=== PATIENT | female | born 1955 ===

== ENCOUNTER 2020-06-05 07:40 | Outpatient (REF) | payer MEDICARE, OTHER, SELFPAY ==
[2020-06-05 09:45] LABS: MANUAL DIFF FLAG NO
[2020-06-05 09:58] LABS: Basophils Percent Auto 0.4 % (0-2); Hematocrit 43.2 % (37-47); Imm Gran Abs Auto 0.03 X10*3/uL (0.00-0.03); Imm Gran Pct Auto 0.4 % (0.0-0.4); Lymphocytes Absolute Auto 2.4 X10*3/uL (1.2-4.9); Lymphocytes Percent Auto 32.8 % (20-40); Mean Corpuscular HGB Conc 32.4 g/dl (31.0-35.0); Mean Corpuscular Hemoglobin 27.1 pg (27.0-33.0); Mean Corpuscular Volume 83.6 fL (80-98); Mean Platelet Volume 11.6 fL (9.4-12.3); Monocytes Absolute Auto 0.5 X10*3/uL (0.1-1.2); Monocytes Percent Auto 7.1 % (2-11); Neutrophils Absolute Auto 4.4 X10*3/uL (2.0-8.3); Neutrophils Percent Auto 59.3 % (45-73); Platelet Count 195 X10*3/uL (160-400); Red Blood Count 5.17 X10*6/uL (4.20-5.50); Red Cell Distribution Width 15.1 % (11.0-16.0); White Blood Count 7.3 X10*3/uL (4.8-10.8)
[2020-06-05 10:18] LABS: Estimated Average Glucose 186 mg/dL; Hemoglobin A1c % 8.1 %
[2020-06-05 10:31] LABS: Alanine Aminotransferase 19 U/L (0-31); Albumin Level 4.2 g/dL (3.5-5.0); Alkaline Phosphatase 47 U/L (39-117); Anion Gap 14 (12-20); Aspartate Amino Transferase 17 U/L (5-31); Bilirubin Total 0.4 mg/dL (0.0-1.0); Blood Urea Nitrogen 15 mg/dL (9-16); Calcium 9.4 mg/dL (8.4-10.2); Carbon Dioxide 27 mmol/L (22-29); Chloride 104 mmol/L (96-108); Cholesterol 141 mg/dL; Estimated Glomerular Filt Rate > 60; Glucose Fasting 124 mg/dL (60-99); HDL Cholesterol 31 mg/dL; LDL Cholesterol Calculated 67 mg/dl; Potassium 4.7 mmol/l (3.3-5.1); Sodium 140 mmol/L (135-145); Total Protein 7.3 g/dL (6.5-8.0); Triglycerides 217 mg/dL
[2020-06-05 10:45] LABS: Glucose Urine UA >=1000 MG/DL (NEG); Leukocyte Esterase Urine NEG (NEG); Nitrite Urine NEG (NEG); Specific Gravity - Urine 1.015 (1.005-1.025); Urine Blood 2+ (NEG); Urine Ketones NEG (NEG); Urine Protein NEG (NEG-TRACE)
[2020-06-05 10:50] LABS: Appearance Urine HAZY; Color Urine YELLOW
[2020-06-05 10:55] LABS: Free T4 (Free Thyroxine) 1.09 ng/dL (0.71-1.85); Thyroid Stimulating Hormone 3.87 mIU/mL (0.32-4.0); Vitamin D 25-OH Total 39.2 ng/mL (>30)
[2020-06-05 10:57] LABS: Creatinine Urine 79.37 mg/dL; Microalbum/Creatinine Ratio Ur 50.3 ug/mg cr
[2020-06-05 11:10] LABS: Bacteria Urine 1+ /LPF; Mucus Urine 1+ /LPF; Squamous Epithelial Cell Urine 1+ /LPF; WBC Urine 0-2 /HPF (0-4)
== END 2020-06-05 07:41 | disposition home or self-care (01) ==
LOC: HO.10HDL 07:40
PROVIDERS: Visit Provider Internal Medicine
DX: I25.118 Atherosclerotic heart disease of native coronary artery with other forms of angina pectoris (principal); E11.42 Type 2 diabetes mellitus with diabetic polyneuropathy; I10 Essential (primary) hypertension; E78.5 Hyperlipidemia, unspecified; E03.9 Hypothyroidism, unspecified; E66.9 Obesity, unspecified; I25.5 Ischemic cardiomyopathy; E55.9 Vitamin D deficiency, unspecified
CPT/HCPCS: 36415; 80053; 80061; 81001; 82043; 82306; 83036; 84439; 84443; 85025

== ENCOUNTER → 2020-07-14 13:13 | Outpatient (BNVA) | payer MEDICARE, MEDICAID, SELFPAY | PROVIDERS: PCP Internal Medicine; Referring Provider Internal Medicine; Visit Provider Internal Medicine | DX: I25.5 Ischemic cardiomyopathy (principal); I25.10 Atherosclerotic heart disease of native coronary artery without angina pectoris; I47.2 Ventricular tachycardia; Z45.018 Encounter for adjustment and management of other part of cardiac pacemaker; Z95.5 Presence of coronary angioplasty implant and graft | CPT/HCPCS: 93005; 99212 ==

== ENCOUNTER 2020-07-31 13:00 | Outpatient (RCR) | payer MEDICARE, MEDICAID, SELFPAY | END 2020-08-07 23:55 | disposition home or self-care (01) | LOC: HO.PAOS 13:00 | PROVIDERS: Visit Provider Counselor Mental Health | DX: F06.30 Mood disorder due to known physiological condition, unspecified (principal); F43.10 Post-traumatic stress disorder, unspecified | CPT/HCPCS: 90834 ==

== ENCOUNTER 2020-09-16 07:34 | Outpatient (REF) | payer MEDICARE, MEDICAID, SELFPAY ==
[2020-09-16 10:08] LABS: MANUAL DIFF FLAG NO
[2020-09-16 10:13] LABS: Basophils Percent Auto 0.4 % (0-2); Hematocrit 43.4 % (37-47); Imm Gran Abs Auto 0.03 X10*3/uL (0.00-0.03); Imm Gran Pct Auto 0.4 % (0.0-0.4); Lymphocytes Absolute Auto 3.2 X10*3/uL (1.2-4.9); Lymphocytes Percent Auto 38.5 % (20-40); Mean Corpuscular HGB Conc 32.3 g/dl (31.0-35.0); Mean Corpuscular Hemoglobin 27.1 pg (27.0-33.0); Mean Corpuscular Volume 83.9 fL (80-98); Mean Platelet Volume 10.9 fL (9.4-12.3); Monocytes Absolute Auto 0.6 X10*3/uL (0.1-1.2); Monocytes Percent Auto 7.2 % (2-11); Neutrophils Absolute Auto 4.4 X10*3/uL (2.0-8.3); Neutrophils Percent Auto 53.5 % (45-73); Platelet Count 181 X10*3/uL (160-400); Red Blood Count 5.17 X10*6/uL (4.20-5.50); Red Cell Distribution Width 14.9 % (11.0-16.0); White Blood Count 8.2 X10*3/uL (4.8-10.8)
[2020-09-16 10:43] LABS: Glucose Urine UA >=1000 MG/DL (NEG); Leukocyte Esterase Urine NEG (NEG); Nitrite Urine NEG (NEG); PH 6.5 (5.0-8.0); Urine Blood NEG (NEG); Urine Ketones NEG (NEG); Urine Protein NEG (NEG-TRACE)
[2020-09-16 10:46] LABS: Appearance Urine CLEAR; Color Urine YELLOW
[2020-09-16 10:58] LABS: Alanine Aminotransferase 16 U/L (0-31); Albumin Level 4.1 g/dL (3.5-5.0); Alkaline Phosphatase 45 U/L (39-117); Anion Gap 13 (12-20); Aspartate Amino Transferase 14 U/L (5-31); Bilirubin Total 0.4 mg/dL (0.0-1.0); Blood Urea Nitrogen 19 mg/dL (9-16); Carbon Dioxide 27 mmol/L (22-29); Chloride 101 mmol/L (96-108); Cholesterol 130 mg/dL; Estimated Glomerular Filt Rate > 60; Glucose Fasting 109 mg/dL (60-99); HDL Cholesterol 32 mg/dL; LDL Cholesterol Calculated 56 mg/dl; Potassium 4.4 mmol/l (3.3-5.1); Sodium 137 mmol/L (135-145); Triglycerides 213 mg/dL
[2020-09-16 11:06] LABS: RBC Urine 0 /HPF (0); Squamous Epithelial Cell Urine TRACE /LPF; WBC Urine 0 /HPF (0-4)
[2020-09-16 11:21] LABS: Free T4 (Free Thyroxine) 1.08 ng/dL (0.71-1.85); Thyroid Stimulating Hormone 5.24 uIU/mL (0.32-4.0); Vitamin D 25-OH Total 32.6 ng/mL (>30)
[2020-09-16 11:33] LABS: Folate 11.1 ng/mL (> or = 4.0); Vitamin B12 406 pg/mL (200-900)
== END 2020-09-16 07:35 | disposition home or self-care (01) ==
LOC: HO.10HDL 07:34
PROVIDERS: Visit Provider Internal Medicine
DX: E11.42 Type 2 diabetes mellitus with diabetic polyneuropathy (principal); Z79.4 Long term (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 of insulin; I10 Essential (primary) hypertension; E78.00 Pure hypercholesterolemia, unspecified; I25.5 Ischemic cardiomyopathy; I25.118 Atherosclerotic heart disease of native coronary artery with other forms of angina pectoris; E55.9 Vitamin D deficiency, unspecified; G62.9 Polyneuropathy, unspecified; E03.9 Hypothyroidism, unspecified; E66.9 Obesity, unspecified
CPT/HCPCS: 36415; 80053; 80061; 81001; 82043; 82306; 82607; 82746; 84439; 84443; 85025

== ENCOUNTER → 2021-01-08 07:21 | Outpatient (REF) | payer MEDICARE, MEDICAID, SELFPAY ==
--- NOTE | 2021-01-08 07:30 | CA_ITS ---
Transthoracic Echocardiogram Patient (Last, First, Middle): Hien Aden, Gender: Female Date of : 1955 Age: 65 Procedure Date: 01/08/2021 Procedure Type: Transthoracic Echocardiogram Location: OP Height: 162.56 cm Weight: 86.18 kg BSA: 1.91 m2 Heart Rate: bpm BP: 138 / 70 mmHg Return Checker: Stephani MD: Casa Polk MD Yard Worker: Corky Quinonez MD Symptoms: I25.5 - Ischemic cardiomyopathy ECG Rhythm: Sinus Conclusions: - 1. Moderate to severe LV systolic dysfunction with regional wall motion of in the LAD territory consistent with ischemic cardiomyopathy with grade 2 diastolic dysfunction 2. Mildly dilated left atrium 3. Mild mitral regurgitation 4. No gross pericardial effusion Findings Procedure Information The patient receives contrast. Left Ventricle Mildly increased left ventricular cavity size. There is normal left ventricular wall thickness. The left ventricular systolic function is moderate to severely decreased. The visually estimated ejection fraction is between 30-35%. There is evidence of regional wall motion abnormalities. Spectral Doppler is indicative of a pseudonormal filling pattern. Elevated filling pressures. E/E prime ratio is >15, consistent with elevated filling pressures. Evidence suggests grade II (moderate) diastolic dysfunction. Wall Motion Rest Echo Findings The mid anterior, basal inferoseptal, and basal anteroseptal segments are hypokinetic. The apical anterior, apical lateral, apical septum, mid inferoseptal, and mid anteroseptal segments are akinetic. The apex segment is dyskinetic. All other scored wall segments showed normal motion. Right Ventricle Normal right ventricular cavity size and systolic function. There is an ICD wire seen in the right ventricle. Atria The left atrium is mildly dilated. There is no evidence of interatrial shunt. The right atrium is normal in size. Aortic Valve Normal aortic valve structure and function. There is no aortic valve stenosis. There is no aortic valve regurgitation. Mitral Valve Normal mitral valve structure and function. There is mild mitral valve regurgitation. There is no mitral valve stenosis. Pulmonic Valve The pulmonic valve was not well visualized. Tricuspid Valve Likely normal tricuspid valve structure and function. Tricuspid regurgitation envelope is inadequate for calculation of right ventricular systolic pressure. Great Vessels All visible segments of the aorta are normal in size. The pulmonary artery was not well visualized. Venous The inferior vena cava is normal in size and collapses greater than 50% with inspiration. Pericardium/Pleural There is no evidence of pericardial effusion. Prior Study Comparison No significant change compared to prior study dated: 03/22/2019. Measurements 2D Linear Measurements RVIDd: 2.96 RVIDd Index: 1.55 IVSd: 0.88 0.6-0.9/0.6-1.0 cm LVIDd: 5.83 3.9-5.3/4.2-5.9 cm LVIDd Index: 3.05 2.4-3.2/2.2-3.1 cm/m2 LVIDs: 3.97 2.0-3.6 cm LVPWd: 1.06 0.7-1.1 cm Ao Root: 3.10 2.1-3.5 cm LA Diam: 4.80 2.7-3.8/3.0-4.0 cm LAIDs Index: 2.51 1.5-2.3 cm/m2 LV Mass: 281.97 67-162/88-224 g LV Mass Index: 147.63 43-95/49-115 g/m2 LVOT Diam: 2.00 3.0+(-)1.3 cm 2D Systolic Function EF 4C: 32.10 >55% EF 2C: 30.80 >55% EF BiP: 32.90 >55% Mitral Valve MV Pk E: 0.82 MV PK A: 0.73 MV Decel Time: 229.00 E/A: 1.10 E'Lateral: 7.25 E'Medial: 4.35 E/E' Med: 18.90 E/E' Lat: 11.30 MR Vol - PW Dopp: 18.12 MR VTI: 1.51 MR ERO: 12.00 MR Alias Guzman: 0.32 MR RAD: 0.50 Aortic Valve AoV Pk Guzman: 1.45 AoV Mn Guzman: 0.98 AoV VTI: 0.30 AoV Pk Grad: 8.00 Aov Mn Grad: 5.00 KRYSTINA Cont.VTI: 1.63 LVOT LVOT Pk Guzman: 0.68 LVOT Mn Guzman: 0.46 LVOT VTI: 0.15 LVOT Pk Grad: 2.00 LVOT Mn Grad: 1.00 LVOT Diam: 2.00 LVOT Area: 3.14 Diastolic Function MV Pk E: 0.82 MV Pk A: 0.73 E/A: 1.10 E'Medial: 4.35 E/E' Med: 18.90 E' Laterial: 7.25 E/E' Lat: 11.30 Tricuspid Valve RA Press: 3.00 Great Vessels Aorta Ao Root-2D: 3.10 2.0-3.7 cm Ao Asc: 3.00 2.1-3.4 cm Ao Arch: 2.80 Updated in Other Vendor System with Status of Final Corky Quinonez MD electronically signed on 01/09/2021 4:04:17 PM with status of Final
[2021-01-08 09:47] LABS: MANUAL DIFF FLAG NO
[2021-01-08 09:55] LABS: Basophils Percent Auto 0.5 % (0-2); Hematocrit 45.9 % (37-47); Hemoglobin 14.8 g/dl (12.0-16.0); Imm Gran Abs Auto 0.03 X10*3/uL (0.00-0.03); Imm Gran Pct Auto 0.4 % (0.0-0.4); Lymphocytes Absolute Auto 2.2 X10*3/uL (1.2-4.9); Lymphocytes Percent Auto 29.8 % (20-40); Mean Corpuscular HGB Conc 32.2 g/dl (31.0-35.0); Mean Corpuscular Volume 83.8 fL (80-98); Mean Platelet Volume 11.3 fL (9.4-12.3); Monocytes Absolute Auto 0.6 X10*3/uL (0.1-1.2); Monocytes Percent Auto 7.8 % (2-11); Neutrophils Absolute Auto 4.6 X10*3/uL (2.0-8.3); Neutrophils Percent Auto 61.5 % (45-73); Platelet Count 186 X10*3/uL (160-400); Red Blood Count 5.48 X10*6/uL (4.20-5.50); White Blood Count 7.4 X10*3/uL (4.8-10.8)
[2021-01-08 09:59] LABS: Glucose Urine UA >=1000 MG/DL (NEG); Leukocyte Esterase Urine NEG (NEG); Nitrite Urine NEG (NEG); PH 5.5 (5.0-8.0); Specific Gravity - Urine <= 1.005 (1.005-1.025); Urine Blood NEG (NEG); Urine Ketones NEG (NEG); Urine Protein NEG (NEG-TRACE)
[2021-01-08 10:01] LABS: Appearance Urine CLEAR; Color Urine YELLOW
[2021-01-08 10:12] LABS: Bacteria Urine TRACE /LPF; Squamous Epithelial Cell Urine 2+ /LPF
[2021-01-08 10:27] LABS: Alanine Aminotransferase 19 U/L (0-31); Albumin Level 4.6 g/dL (3.5-5.0); Alkaline Phosphatase 54 U/L (39-117); Anion Gap 15 (12-20); Aspartate Amino Transferase 15 U/L (5-31); Bilirubin Total 0.3 mg/dL (0.0-1.0); Blood Urea Nitrogen 26 mg/dL (9-16); Carbon Dioxide 26 mmol/L (22-29); Chloride 100 mmol/L (96-108); Cholesterol 147 mg/dL; Estimated Glomerular Filt Rate 55; Glucose Fasting 201 mg/dL (60-99); HDL Cholesterol 34 mg/dL; LDL Cholesterol Calculated 66 mg/dl; Potassium 4.7 mmol/L (3.3-5.1); Sodium 136 mmol/L (135-145); Total Protein 7.8 g/dL (6.5-8.0); Triglycerides 235 mg/dL
[2021-01-08 10:33] LABS: Free T4 (Free Thyroxine) 1.06 ng/dL (0.71-1.85); Thyroid Stimulating Hormone 4.52 uIU/mL (0.32-4.0); Vitamin D 25-OH Total 40.4 ng/mL (>30)
[2021-01-08 10:49] LABS: Creatinine Urine 21.96 mg/dL
== END ==
LOC: HO.CARD 07:21
PROVIDERS: Absent Provider Internal Medicine; PCP Internal Medicine; Visit Provider Internal Medicine
DX: I25.5 Ischemic cardiomyopathy (principal); I10 Essential (primary) hypertension; E78.00 Pure hypercholesterolemia, unspecified; E11.42 Type 2 diabetes mellitus with diabetic polyneuropathy; I25.118 Atherosclerotic heart disease of native coronary artery with other forms of angina pectoris; E03.9 Hypothyroidism, unspecified; E66.9 Obesity, unspecified; G62.9 Polyneuropathy, unspecified; E55.9 Vitamin D deficiency, unspecified; Z79.4 Long term (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 of insulin
CPT/HCPCS: 36415; 80053; 80061; 81001; 81003; 82043; 82306; 84439; 84443; 85025; 93306; Q9957

== ENCOUNTER → 2021-01-12 12:59 | Outpatient (BNVA) | payer MEDICARE, MEDICAID, SELFPAY | PROVIDERS: PCP Internal Medicine; Referring Provider Internal Medicine; Visit Provider Internal Medicine | DX: Z45.02 Encounter for adjustment and management of automatic implantable cardiac defibrillator (principal); I25.5 Ischemic cardiomyopathy; I25.10 Atherosclerotic heart disease of native coronary artery without angina pectoris; I47.2 Ventricular tachycardia | CPT/HCPCS: 99212 ==

== ENCOUNTER 2021-03-31 07:14 | Outpatient (REF) | payer MEDICARE, MEDICAID, SELFPAY ==
[2021-03-31 08:04] LABS: MANUAL DIFF FLAG NO
[2021-03-31 08:11] LABS: Basophils Percent Auto 0.2 % (0-2); Hematocrit 45.4 % (37-47); Hemoglobin 14.5 g/dl (12.0-16.0); Imm Gran Abs Auto 0.03 X10*3/uL (0.00-0.03); Imm Gran Pct Auto 0.4 % (0.0-0.4); Lymphocytes Absolute Auto 1.1 X10*3/uL (1.2-4.9); Lymphocytes Percent Auto 13.3 % (20-40); Mean Corpuscular HGB Conc 31.9 g/dl (31.0-35.0); Mean Corpuscular Hemoglobin 26.7 pg (27.0-33.0); Mean Corpuscular Volume 83.5 fL (80-98); Mean Platelet Volume 11.2 fL (9.4-12.3); Monocytes Absolute Auto 0.7 X10*3/uL (0.1-1.2); Monocytes Percent Auto 7.8 % (2-11); Neutrophils Absolute Auto 6.7 X10*3/uL (2.0-8.3); Neutrophils Percent Auto 78.3 % (45-73); Platelet Count 193 X10*3/uL (160-400); Red Blood Count 5.44 X10*6/uL (4.20-5.50); White Blood Count 8.5 X10*3/uL (4.8-10.8)
[2021-03-31 08:18] LABS: Estimated Average Glucose 200 mg/dL; Hemoglobin A1c % 8.6 %
[2021-03-31 08:36] LABS: Alanine Aminotransferase 684 U/L (0-31); Albumin Level 4.4 g/dL (3.5-5.0); Alkaline Phosphatase 133 U/L (39-117); Anion Gap 14 (12-20); Aspartate Amino Transferase 652 U/L (5-31); Bilirubin Total 1.7 mg/dL (0.0-1.0); Blood Urea Nitrogen 17 mg/dL (9-16); Calcium 9.8 mg/dL (8.4-10.2); Carbon Dioxide 25 mmol/L (22-29); Chloride 103 mmol/L (96-108); Cholesterol 127 mg/dL; Estimated Glomerular Filt Rate 57; Glucose Fasting 161 mg/dL (60-99); HDL Cholesterol 37 mg/dL; LDL Cholesterol Calculated 60 mg/dl; Potassium 4.7 mmol/L (3.3-5.1); Sodium 137 mmol/L (135-145); Total Protein 7.8 g/dL (6.5-8.0); Triglycerides 154 mg/dL
[2021-03-31 08:58] LABS: Thyroid Stimulating Hormone 2.75 uIU/mL (0.32-4.0); Vitamin D 25-OH Total 41.1 ng/mL (>30)
[2021-03-31 09:19] LABS: Appearance Urine CLOUDY; Color Urine YELLOW; Glucose Urine UA >=1000 MG/DL (NEG); Leukocyte Esterase Urine NEG (NEG); Nitrite Urine NEG (NEG); Specific Gravity - Urine <= 1.005 (1.005-1.025); Urine Blood NEG (NEG); Urine Ketones NEG (NEG); Urine Protein TRACE MG/DL (NEG-TRACE)
[2021-03-31 09:21] LABS: Creatinine Urine 82.74 mg/dL; Microalbum/Creatinine Ratio Ur 84.6 ug/mg cr
[2021-03-31 09:26] LABS: Folate 15.9 ng/mL (> or = 4.0); Vitamin B12 974 pg/mL (200-900)
[2021-03-31 09:32] LABS: Bacteria Urine 1+ /LPF; RBC Urine 0 /HPF (0); Squamous Epithelial Cell Urine 4+ /LPF
== END 2021-03-31 07:15 | disposition home or self-care (01) ==
LOC: HO.LAB 07:14
PROVIDERS: PCP Internal Medicine; Visit Provider Internal Medicine
DX: I25.118 Atherosclerotic heart disease of native coronary artery with other forms of angina pectoris (principal); I10 Essential (primary) hypertension; I25.5 Ischemic cardiomyopathy; L42 Pityriasis rosea; E11.42 Type 2 diabetes mellitus with diabetic polyneuropathy; E78.00 Pure hypercholesterolemia, unspecified; E03.9 Hypothyroidism, unspecified; E66.9 Obesity, unspecified; E55.9 Vitamin D deficiency, unspecified; G62.9 Polyneuropathy, unspecified; Z79.4 Long term (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 of insulin
CPT/HCPCS: 36415; 80053; 80061; 81001; 81003; 82043; 82306; 82607; 82746; 83036; 84439; 84443; 85025

== ENCOUNTER 2021-04-20 11:06 | Outpatient (REF) | payer MEDICARE, MEDICAID, SELFPAY ==
--- NOTE | ~2021-04-20 | MM_ITS ---
EXAMINATION: MM SCREENING DIGITAL BREAST TOMOSYNTHESIS, BILATERAL CLINICAL INFORMATION: Invasive ductal cancer left breast, 2008. Right breast DCIS, 2013. Benign right stereotactic biopsy 2014. Due for yearly. COMPARISON: Mammography: 04/16/2020, 03/29/2019, 03/27/2018 TECHNIQUE: Digital breast tomosynthesis is performed in both the craniocaudal and mediolateral oblique views along with computer-aided detection (CAD). Synthesized 2D images are generated from the tomosynthesis. FINDINGS: There are scattered areas of fibroglandular density (ACR BI-RADS breast composition Category b). There is stable scarring consistent with the prior bilateral lumpectomies. Pacemaker generator overlies and partly obscures left axilla on MLO view. There are some surgical clips left axilla. Biopsy clip marker again seen posterior central right breast. Neither breast shows interval developing density, mass, or architectural abnormality. There are scattered bilateral benign coarse and fine punctate round calcifications in each breast. No significant changes. MM/MM tomosynthesis screening BI IMPRESSION: No mammographic evidence of malignancy. Bilateral stable post therapy changes. ASSESSMENT: BI-RADS 2: Benign RECOMMENDATION: Routine annual mammography screening. This patient's information was entered into a reminder system with a target due date for their next mammogram.
== END 2021-04-20 11:07 | disposition home or self-care (01) ==
LOC: HO.MAMMO 11:06
PROVIDERS: PCP Internal Medicine; Visit Provider Internal Medicine Medical Oncology
DX: Z12.31 Encounter for screening mammogram for malignant neoplasm of breast (principal)
CPT/HCPCS: 77063; 77067

== ENCOUNTER 2021-04-28 13:21 | Outpatient (REF) | payer MEDICARE, MEDICAID, SELFPAY ==
[2021-04-28 14:58] LABS: Gamma Glutamyl Transpeptidase 168 U/L (7-33)
[2021-04-28 15:02] LABS: Appearance Urine CLEAR; Color Urine STRAW; Glucose Urine UA >=1000 MG/DL (NEG); Leukocyte Esterase Urine NEG (NEG); Nitrite Urine NEG (NEG); Urine Blood NEG (NEG); Urine Ketones NEG (NEG); Urine Protein NEG (NEG-TRACE)
[2021-04-28 15:10] LABS: RBC Urine 0-2 /HPF (0); WBC Urine 0-2 /HPF (0-4)
[2021-04-28 15:11] LABS: Squamous Epithelial Cell Urine 1+ /LPF
[2021-04-28 15:14] LABS: Ferritin 103 ng/mL (10-250)
[2021-04-29 08:32] LABS: HBc Num1 0.08 S/CO (0.00-0.79); HBsAGNum1 0.18 S/CO (0.00-0.99); Hepatitis A Antibody IgM 0.19 Index (0-0.79); Hepatitis B Core Antibody Nonreactive (Nonreactive); Hepatitis B Surface Antigen Negative (Negative); ~HepC Num1 0.09 S/CO (0.00-0.79); ~Hepatitis A Antibody IgM Nonreactive (Nonreactive); ~Hepatitis C Antibody Nonreactive (Nonreactive)
[2021-04-29 08:43] LABS: HBS Num1 0.61 mIU/mL (0-7.99); ~Hepatitis B Surface Antibody NONREACTIVE (Nonreactive)
== END 2021-04-28 13:22 | disposition home or self-care (01) ==
LOC: HO.LAB 13:21
PROVIDERS: PCP Internal Medicine; Visit Provider Internal Medicine
DX: Z01.84 Encounter for antibody response examination (principal); R74.01 Elevation of levels of liver transaminase levels
CPT/HCPCS: 36415; 81001; 81003; 82728; 82977; 86704; 86706; 86709; 86803; 87340

== ENCOUNTER 2021-05-10 14:16 | Inpatient (IN) | payer MEDICARE, MEDICAID, SELFPAY ==
--- NOTE | 2021-05-10 | ECG_ITS ---
Test Reason : MEDICAL Blood Pressure : / mmHG Vent. Rate : 085 BPM Atrial Rate : 085 BPM P-R Int : 154 ms QRS Dur : 116 ms QT Int : 360 ms P-R-T Axes : 051 -65 082 degrees QTc Int : 428 ms Normal sinus rhythm Possible Left atrial enlargement Left axis deviation Left ventricular hypertrophy with QRS widening Inferior infarct (cited on or before 09-AUG-2017) Anteroseptal infarct (cited on or before 09-AUG-2017) Abnormal ECG When compared with ECG of 09-AUG-2017 09:11, Questionable change in initial forces of Lateral leads ST less elevated in Anterior leads Nonspecific T wave abnormality, worse in Lateral leads Referred By: Hasmukh Quiroz Electronically Signed By:ALICE NGUYEN
--- NOTE | ~2021-05-10 | XR_ITS ---
EXAMINATION: XR CHEST CLINICAL INFORMATION: 1 placement COMPARISON: Previous chest x-ray most recent July [address] 05/10/2021 TECHNIQUE: Frontal view of the chest was obtained. FINDINGS: There is a new left jugular line. The tip projects over the right upper chest probably in the right subclavian vein. There is a left subclavian single chamber pacemaker that appears unchanged. The lung volumes are low. The cardiac silhouette may be slightly enlarged. There is crowding of the central bronchovascular markings. It is difficult to exclude pneumonia or edema. There is no pleural effusion or pneumothorax. There are degenerative changes of the spine. XR/XR chest 1V IMPRESSION: Left jugular line tip projects over right subclavian vein. No pneumothorax. Low lung volumes and crowding of the central bronchovascular markings. It is difficult to exclude pneumonia or pulmonary edema..
--- NOTE | ~2021-05-10 | US_ITS ---
EXAMINATION: US ABDOMEN COMPLETE CLINICAL INFORMATION: Elevated liver function testing.. COMPARISON: None TECHNIQUE: Real-time imaging of the abdominal viscera. FINDINGS: Reportedly the patient is unable to suspend respirations. This limits the exam PANCREAS: The pancreas is obscured. ABDOMINAL AORTA: No aneurysm demonstrated. Much of the aorta was obscured by gas. INFERIOR VENA CAVA: No suspicious abnormality in the visualized portions of the IVC LIVER: Reportedly the patient is unable to suspend respirations. Limited assessment. No suspicious focal lesion. Suspect some generalized increased hepatic echogenicity. This could be related to fatty change. There is no intrahepatic biliary duct dilatation seen. GALLBLADDER: There is a 2 cm gallstone. There is no definite gallbladder wall thickening or localized pericholecystic fluid. No reported tenderness to transducer pressure over the gallbladder. COMMON BILE DUCT: Normal in caliber measuring 0.6 cm in diameter. There may be some low-level echoes within the common duct. RIGHT KIDNEY: Normal. No hydronephrosis. No renal calculi or focal parenchymal lesions. The kidney measures 11.3 cm in maximum dimension. LEFT KIDNEY: There is a sharply circumscribed 1.5 cm round hypoechoic mass with a sharp interface with the adjacent cortex. There is posterior enhancement and no color signal. This is most consistent with a cyst and does not require any further evaluation. No hydronephrosis. No renal calculi or focal parenchymal lesions. The kidney measures 11.2 cm in maximum dimension. SPLEEN: Normal. The spleen measures 10.5 cm in maximum dimension. FREE FLUID: None. US/US abdomen complete IMPRESSION: Limited study. Cholelithiasis. There may be some low-level echoes within the common duct
--- NOTE | ~2021-05-10 | XR_ITS ---
EXAMINATION: XR THORACOLUMBAR SPINE CLINICAL INFORMATION: Back pain COMPARISON: None TECHNIQUE: AP, lateral and swimmer's views FINDINGS: No acute fracture or traumatic malalignment. Bulky bridging osteophytes present throughout the thoracic spine. Vertebral body heights maintained. There is spinal soft tissues unremarkable. XR/XR thoracic spine 2V IMPRESSION: No compression fractures or subluxations are identified.
--- NOTE | ~2021-05-10 | CT_ITS ---
EXAMINATION: CT CHEST, ABDOMEN AND PELVIS WITH CONTRAST CLINICAL INFORMATION: Clinical suspicion of pneumonia. Abdomen pain. Elevated liver function testing. COMPARISON: Portions of recent abdomen ultrasound. TECHNIQUE: Multidetector CT of the chest, abdomen and pelvis. The patient received: Oral contrast: No Intravenous contrast: 85 mL Omnipaque 350 No contrast reaction reported Sagittal and coronal reformatted images were obtained on the technologist workstation. Total exam dose-length product 879 mGy-cm FINDINGS: DIGITAL BIOINFORMATICIAN: Devices overlie the patient. Power generator in the left chest wall with opaque cardiac leads. CHEST: Lung: Assessment limited by motion. Artifact related to an implanted power generator in the left chest wall. No suspicious abnormality the trachea or mainstem bronchi. There is a possible 0.5 cm nodule in the posteromedial right lower lobe (series 12, image 272). There is a 0.3 cm nodule in the posterior left lower lobe (series 12, image 282). No lobar or segmental consolidation. Small areas of airspace disease with be difficult to detect due to the motion. Pleura: There is no pleural fluid. There is no pneumothorax. Mediastinum: There are no enlarged mediastinal or hilar lymph nodes. No suspicious abnormality esophagus. Vascular: There are cardiac leads causing artifact in the right atrium and right ventricle. There is calcification in the region of the mitral annulus. There is hypodensity in the course of the LAD which could be related to a stent. The left ventricle is likely dilated. Chest Wall/Axilla: Artifact related to power generator. Surgical clips left axilla. The previous reports indicate history of breast cancer. ABDOMEN/PELVIS: Limited by motion. Liver, Gallbladder, And Biliary Tree: There is diffuse hepatic low attenuation. This is consistent with fatty change. No large focal lesion. The gallbladder is distended. The common duct is prominent. No calcified duct calculus. The low-level echoes on ultrasound are not well visualized. Pancreas: Limited by motion. No large mass. Spleen: No definite abnormality. Adrenal Glands: No definite mass. Kidneys And Ureters: Probable cyst lateral left kidney does not require any further evaluation. Symmetric nephrograms. No suspicious mass. No dilation of the collecting system. Gastrointestinal Tract: Fecal residue throughout the colon. The stomach is distended with fluid. No small bowel dilation. No localized fat stranding. No definite evidence of acute appendicitis. The appendix appears normal caliber. Abdominal Wall: No significant hernia is appreciated. There is subcutaneous thickening. This may be related to previous injections. Lymphovascular Structures And Fluid: There is no abdominal aortic aneurysm. The portal vein is not optimally visualized but at least the main branches and partially enhance. Bladder: No suspicious abnormality. Pelvic Viscera: The uterus appears within normal limits. No suspicious adnexal mass. Musculoskeletal: Degenerative changes in the spine. There is some canal narrowing in the lumbar spine. CT/CT abdomen pelvis w con IMPRESSION: Study limited by motion. There are some small lower lobe pulmonary nodules. Given the history of breast cancer close follow-up is warranted. The patient was unable to suspend respirations which could've obscured additional nodules. I recommend a follow-up CT in 6 months. Fatty change in liver. Known cholelithiasis. Prominent common duct. In the presence of elevated liver function testing and cholelithiasis MRCP may BE warranted. Coronary stent suspected. The left ventricle appears dilated.
--- NOTE | ~2021-05-10 | XR_ITS ---
EXAMINATION: XR CHEST CLINICAL INFORMATION: Status post line placement. COMPARISON: CT chest 05/10/2021 TECHNIQUE: Portable upright AP view of the chest was obtained. FINDINGS: There are low lung volumes. A new left internal jugular central venous line is present which crosses midline to the right side with at level of medial right subclavian vein. There is no pneumothorax. Unipolar AICD again seen. The heart is normal in size. There is fullness central vasculature. There may be some scattered groundglass opacities. There are air bronchograms left infrahilar region suggesting airspace opacities. No lobar or segmental airspace consolidation or significant effusion. Results communicated and confirmed with Dr. Archer via secure text at 1704 hours. XR/XR chest 1V IMPRESSION: 1. Status post left internal jugular central venous line with tip coursing midline and ending in region of contralateral medial right subclavian vein. No pneumothorax. 2. Low lung volumes. Fullness central vasculature. Scattered opacities left infrahilar region.
--- NOTE | ~2021-05-10 | XR_ITS ---
EXAMINATION: XR LUMBAR SPINE CLINICAL INFORMATION: Pain COMPARISON: 05/10/2021 TECHNIQUE: Three views of the lumbar spine. FINDINGS: Mild scoliosis of the upper lumbar spine. There is anatomic alignment of the lumbar vertebral bodies and posterior elements. Vertebral body heights are maintained. No acute fracture is seen. Relatively mild disc space narrowing is most prominent at L4-L5 and surrounding endplate osteophytes. Endplate osteophytes are also noted at L2-L3. There is suspected facet arthropathy in the lower lumbar spine. Sacroiliac joints appear intact. XR/XR lumbar spine 1V IMPRESSION: No acute findings identified. Degenerative changes as noted above.
--- NOTE | ~2021-05-10 | FL_ITS ---
EXAMINATION: XR FLUOROSCOPY WITH IMAGES CLINICAL INFORMATION: ERCP. COMPARISON: None. TECHNIQUE: Fluoroscopy performed by Dr. Charles Gar.. Fluoroscopy time: 2.0 minutes DAP: 14.3 mGycm2 Images: 8 FINDINGS: On several images obtained during ERCP reveals contrast opacifying the entire CBD. There is no intraluminal filling defect visualized subsequent images reveals a guidewire extending into the common bile duct followed by a distended balloon. FL/FL guidance in OR IMPRESSION: ERCP reveals contrast opacified CBD to be unremarkable. No intraluminal filling defect seen.
[2021-05-10 14:43] VITALS: BP 126/62; PULSE 71; RESP 18; TEMP 36.9; O2SAT 98; BMI 33.5
--- NOTE | 2021-05-10 16:07 | ED.GENADULT ---
HPI - General Adult General Chief complaint: General Medical Stated complaint: back pain , vomiting Time Seen by Provider: 05/10/21 16:07 Source: patient Mode of arrival: ambulatory Limitations: no limitations History of Present Illness HPI narrative: 65 years old female presented to the emergency department with a chief complaint of back pain. She has history of chronic back pain she takes fentanyl patches , she is on gabapentin as well she states that the pain got worse this morning there is no weakness in the legs no numbness in the legs and no urinary incontinence Onset (ago): hour(s) (8) Radiation: back Severity: moderate Quality: aching Pain Consistency: constant Relieving factors: none Exacerbating factors: none Associated symptoms: denies other symptoms Related Data Home Medications Medication Instructions Recorded Confirmed brimonidine 0.1 % eye drops 1 drp OPHTHALMIC (EYE) BID 06/03/20 05/10/21 latanoprost 0.005 % eye drops 1 drp OPHTHALMIC (EYE) BEDTIME 06/03/20 05/10/21 aspirin 81 mg tablet,delayed 81 mg PO DAILY 07/14/20 04/28/21 release docusate sodium 100 mg capsule 100 mg PO BEDTIME 05/10/21 05/10/21 (Colace) ticagrelor 90 mg tablet (Brilinta) 1 tab PO BID 05/10/21 05/10/21 Previous Rx's Medication Instructions Recorded blood-glucose meter (Accu-Chek #1 ea 06/13/20 Catie Plus Meter) empagliflozin 25 mg tablet 25 mg PO DAILY #90 cap 09/19/20 (Jardiance) levothyroxine 50 mcg tablet 50 mcg PO QAM #90 cap 10/19/20 Novolog Flexpen U-100 Insulin 100 30 unit SUBCUT TID #81 cap NS 11/22/20 unit/mL (3 mL) subcutaneous (insulin aspart U-100) gabapentin 400 mg capsule 400 mg PO TID #270 cap 12/21/20 carvedilol 3.125 mg tablet 3.125 mg PO BID #180 cap 01/21/21 insulin detemir U-100 100 unit/mL 70 unit SUBCUT DAILY #63 ml 02/24/21 (3 mL) subcutaneous pen (Levemir FlexTouch U-100 Insulin) isosorbide mononitrate 30 mg 30 mg PO QAM 30 Days #30 tab 03/16/21 tablet,extended release 24 hr spironolactone 25 mg tablet 25 mg PO DAILY #90 tab 03/16/21 fentanyl 50 mcg/hr transdermal 1 patch TRANSDERMAL Q72H 30 Days 04/14/21 patch #10 ea furosemide 20 mg tablet 20 mg PO DAILY #30 cap 04/14/21 lisinopril 2.5 mg tablet 2.5 mg PO DAILY 90 Days #90 tab 04/14/21 lorazepam 0.5 mg tablet 0.5 mg PO DAILY PRN 30 Days #30 tab 04/17/21 Allergies Allergy/AdvReac Type Severity Reaction Status Date / Time No Known Allergies Allergy Mild NOT Verified 05/10/21 14:43 APPLICABLE Review of Systems Review of Systems: Yes all other systems are reviewed and are negative Constitutional: Constitutional: Reports no additional constitutional complaints Cardiovascular: Cardiovascular: Denies chest pain Respiratory: Respiratory: Reports no additional respiratory complaints [facility], [facility] Past Medical History Attestation statement: The following information was validated with the patient. 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 Lumbar degenerative disc disease Major depressive disorder, recurrent episode, mild Neuropathy Obesity (BMI 30-39.9) Osteoarthritis Osteoarthritis of spine with radiculopathy, cervical region Pityriasis rosea Pure hypercholesterolemia Type 2 diabetes mellitus with diabetic polyneuropathy Ventricular tachycardia Vitamin D deficiency Surgical History History of implantable cardioverter-defibrillator (ICD) placement (~06/22/18) History of lumpectomy of both breasts History of percutaneous coronary intervention (~12/2017) History of tubal ligation S/P angioplasty (~07/2017) Family History Family History Mother Heart attack Hypertension CVD (cardiovascular disease) Father Diabetes Social History Social History Housing: House Alcohol intake: never Patient Tobacco Use Status: Never used Tobacco Second Hand Smoke Exposure: Yes Use of substances other than those prescribed or required for medical reasons: No Advance Directives: Yes Advance Directives on File: No Advance Directives Date on File: 06/05/20 service: No Current occupational status: disabled Sexual orientation: Straight/Heterosexual Gender identity: Female Physical Exam Vital Signs: Vital Signs: Last Vital Signs Temp 98.4 F 05/10/21 22:00 Pulse 72 05/11/21 00:00 Resp 16 05/11/21 00:00 BP 95/46 L 05/11/21 00:00 Pulse Ox 98 05/11/21 00:00 Body Mass Index 33.5 Const: General: cooperative, healthy appearing and comfortable Nutritional Appearance: average body habitus Orientation/consciousness: oriented to person, oriented to place, oriented to time and patient oriented x3 HENMT: Head: Yes normal to inspection Face and sinus: Yes normal facial exam Mouth: Normal oral and palatal mucosa present Throat: Yes posterior oropharynx normal Neck: Neck: Yes normal visual inspection, Yes full ROM and Yes no lymphadenopathy Chest: Chest palpation & inspection: normal inspection of the chest and normal palpation of entire chest wall Resp: Effort & Inspection: normal respiratory effort Auscultation: clear to auscultation bilaterally Cardio: Jugular venous distension: no JVD Rate: regular rate Rhythm: regular rhythm GI: Inspection: Yes normal to inspection Palpation (GI): Soft to palpation, not firm, nontender and no guarding Auscultation: normal bowel sounds : General: Yes no CVA tenderness Back/Spine/Pelvis: Back: no CVA tenderness Neuro: General: oriented to person, oriented to place, oriented to time and patient oriented x3 Course Reevaluation(s) Reevaluation #1: stable clinically labs show elevated LFT/US ct gallstones spoke with GI DR Soto will cover with AB and admit Medical Decision Making Lab Data Result diagrams: 05/10/21 17:04 05/10/21 17:04 Labs: Lab Results 05/10/21 05/10/21 05/10/21 Range/Units 16:28 17:04 17:04 WBC 16.6 H (4.8-10.8) X10*3/uL RBC 6.13 H (4.20-5.50) X10*6/uL Hgb 16.7 H (12.0-16.0) g/dl Hct 50.0 H (37-47) % MCV 81.6 (80-98) fL MCH 27.2 (27.0-33.0) pg MCHC 33.4 (31.0-35.0) g/dl RDW 15.0 (11.0-16.0) % Plt Count 214 (160-400) X10*3/uL MPV 10.5 (9.4-12.3) fL Immature Gran % (Auto) 0.5 H (0.0-0.4) % Neut % (Auto) 87.6 H (45-73) % Lymph % (Auto) 6.0 L (20-40) % Placer % (Auto) 5.7 (2-11) % Eos % (Auto) 0.0 (0-4) % Baso % (Auto) 0.2 (0-2) % Lymph # (Auto) 1.0 L (1.2-4.9) X10*3/uL Placer # (Auto) 0.9 (0.1-1.2) X10*3/uL Eos # (Auto) 0.0 (0.0-0.4) X10*3/uL Baso # (Auto) 0.0 (0.0-0.2) X10*3/uL Abs Immat Gran (auto) 0.09 H (0.00-0.03) X10*3/uL Absolute Neuts (auto) 14.5 H (2.0-8.3) X10*3/uL Absolute Nucleated RBC 0.000 (0.0-0.012) X10*3/uL Nucleated RBC % (auto) 0.0 (0.0-0.2) /100WBC PT 11.3 (9.9-13.0) SEC INR 1.0 (0.9-1.1) Sodium (135-145) mmol/L Potassium (3.3-5.1) mmol/L Chloride (96-108) mmol/L Carbon Dioxide (22-29) mmol/L Anion Gap (12-20) BUN (9-16) mg/dL Creatinine (0.5-1.4) mg/dL Estim Creat Clear Calc Estimated GFR POC Glucose 175 H (60-115) mg/dL Random Glucose (60-115) mg/dL Calcium (8.4-10.2) mg/dL Total Bilirubin (0.0-1.0) mg/dL AST (5-31) U/L ALT (0-31) U/L Alkaline Phosphatase (39-117) U/L Total Protein (6.5-8.0) g/dL Albumin (3.5-5.0) g/dL Lipase (8-78) U/L Urine Color Urine Appearance Urine pH (5.0-8.0) Ur Specific [place] (1.005-1.025) Urine Protein (NEG-TRACE) MG/DL Urine Glucose (UA) (NEG) MG/DL Urine Ketones (NEG) MG/DL Urine Blood (NEG) Urine Nitrite (NEG) Ur Leukocyte Esterase (NEG) Urine RBC (0) /HPF Urine WBC (0-4) /HPF Ur Squamous Epith Cells /LPF Urine Bacteria /LPF COVID-19 (HERNANDO) (Negative) COVID-19 Clin Com 05/10/21 05/10/21 05/10/21 Range/Units 17:04 18:40 21:13 WBC (4.8-10.8) X10*3/uL RBC (4.20-5.50) X10*6/uL Hgb (12.0-16.0) g/dl Hct (37-47) % MCV (80-98) fL MCH (27.0-33.0) pg MCHC (31.0-35.0) g/dl RDW (11.0-16.0) % Plt Count (160-400) X10*3/uL MPV (9.4-12.3) fL Immature Gran % (Auto) (0.0-0.4) % Neut % (Auto) (45-73) % Lymph % (Auto) (20-40) % Placer % (Auto) (2-11) % Eos % (Auto) (0-4) % Baso % (Auto) (0-2) % Lymph # (Auto) (1.2-4.9) X10*3/uL Placer # (Auto) (0.1-1.2) X10*3/uL Eos # (Auto) (0.0-0.4) X10*3/uL Baso # (Auto) (0.0-0.2) X10*3/uL Abs Immat Gran (auto) (0.00-0.03) X10*3/uL Absolute Neuts (auto) (2.0-8.3) X10*3/uL Absolute Nucleated RBC (0.0-0.012) X10*3/uL Nucleated RBC % (auto) (0.0-0.2) /100WBC PT (9.9-13.0) SEC INR (0.9-1.1) Sodium 136 (135-145) mmol/L Potassium 4.4 (3.3-5.1) mmol/L Chloride 100 (96-108) mmol/L Carbon Dioxide 22 (22-29) mmol/L Anion Gap 18 (12-20) BUN 13 (9-16) mg/dL Creatinine 0.81 (0.5-1.4) mg/dL Estim Creat Clear Calc 74.5 Estimated GFR > 60 POC Glucose (60-115) mg/dL Random Glucose 188 H (60-115) mg/dL Calcium 10.8 H D (8.4-10.2) mg/dL Total Bilirubin 3.5 H (0.0-1.0) mg/dL AST 730 H (5-31) U/L ALT 529 H (0-31) U/L Alkaline Phosphatase 106 D (39-117) U/L Total Protein 8.8 H (6.5-8.0) g/dL Albumin 4.8 (3.5-5.0) g/dL Lipase 26 (8-78) U/L Urine Color YELLOW Urine Appearance CLEAR Urine pH 7.0 (5.0-8.0) Ur Specific [place] 1.010 (1.005-1.025) Urine Protein 2+ H (NEG-TRACE) MG/DL Urine Glucose (UA) >=1000 H (NEG) MG/DL Urine Ketones 5 (NEG) MG/DL Urine Blood TRACE (NEG) Urine Nitrite NEG (NEG) Ur Leukocyte Esterase NEG (NEG) Urine RBC 1-4 (0) /HPF Urine WBC 0-2 (0-4) /HPF Ur Squamous Epith Cells 1+ /LPF Urine Bacteria NONE /LPF COVID-19 (HERNANDO) Negative (Negative) COVID-19 Clin Com See Note Imaging Data CT scan - abdomen: Radiologist's impression: Pelvic Viscera: The uterus appears within normal limits. No suspicious adnexal mass. Musculoskeletal: Degenerative changes in the spine. There is some canal narrowing in the lumbar spine.? CT/CT abdomen pelvis w con IMPRESSION: Study limited by motion. There are some small lower lobe pulmonary nodules. Given the history of breast cancer close follow-up is warranted. ? The patient was unable to suspend respirations which could've obscured additional nodules. I recommend a follow-up CT in 6 months. ? Fatty change in liver. Known cholelithiasis. Prominent common duct. In the presence of elevated liver function testing and cholelithiasis MRCP may BE warranted. ? Coronary stent suspected. The left ventricle appears dilated. ? Discharge Plan Discharge Clinical Impression: Elevated LFTs, Gallstone, Acute cholangitis Patient Disposition: Admitted As Inpatient
[2021-05-10 16:32] VITALS: BP 177/87; PULSE 85; RESP 16; TEMP 37.2; O2SAT 98
[2021-05-10 16:38] LABS: Glucose, Whole Blood 175 mg/dL (60-115)
[2021-05-10 17:07] LABS: MANUAL DIFF FLAG NO
[2021-05-10] MEDS: ondansetron HCL 4 MG/2 ML VIAL IVPUSH (17:07)
[2021-05-10] MEDS: HYDROmorphone HCl 0.5 MG/0.5 ML SYRINGE IVPUSH (17:07)
[2021-05-10] MEDS: 0.9 % Sodium Chloride 1,000 ML 999 ML IVCONT (17:07)
--- NOTE | 2021-05-10 17:09 | PC.NURSE ---
iv inserted, labs drawn, ekg performed, vss, pt medicated per order, will continue to monitor.
[2021-05-10 17:15] LABS: Prothrombin Time 11.3 SEC (9.9-13.0)
[2021-05-10 17:17] LABS: Basophils Percent Auto 0.2 % (0-2); Hemoglobin 16.7 g/dl (12.0-16.0); Imm Gran Abs Auto 0.09 X10*3/uL (0.00-0.03); Imm Gran Pct Auto 0.5 % (0.0-0.4); Mean Corpuscular HGB Conc 33.4 g/dl (31.0-35.0); Mean Corpuscular Hemoglobin 27.2 pg (27.0-33.0); Mean Corpuscular Volume 81.6 fL (80-98); Mean Platelet Volume 10.5 fL (9.4-12.3); Monocytes Absolute Auto 0.9 X10*3/uL (0.1-1.2); Monocytes Percent Auto 5.7 % (2-11); Neutrophils Absolute Auto 14.5 X10*3/uL (2.0-8.3); Neutrophils Percent Auto 87.6 % (45-73); Platelet Count 214 X10*3/uL (160-400); Red Blood Count 6.13 X10*6/uL (4.20-5.50); White Blood Count 16.6 X10*3/uL (4.8-10.8)
[2021-05-10 17:26] LABS: Alanine Aminotransferase 529 U/L (0-31); Albumin Level 4.8 g/dL (3.5-5.0); Alkaline Phosphatase 106 U/L (39-117); Anion Gap 18 (12-20); Aspartate Amino Transferase 730 U/L (5-31); Bilirubin Total 3.5 mg/dL (0.0-1.0); Blood Urea Nitrogen 13 mg/dL (9-16); Calcium 10.8 mg/dL (8.4-10.2); Carbon Dioxide 22 mmol/L (22-29); Chloride 100 mmol/L (96-108); Creatinine Clr Calc Pharmacy 74.5; Estimated Glomerular Filt Rate > 60; Glucose Random 188 mg/dL (60-115); Potassium 4.4 mmol/L (3.3-5.1); Sodium 136 mmol/L (135-145); Total Protein 8.8 g/dL (6.5-8.0)
[2021-05-10 18:00] VITALS: BP 172/86; PULSE 82; RESP 17; TEMP 37.1; O2SAT 96
[2021-05-10] MEDS: Ketorolac Tromethamine 15 MG/ML VIAL IVPUSH (18:17)
--- NOTE | 2021-05-10 18:21 | PC.NURSE ---
patient a&ox3, engine monitor nsr 80s, vss, pt medicated for pain, will continue to monitor.
[2021-05-10 18:47] LABS: Appearance Urine CLEAR; Color Urine YELLOW; Glucose Urine UA >=1000 MG/DL (NEG); Leukocyte Esterase Urine NEG (NEG); Nitrite Urine NEG (NEG); UACC Culture Trigger NO; Urine Blood TRACE (NEG); Urine Ketones 5 MG/DL (NEG); Urine Protein 2+ MG/DL (NEG-TRACE)
[2021-05-10 18:53] LABS: Lipase 26 U/L (8-78)
[2021-05-10 18:55] LABS: Squamous Epithelial Cell Urine 1+ /LPF; WBC Urine 0-2 /HPF (0-4)
[2021-05-10 20:00] VITALS: BP 101/55; PULSE 88; RESP 18; TEMP 37.2; O2SAT 97
[2021-05-10] MEDS: iohexoL 350 MG/ML 100 ML INFUS..BTL IV (20:13)
--- NOTE | 2021-05-10 20:55 | PC.NURSE ---
patient a&ox3, c/o 02/05 pain, vss, hospitalist in room speaking with patient, pt nsr 80s on phototypesetting equipment monitor.
[2021-05-10] MEDS: cefEPime HCl 2 GM in 0.9 % Sodium Chloride 50 ML IV (21:12)
[2021-05-10 21:59] LABS: COVID-19 Test Negative (Negative); IDNOW Serial# 08D9AD1C
[2021-05-10 22:00] VITALS: BP 105/51; PULSE 76; RESP 18; TEMP 36.9; O2SAT 98
[2021-05-10] MEDS: metroNIDAZOLE/NS 500 MG/100 ML PIGGYBACK 100 MG IV (22:47)
--- NOTE | 2021-05-10 22:51 | PC.NURSE ---
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
--- NOTE | 2021-05-10 23:20 | P.HPHOSP_ITS ---
History of Present Illness Date of Service: 05/10/21 Chief Complaint: back pain This is a 65 year old female with past medical history of hypothyroidism, coronary artery disease status post stent placement, HTN, diabetes, history of breast cancer, HLD, ICD in place, ischemic cardiomyopathy, among others who presents to the hospital with complaints of back pain that is localized to the region between the shoulder blades radiating down her back, not associated with any numbness or tingling in the arms or legs, patient denies any trauma or injury. She describes the pain as shooting pain, not radiating to the chest, about 8/10, she had some nausea and some vomiting episode earlier but no abdominal pain, patient is also complaining of diarrhea for the past few days. She denies having any chest pain, no shortness of breath, no abdominal pain nausea or vomiting, no diarrhea constipation, no urinary symptoms and no lower extremity edema. She denies any fever or chills. All other review of system negative except as mentioned above On arrival to the ED patient hemodynamically stable with a temp of 98.8?, heart rate of 82, respiratory rate of 17, blood pressure 177 recently satting 90% on room air. Patient did develop hypotension with a blood pressure of 95/46. Labs are significant for WBC of 16.6, hemoglobin of 16.7, total bili of 3.5, AST of 730, ALT of 529, alk-phos of 106, these were elevated on her previous visit her PCP in March, at that time her PCP had planned for ultrasound but patient has not undergone ultrasound yet. Patient also has an elevated troponin of 110, denies any chest pain, UA negative. LFTs patient underwent abdominal ultrasound that showed cholelithiasis with some low-level echoes within the common duct, she then underwent CT scan of the abdomen pelvis which showed some small lower lobe pulmonary nodules, given the history of breast cancer close follow-up is warranted, patient also found to have fatty change in the liver with prominent common duct. In the presence of elevated liver function testing and cholelithiasis MRCP may be warranted GI was consulted, plan for intervention in a.m. Review of Systems Review of Systems: Yes all other systems are reviewed and are negative [facility] Medical History Acquired hypothyroidism Anxiety Atherosclerosis of coronary artery of [place] heart with stable angina pectoris Atherosclerotic cardiovascular disease Benign essential hypertension Diabetes Diabetic neuropathy Drug induced constipation History of breast cancer History of ductal carcinoma in situ (DCIS) of breast History of [place] (myocardial infarction) Hyperlipidemia Hypothyroidism ICD (implantable cardioverter-defibrillator) in place Insomnia Ischemic cardiomyopathy prison (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 of insulin Lumbar degenerative disc disease Major depressive disorder, recurrent episode, mild Neuropathy Obesity (BMI 30-39.9) Osteoarthritis Osteoarthritis of spine with radiculopathy, cervical region Pityriasis rosea Pure hypercholesterolemia Type 2 diabetes mellitus with diabetic polyneuropathy Ventricular tachycardia Vitamin D deficiency Family History Mother Heart attack Hypertension CVD (cardiovascular disease) Father Diabetes Surgical History History of implantable cardioverter-defibrillator (ICD) placement (~06/22/18) History of lumpectomy of both breasts History of percutaneous coronary intervention (~12/2017) History of tubal ligation S/P angioplasty (~07/2017) Social History Housing: House Alcohol intake: never Patient Tobacco Use Status: Never used Tobacco Second Hand Smoke Exposure: Yes Use of substances other than those prescribed or required for medical reasons: No Advance Directives: Yes Advance Directives on File: No Advance Directives Date on File: 06/05/20 service: No Current occupational status: disabled Sexual orientation: Straight/Heterosexual Gender identity: Female Meds Allergies Allergy/AdvReac Type Severity Reaction Status Date / Time No Known Allergies Allergy Mild NOT Verified 05/10/21 14:43 APPLICABLE Home Medications Medication Instructions Recorded Confirmed Last Taken Type brimonidine 0.1 % eye drops 1 drp OPHTHALMIC (EYE) BID 06/03/20 05/10/21 05/10/21 09:00 History latanoprost 0.005 % eye drops 1 drp OPHTHALMIC (EYE) BEDTIME 06/03/20 05/10/21 05/09/21 22:00 History aspirin 81 mg tablet,delayed 81 mg PO DAILY 07/14/20 04/28/21 Unknown History release docusate sodium 100 mg capsule 100 mg PO BEDTIME 05/10/21 05/10/21 05/09/21 22:00 History (Colace) ticagrelor 90 mg tablet (Brilinta) 1 tab PO BID 05/10/21 05/10/21 05/10/21 09:00 History Physical Exam Vital Signs and Narrative: Vital Signs: Last Vital Signs Temp 98.4 F 05/10/21 22:00 Pulse 76 05/10/21 22:00 Resp 18 05/10/21 22:00 BP 105/51 L 05/10/21 22:00 Pulse Ox 98 05/10/21 22:00 Body Mass Index 33.5 Const: General: cooperative and no acute distress Orientation/consciousness: patient oriented x3 Eyes: General: appearance normal, both eyes and all related structures Resp: Effort & Inspection: normal respiratory effort Auscultation: clear to auscultation bilaterally Cardio: Rate: regular rate Rhythm: regular rhythm GI: Palpation (GI): Soft to palpation Auscultation: normal bowel sounds Skin: General skin exam: no rashes or lesions noted Neuro: General: patient oriented x3 Cognition (Neuro): normal cognition Extrem: Other: Middle thoracic back pain elicited by exam General: Yes normal to inspection and Yes no pedal edema Results Labs CBC and Chem 7: 05/10/21 17:04 05/10/21 17:04 Labs: Laboratory Results - last 24 hr 05/10/21 05/10/21 05/10/21 16:28 17:04 17:04 MCV 81.6 MCH 27.2 MCHC 33.4 RDW 15.0 Plt Count 214 MPV 10.5 Immature Gran % (Auto) 0.5 H Neut % (Auto) 87.6 H Lymph % (Auto) 6.0 L [place] % (Auto) 5.7 Eos % (Auto) 0.0 Baso % (Auto) 0.2 Lymph # (Auto) 1.0 L [place] # (Auto) 0.9 Eos # (Auto) 0.0 Baso # (Auto) 0.0 Abs Immat Gran (auto) 0.09 H Absolute Neuts (auto) 14.5 H Absolute Nucleated RBC 0.000 Nucleated RBC % (auto) 0.0 PT 11.3 INR 1.0 Anion Gap Estim Creat Clear Calc Estimated GFR POC Glucose 175 H Random Glucose Calcium Total Bilirubin AST ALT Alkaline Phosphatase Total Protein Albumin Lipase Urine Color Urine Appearance Urine pH Ur Specific [place]anco Urine Protein Urine Glucose (UA) Urine Ketones Urine Blood Urine Nitrite Ur Leukocyte Esterase Urine RBC Urine WBC Ur Squamous Epith Cells Urine Bacteria COVID-19 (HERNANDO) COVID-19 Clin Com 05/10/21 05/10/21 05/10/21 17:04 18:40 21:13 MCV MCH MCHC RDW Plt Count MPV Immature Gran % (Auto) Neut % (Auto) Lymph % (Auto) [place] % (Auto) Eos % (Auto) Baso % (Auto) Lymph # (Auto) [place] # (Auto) Eos # (Auto) Baso # (Auto) Abs Immat Gran (auto) Absolute Neuts (auto) Absolute Nucleated RBC Nucleated RBC % (auto) PT INR Anion Gap 18 Estim Creat Clear Calc 74.5 Estimated GFR > 60 POC Glucose Random Glucose 188 H Calcium 10.8 H D Total Bilirubin 3.5 H AST 730 H ALT 529 H Alkaline Phosphatase 106 D Total Protein 8.8 H Albumin 4.8 Lipase 26 Urine Color YELLOW Urine Appearance CLEAR Urine pH 7.0 Ur Specific [place]anco 1.010 Urine Protein 2+ H Urine Glucose (UA) >=1000 H Urine Ketones 5 Urine Blood TRACE Urine Nitrite NEG Ur Leukocyte Esterase NEG Urine RBC 1-4 Urine WBC 0-2 Ur Squamous Epith Cells 1+ Urine Bacteria NONE COVID-19 (HERNANDO) Negative COVID-19 Clin Com See Note ECG Interpretation: Normal sinus rhythm with multiple abnormalities including changes suggestive of previous [place] which patient has a history of No acute ST T wave changes Imaging Radiologist's Impressions: Impressions Abdomen Ultrasound 05/10/21 17:57 IMPRESSION: Limited study. Cholelithiasis. There may be some low-level echoes within the common duct Abdomen/Pelvis CT 05/10/21 17:58 IMPRESSION: Study limited by motion. There are some small lower lobe pulmonary nodules. Given the history of breast cancer close follow-up is warranted. The patient was unable to suspend respirations which could've obscured additional nodules. I recommend a follow-up CT in 6 months. Fatty change in liver. Known cholelithiasis. Prominent common duct. In the presence of elevated liver function testing and cholelithiasis MRCP may BE warranted. Coronary stent suspected. The left ventricle appears dilated. Chest CT 05/10/21 18:01 IMPRESSION: Study limited by motion. There are some small lower lobe pulmonary nodules. Given the history of breast cancer close follow-up is warranted. The patient was unable to suspend respirations which could've obscured additional nodules. I recommend a follow-up CT in 6 months. Fatty change in liver. Known cholelithiasis. Prominent common duct. In the presence of elevated liver function testing and cholelithiasis MRCP may BE warranted. Coronary stent suspected. The left ventricle appears dilated. Assessment and Plan (1) Acute cholangitis: Status: Acute (2) Elevated LFTs: Status: Acute (3) Back pain: Status: Acute (4) Elevated troponin: Status: Acute (5) Abnormal CT lung screening: Status: Acute This is a 65-year-old female with a very extensive past medical history presents to the hospital with complaints of back pain found to have elevated LFTs and concern for cholangitis # transaminitis - most likely secondary to cholangitis - patient has elevated bili, leukocytosis, afebrile - patient has prominent dilated common bile duct seen on CT - will place patient NPO - GI consult for possible MRCP in the morning - IV antibiotics - follow cultures # back pain - most likely musculoskeletal - elicited on exam - no abnormality on chest x-ray and or chest CT - will continue her home fentanyl patch # elevated troponin - unclear etiology, patient denies any chest pain - EKG showing multiple abnormalities but nothing acute - at this time will admit to telemetry, repeat troponin - monitor # abnormal CT lung findings - some nodules seen on CT scan - given her history of breast cancer these will need follow-up on further evaluation once patient's transaminitis/cholangitis addressed # hypertension - stable - continue home medications # diabetes - continue home insulin - will add low-dose sliding scale insulin - diabetic diet # History of CHF - not in exacerbation - continue home Lasix, carvedilol, # history of CAD - has elevated troponin but no chest pain, no EKG changes suggestive of ACS - continue home medications of aspirin, carvedilol - will hold Brilinta as patient possibly undergo an MRCP in a.m.( GI wanted patient to be off Brilinta this a.m.) DVT prophylaxis: SCDs for possible intervention in a.m. Quality Stroke Does the patient have a stroke diagnosis?: No VTE Prior VTE?: No VTE Risk Level:: Medical - moderate - high VTE Device Contraindication: N/A - Device Ordered VTE Drug Contraindication: Treatment Not Indicated
[2021-05-10 23:51] VITALS: BP 95/46; PULSE 80; RESP 19; O2SAT 99
[2021-05-10 23:59] LABS: Troponin-I High Sensitivity 110.6 ng/L (<3.5-17.0)
[2021-05-11] VITALS (10 sets, daily range): BP systolic 95–151; BP diastolic 46–73; PULSE 62–84; RESP 16–20; TEMP 36.7–37.1; O2SAT 95–99
[2021-05-11] MEDS: 0.9 % Sodium Chloride 2,653.53 ML 2653.53 ML IV (00:19)
[2021-05-11] MEDS: Docusate Sodium 100 MG CAPSULE PO ×2 (02:25→20:40)
[2021-05-11] MEDS: Gabapentin 400 MG CAPSULE PO ×4 (02:25→20:40)
[2021-05-11] MEDS: carvediloL 3.125 MG TABLET PO ×2 (02:25→08:54)
[2021-05-11] MEDS: cefEPime HCl 2 GM in 0.9 % Sodium Chloride 50 ML IV ×3 (06:55→20:39)
--- NOTE | 2021-05-11 06:59 | PC.NURSE ---
CALLED PHARMACY FOR FENT PATCH
--- NOTE | 2021-05-11 07:46 | P.CNGI_ITS ---
History of Present Illness Data of Consult Service Date: 05/11/21 Requesting physician: Hasmukh Quiroz Primary Care Provider: Saul Lazo MD HPI 65 YF presented to [facility] ED yesterday with back pain: HPI narrative: 65 years old female presented to the emergency department with a chief complaint of back pain.? She has history of chronic back pain she takes fentanyl patches , she is on gabapentin as well she states that the pain got worse this morning there is no weakness in the legs no numbness in the legs and no urinary incontinence Onset (ago): hour(s) (8) Radiation: back Severity: moderate Quality: aching Pain Consistency: constant Relieving factors: none Exacerbating factors: none Associated symptoms: denies other symptoms Patient denies symptoms of heartburn, dysphagia, nausea, vomiting, change in appetite or weight. Denies recent change in bowel habits, constipation, diarrhea, black stools or rectal bleeding. Patient denies major cardiac or pulmonary problems, loud snoring or sleep apnea Denies problems with anesthesia in the past. Denies being on chronic anticoagulation. Patient denies known family history of colon polyps, colon cancer or other GI malignancies. On arrival to the ED patient hemodynamically stable with a temp of 98.8?, heart rate of 82, respiratory rate of 17, blood pressure 177 recently satting 90% on room air.? Patient did develop hypotension with a blood pressure of 95/46. Labs are significant for WBC of 16.6, hemoglobin of 16.7, total bili of 3.5, AST of 730, ALT of 529, alk-phos of 106, these were elevated on her previous visit her PCP in March, at that time her PCP had planned for ultrasound but patient has not undergone ultrasound yet. Patient also has an elevated troponin of 110, denies any chest pain, UA negative. LFTs patient underwent abdominal ultrasound that showed cholelithiasis with some low-level echoes within the common duct, she then underwent CT scan of the abdomen pelvis which showed some small lower lobe pulmonary nodules, given the history of breast cancer close follow-up is warranted, patient also found to have fatty change in the liver with prominent common duct.? In the presence of elevated liver function testing and cholelithiasis MRCP may be warranted IMAGING STUDIES: 05/10/[address] SCAN SHOWED: Study limited by motion. There are some small lower lobe pulmonary nodules. Given the history of breast cancer close follow-up is warranted. ? The patient was unable to suspend respirations which could've obscured additional nodules. I recommend a follow-up CT in 6 months. ? Fatty change in liver. Known cholelithiasis. Prominent common duct. In the presence of elevated liver function testing and cholelithiasis MRCP may BE warranted. ? Coronary stent suspected. The left ventricle appears dilated. PAST EGD/COLONOSCOPY PAST GI HISTORY BY REVIEW OF MEDICAL RECORDS: ENDOSCOPIC STUDIES: [] Review of Systems Constitutional: Constitutional: Denies fever(s), Denies headache(s) and Denies weight loss Eyes: Eyes: Denies eye discharge and Denies irritation ENT: Reports Normal hearing present, Denies dysphagia, Denies dizziness and Denies headache(s) Cardiovascular: Cardiovascular: Denies chest pain, Denies leg edema and Denies dyspnea on exertion Respiratory: Respiratory: Denies cough, Denies dyspnea on exertion and Denies wheezing Gastrointestinal: Gastrointestinal: Denies abdominal pain, Denies change in bowel habits, Denies dysphagia and Denies heartburn Genitourinary: Genitourinary: Denies difficulty voiding and Denies dysuria Musculoskeletal: Musculoskeletal: Reports back pain and Denies arthralgias Integumentary/Breasts: Skin/Breast: Denies pruritus, Denies rash and Denies jaundice Neurologic: Reports Normal hearing present, Denies Abnormal speech present, Denies dizziness, Denies headache(s) and Denies seizure-like activity Psychiatric: Psychiatric: Denies anxiety, Denies depression and Denies panic attacks Endocrine: Endocrine: Denies cold intolerance, Denies flushing and Denies heat intolerance Hematologic/Lymphatic: Hematologic/Lymphatic: Denies easy bleeding and Denies easy bruising Allergic/Immunologic: Allergic/Immunologic: Denies wheezing PMFSH Past Medical History Medical History Acquired hypothyroidism Anxiety Atherosclerosis of coronary artery of [place] heart with stable angina pectoris Atherosclerotic cardiovascular disease Benign essential hypertension Diabetes Diabetic neuropathy Drug induced constipation History of breast cancer History of ductal carcinoma in situ (DCIS) of breast History of [place] (myocardial infarction) Hyperlipidemia Hypothyroidism ICD (implantable cardioverter-defibrillator) in place Insomnia Ischemic cardiomyopathy 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 Lumbar degenerative disc disease Major depressive disorder, recurrent episode, mild Neuropathy Obesity (BMI 30-39.9) Osteoarthritis Osteoarthritis of spine with radiculopathy, cervical region Pityriasis rosea Pure hypercholesterolemia Type 2 diabetes mellitus with diabetic polyneuropathy Ventricular tachycardia Vitamin D deficiency Family History Family History Mother Heart attack Hypertension CVD (cardiovascular disease) Father Diabetes Surgical History Surgical History History of implantable cardioverter-defibrillator (ICD) placement (~06/22/18) History of lumpectomy of both breasts History of percutaneous coronary intervention (~12/2017) History of tubal ligation S/P angioplasty (~07/2017) Social History Social History Housing: House Alcohol intake: never Patient Tobacco Use Status: Never used Tobacco Second Hand Smoke Exposure: Yes Use of substances other than those prescribed or required for medical reasons: No Advance Directives: Yes Advance Directives on File: No Advance Directives Date on File: 06/05/20 service: No Current occupational status: disabled Sexual orientation: Straight/Heterosexual Gender identity: Female Meds Allergies Allergy/AdvReac Type Severity Reaction Status Date / Time No Known Allergies Allergy Mild NOT Verified 05/10/21 14:43 APPLICABLE Active Medications: Current Medications Generic Name Dose Route Start Last Admin Trade Name Freq PRN Reason Stop Dose Admin Acetaminophen 650 mg 05/11/21 01:29 Acetaminophen 325 Mg Tablet PO Q6H PRN Pain, Mild (Pain Scale 1-3) Carvedilol 3.125 mg 05/11/21 01:29 05/11/21 02:25 Carvedilol 3.125 Mg Tablet PO 3.125 mg BID IVETTE Administration Protocol Dextrose 25 gm 05/11/21 01:29 Dextrose 50 % 25 Gm/50 Ml Vial IVPUSH Q15M PRN per Hypoglycemia Standing Ord. Protocol Docusate Sodium 100 mg 05/11/21 01:29 05/11/21 02:25 Docusate Sodium 100 Mg Capsule PO 100 mg BEDTIME IVETTE Administration Fentanyl 50 mcg 05/11/21 07:00 Fentanyl 50 Mcg Patch.Td72 TRANSDERMA Q72H IVETTE Furosemide 20 mg 05/11/21 09:00 Furosemide 20 Mg Tablet PO DAILY IVETTE Protocol Gabapentin 400 mg 05/11/21 01:29 05/11/21 02:25 Gabapentin 400 Mg Capsule PO 400 mg TID [facility] Administration Glucose 15 gm 05/11/21 01:29 Glucose Gel 15 Gm Gel..Gram. PO Q15M PRN per Hypoglycemia Standing Ord. Protocol Cefepime HCl 2 gm/ Sodium 50 mls @ 100 mls/hr 05/11/21 05:00 05/11/21 06:55 Chloride IV 100 mls/hr Q8H [facility] Administration Insulin Glargine 49 unit 05/11/21 09:00 Insulin Glargine,Hum.Rec.Anlog 100 Unit/Ml 10 Ml Vial SUBCUT DAILY [facility] Insulin Human Lispro 30 unit 05/11/21 07:30 Insulin Lispro 100 Unit/Ml 3 Ml Vial SUBCUT TIDAC [facility] Insulin Human Lispro 0 unit 05/11/21 07:30 Insulin Lispro 100 Unit/Ml 3 Ml Vial SUBCUT QIDACHS [facility] Protocol Isosorbide Mononitrate 30 mg 05/11/21 09:00 Isosorbide Mononitrate 30 Mg Tab.Er.24h PO DAILY [facility] Protocol Latanoprost 1 drop 05/11/21 01:29 05/11/21 02:42 Latanoprost 0.005 % Ophth Elsa 2.5 Ml Drops EYE-BOTH Not Given BEDTIME [facility] Levothyroxine Sodium 50 mcg 05/11/21 06:30 Levothyroxine Sodium 50 Mcg Tablet PO DAILY@0630 [facility] Lisinopril 2.5 mg 05/11/21 09:00 Lisinopril 2.5 Mg Tablet PO DAILY [facility] Protocol Lorazepam 0.5 mg 05/11/21 01:29 Lorazepam 0.5 Mg Tablet PO DAILY PRN anxiety Non-Formulary Medication 1 drop 05/11/21 09:00 Brimonidine EYE-BOTH BID [facility] Ondansetron HCl 4 mg 05/11/21 01:29 Ondansetron Hcl 4 Mg/2 Ml Vial IVPUSH Q8H PRN Nausea and Vomiting Oxycodone HCl 5 mg 05/11/21 01:29 Oxycodone Hcl Immed Release 5 Mg Tablet PO Q6H PRN Pain, Severe (Pain Scale 7-10) Spironolactone 25 mg 05/11/21 09:00 Spironolactone 25 Mg Tablet PO DAILY [facility] Protocol Home Medications Medication Instructions Recorded Confirmed Last Taken Type brimonidine 0.1 % eye drops 1 drp OPHTHALMIC (EYE) BID 06/03/20 05/10/21 05/10/21 09:00 History latanoprost 0.005 % eye drops 1 drp OPHTHALMIC (EYE) BEDTIME 06/03/20 05/10/21 05/09/21 22:00 History aspirin 81 mg tablet,delayed 81 mg PO DAILY 07/14/20 05/11/21 Unknown History release docusate sodium 100 mg capsule 100 mg PO BEDTIME 05/10/21 05/10/21 05/09/21 22:00 History (Colace) ticagrelor 90 mg tablet (Brilinta) 1 tab PO BID 05/10/21 05/10/21 05/10/21 09:00 History atorvastatin 80 mg tablet 1 tab PO DAILY 05/11/21 05/11/21 Unknown History Physical Exam Vital Signs: Vital Signs: Last Vital Signs Temp 98.4 F 05/10/21 22:00 Pulse 81 05/11/21 06:56 Resp 20 05/11/21 06:56 BP 141/64 H 05/11/21 06:56 Pulse Ox 96 05/11/21 06:56 Body Mass Index 33.5 Neuro: Cranial nerves: Yes Normal hearing present Speech: No Abnormal speech present Results Labs CBC & Chem 7: 05/10/21 17:04 05/10/21 17:04 Labs: Short CBC 05/10/21 Range/Units 17:04 WBC 16.6 H (4.8-10.8) X10*3/uL Hgb 16.7 H (12.0-16.0) g/dl Hct 50.0 H (37-47) % Plt Count 214 (160-400) X10*3/uL BMP 05/10/21 17:04 Sodium 136 Potassium 4.4 Chloride 100 Carbon Dioxide 22 BUN 13 Creatinine 0.81 Calcium 10.8 H D Liver Function 05/10/21 Range/Units 17:04 Total Bilirubin 3.5 H (0.0-1.0) mg/dL AST 730 H (5-31) U/L ALT 529 H (0-31) U/L Alkaline Phosphatase 106 D (39-117) U/L Albumin 4.8 (3.5-5.0) g/dL Urine 05/10/21 Range/Units 18:40 Urine Color YELLOW Urine Appearance CLEAR Urine pH 7.0 (5.0-8.0) Ur Specific [place] 1.010 (1.005-1.025) Urine Protein 2+ H (NEG-TRACE) MG/DL Urine Glucose (UA) >=1000 H (NEG) MG/DL
--- NOTE | 2021-05-11 08:39 | PC.NURSE ---
RN aware poc [id number]
[2021-05-11 08:40] LABS: Glucose, Whole Blood 188 mg/dL (60-115)
[2021-05-11] MEDS: Isosorbide Mononitrate 30 MG TAB.ER.24H PO (08:53)
[2021-05-11] MEDS: Furosemide 20 MG TABLET PO (08:53)
[2021-05-11] MEDS: lisinopriL 2.5 MG TABLET PO (08:54)
[2021-05-11] MEDS: Spironolactone 25 MG TABLET PO (08:54)
[2021-05-11] MEDS: Levothyroxine Sodium 50 MCG TABLET PO (08:54)
[2021-05-11 09:17] LABS: MANUAL DIFF FLAG NO
[2021-05-11 09:19] LABS: Basophils Percent Auto 0.2 % (0-2); Hematocrit 45.7 % (37-47); Hemoglobin 14.8 g/dl (12.0-16.0); Imm Gran Abs Auto 0.04 X10*3/uL (0.00-0.03); Imm Gran Pct Auto 0.4 % (0.0-0.4); Lymphocytes Absolute Auto 1.1 X10*3/uL (1.2-4.9); Lymphocytes Percent Auto 10.1 % (20-40); Mean Corpuscular HGB Conc 32.4 g/dl (31.0-35.0); Mean Corpuscular Hemoglobin 27.3 pg (27.0-33.0); Mean Corpuscular Volume 84.2 fL (80-98); Monocytes Absolute Auto 0.5 X10*3/uL (0.1-1.2); Monocytes Percent Auto 4.6 % (2-11); Neutrophils Absolute Auto 9.2 X10*3/uL (2.0-8.3); Neutrophils Percent Auto 84.7 % (45-73); Platelet Count 185 X10*3/uL (160-400); Red Blood Count 5.43 X10*6/uL (4.20-5.50); Red Cell Distribution Width 15.5 % (11.0-16.0); White Blood Count 10.9 X10*3/uL (4.8-10.8)
[2021-05-11 09:43] LABS: Anion Gap 18 (12-20); Blood Urea Nitrogen 13 mg/dL (9-16); Calcium 8.3 mg/dL (8.4-10.2); Carbon Dioxide 14 mmol/L (22-29); Chloride 109 mmol/L (96-108); Creatinine Clr Calc Pharmacy 83.8; Estimated Glomerular Filt Rate > 60; Glucose Random 183 mg/dL (60-115); Potassium 4.6 mmol/L (3.3-5.1); Sodium 136 mmol/L (135-145)
--- NOTE | 2021-05-11 10:35 | PC.NURSE ---
PT AOX4 AMB WITH STEADY GAIT OOB TO BR, PT REMAINS NPO. MRI PENDING HOWEVER PT LEONARDO TOLERATE BEING CLOSED IN, GROUNDSMAN WILL NOTIFIY . HOSPITALIST HAS BEEN IN TO SEE PATIENT. STATED SHE COULD HAVE SMALL SIPS OF WATER. PT NEEDS ARE BEING MET. WAITING ON BED ASSIGNEMENT
[2021-05-11] MEDS: oxyCODONE HCl Immed Release 5 MG TABLET PO ×2 (12:23→20:56)
--- NOTE | 2021-05-11 12:44 | MHC.CM.PN ---
Attempted to meet with patient in regards to discharge planning. Both patient and spouse sleeping. Will attempt to meet again. Continue to monitor for d/c needs.
--- NOTE | 2021-05-11 13:05 | PM.GICN ---
History of Present Illness Data of Consult Service Date: 05/11/21 Requesting physician: Paula Arora Primary Care Provider: Saul Lazo MD HPI Reason for consult: cholangitis 65 yr old f with hx of CAD and cardiomyopathy s/p icd placement, breast ca, HTN, DM, who I am seeing for assessment of abn LFT and concern for cholangitis. she noted worsening back pain between shoulder blades associated with nausea and diarrhea for few days. Today she also noted moderate worsening ruq pain as well as fatigue and tiredness. She? denies having any chest pain, no shortness of breath. She denies any fever or chills. no urinary symptoms and no lower extremity edema.?Appetite is poor. She had abn LFT on admission with raised WCC, with fluids and ABX WCC came down and BP improved from admission. LFT have gotten worse today. Trop raised. Imaging with abdominal ultrasound that showed cholelithiasis with some low-level echoes within the common duct. CT scan of the abdomen pelvis which showed some small lower lobe pulmonary nodules, and fatty change in the liver with prominent CBD. Review of Systems Review of Systems: Yes all other systems are reviewed and are negative Constitutional: Constitutional: Reports no additional constitutional complaints, Denies fever(s), Denies headache(s) and Denies weight loss Eyes: Eyes: Denies eye discharge and Denies irritation ENT: Reports Normal hearing present, Denies dysphagia, Denies dizziness and Denies headache(s) Cardiovascular: Cardiovascular: Denies chest pain, Denies leg edema and Denies dyspnea on exertion Respiratory: Respiratory: Reports no additional respiratory complaints, Denies cough, Denies dyspnea on exertion and Denies wheezing Gastrointestinal: Gastrointestinal: Denies abdominal pain, Denies change in bowel habits, Denies dysphagia and Denies heartburn Musculoskeletal: Musculoskeletal: Reports back pain and Denies arthralgias Integumentary/Breasts: Skin/Breast: Denies pruritus, Denies rash and Denies jaundice Neurologic: Reports Normal hearing present, Denies Abnormal speech present, Denies dizziness, Denies headache(s) and Denies seizure-like activity Psychiatric: Psychiatric: Denies anxiety, Denies depression and Denies panic attacks Endocrine: Endocrine: Denies cold intolerance, Denies flushing and Denies heat intolerance Hematologic/Lymphatic: Hematologic/Lymphatic: Denies easy bleeding and Denies easy bruising Allergic/Immunologic: Allergic/Immunologic: Denies wheezing PMFSH Past Medical History Medical History Acquired hypothyroidism Anxiety Atherosclerosis of coronary artery of [place] heart with stable angina pectoris Atherosclerotic cardiovascular disease Benign essential hypertension Diabetes Diabetic neuropathy Drug induced constipation History of breast cancer History of ductal carcinoma in situ (DCIS) of breast History of [place] (myocardial infarction) Hyperlipidemia Hypothyroidism ICD (implantable cardioverter-defibrillator) in place Insomnia Ischemic cardiomyopathy half-way (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 of insulin Lumbar degenerative disc disease Major depressive disorder, recurrent episode, mild Neuropathy Obesity (BMI 30-39.9) Osteoarthritis Osteoarthritis of spine with radiculopathy, cervical region Pityriasis rosea Pure hypercholesterolemia Type 2 diabetes mellitus with diabetic polyneuropathy Ventricular tachycardia Vitamin D deficiency Family History Family History Mother Heart attack Hypertension CVD (cardiovascular disease) Father Diabetes Surgical History Surgical History History of implantable cardioverter-defibrillator (ICD) placement (~06/22/18) History of lumpectomy of both breasts History of percutaneous coronary intervention (~12/2017) History of tubal ligation S/P angioplasty (~07/2017) Social History Social History Housing: House Alcohol intake: never Patient Tobacco Use Status: Never used Tobacco Second Hand Smoke Exposure: Yes Use of substances other than those prescribed or required for medical reasons: No Advance Directives: Yes Advance Directives on File: No Advance Directives Date on File: 06/05/20 service: No Current occupational status: disabled Sexual orientation: Straight/Heterosexual Gender identity: Female Meds Allergies Allergy/AdvReac Type Severity Reaction Status Date / Time No Known Allergies Allergy Mild NOT Verified 05/10/21 14:43 APPLICABLE Active Medications: Current Medications Generic Name Dose Route Start Last Admin Trade Name Freq PRN Reason Stop Dose Admin Acetaminophen 650 mg 05/11/21 01:29 Acetaminophen 325 Mg Tablet PO Q6H PRN Pain, Mild (Pain Scale 1-3) Carvedilol 3.125 mg 05/11/21 01:29 05/11/21 08:54 Carvedilol 3.125 Mg Tablet PO 3.125 mg BID IVETTE Administration Protocol Dextrose 25 gm 05/11/21 01:29 Dextrose 50 % 25 Gm/50 Ml Vial IVPUSH Q15M PRN per Hypoglycemia Standing Ord. Protocol Docusate Sodium 100 mg 05/11/21 01:29 05/11/21 02:25 Docusate Sodium 100 Mg Capsule PO 100 mg BEDTIME IVETTE Administration Fentanyl 50 mcg 05/11/21 07:00 05/11/21 08:53 Fentanyl 50 Mcg Patch.Td72 TRANSDERMA Not Given Q72H [facility] Furosemide 20 mg 05/11/21 09:00 05/11/21 08:53 Furosemide 20 Mg Tablet PO 20 mg DAILY [facility] Administration Protocol Gabapentin 400 mg 05/11/21 01:29 05/11/21 08:54 Gabapentin 400 Mg Capsule PO 400 mg TID IVETTE Administration Glucose 15 gm 05/11/21 01:29 Glucose Gel 15 Gm Gel..Gram. PO Q15M PRN per Hypoglycemia Standing Ord. Protocol Cefepime HCl 2 gm/ Sodium 50 mls @ 100 mls/hr 05/11/21 05:00 05/11/21 06:55 Chloride IV 100 mls/hr Q8H [facility] Administration Insulin Glargine 49 unit 05/11/21 09:00 05/11/21 12:27 Insulin Glargine,Hum.Rec.Anlog 100 Unit/Ml 10 Ml Vial SUBCUT Not Given DAILY [facility] Insulin Human Lispro 30 unit 05/11/21 07:30 05/11/21 12:27 Insulin Lispro 100 Unit/Ml 3 Ml Vial SUBCUT Not Given TIDAC [facility] Insulin Human Lispro 0 unit 05/11/21 07:30 05/11/21 12:27 Insulin Lispro 100 Unit/Ml 3 Ml Vial SUBCUT Not Given QIDACHS [facility] Protocol Isosorbide Mononitrate 30 mg 05/11/21 09:00 05/11/21 08:53 Isosorbide Mononitrate 30 Mg Tab.Er.24h PO 30 mg DAILY [facility] Administration Protocol Latanoprost 1 drop 05/11/21 01:29 05/11/21 02:42 Latanoprost 0.005 % Ophth Elsa 2.5 Ml Drops EYE-BOTH Not Given BEDTIME [facility] Levothyroxine Sodium 50 mcg 05/11/21 06:30 05/11/21 08:54 Levothyroxine Sodium 50 Mcg Tablet PO 50 mcg DAILY@0630 [facility] Administration Lisinopril 2.5 mg 05/11/21 09:00 05/11/21 08:54 Lisinopril 2.5 Mg Tablet PO 2.5 mg DAILY [facility] Administration Protocol Lorazepam 0.5 mg 05/11/21 01:29 Lorazepam 0.5 Mg Tablet PO DAILY PRN anxiety Non-Formulary Medication 1 drop 05/11/21 09:00 Brimonidine EYE-BOTH BID [facility] Ondansetron HCl 4 mg 05/11/21 01:29 Ondansetron Hcl 4 Mg/2 Ml Vial IVPUSH Q8H PRN Nausea and Vomiting Oxycodone HCl 5 mg 05/11/21 01:29 05/11/21 12:23 Oxycodone Hcl Immed Release 5 Mg Tablet PO 5 mg Q6H PRN Administration Pain, Severe (Pain Scale 7-10) Spironolactone 25 mg 05/11/21 09:00 05/11/21 08:54 Spironolactone 25 Mg Tablet PO 25 mg DAILY [facility] Administration Protocol Home Medications Medication Instructions Recorded Confirmed Last Taken Type brimonidine 0.1 % eye drops 1 drp OPHTHALMIC (EYE) BID 06/03/20 05/10/21 05/10/21 09:00 History latanoprost 0.005 % eye drops 1 drp OPHTHALMIC (EYE) BEDTIME 06/03/20 05/10/21 05/09/21 22:00 History aspirin 81 mg tablet,delayed 81 mg PO DAILY 07/14/20 05/11/21 Unknown History release docusate sodium 100 mg capsule 100 mg PO BEDTIME 05/10/21 05/10/21 05/09/21 22:00 History (Colace) ticagrelor 90 mg tablet (Brilinta) 1 tab PO BID 05/10/21 05/10/21 05/10/21 09:00 History atorvastatin 80 mg tablet 1 tab PO DAILY 05/11/21 05/11/21 Unknown History Physical Exam Vital Signs: Vital Signs: Last Vital Signs Temp 98.4 F 05/10/21 22:00 Pulse 81 05/11/21 08:54 Resp 20 05/11/21 06:56 BP 141/64 H 05/11/21 08:54 Pulse Ox 96 05/11/21 06:56 Body Mass Index 33.5 Const: General: cooperative, healthy appearing, comfortable and no acute distress Nutritional Appearance: average body habitus Orientation/consciousness: oriented to person, oriented to place, oriented to time and patient oriented x3 HENMT: Head: Yes normal to inspection Face and sinus: Yes normal facial exam Mouth: Normal oral and palatal mucosa present Throat: Yes posterior oropharynx normal Eyes: General: appearance normal, both eyes and all related structures Neck: Neck: Yes normal visual inspection, Yes full ROM and Yes no lymphadenopathy Chest: Chest palpation & inspection: normal inspection of the chest and normal palpation of entire chest wall Resp: Effort & Inspection: normal respiratory effort Auscultation: clear to auscultation bilaterally Cardio: Jugular venous distension: no JVD Rate: regular rate Rhythm: regular rhythm GI: Inspection: Yes normal to inspection Palpation (GI): Soft to palpation, not firm, Tenderness to palpation present (GI) in the RUQ and no guarding Auscultation: normal bowel sounds : General: Yes no CVA tenderness Back/Spine/Pelvis: Back: no CVA tenderness Skin: General skin exam: no rashes or lesions noted Neuro: General: oriented to person, oriented to place, oriented to time and patient oriented x3 Cranial nerves: Yes Normal hearing present Cognition (Neuro): normal cognition Speech: No Abnormal speech present Extrem: Other: Middle thoracic back pain elicited by exam General: Yes normal to inspection and Yes no pedal edema Results Labs CBC & Chem 7: 05/11/21 09:13 05/11/21 09:13 Labs: Short CBC 05/10/21 05/11/21 Range/Units 17:04 09:13 WBC 16.6 H 10.9 H (4.8-10.8) X10*3/uL Hgb 16.7 H 14.8 (12.0-16.0) g/dl Hct 50.0 H 45.7 (37-47) % Plt Count 214 185 (160-400) X10*3/uL BMP 05/10/21 05/11/21 17:04 09:13 Sodium 136 136 Potassium 4.4 4.6 Chloride 100 109 H Carbon Dioxide 22 14 L BUN 13 13 Creatinine 0.81 0.72 Calcium 10.8 H D 8.3 L D Liver Function 05/10/21 Range/Units 17:04 Total Bilirubin 3.5 H (0.0-1.0) mg/dL AST 730 H (5-31) U/L ALT 529 H (0-31) U/L Alkaline Phosphatase 106 D (39-117) U/L Albumin 4.8 (3.5-5.0) g/dL Urine 05/10/21 Range/Units 18:40 Urine Color YELLOW Urine Appearance CLEAR Urine pH 7.0 (5.0-8.0) Ur Specific [place] 1.010 (1.005-1.025) Urine Protein 2+ H (NEG-TRACE) MG/DL Urine Glucose (UA) >=1000 H (NEG) MG/DL Assessment and Plan (1) Acute cholangitis: Status: Acute (2) Elevated LFTs: Status: Acute (3) Cholangitis: Status: Acute A/P 1/ Concern for cholangitis, responded well to ABX and fluid resuscitation. She needs ERCP for further assessment. PLAN: 1/ Cardiology assessment for optimization of cardiac status prior to ERCP 2/ hold ticagrelor (last dose Tuesday morning) and ERCP tomorrow-- will be 48 hrs, if worsens and needs emergent ERCP before that then would do ERCP with platelet transfusion to allow sphincterotomy 3/Riskd of procedure incl duodenal perf, bleeding and pancreatitis reviewed with patient, risks of cholangitis untreated also revirewed incl sepsis and , pancreatitis Procedures Date of Service Date of Service: 05/11/21
[2021-05-11 14:20] LABS: Bilirubin Direct 2.3 mg/dL (0.0-0.5)
[2021-05-11 15:22] LABS: Alanine Aminotransferase 435 U/L (0-31); Albumin Level 3.6 g/dL (3.5-5.0); Alkaline Phosphatase 119 U/L (39-117); Aspartate Amino Transferase 306 U/L (5-31); Bilirubin Direct 4.4 mg/dL (0.0-0.5); Bilirubin Total 6.1 mg/dL (0.0-1.0); Total Protein 6.6 g/dL (6.5-8.0)
--- NOTE | 2021-05-11 15:34 | P.CONCA_ITS ---
History of Present Illness History of Present Illness Date of Service: 05/11/21 Requesting physician: Cong Soto Chief complaint: Cholangitis? transminitis Narrative: 65-year-old female who is presenting for back pain and concern for cholangitis. She has been seen by GI and will be undergoing ERCP. She has history of coronary artery disease with previous PCI in 2017. She had left LPDA stenting done followed by LAD WATERFRONT DIRECTOR PCI. The WATERFRONT DIRECTOR PCI was unsuccessful. She has ischemic cardiomyopathy with EF of 30 35% with no viability in the LAD territory. She had an ICD placed because she had some ventricular tachycardia during stress testing. She has been stable since then. Denies any chest discomfort shortness of breath. She started experiencing some upper back discomfort and presented to us. Her blood workup is significantly abnormal transaminitis. She is being assessed for ERCP. We have been asked that whether her Brilinta can be stopped. Mildly elevated troponin levels but has no symptoms. EKG is unchanged. Review of Systems Review of Systems: Back pain. 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 Lumbar degenerative disc disease Major depressive disorder, recurrent episode, mild Neuropathy Obesity (BMI 30-39.9) Osteoarthritis Osteoarthritis of spine with radiculopathy, cervical region Pityriasis rosea Pure hypercholesterolemia Type 2 diabetes mellitus with diabetic polyneuropathy Ventricular tachycardia Vitamin D deficiency Family History Family History Mother Heart attack Hypertension CVD (cardiovascular disease) Father Diabetes Surgical History Surgical History History of implantable cardioverter-defibrillator (ICD) placement (~06/22/18) History of lumpectomy of both breasts History of percutaneous coronary intervention (~12/2017) History of tubal ligation S/P angioplasty (~07/2017) Social History Social History Housing: House Alcohol intake: never Patient Tobacco Use Status: Never used Tobacco Second Hand Smoke Exposure: Yes Use of substances other than those prescribed or required for medical reasons: No Advance Directives: Yes Advance Directives on File: No Advance Directives Date on File: 06/05/20 service: No Current occupational status: disabled Sexual orientation: Straight/Heterosexual Gender identity: Female Meds Allergies Allergy/AdvReac Type Severity Reaction Status Date / Time No Known Allergies Allergy Mild NOT Verified 05/10/21 14:43 APPLICABLE Active Medications: Current Medications Generic Name Dose Route Start Last Admin Trade Name Freq PRN Reason Stop Dose Admin Acetaminophen 650 mg 05/11/21 01:29 Acetaminophen 325 Mg Tablet PO Q6H PRN Pain, Mild (Pain Scale 1-3) Carvedilol 3.125 mg 05/11/21 01:29 05/11/21 08:54 Carvedilol 3.125 Mg Tablet PO 3.125 mg BID IVETTE Administration Protocol Dextrose 25 gm 05/11/21 01:29 Dextrose 50 % 25 Gm/50 Ml Vial IVPUSH Q15M PRN per Hypoglycemia Standing Ord. Protocol Docusate Sodium 100 mg 05/11/21 01:29 05/11/21 02:25 Docusate Sodium 100 Mg Capsule PO 100 mg BEDTIME IVETTE Administration Fentanyl 50 mcg 05/11/21 07:00 05/11/21 08:53 Fentanyl 50 Mcg Patch.Td72 TRANSDERMA Not Given Q72H IVETTE Furosemide 20 mg 05/11/21 09:00 05/11/21 08:53 Furosemide 20 Mg Tablet PO 20 mg DAILY IVETTE Administration Protocol Gabapentin 400 mg 05/11/21 01:29 05/11/21 08:54 Gabapentin 400 Mg Capsule PO 400 mg TID IVETTE Administration Glucose 15 gm 05/11/21 01:29 Glucose Gel 15 Gm Gel..Gram. PO Q15M PRN per Hypoglycemia Standing Ord. Protocol Cefepime HCl 2 gm/ Sodium 50 mls @ 100 mls/hr 05/11/21 05:00 05/11/21 06:55 Chloride IV 100 mls/hr Q8H IVETTE Administration Insulin Glargine 49 unit 05/11/21 09:00 05/11/21 12:27 Insulin Glargine,Hum.Rec.Anlog 100 Unit/Ml 10 Ml Vial SUBCUT Not Given DAILY [facility] Insulin Human Lispro 30 unit 05/11/21 07:30 05/11/21 13:22 Insulin Lispro 100 Unit/Ml 3 Ml Vial SUBCUT Not Given TIDAC [facility] Insulin Human Lispro 0 unit 05/11/21 07:30 05/11/21 13:22 Insulin Lispro 100 Unit/Ml 3 Ml Vial SUBCUT Not Given QIDACHS [facility] Protocol Isosorbide Mononitrate 30 mg 05/11/21 09:00 05/11/21 08:53 Isosorbide Mononitrate 30 Mg Tab.Er.24h PO 30 mg DAILY [facility] Administration Protocol Latanoprost 1 drop 05/11/21 01:29 05/11/21 02:42 Latanoprost 0.005 % Ophth Elsa 2.5 Ml Drops EYE-BOTH Not Given BEDTIME [facility] Levothyroxine Sodium 50 mcg 05/11/21 06:30 05/11/21 08:54 Levothyroxine Sodium 50 Mcg Tablet PO 50 mcg DAILY@0630 [facility] Administration Lisinopril 2.5 mg 05/11/21 09:00 05/11/21 08:54 Lisinopril 2.5 Mg Tablet PO 2.5 mg DAILY [facility] Administration Protocol Lorazepam 0.5 mg 05/11/21 01:29 Lorazepam 0.5 Mg Tablet PO DAILY PRN anxiety Non-Formulary Medication 1 drop 05/11/21 09:00 Brimonidine EYE-BOTH BID [facility] Ondansetron HCl 4 mg 05/11/21 01:29 Ondansetron Hcl 4 Mg/2 Ml Vial IVPUSH Q8H PRN Nausea and Vomiting Oxycodone HCl 5 mg 05/11/21 01:29 05/11/21 12:23 Oxycodone Hcl Immed Release 5 Mg Tablet PO 5 mg Q6H PRN Administration Pain, Severe (Pain Scale 7-10) Spironolactone 25 mg 05/11/21 09:00 05/11/21 08:54 Spironolactone 25 Mg Tablet PO 25 mg DAILY [facility] Administration Protocol Home Medications Medication Instructions Recorded Confirmed Last Taken Type brimonidine 0.1 % eye drops 1 drp OPHTHALMIC (EYE) BID 06/03/20 05/10/21 05/10/21 09:00 History latanoprost 0.005 % eye drops 1 drp OPHTHALMIC (EYE) BEDTIME 06/03/20 05/10/21 05/09/21 22:00 History aspirin 81 mg tablet,delayed 81 mg PO DAILY 07/14/20 05/11/21 Unknown History release docusate sodium 100 mg capsule 100 mg PO BEDTIME 05/10/21 05/10/21 05/09/21 22:00 History (Colace) ticagrelor 90 mg tablet (Brilinta) 1 tab PO BID 05/10/21 05/10/21 05/10/21 09:00 History atorvastatin 80 mg tablet 1 tab PO DAILY 05/11/21 05/11/21 Unknown History Physical Exam Vital Signs: Vital Signs: Last Vital Signs Temp 98.4 F 05/10/21 22:00 Pulse 81 05/11/21 08:54 Resp 20 05/11/21 06:56 BP 141/64 H 05/11/21 08:54 Pulse Ox 96 05/11/21 06:56 Body Mass Index 33.5 GENERAL APPEARANCE: in no acute distress, pleasant. NECK: no carotid bruit, no jugular venous distention. SKIN: no suspicious lesions, warm and dry. HEART: no murmurs, regular rate and rhythm. LUNGS: clear to auscultation bilaterally. ABDOMEN: soft, nontender. EXTREMITIES: no edema. PERIPHERAL PULSES: equal. NEUROLOGIC: No gross deficits, AAO X 3 Results Labs and Meds Result diagrams: 05/11/21 09:13 05/11/21 09:13 Lab results: Laboratory Results - last 24 hr 05/10/21 05/10/21 05/10/21 16:28 17:04 17:04 WBC 16.6 H RBC 6.13 H Hgb 16.7 H Hct 50.0 H MCV 81.6 MCH 27.2 MCHC 33.4 RDW 15.0 Plt Count 214 MPV 10.5 Immature Gran % (Auto) 0.5 H Neut % (Auto) 87.6 H Lymph % (Auto) 6.0 L [place] % (Auto) 5.7 Eos % (Auto) 0.0 Baso % (Auto) 0.2 Lymph # (Auto) 1.0 L [place] # (Auto) 0.9 Eos # (Auto) 0.0 Baso # (Auto) 0.0 Abs Immat Gran (auto) 0.09 H Absolute Neuts (auto) 14.5 H Absolute Nucleated RBC 0.000 Nucleated RBC % (auto) 0.0 PT 11.3 INR 1.0 Sodium Potassium Chloride Carbon Dioxide Anion Gap BUN Creatinine Estim Creat Clear Calc Estimated GFR POC Glucose 175 H Random Glucose Lactic Acid Calcium Total Bilirubin Direct Bilirubin AST ALT Alkaline Phosphatase Troponin I High Sens Total Protein Albumin Lipase Urine Color Urine Appearance Urine pH Ur Specific [place] Urine Protein Urine Glucose (UA) Urine Ketones Urine Blood Urine Nitrite Ur Leukocyte Esterase Urine RBC Urine WBC Ur Squamous Epith Cells Urine Bacteria COVID-19 (HERNANDO) [email or web address] 05/10/21 05/10/21 05/10/21 17:04 18:40 21:13 WBC RBC Hgb Hct MCV MCH MCHC RDW Plt Count MPV Immature Gran % (Auto) Neut % (Auto) Lymph % (Auto) [place] % (Auto) Eos % (Auto) Baso % (Auto) Lymph # (Auto) [place] # (Auto) Eos # (Auto) Baso # (Auto) Abs Immat Gran (auto) Absolute Neuts (auto) Absolute Nucleated RBC Nucleated RBC % (auto) PT INR Sodium 136 Potassium 4.4 Chloride 100 Carbon Dioxide 22 Anion Gap 18 BUN 13 Creatinine 0.81 Estim Creat Clear Calc 74.5 Estimated GFR > 60 POC Glucose Random Glucose 188 H Lactic Acid Calcium 10.8 H D Total Bilirubin 3.5 H Direct Bilirubin 2.3 H AST 730 H ALT 529 H Alkaline Phosphatase 106 D Troponin I High Sens Total Protein 8.8 H Albumin 4.8 Lipase 26 Urine Color YELLOW Urine Appearance CLEAR Urine pH 7.0 Ur Specific [place] 1.010 Urine Protein 2+ H Urine Glucose (UA) >=1000 H Urine Ketones 5 Urine Blood TRACE Urine Nitrite NEG Ur Leukocyte Esterase NEG Urine RBC 1-4 Urine WBC 0-2 Ur Squamous Epith Cells 1+ Urine Bacteria NONE COVID-19 (HERNANDO) Negative COVID-19 [employer] Com See Note 05/10/21 05/11/21 05/11/21 23:25 00:47 08:37 WBC RBC Hgb Hct MCV MCH MCHC RDW Plt Count MPV Immature Gran % (Auto) Neut % (Auto) Lymph % (Auto) [place] % (Auto) Eos % (Auto) Baso % (Auto) Lymph # (Auto) [place] # (Auto) Eos # (Auto) Baso # (Auto) Abs Immat Gran (auto) Absolute Neuts (auto) Absolute Nucleated RBC Nucleated RBC % (auto) PT INR Sodium Potassium Chloride Carbon Dioxide Anion Gap BUN Creatinine Estim Creat Clear Calc Estimated GFR POC Glucose 188 H Random Glucose Lactic Acid 2.0 Calcium Total Bilirubin Direct Bilirubin AST ALT Alkaline Phosphatase Troponin I High Sens 110.6 H* Total Protein Albumin Lipase Urine Color Urine Appearance Urine pH Ur Specific [place] Urine Protein Urine Glucose (UA) Urine Ketones Urine Blood Urine Nitrite Ur Leukocyte Esterase Urine RBC Urine WBC Ur Squamous Epith Cells Urine Bacteria COVID-19 (HERNANDO) COVID-19 Clin Com 05/11/21 05/11/21 05/11/21 09:13 09:13 09:13 WBC 10.9 H RBC 5.43 Hgb 14.8 Hct 45.7 MCV 84.2 MCH 27.3 MCHC 32.4 RDW 15.5 Plt Count 185 MPV 11.0 Immature Gran % (Auto) 0.4 Neut % (Auto) 84.7 H Lymph % (Auto) 10.1 L [place] % (Auto) 4.6 Eos % (Auto) 0.0 Baso % (Auto) 0.2 Lymph # (Auto) 1.1 L [place] # (Auto) 0.5 Eos # (Auto) 0.0 Baso # (Auto) 0.0 Abs Immat Gran (auto) 0.04 H Absolute Neuts (auto) 9.2 H Absolute Nucleated RBC 0.000 Nucleated RBC % (auto) 0.0 PT INR Sodium 136 Potassium 4.6 Chloride 109 H Carbon Dioxide 14 L Anion Gap 18 BUN 13 Creatinine 0.72 Estim Creat Clear Calc 83.8 Estimated GFR > 60 POC Glucose Random Glucose 183 H Lactic Acid Calcium 8.3 L D Total Bilirubin 6.1 H Direct Bilirubin 4.4 H AST 306 H ALT 435 H Alkaline Phosphatase 119 H Troponin I High Sens 177.0 H* D Total Protein 6.6 D Albumin 3.6 D Lipase Urine Color Urine Appearance Urine pH Ur Specific [place] Urine Protein Urine Glucose (UA) Urine Ketones Urine Blood Urine Nitrite Ur Leukocyte Esterase Urine RBC Urine WBC Ur Squamous Epith Cells Urine Bacteria COVID-19 (HERNANDO) COVID-19 Clin Com Imaging Radiologist's impression: Impressions Abdomen Ultrasound 05/10/21 17:57 IMPRESSION: Limited study. Cholelithiasis. There may be some low-level echoes within the common duct Abdomen/Pelvis CT 05/10/21 17:58 IMPRESSION: Study limited by motion. There are some small lower lobe pulmonary nodules. Given the history of breast cancer close follow-up is warranted. The patient was unable to suspend respirations which could've obscured additional nodules. I recommend a follow-up CT in 6 months. Fatty change in liver. Known cholelithiasis. Prominent common duct. In the presence of elevated liver function testing and cholelithiasis MRCP may BE warranted. Coronary stent suspected. The left ventricle appears dilated. Chest CT 05/10/21 18:01 IMPRESSION: Study limited by motion. There are some small lower lobe pulmonary nodules. Given the history of breast cancer close follow-up is warranted. The patient was unable to suspend respirations which could've obscured additional nodules. I recommend a follow-up CT in 6 months. Fatty change in liver. Known cholelithiasis. Prominent common duct. In the presence of elevated liver function testing and cholelithiasis MRCP may BE warranted. Coronary stent suspected. The left ventricle appears dilated. Thoracic Spine X-Ray 05/10/21 23:22 IMPRESSION: No compression fractures or subluxations are identified. Assessment and Plan (1) Elevated troponin: Status: Acute (2) Back pain: Status: Acute (3) Elevated LFTs: Status: Acute (4) Ischemic cardiomyopathy: Status: Acute Pleasant 65 year female who is presenting for back pain and elevated liver function enzymes. She is being worked up for cholangitis and will require ERCP tomorrow. She has known history of coronary disease with previous cardiac catheterization when she had stent placed to the left posterior descending artery and LAD WATERFRONT DIRECTOR PCI was attempted. LAD PCI was unsuccessful. She has EF of 30 35%. Clinically she is euvolemic and not in heart failure. She has no chest discomfort or any other concerning signs. Mildly elevated troponin levels likely due to type 2 event. No further testing is required for that. I think the Brilinta can be held for the ERCP. Postprocedure she wishes to resume it and it can be restarted. Her stents were placed in 2017. She is intermediate risk for perioperative cardiovascular complications. We will follow along with you. Thank you for allowing me to participate in the care of your patient. Please feel free to contact me if you have any questions. Procedures Date of Service Date of Service: 05/11/21
--- NOTE | 2021-05-11 16:32 | P.PNIM_ITS ---
Subjective Subjective Date of Service: 05/11/21 Interval History: ?cholangitis Review of Systems Patient still has right upper quadrant pain seems somewhat discomfort , Denies any new complaint of chest pain or shortness of breath or abdominal pain or fever or chills or nausea or vomiting Denies any cough Denies any weakness or numbness. Physical Exam Vital Signs: Vital Signs: Last Vital Signs Temp 98.4 F 05/10/21 22:00 Pulse 81 05/11/21 08:54 Resp 20 05/11/21 06:56 BP 141/64 H 05/11/21 08:54 Pulse Ox 96 05/11/21 06:56 Body Mass Index 33.5 Physical exam: Appearance:not in distress.? Eyes: Pupils equal, ? Sclera nonicteric.? ENT: Pharynx normal.? Moist mucous membranes. cvs: rrr, [id number] res: clear to auscultation ,no rhonchii or wheezing abd: no rebound or guarding ,ruq lateral side pain, bs present. ext pulses present , no cyanosis ,Gait well balanced well coordinated. neuro: axo3 , nonfocal. Objective Data Active Medications Acetaminophen (Acetaminophen 325 Mg Tablet) 650 mg PO Q6H PRN PRN Reason: Pain, Mild (Pain Scale 1-3) Carvedilol (Carvedilol 3.125 Mg Tablet) 3.125 mg PO BID [facility]; Protocol Last Admin: 05/11/21 08:54 Dose: 3.125 mg Documented by: OBDULIO Dextrose (Dextrose 50 % 25 Gm/50 Ml Vial) 25 gm IVPUSH Q15M PRN; Protocol PRN Reason: per Hypoglycemia Standing Ord. Docusate Sodium (Docusate Sodium 100 Mg Capsule) 100 mg PO BEDTIME [facility] Last Admin: 05/11/21 02:25 Dose: 100 mg Documented by: ANIL Fentanyl (Fentanyl 50 Mcg Patch.Td72) 50 mcg TRANSDERMA Q72H IVETTE Last Admin: 05/11/21 08:53 Dose: Not Given Documented by: OBDULIO Non-Admin Reason: due tomorrow Furosemide (Furosemide 20 Mg Tablet) 20 mg PO DAILY [facility]; Protocol Last Admin: 05/11/21 08:53 Dose: 20 mg Documented by: OBDULIO Gabapentin (Gabapentin 400 Mg Capsule) 400 mg PO TID [facility] Last Admin: 05/11/21 08:54 Dose: 400 mg Documented by: OBDULIO Glucose (Glucose Gel 15 Gm Gel..Gram.) 15 gm PO Q15M PRN; Protocol PRN Reason: per Hypoglycemia Standing Ord. Cefepime HCl 2 gm/ Sodium (Chloride) 50 mls @ 100 mls/hr IV Q8H [facility] Last Admin: 05/11/21 06:55 Dose: 100 mls/hr Documented by: ANIL Insulin Glargine (Insulin Glargine,Hum.Rec.Anlog 100 Unit/Ml 10 Ml Vial) 49 unit SUBCUT DAILY [facility] Last Admin: 05/11/21 12:27 Dose: Not Given Documented by: OBDULIO Non-Admin Reason: NPO Insulin Human Lispro (Insulin Lispro 100 Unit/Ml 3 Ml Vial) 30 unit SUBCUT TIDAC [facility] Last Admin: 05/11/21 13:22 Dose: Not Given Documented by: OBDULIO Non-Admin Reason: NPO Insulin Human Lispro (Insulin Lispro 100 Unit/Ml 3 Ml Vial) 0 unit SUBCUT QIDACHS [facility]; Protocol Last Admin: 05/11/21 13:22 Dose: Not Given Documented by: OBDULIO Non-Admin Reason: NPO Isosorbide Mononitrate (Isosorbide Mononitrate 30 Mg Tab.Er.24h) 30 mg PO DAILY [facility]; Protocol Last Admin: 05/11/21 08:53 Dose: 30 mg Documented by: OBDULIO Latanoprost (Latanoprost 0.005 % Ophth Elsa 2.5 Ml Drops) 1 drop EYE-BOTH BEDTIME [facility] Last Admin: 05/11/21 02:42 Dose: Not Given Documented by: ANIL Non-Admin Reason: Med Not Available Levothyroxine Sodium (Levothyroxine Sodium 50 Mcg Tablet) 50 mcg PO DAILY@0630 [facility] Last Admin: 05/11/21 08:54 Dose: 50 mcg Documented by: OBDULIO Lisinopril (Lisinopril 2.5 Mg Tablet) 2.5 mg PO DAILY [facility]; Protocol Last Admin: 05/11/21 08:54 Dose: 2.5 mg Documented by: BODULIO Lorazepam (Lorazepam 0.5 Mg Tablet) 0.5 mg PO DAILY PRN PRN Reason: anxiety Non-Formulary Medication (Brimonidine) 1 drop EYE-BOTH BID [facility] Ondansetron HCl (Ondansetron Hcl 4 Mg/2 Ml Vial) 4 mg IVPUSH Q8H PRN PRN Reason: Nausea and Vomiting Oxycodone HCl (Oxycodone Hcl Immed Release 5 Mg Tablet) 5 mg PO Q6H PRN PRN Reason: Pain, Severe (Pain Scale 7-10) Last Admin: 05/11/21 12:23 Dose: 5 mg Documented by: OBDULIO Spironolactone (Spironolactone 25 Mg Tablet) 25 mg PO DAILY [facility]; Protocol Last Admin: 05/11/21 08:54 Dose: 25 mg Documented by: OBDULIO Labs CBC & Chem 7: 05/11/21 09:13 05/11/21 09:13 Labs: Laboratory Results - last 24 hr 05/10/21 05/10/21 05/10/21 16:28 17:04 17:04 MCV 81.6 MCH 27.2 MCHC 33.4 RDW 15.0 Plt Count 214 MPV 10.5 Immature Gran % (Auto) 0.5 H Neut % (Auto) 87.6 H Lymph % (Auto) 6.0 L [place] % (Auto) 5.7 Eos % (Auto) 0.0 Baso % (Auto) 0.2 Lymph # (Auto) 1.0 L [place] # (Auto) 0.9 Eos # (Auto) 0.0 Baso # (Auto) 0.0 Abs Immat Gran (auto) 0.09 H Absolute Neuts (auto) 14.5 H Absolute Nucleated RBC 0.000 Nucleated RBC % (auto) 0.0 PT 11.3 INR 1.0 Anion Gap Estim Creat Clear Calc Estimated GFR POC Glucose 175 H Random Glucose Lactic Acid Calcium Total Bilirubin Direct Bilirubin AST ALT Alkaline Phosphatase Troponin I High Sens Total Protein Albumin Lipase Urine Color Urine Appearance Urine pH Ur Specific [place] Urine Protein Urine Glucose (UA) Urine Ketones Urine Blood Urine Nitrite Ur Leukocyte Esterase Urine RBC Urine WBC Ur Squamous Epith Cells Urine Bacteria COVID-19 (HERNANDO) COVID-19 Clin Com 05/10/21 05/10/21 05/10/21 17:04 18:40 21:13 MCV MCH MCHC RDW Plt Count MPV Immature Gran % (Auto) Neut % (Auto) Lymph % (Auto) [place] % (Auto) Eos % (Auto) Baso % (Auto) Lymph # (Auto) [place] # (Auto) Eos # (Auto) Baso # (Auto) Abs Immat Gran (auto) Absolute Neuts (auto) Absolute Nucleated RBC Nucleated RBC % (auto) PT INR Anion Gap 18 Estim Creat Clear Calc 74.5 Estimated GFR > 60 POC Glucose Random Glucose 188 H Lactic Acid Calcium 10.8 H D Total Bilirubin 3.5 H Direct Bilirubin 2.3 H AST 730 H ALT 529 H Alkaline Phosphatase 106 D Troponin I High Sens Total Protein 8.8 H Albumin 4.8 Lipase 26 Urine Color YELLOW Urine Appearance CLEAR Urine pH 7.0 Ur Specific [place] 1.010 Urine Protein 2+ H Urine Glucose (UA) >=1000 H Urine Ketones 5 Urine Blood TRACE Urine Nitrite NEG Ur Leukocyte Esterase NEG Urine RBC 1-4 Urine WBC 0-2 Ur Squamous Epith Cells 1+ Urine Bacteria NONE COVID-19 (HERNANDO) Negative COVID-19 Clin Com See Note 05/10/21 05/11/21 05/11/21 23:25 00:47 08:37 MCV MCH MCHC RDW Plt Count MPV Immature Gran % (Auto) Neut % (Auto) Lymph % (Auto) [place] % (Auto) Eos % (Auto) Baso % (Auto) Lymph # (Auto) [place] # (Auto) Eos # (Auto) Baso # (Auto) Abs Immat Gran (auto) Absolute Neuts (auto) Absolute Nucleated RBC Nucleated RBC % (auto) PT INR Anion Gap Estim Creat Clear Calc Estimated GFR POC Glucose 188 H Random Glucose Lactic Acid 2.0 Calcium Total Bilirubin Direct Bilirubin AST ALT Alkaline Phosphatase Troponin I High Sens 110.6 H* Total Protein Albumin Lipase Urine Color Urine Appearance Urine pH Ur Specific [place] Urine Protein Urine Glucose (UA) Urine Ketones Urine Blood Urine Nitrite Ur Leukocyte Esterase Urine RBC Urine WBC Ur Squamous Epith Cells Urine Bacteria COVID-19 (HERNANDO) COVID-19 Clin Com 05/11/21 05/11/21 05/11/21 09:13 09:13 09:13 MCV 84.2 MCH 27.3 MCHC 32.4 RDW 15.5 Plt Count 185 MPV 11.0 Immature Gran % (Auto) 0.4 Neut % (Auto) 84.7 H Lymph % (Auto) 10.1 L [place] % (Auto) 4.6 Eos % (Auto) 0.0 Baso % (Auto) 0.2 Lymph # (Auto) 1.1 L [place] # (Auto) 0.5 Eos # (Auto) 0.0 Baso # (Auto) 0.0 Abs Immat Gran (auto) 0.04 H Absolute Neuts (auto) 9.2 H Absolute Nucleated RBC 0.000 Nucleated RBC % (auto) 0.0 PT INR Anion Gap 18 Estim Creat Clear Calc 83.8 Estimated GFR > 60 POC Glucose Random Glucose 183 H Lactic Acid Calcium 8.3 L D Total Bilirubin 6.1 H Direct Bilirubin 4.4 H AST 306 H ALT 435 H Alkaline Phosphatase 119 H Troponin I High Sens 177.0 H* D Total Protein 6.6 D Albumin 3.6 D Lipase Urine Color Urine Appearance Urine pH Ur Specific [place] Urine Protein Urine Glucose (UA) Urine Ketones Urine Blood Urine Nitrite Ur Leukocyte Esterase Urine RBC Urine WBC Ur Squamous Epith Cells Urine Bacteria COVID-19 (HERNANDO) COVID-19 Clin Com Assessment and Plan (1) Cholangitis: Status: Acute Assessment and Plan: 65-year-old female with a very extensive past medical history presents to the hospital with complaints of back pain found to have elevated LFTs and concern for cholangitis 1.Transaminitis- most likely secondary to cholangitis patient has elevated bili going up, ast alt improving ,alk phos also slightly up , leukocytosis improving, afebrile prominent dilated common bile duct seen on CT Blood culture pending Will continue IV antibiotics -continue cefepime,discussed with GI-ERCP in the a.m., clear liquid diet. 2. back pain- most likely musculoskeletal seems improving no abnormality on chest x-ray and or chest CT continue her home fentanyl patch 3.elevated troponin,EKG showing multiple abnormalities but nothing acute seen by cardio-thought to be elevated trops sec to cholangitis ntermediate risk for perioperative cardiovascular complications. hold brilanta prior to the procedure. 4.abnormal CT lung findings- some nodules seen on CT scan given her history of breast cancer these will need follow-up on further evaluation once patient's transaminitis/cholangitis addressed 5. hypertension - stable - continue home medications 6. diabetes: hold home insulin , patient is on clears only - will add low-dose sliding scale insulin, avoid coverage below 200 mg/dl clear liquid diet 7.History of CHF - not in exacerbation hold Lasix and lisinopril -for now due to only takin clears, start back lasix /lisinopril after procedure tomorrow, continue carvedilol. 8. history of CAD-has elevated troponin but no chest pain, no EKG changes suggestive of ACS continue home medications of aspirin, carvedilol hold Brilinta as patient possibly undergo an MRCP in a.m.( GI wanted patient to be off Brilinta this a.m.) DVT prophylaxis:? SCDs for possible intervention in a.m. Quality Stroke Does the patient have a stroke diagnosis?: No VTE Prior VTE?: No VTE Risk Level:: Medical - moderate - high VTE Device Contraindication: N/A - Device Ordered VTE Drug Contraindication: Treatment Not Indicated
--- NOTE | 2021-05-11 19:27 | PC.NURSE ---
PT WAIING ON BED ASSIGNMENT, PT IS AOX4 AMB TO BR WITH WALKER. MEDICATED FOR PAIN PRN. PT SEEN BY SURGICAL TEAM, PENDING SURGICAL PROCEDURE CHUY. FAMILY HAS BEEN UPDATED ON PLAN PATIENTS NEEDS BEING MET. PT REFUSED INSULIN DUE TO BEING NPO
[2021-05-11 19:35] LABS: Glucose, Whole Blood 179 mg/dL (60-115)
[2021-05-11 19:48] LABS: Glucose, Whole Blood 167 mg/dL (60-115)
--- NOTE | 2021-05-11 20:35 | MHC.CM.PN ---
CM met with admitted patient, transfer to room 347 pending. Pt awakened for interview. IMM reviewed and signed per protocol 05/11/21@2024. A&Ox3. Pt lives with . Uses a cane. Has [employer] services through [employer]- 16 hours/week. also has services. Pt is fully vaccinated with Pfizer vaccine. HCP is not on file. Pt states HCP is at [facility]. States HCP/son is Christ Aden. Cannot complete as patient does not remember the telephone number. States her son lives in [place]. Will re-assess in am when pt more awake and able to access contact information. Pt states she may need STR at discharge. Will see how she feels. Pt will need PT assessment. D/C plan is home vs STR. Transportation home provided by family. CM to follow for d/c needs.
[2021-05-11 21:52] LABS: Glucose, Whole Blood 172 mg/dL (60-115)
[2021-05-12] VITALS (14 sets, daily range): BP systolic 112–168; BP diastolic 39–105; PULSE 76–104; RESP 18–30; TEMP 36.7–37.3; O2SAT 95–99; BMI 33.4
[2021-05-12 06:01] LABS: Hematocrit 47.5 % (37-47); Mean Corpuscular HGB Conc 31.6 g/dl (31.0-35.0); Mean Corpuscular Hemoglobin 27.5 pg (27.0-33.0); Mean Corpuscular Volume 87.2 fL (80-98); Mean Platelet Volume 10.7 fL (9.4-12.3); Platelet Count 192 X10*3/uL (160-400); Red Blood Count 5.45 X10*6/uL (4.20-5.50); Red Cell Distribution Width 15.9 % (11.0-16.0); White Blood Count 17.3 X10*3/uL (4.8-10.8)
[2021-05-12] MEDS: Levothyroxine Sodium 50 MCG TABLET PO (06:23)
[2021-05-12] MEDS: cefEPime HCl 2 GM in 0.9 % Sodium Chloride 50 ML IV ×2 (06:24→21:19)
[2021-05-12 07:12] LABS: Alanine Aminotransferase 362 U/L (0-31); Albumin Level 4.1 g/dL (3.5-5.0); Alkaline Phosphatase 147 U/L (39-117); Anion Gap 25 (12-20); Aspartate Amino Transferase 114 U/L (5-31); Bilirubin Direct 1.1 mg/dL (0.0-0.5); Bilirubin Total 1.8 mg/dL (0.0-1.0); Blood Urea Nitrogen 24 mg/dL (9-16); Calcium 9.1 mg/dL (8.4-10.2); Carbon Dioxide 6 mmol/L (22-29); Chloride 108 mmol/L (96-108); Creatinine Clr Calc Pharmacy 58.6; Estimated Glomerular Filt Rate 54; Glucose Random 204 mg/dL (60-115); Potassium 5.1 mmol/L (3.3-5.1); Sodium 134 mmol/L (135-145); Total Protein 7.6 g/dL (6.5-8.0)
[2021-05-12 08:23] LABS: Glucose, Whole Blood 225 mg/dL (60-115)
[2021-05-12] MEDS: ondansetron HCL 4 MG/2 ML VIAL IVPUSH ×2 (09:34→19:03)
--- NOTE | 2021-05-12 10:12 | HO.ANESPROP2 ---
FORM[facility]LY [facility] Active Problems Active Problems: All Active Problems (Updated 05/11/21 @ 06:37 by Hasmukh Quiroz MD) Abnormal CT lung screening (Acute) Elevated troponin (Acute) Back pain (Acute) Cholangitis (Acute) Elevated LFTs (Acute) Gallstone (Acute) Acute cholangitis (Acute) Transaminitis (Acute) Pityriasis rosea (Acute) Medicare annual wellness visit, initial (Acute) ICD (implantable cardioverter-defibrillator) in place (Acute) Ventricular tachycardia (Acute) Atherosclerotic cardiovascular disease (Acute) Obesity (BMI 30-39.9) (Acute) Major depressive disorder, recurrent episode, mild (Acute) Anxiety (Acute) Insomnia (Acute) Drug induced constipation (Acute) Osteoarthritis of spine with radiculopathy, cervical region (Acute) Lumbar degenerative disc disease (Acute) Neuropathy (Acute) History of ductal carcinoma in situ (DCIS) of breast (Acute) Vitamin D deficiency (Acute) Acquired hypothyroidism (Acute) Pure hypercholesterolemia (Acute) Benign essential hypertension (Acute) longterm (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 of insulin (Acute) Type 2 diabetes mellitus with diabetic polyneuropathy (Acute) Ischemic cardiomyopathy (Acute) Atherosclerosis of coronary artery of [place] heart with stable angina pectoris (Acute) Past Medical History Medical History Acquired hypothyroidism Anxiety 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 Benign essential hypertension Diabetes Diabetic neuropathy Drug induced constipation History of breast cancer History of ductal carcinoma in situ (DCIS) of breast History of [place] (myocardial infarction) Hyperlipidemia Hypothyroidism ICD (implantable cardioverter-defibrillator) in place Insomnia 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 Lumbar degenerative disc disease Major depressive disorder, recurrent episode, mild Neuropathy Obesity (BMI 30-39.9) Osteoarthritis Osteoarthritis of spine with radiculopathy, cervical region Pityriasis rosea Pure hypercholesterolemia Type 2 diabetes mellitus with diabetic polyneuropathy Ventricular tachycardia Vitamin D deficiency Family History Family History Mother Heart attack Hypertension CVD (cardiovascular disease) Father Diabetes Family history of problems with anesthesia: No Surgical History Surgical History History of implantable cardioverter-defibrillator (ICD) placement (~06/22/18) History of lumpectomy of both breasts History of percutaneous coronary intervention (~12/2017) History of tubal ligation S/P angioplasty (~07/2017) History of Problems with Anesthesia: No Social History Social History Household Members: Spouse Housing: House Do you presently have visiting nurse or other home services: Yes ([employer] 7 DAYS A WEEK) Alcohol intake: never Patient Tobacco Use Status: Never used Tobacco Second Hand Smoke Exposure: Yes Advance Directives Date on File: 06/05/20 service: No Current occupational status: disabled Sexual orientation: Straight/Heterosexual Gender identity: Female Meds Allergies Allergy/AdvReac Type Severity Reaction Status Date / Time No Known Allergies Allergy Mild NOT Verified 05/10/21 14:43 APPLICABLE Active Medications: Current Medications Generic Name Dose Route Start Last Admin Trade Name Freq PRN Reason Stop Dose Admin Acetaminophen 650 mg 05/11/21 01:29 Acetaminophen 325 Mg Tablet PO Q6H PRN Pain, Mild (Pain Scale 1-3) Carvedilol 3.125 mg 05/11/21 01:29 05/12/21 07:26 Carvedilol 3.125 Mg Tablet PO Not Given BID IVETTE Protocol Dextrose 25 gm 05/11/21 01:29 Dextrose 50 % 25 Gm/50 Ml Vial IVPUSH Q15M PRN per Hypoglycemia Standing Ord. Protocol Dextrose 25 gm 05/11/21 16:47 Dextrose 50 % 25 Gm/50 Ml Vial IVPUSH Q15M PRN per Hypoglycemia Standing Ord. Protocol Docusate Sodium 100 mg 05/11/21 01:29 05/11/21 20:40 Docusate Sodium 100 Mg Capsule PO 100 mg BEDTIME IVETTE Administration Fentanyl 50 mcg 05/11/21 07:00 05/11/21 08:53 Fentanyl 50 Mcg Patch.[id number] TRANSDERMA Not Given Q72H IVETTE Furosemide 20 mg 05/11/21 09:00 05/12/21 07:26 Furosemide 20 Mg Tablet PO Not Given DAILY IVETTE Protocol Gabapentin 400 mg 05/11/21 01:29 05/12/21 07:26 Gabapentin 400 Mg Capsule PO Not Given TID IVETTE Glucose 15 gm 05/11/21 01:29 Glucose Gel 15 Gm Gel..Gram. PO Q15M PRN per Hypoglycemia Standing Ord. Protocol Glucose 15 gm 05/11/21 16:47 Glucose Gel 15 Gm Gel..Gram. PO Q15M PRN per Hypoglycemia Standing Ord. Protocol Cefepime HCl 2 gm/ Sodium 50 mls @ 100 mls/hr 05/11/21 05:00 05/12/21 07:41 Chloride IV Infused Q8H [facility] Infusion Indomethacin 100 mg 05/12/21 12:36 Indomethacin [address] 05/12/21 12:37 ONCE ONE Insulin Glargine 49 unit 05/11/21 09:00 05/12/21 07:26 Insulin Glargine,Hum.Rec.Anlog 100 Unit/Ml 10 Ml Vial SUBCUT Not Given DAILY [facility] Insulin Human Lispro 30 unit 05/11/21 07:30 05/12/21 07:21 Insulin Lispro 100 Unit/Ml 3 Ml Vial SUBCUT Not Given TIDAC [facility] Insulin Human Lispro 0 unit 05/11/21 07:30 05/12/21 07:27 Insulin Lispro 100 Unit/Ml 3 Ml Vial SUBCUT Not Given QIDACHS [facility] Protocol Insulin Human Lispro 0 unit 05/11/21 21:00 05/12/21 07:21 Insulin Lispro 100 Unit/Ml 3 Ml Vial SUBCUT Not Given QIDACHS [facility] Protocol Isosorbide Mononitrate 30 mg 05/11/21 09:00 05/12/21 07:27 Isosorbide Mononitrate 30 Mg Tab.Er.24h PO Not Given DAILY [facility] Protocol Latanoprost 1 drop 05/11/21 01:29 05/11/21 22:12 Latanoprost 0.005 % Ophth Elsa 2.5 Ml Drops EYE-BOTH Not Given BEDTIME [facility] Levothyroxine Sodium 50 mcg 05/11/21 06:30 05/12/21 06:23 Levothyroxine Sodium 50 Mcg Tablet PO 50 mcg DAILY@0630 [facility] Administration Lisinopril 2.5 mg 05/11/21 09:00 05/12/21 07:25 Lisinopril 2.5 Mg Tablet PO Not Given DAILY [facility] Protocol Lorazepam 0.5 mg 05/11/21 01:29 Lorazepam 0.5 Mg Tablet PO DAILY PRN anxiety Morphine Sulfate 2 mg 05/12/21 09:42 Morphine Sulfate 2 Mg/Ml Cartridge IVPUSH Q4H PRN Pain, Severe (Pain Scale 7-10) Protocol Non-Formulary Medication 1 drop 05/11/21 09:00 Brimonidine EYE-BOTH BID [facility] Ondansetron HCl 4 mg 05/11/21 01:29 Ondansetron Hcl 4 Mg/2 Ml Vial IVPUSH Q8H PRN Nausea and Vomiting Spironolactone 25 mg 05/11/21 09:00 05/12/21 07:25 Spironolactone 25 Mg Tablet PO Not Given DAILY [facility] Protocol Home Medications Medication Instructions Recorded Confirmed Last Taken Type brimonidine 0.1 % eye drops 1 drp OPHTHALMIC (EYE) BID 06/03/20 05/10/21 05/10/21 09:00 History latanoprost 0.005 % eye drops 1 drp OPHTHALMIC (EYE) BEDTIME 06/03/20 05/10/21 05/09/21 22:00 History aspirin 81 mg tablet,delayed 81 mg PO DAILY 07/14/20 05/11/21 Unknown History release docusate sodium 100 mg capsule 100 mg PO BEDTIME 05/10/21 05/10/21 05/09/21 22:00 History (Colace) ticagrelor 90 mg tablet (Brilinta) 1 tab PO BID 05/10/21 05/10/21 05/10/21 09:00 History atorvastatin 80 mg tablet 1 tab PO DAILY 05/11/21 05/11/21 Unknown History Exam Exam Date and Time: May 12, 2021 1012 Height,Weight and Vital Signs: Height 5 ft 4 in Weight 88.4 kg Last Vital Signs Temp 98.0 F 05/12/21 09:39 Pulse 98 05/12/21 09:39 Resp 30 H 05/12/21 09:39 BP 136/58 L 05/12/21 09:39 Pulse Ox 98 05/12/21 09:39 Pertinent Lab Results Pertinent Lab Results: Laboratory Tests 05/10/21 05/10/21 05/10/21 16:28 17:04 17:04 WBC 16.6 H RBC 6.13 H Hgb 16.7 H Hct 50.0 H MCV 81.6 MCH 27.2 MCHC 33.4 RDW 15.0 Plt Count 214 MPV 10.5 Immature Gran % (Auto) 0.5 H Neut % (Auto) 87.6 H Lymph % (Auto) 6.0 L [place] % (Auto) 5.7 Eos % (Auto) 0.0 Baso % (Auto) 0.2 Lymph # (Auto) 1.0 L [place] # (Auto) 0.9 Eos # (Auto) 0.0 Baso # (Auto) 0.0 Abs Immat Gran (auto) 0.09 H Absolute Neuts (auto) 14.5 H Absolute Nucleated RBC 0.000 Nucleated RBC % (auto) 0.0 PT 11.3 INR 1.0 Sodium Potassium Chloride Carbon Dioxide Anion Gap BUN Creatinine Estim Creat Clear Calc Estimated GFR POC Glucose 175 H Random Glucose Lactic Acid Calcium Total Bilirubin Direct Bilirubin AST ALT Alkaline Phosphatase Troponin I High Sens Total Protein Albumin Lipase Urine Color Urine Appearance Urine pH Ur Specific [place] Urine Protein Urine Glucose (UA) Urine Ketones Urine Blood Urine Nitrite Ur Leukocyte Esterase Urine RBC Urine WBC Ur Squamous Epith Cells Urine Bacteria COVID-19 (HERNANDO) [employer] 05/10/21 05/10/21 05/10/21 17:04 18:40 21:13 WBC RBC Hgb Hct MCV MCH MCHC RDW Plt Count MPV Immature Gran % (Auto) Neut % (Auto) Lymph % (Auto) [place] % (Auto) Eos % (Auto) Baso % (Auto) Lymph # (Auto) [place] # (Auto) Eos # (Auto) Baso # (Auto) Abs Immat Gran (auto) Absolute Neuts (auto) Absolute Nucleated RBC Nucleated RBC % (auto) PT INR Sodium 136 Potassium 4.4 Chloride 100 Carbon Dioxide 22 Anion Gap 18 BUN 13 Creatinine 0.81 Estim Creat Clear Calc 74.5 Estimated GFR > 60 POC Glucose Random Glucose 188 H Lactic Acid Calcium 10.8 H D Total Bilirubin 3.5 H Direct Bilirubin 2.3 H AST 730 H ALT 529 H Alkaline Phosphatase 106 D Troponin I High Sens Total Protein 8.8 H Albumin 4.8 Lipase 26 Urine Color YELLOW Urine Appearance CLEAR Urine pH 7.0 Ur Specific [place] 1.010 Urine Protein 2+ H Urine Glucose (UA) >=1000 H Urine Ketones 5 Urine Blood TRACE Urine Nitrite NEG Ur Leukocyte Esterase NEG Urine RBC 1-4 Urine WBC 0-2 Ur Squamous Epith Cells 1+ Urine Bacteria NONE COVID-19 (HERNANDO) Negative COVID-19 [employer] Com See Note 05/10/21 05/11/21 05/11/21 23:25 00:47 08:37 WBC RBC Hgb Hct MCV MCH MCHC RDW Plt Count MPV Immature Gran % (Auto) Neut % (Auto) Lymph % (Auto) [place] % (Auto) Eos % (Auto) Baso % (Auto) Lymph # (Auto) [place] # (Auto) Eos # (Auto) Baso # (Auto) Abs Immat Gran (auto) Absolute Neuts (auto) Absolute Nucleated RBC Nucleated RBC % (auto) PT INR Sodium Potassium Chloride Carbon Dioxide Anion Gap BUN Creatinine Estim Creat Clear Calc Estimated GFR POC Glucose 188 H Random Glucose Lactic Acid 2.0 Calcium Total Bilirubin Direct Bilirubin AST ALT Alkaline Phosphatase Troponin I High Sens 110.6 H* Total Protein Albumin Lipase Urine Color Urine Appearance Urine pH Ur Specific [place] Urine Protein Urine Glucose (UA) Urine Ketones Urine Blood Urine Nitrite Ur Leukocyte Esterase Urine RBC Urine WBC Ur Squamous Epith Cells Urine Bacteria COVID-19 (HERNANDO) COVID-19 Clin Com 05/11/21 05/11/21 05/11/21 09:13 09:13 09:13 WBC 10.9 H RBC 5.43 Hgb 14.8 Hct 45.7 MCV 84.2 MCH 27.3 MCHC 32.4 RDW 15.5 Plt Count 185 MPV 11.0 Immature Gran % (Auto) 0.4 Neut % (Auto) 84.7 H Lymph % (Auto) 10.1 L [place] % (Auto) 4.6 Eos % (Auto) 0.0 Baso % (Auto) 0.2 Lymph # (Auto) 1.1 L [place] # (Auto) 0.5 Eos # (Auto) 0.0 Baso # (Auto) 0.0 Abs Immat Gran (auto) 0.04 H Absolute Neuts (auto) 9.2 H Absolute Nucleated RBC 0.000 Nucleated RBC % (auto) 0.0 PT INR Sodium 136 Potassium 4.6 Chloride 109 H Carbon Dioxide 14 L Anion Gap 18 BUN 13 Creatinine 0.72 Estim Creat Clear Calc 83.8 Estimated GFR > 60 POC Glucose Random Glucose 183 H Lactic Acid Calcium 8.3 L D Total Bilirubin 6.1 H Direct Bilirubin 4.4 H AST 306 H ALT 435 H Alkaline Phosphatase 119 H Troponin I High Sens 177.0 H* D Total Protein 6.6 D Albumin 3.6 D Lipase Urine Color Urine Appearance Urine pH Ur Specific [place] Urine Protein Urine Glucose (UA) Urine Ketones Urine Blood Urine Nitrite Ur Leukocyte Esterase Urine RBC Urine WBC Ur Squamous Epith Cells Urine Bacteria COVID-19 (HERNANDO) COVID-19 Clin Com 05/11/21 05/11/21 05/11/21 12:21 19:44 21:49 WBC RBC Hgb Hct MCV MCH MCHC RDW Plt Count MPV Immature Gran % (Auto) Neut % (Auto) Lymph % (Auto) [place] % (Auto) Eos % (Auto) Baso % (Auto) Lymph # (Auto) [place] # (Auto) Eos # (Auto) Baso # (Auto) Abs Immat Gran (auto) Absolute Neuts (auto) Absolute Nucleated RBC Nucleated RBC % (auto) PT INR Sodium Potassium Chloride Carbon Dioxide Anion Gap BUN Creatinine Estim Creat Clear Calc Estimated GFR POC Glucose 179 H 167 H 172 H Random Glucose Lactic Acid Calcium Total Bilirubin Direct Bilirubin AST ALT Alkaline Phosphatase Troponin I High Sens Total Protein Albumin Lipase Urine Color Urine Appearance Urine pH Ur Specific [place] Urine Protein Urine Glucose (UA) Urine Ketones Urine Blood Urine Nitrite Ur Leukocyte Esterase Urine RBC Urine WBC Ur Squamous Epith Cells Urine Bacteria COVID-19 (HERNANDO) COVID-19 Clin Com 05/12/21 05/12/21 05/12/21 05:49 05:49 08:19 WBC 17.3 H RBC 5.45 Hgb 15.0 Hct 47.5 H MCV 87.2 MCH 27.5 MCHC 31.6 RDW 15.9 Plt Count 192 MPV 10.7 Immature Gran % (Auto) Neut % (Auto) Lymph % (Auto) [place] % (Auto) Eos % (Auto) Baso % (Auto) Lymph # (Auto) [place] # (Auto) Eos # (Auto) Baso # (Auto) Abs Immat Gran (auto) Absolute Neuts (auto) Absolute Nucleated RBC 0.000 Nucleated RBC % (auto) 0.0 PT INR Sodium 134 L Potassium 5.1 Chloride 108 Carbon Dioxide 6 L* D Anion Gap 25 H BUN 24 H D Creatinine 1.03 Estim Creat Clear Calc 58.6 Estimated GFR 54 POC Glucose 225 H Random Glucose 204 H Lactic Acid Calcium 9.1 D Total Bilirubin 1.8 H Direct Bilirubin 1.1 H AST 114 H ALT 362 H Alkaline Phosphatase 147 H D Troponin I High Sens Total Protein 7.6 Albumin 4.1 Lipase Urine Color Urine Appearance Urine pH Ur Specific [place] Urine Protein Urine Glucose (UA) Urine Ketones Urine Blood Urine Nitrite Ur Leukocyte Esterase Urine RBC Urine WBC Ur Squamous Epith Cells Urine Bacteria COVID-19 (HERNANDO) COVID-19 Clin Com Airway Mallampati Class: II TM Dist: >3cm Denture: Upper Assessment and Plan Assessment Anesthesia Assessment: Anesthesia Plan Discussed and Chart Reviewed Final Anesthetic Review Family History of Problems with Anesthesia: No History of Problems with Anesthesia: No NPO: Yes ASA Class: III Final Preanesthetic Review: No Changes in Pt Med Stat, Meds/Allgs Chart Reviewed, Consent Obtained/Reviewed and Anes Risks/Benef Reviewed Patient Risk: Intermediate Assessment/Block/Sedation in SS: Assess/Block/Sedation-SS Anesthetic Plan Anesthetic Plan: GA Disposition: Standard PACU
--- NOTE | 2021-05-12 10:29 | PC.NURSE ---
REPOSITIONED TWO ASSIST. NO CHANGES. PATIENT STILL HAVING THROAT ACID REFLUX TIGER ANESTHESIA
--- NOTE | 2021-05-12 10:50 | PC.NURSE ---
MEDICATED WITH CITRIC ACID PER ANESTHESIA ORDER. MD REYNA AWARE OF PATIENTS THROAT BURNING AND THE SMELL OF HER BREATH-FRUITY. BILATERAL EYES ARE BLOOD SHOT.
[2021-05-12 10:54] LABS: Glucose, Whole Blood 227 mg/dL (60-115)
[2021-05-12] MEDS: 0.9 % Sodium Chloride 1,000 ML 999 ML IVCONT (10:56)
--- NOTE | 2021-05-12 11:04 | PC.NURSE ---
SURGERY HELD AT THIS TIME FOR NEW ORDERS OF LAB DRAW. BOLUSING 1 LITER NS PER MD ORDER. CALLED LAB FOR DRAW. AWAITING. DECREASING THROAT BURNING 02/05 FROM A 06/07. PATIENT AWARE OF PLAN OF CARE.
--- NOTE | 2021-05-12 11:10 | P.PNGI_ITS ---
Subjective Subjective Date of Service: 05/12/21 Interval History: SOb today and breathing fast bicarb v low LFT actually improved, still has upper abdo discomfort has nausea and non bloody emesis did not get insulin for 48 hrs Critical Care Time (minutes): 18 Physical Exam Vital Signs: Vital Signs: Last Vital Signs Temp 98.1 F 05/12/21 11:06 Pulse 98 05/12/21 11:06 Resp 22 H 05/12/21 11:06 BP 152/77 H 05/12/21 11:06 Pulse Ox 98 05/12/21 11:06 Body Mass Index 33.4 Const: General: cooperative and diaphoretic Orientation/consciousness: patient oriented x3 Resp: Effort & Inspection: tachypneic Auscultation: clear to auscultation bilaterally Percussion: percussion normal GI: Inspection: Yes normal to inspection Palpation (GI): Soft to palpation and Tenderness to palpation present (GI) Skin: General skin exam: no rashes or lesions noted Neuro: General: patient oriented x3 Cognition (Neuro): normal cognition Extrem: General: Yes normal to inspection Psych: Appearance: grossly normal Objective Data Labs CBC & Chem 7: 05/12/21 05:49 05/12/21 05:49 Labs: Laboratory Results - last 24 hr 05/10/21 05/11/21 05/11/21 17:04 09:13 12:21 WBC RBC Hgb Hct MCV MCH MCHC RDW Plt Count MPV Absolute Nucleated RBC Nucleated RBC % (auto) Sodium Potassium Chloride Carbon Dioxide Anion Gap BUN Creatinine Estim Creat Clear Calc Estimated GFR POC Glucose 179 H Random Glucose Calcium Total Bilirubin 6.1 H Direct Bilirubin 2.3 H 4.4 H AST 306 H ALT 435 H Alkaline Phosphatase 119 H Total Protein 6.6 D Albumin 3.6 D 05/11/21 05/11/21 05/12/21 19:44 21:49 05:49 WBC 17.3 H RBC 5.45 Hgb 15.0 Hct 47.5 H MCV 87.2 MCH 27.5 MCHC 31.6 RDW 15.9 Plt Count 192 MPV 10.7 Absolute Nucleated RBC 0.000 Nucleated RBC % (auto) 0.0 Sodium Potassium Chloride Carbon Dioxide Anion Gap BUN Creatinine Estim Creat Clear Calc Estimated GFR POC Glucose 167 H 172 H Random Glucose Calcium Total Bilirubin Direct Bilirubin AST ALT Alkaline Phosphatase Total Protein Albumin 05/12/21 05/12/21 05/12/21 05:49 08:19 10:49 WBC RBC Hgb Hct MCV MCH MCHC RDW Plt Count MPV Absolute Nucleated RBC Nucleated RBC % (auto) Sodium 134 L Potassium 5.1 Chloride 108 Carbon Dioxide 6 L* D Anion Gap 25 H BUN 24 H D Creatinine 1.03 Estim Creat Clear Calc 58.6 Estimated GFR 54 POC Glucose 225 H 227 H Random Glucose 204 H Calcium 9.1 D Total Bilirubin 1.8 H Direct Bilirubin 1.1 H AST 114 H ALT 362 H Alkaline Phosphatase 147 H D Total Protein 7.6 Albumin 4.1 Microbiology Microbiology Results: Microbiology 05/10/21 19:48 Blood - Venous Blood Culture - Preliminary No growth after 24 hours. 05/10/21 19:52 Blood - Venous Blood Culture - Preliminary No growth after 24 hours. Procedures Date of Service Date of Service: 05/12/21 Progress Note: A&P Assessment and plan (1) Elevated LFTs: Status: Acute (2) DKA (diabetic ketoacidosis): Status: Acute Assessment and Plan: Plan was for ERCP today, initially I thought she maybe worsening from the point of view of cholangitis and sepsis, but her BP and pulse are good, her LFt are actually better, howevere she has not had insulin for about 48 hrs and her sugars have been elevated so concern is for DKA PLAN: 1/ Given 1 liter saline in pre op area 2./ will give her 5 units IV insulin here in pre op but she will likely need higher doses (takes 30 lispro TID and lantus 70 units at night), can follow DKA protocol on [facility] 3/ plan for ERCP tomorrow if she is better and Bicarb better Fall Risk Details Current Medications: Current Medications Generic Name Dose Route Start Last Admin Trade Name Freq PRN Reason Stop Dose Admin Acetaminophen 650 mg 05/11/21 01:29 Acetaminophen 325 Mg Tablet PO Q6H PRN Pain, Mild (Pain Scale 1-3) Acetaminophen 650 mg 05/12/21 10:15 Acetaminophen 325 Mg Tablet PO ONCE PRN Pain, Mild (Pain Scale 1-3) Carvedilol 3.125 mg 05/11/21 01:29 05/12/21 07:26 Carvedilol 3.125 Mg Tablet PO Not Given BID IVETTE Protocol Dextrose 25 gm 05/11/21 01:29 Dextrose 50 % 25 Gm/50 Ml Vial IVPUSH Q15M PRN per Hypoglycemia Standing Ord. Protocol Dextrose 25 gm 05/11/21 16:47 Dextrose 50 % 25 Gm/50 Ml Vial IVPUSH Q15M PRN per Hypoglycemia Standing Ord. Protocol Docusate Sodium 100 mg 05/11/21 01:29 05/11/21 20:40 Docusate Sodium 100 Mg Capsule PO 100 mg BEDTIME IVETTE Administration Fentanyl 50 mcg 05/11/21 07:00 05/11/21 08:53 Fentanyl 50 Mcg Patch.Td72 TRANSDERMA Not Given Q72H IVETTE Fentanyl 50 mcg 05/12/21 10:15 Fentanyl Citrate/Pf 100 Mcg/2 Ml Vial IVPUSH Q5M PRN Pain, Severe (Pain Scale 7-10) Protocol Furosemide 20 mg 05/11/21 09:00 05/12/21 07:26 Furosemide 20 Mg Tablet PO Not Given DAILY [facility] Protocol Gabapentin 400 mg 05/11/21 01:29 05/12/21 07:26 Gabapentin 400 Mg Capsule PO Not Given TID IVETTE Glucose 15 gm 05/11/21 01:29 Glucose Gel 15 Gm Gel..Gram. PO Q15M PRN per Hypoglycemia Standing Ord. Protocol Glucose 15 gm 05/11/21 16:47 Glucose Gel 15 Gm Gel..Gram. PO Q15M PRN per Hypoglycemia Standing Ord. Protocol Cefepime HCl 2 gm/ Sodium 50 mls @ 100 mls/hr 05/11/21 05:00 05/12/21 07:41 Chloride IV Infused Q8H IV[facility]TE Infusion Sodium Chloride 1,000 mls @ 999 mls/hr 05/12/21 11:00 05/12/21 10:56 Ns IVCONT 05/12/21 12:00 999 mls/hr .Q1H1M IVETTE Administration Insulin Human Regular 100 unit in 100 mls @ 0 mls/hr 05/12/21 11:00 Myxredlin IVCONT .Q0M IVETTE Protocol Per Protocol Indomethacin 100 mg 05/12/21 12:36 Indomethacin 50 Mg Supp.Rect [place] 05/12/21 12:37 ONCE ONE Insulin Glargine 49 unit 05/11/21 09:00 05/12/21 07:26 Insulin Glargine,Hum.Rec.Anlog 100 Unit/Ml 10 Ml Vial SUBCUT Not Given DAILY [facility] Insulin Human Lispro 30 unit 05/11/21 07:30 05/12/21 07:21 Insulin Lispro 100 Unit/Ml 3 Ml Vial SUBCUT Not Given TIDAC [facility] Insulin Human Lispro 0 unit 05/11/21 07:30 05/12/21 07:27 Insulin Lispro 100 Unit/Ml 3 Ml Vial SUBCUT Not Given QIDACHS [facility] Protocol Insulin Human Lispro 0 unit 05/11/21 21:00 05/12/21 07:21 Insulin Lispro 100 Unit/Ml 3 Ml Vial SUBCUT Not Given QIDACHS [facility] Protocol Insulin Human Lispro 5 unit 05/12/21 11:05 Insulin Lispro 100 Unit/Ml 3 Ml Vial SUBCUT 05/12/21 11:06 ONCE ONE Isosorbide Mononitrate 30 mg 05/11/21 09:00 05/12/21 07:27 Isosorbide Mononitrate 30 Mg Tab.Er.24h PO Not Given DAILY [facility] Protocol Latanoprost 1 drop 05/11/21 01:29 05/11/21 22:12 Latanoprost 0.005 % Ophth Elsa 2.5 Ml Drops EYE-BOTH Not Given BEDTIME [facility] Levothyroxine Sodium 50 mcg 05/11/21 06:30 05/12/21 06:23 Levothyroxine Sodium 50 Mcg Tablet PO 50 mcg DAILY@0630 [facility] Administration Lisinopril 2.5 mg 05/11/21 09:00 05/12/21 07:25 Lisinopril 2.5 Mg Tablet PO Not Given DAILY [facility] Protocol Lorazepam 0.5 mg 05/11/21 01:29 Lorazepam 0.5 Mg Tablet PO DAILY PRN anxiety Morphine Sulfate 2 mg 05/12/21 09:42 Morphine Sulfate 2 Mg/Ml Cartridge IVPUSH Q4H PRN Pain, Severe (Pain Scale 7-10) Protocol Non-Formulary Medication 1 drop 05/11/21 09:00 Brimonidine EYE-BOTH BID [facility] Ondansetron HCl 4 mg 05/11/21 01:29 Ondansetron Hcl 4 Mg/2 Ml Vial IVPUSH Q8H PRN Nausea and Vomiting Ondansetron HCl 4 mg 05/12/21 10:15 Ondansetron Hcl 4 Mg/2 Ml Vial IVPUSH ONCE PRN Nausea and Vomiting Oxycodone HCl 5 mg 05/12/21 10:15 Oxycodone Hcl Immed Release 5 Mg Tablet PO ONCE PRN Pain, Severe (Pain Scale 7-10) Spironolactone 25 mg 05/11/21 09:00 05/12/21 07:25 Spironolactone 25 Mg Tablet PO Not Given DAILY IV[facility] Protocol Time Spent With Patient Time: Total time spent is greater than 50% in coordination of care (as documented) at patient's floor/unit and/or counseling patient: Time with patient: 15 - 24 minutes Quality Stroke Does the patient have a stroke diagnosis?: No VTE Prior VTE?: No VTE Risk Level:: Medical - moderate - high VTE Device Contraindication: N/A - Device Ordered VTE Drug Contraindication: Treatment Not Indicated
--- NOTE | 2021-05-12 11:11 | PC.NURSE ---
CALLED RESP FOR A VENOUS BLOOD GAS BLOOD DRAW.
--- NOTE | 2021-05-12 11:25 | PC.NURSE ---
LABS ARE BEING DRAWN AT THIS TIME. AWAITING FROM PHARMACY TO BRING DOWN THE INSULIN.
--- NOTE | 2021-05-12 11:29 | P.PNIM_ITS ---
Subjective Subjective Date of Service: 05/12/21 Interval History: Seen in f/u for concern of cholangitis, hsa sore throat and vomitting this morning. Bicab is low as insulin has been on hold for procedure. ERCP planned today is been cancelled d/t acodosis, and likely DKA. Review of Systems No fever pain in the throat +nause and vomitting no confusion Physical Exam Vital Signs: Vital Signs: Last Vital Signs Temp 98.1 F 05/12/21 11:06 Pulse 98 05/12/21 11:06 Resp 22 H 05/12/21 11:06 BP 152/77 H 05/12/21 11:06 Pulse Ox 98 05/12/21 11:06 Body Mass Index 33.4 General: AO X 3, no acute distress HEENT-no clera icteris Resp: CTA bilateral CVS: S1,S2,RRR GI: +BS,mild to mod ruq tenderness, no distention Skin: No rash Neuro: motor grossly intact Psych: appropriate affect Objective Data Active Medications Acetaminophen (Acetaminophen 325 Mg Tablet) 650 mg PO Q6H PRN PRN Reason: Pain, Mild (Pain Scale 1-3) Acetaminophen (Acetaminophen 325 Mg Tablet) 650 mg PO ONCE PRN PRN Reason: Pain, Mild (Pain Scale 1-3) Carvedilol (Carvedilol 3.125 Mg Tablet) 3.125 mg PO BID IVETTE; Protocol Last Admin: 05/12/21 07:26 Dose: Not Given Documented by: CHANTAL Non-Admin Reason: NPO Dextrose (Dextrose 50 % 25 Gm/50 Ml Vial) 25 gm IVPUSH Q15M PRN; Protocol PRN Reason: per Hypoglycemia Standing Ord. Dextrose (Dextrose 50 % 25 Gm/50 Ml Vial) 25 gm IVPUSH Q15M PRN; Protocol PRN Reason: per Hypoglycemia Standing Ord. Docusate Sodium (Docusate Sodium 100 Mg Capsule) 100 mg PO BEDTIME [facility] Last Admin: 05/11/21 20:40 Dose: 100 mg Documented by: ABDIFATAH Fentanyl (Fentanyl 50 Mcg Patch.Td72) 50 mcg TRANSDERMA Q72H [facility] Last Admin: 05/11/21 08:53 Dose: Not Given Documented by: OBDULIO Non-Admin Reason: due tomorrow Fentanyl (Fentanyl Citrate/Pf 100 Mcg/2 Ml Vial) 50 mcg IVPUSH Q5M PRN; Protocol PRN Reason: Pain, Severe (Pain Scale 7-10) Furosemide (Furosemide 20 Mg Tablet) 20 mg PO DAILY IVETTE; Protocol Last Admin: 05/12/21 07:26 Dose: Not Given Documented by: CHANTAL Non-Admin Reason: Physician Held Med Gabapentin (Gabapentin 400 Mg Capsule) 400 mg PO TID IVETTE Last Admin: 05/12/21 07:26 Dose: Not Given Documented by: CHANTAL Non-Admin Reason: Physician Held Med Glucose (Glucose Gel 15 Gm Gel..Gram.) 15 gm PO Q15M PRN; Protocol PRN Reason: per Hypoglycemia Standing Ord. Glucose (Glucose Gel 15 Gm Gel..Gram.) 15 gm PO Q15M PRN; Protocol PRN Reason: per Hypoglycemia Standing Ord. Cefepime HCl 2 gm/ Sodium (Chloride) 50 mls @ 100 mls/hr IV Q8H [facility] Last Infusion: 05/12/21 07:41 Dose: 100 mls/hr Documented by: ISRAEL Sodium Chloride (Ns) 1,000 mls @ 999 mls/hr IVCONT .Q1H1M IVETTE Stop: 05/12/21 12:00 Last Admin: 05/12/21 10:56 Dose: 999 mls/hr Documented by: KIRAN Insulin Human Regular (Myxredlin) 100 unit in 100 mls @ 0 mls/hr IVCONT .Q0M IVETTE; Protocol Sodium Chloride (Ns) 1,000 mls @ 100 mls/hr IVCONT .Q10H IVETTE Indomethacin (Indomethacin 50 Mg Supp.Rect) 100 mg ND ONCE ONE Stop: 05/12/21 12:37 Insulin Glargine (Insulin Glargine,Hum.Rec.Anlog 100 Unit/Ml 10 Ml Vial) 49 unit SUBCUT DAILY [facility] Last Admin: 05/12/21 07:26 Dose: Not Given Documented by: CHANTAL Non-Admin Reason: Physician Held Med Insulin Human Lispro (Insulin Lispro 100 Unit/Ml 3 Ml Vial) 30 unit SUBCUT TIDAC [facility] Last Admin: 05/12/21 07:21 Dose: Not Given Documented by: CHANTAL Non-Admin Reason: Physician Held Med Insulin Human Lispro (Insulin Lispro 100 Unit/Ml 3 Ml Vial) 0 unit SUBCUT QIDACHS IVETTE; Protocol Last Admin: 05/12/21 07:27 Dose: Not Given Documented by: CHANTAL Non-Admin Reason: NPO Insulin Human Lispro (Insulin Lispro 100 Unit/Ml 3 Ml Vial) 0 unit SUBCUT [facility]; Protocol Last Admin: 05/12/21 07:21 Dose: Not Given Documented by: CHANTAL Non-Admin Reason: Physician Held Med Isosorbide Mononitrate (Isosorbide Mononitrate 30 Mg Tab.Er.24h) 30 mg PO DAILY [facility]; Protocol Last Admin: 05/12/21 07:27 Dose: Not Given Documented by: CHANTAL Non-Admin Reason: NPO Latanoprost (Latanoprost 0.005 % Ophth Elsa 2.5 Ml Drops) 1 drop EYE-BOTH BEDTIM E [facility] Last Admin: 05/11/21 22:12 Dose: Not Given Documented by: DWAYNE Non-Admin Reason: Med Not Available Levothyroxine Sodium (Levothyroxine Sodium 50 Mcg Tablet) 50 mcg PO DAILY@0630 [facility] Last Admin: 05/12/21 06:23 Dose: 50 mcg Documented by: ISRAEL Lisinopril (Lisinopril 2.5 Mg Tablet) 2.5 mg PO DAILY [facility]; Protocol Last Admin: 05/12/21 07:25 Dose: Not Given Documented by: CHANTAL Non-Admin Reason: Physician Held Med Lorazepam (Lorazepam 0.5 Mg Tablet) 0.5 mg PO DAILY PRN PRN Reason: anxiety Morphine Sulfate (Morphine Sulfate 2 Mg/Ml Cartridge) 2 mg IVPUSH Q4H PRN; Protocol PRN Reason: Pain, Severe (Pain Scale 7-10) Non-Formulary Medication (Brimonidine) 1 drop EYE-BOTH BID IVETTE Ondansetron HCl (Ondansetron Hcl 4 Mg/2 Ml Vial) 4 mg IVPUSH Q8H PRN PRN Reason: Nausea and Vomiting Ondansetron HCl (Ondansetron Hcl 4 Mg/2 Ml Vial) 4 mg IVPUSH ONCE PRN PRN Reason: Nausea and Vomiting Oxycodone HCl (Oxycodone Hcl Immed Release 5 Mg Tablet) 5 mg PO ONCE PRN PRN Reason: Pain, Severe (Pain Scale 7-10) Spironolactone (Spironolactone 25 Mg Tablet) 25 mg PO DAILY IVETTE; Protocol Last Admin: 05/12/21 07:25 Dose: Not Given Documented by: CHANTAL Non-Admin Reason: Physician Held Med Labs CBC & Chem 7: 05/12/21 05:49 05/12/21 12:22 Labs: Laboratory Results - last 24 hr 05/10/21 05/11/21 05/11/21 17:04 09:13 12:21 MCV MCH MCHC RDW Plt Count MPV Absolute Nucleated RBC Nucleated RBC % (auto) Anion Gap Estim Creat Clear Calc Estimated GFR POC Glucose 179 H Random Glucose Calcium Total Bilirubin 6.1 H Direct Bilirubin 2.3 H 4.4 H AST 306 H ALT 435 H Alkaline Phosphatase 119 H Total Protein 6.6 D Albumin 3.6 D 05/11/21 05/11/21 05/12/21 19:44 21:49 05:49 MCV 87.2 MCH 27.5 MCHC 31.6 RDW 15.9 Plt Count 192 MPV 10.7 Absolute Nucleated RBC 0.000 Nucleated RBC % (auto) 0.0 Anion Gap Estim Creat Clear Calc Estimated GFR POC Glucose 167 H 172 H Random Glucose Calcium Total Bilirubin Direct Bilirubin AST ALT Alkaline Phosphatase Total Protein Albumin 05/12/21 05/12/21 05/12/21 05:49 08:19 10:49 MCV MCH MCHC RDW Plt Count MPV Absolute Nucleated RBC Nucleated RBC % (auto) Anion Gap 25 H Estim Creat Clear Calc 58.6 Estimated GFR 54 POC Glucose 225 H 227 H Random Glucose 204 H Calcium 9.1 D Total Bilirubin 1.8 H Direct Bilirubin 1.1 H AST 114 H ALT 362 H Alkaline Phosphatase 147 H D Total Protein 7.6 Albumin 4.1 Microbiology Microbiology Results: Microbiology 05/10/21 19:48 Blood Culture - Preliminary Blood - Venous No growth after 24 hours. 05/10/21 19:52 Blood Culture - Preliminary Blood - Venous No growth after 24 hours. Assessment and Plan (1) Metabolic acidosis: Status: Acute Assessment and Plan: 65/F with complex medical issues --SEE H and P for detail, has diabetes, c ardiomyopathy s/p AIC she presents with abd/back pain elevated LFTS and concern for cholangitis. She was planned for ERCP today but now cancelled d/t metabolic acidos and DKA Metabolic Acidosis possibly DKA vs other cause such as sepsi -Aggresive IVF hydradation -Insulin if DKA proven -there is small amount of ketones which would not explain this high degree of acidosis -check lactic acid, B-hydroxy B -VBG ph 7.1, lactic acid normal -repet BMP later Transaminitis/Concern of cholangitis, dilated CBB on CT, no fever -LFTs have trending down significantly along with tibili -May have passed stone -Cutlures are negative thus far -ERCP is hold now, patient is non-toxic ?# back pain- most likely musculoskeletal, doesn't appear related to above -She is on chronic fentanyl patch -Oxycodone or morphine PRN #Elevated troponin, EKG showing multiple abnormalities but nothing acute/history of CAD seen by cardio-thought to be elevated trops sec to cholangitis ntermediate risk for perioperative cardiovascular complications. hold brilanta prior to the procedure. #bnormal CT lung findings- some nodules seen on CT scan given her history of breast cancer these will need follow-up on further e valuation once patient's transaminitis/cholangitis addressed 5. hypertension - stable - continue home medications 6. Diabetes--continue insulin as above 7.History of CHF--Presently Euvolemic. , Lasix has been on hold, Lasix and Lisinopril have been on hold Because repeat labs showed worsening acidisos, given 1 amp of bicab, discussed with ICU and being transfered to ICU for closer monitoring DVT prophylaxis:? SCDs for possible intervention in a.m., heparin after procedure Quality Stroke Does the patient have a stroke diagnosis?: No VTE Prior VTE?: No VTE Risk Level:: Medical - moderate - high VTE Device Contraindication: N/A - Device Ordered VTE Drug Contraindication: Treatment Not Indicated
[2021-05-12] MEDS: Insulin Regular, Human 100 UNIT/ML 3 ML VIAL IVPUSH (11:30)
--- NOTE | 2021-05-12 11:39 | PC.NURSE ---
PHLEBOTOMY UNABLE TO DRAW PATIENT. DIFFICULT IV STICK. AWAITING ANOTHER ELECTRICAL TEST ENGINEER. ATTEMPTING ANOTHER IV INSERTION FOR PATIENT.
--- NOTE | 2021-05-12 12:03 | PC.NURSE ---
PHLEBOTOMY AND MYSELF BY THE BEDSIDE WITH MD REYNA ATTEMPTING ANOTHER IV INSERTION AND LABS TO BE DRAWN. NO SUCCESS. MD REYNA TO SPEK TO MD ANDERS. REGARDING PALN OF CARE. ALSO CALLED [facility] FOR A PICC LINE AND THEY OULDNT BE ABLE TO INSERT UNTIL LATER.
--- NOTE | 2021-05-12 12:25 | PC.NURSE ---
MD REYNA ATTEMPTED ONE TIME WITH RIGHT FEMORAL LAB DRAW. SUCCESS. APPLIED PRESSURE FOR FIVE MINUTES AND APPLIED A PRESSURE DRESSING TO RIGHT FEMORAL AREA. DAVINA PEROCEDURE WELL. LABS WERE DRAWN SHARON SENT TO THE LAB. PER MD REYNA AND MD ANDERS TO BRING PATIENT BACK TO THE FLOOR.
[2021-05-12 12:37] LABS: Glucose, Whole Blood 224 mg/dL (60-115)
--- NOTE | 2021-05-12 12:37 | PC.NURSE ---
PATIENTS LUNGS REMAIN CLEAR. TRANSFERRED BACK TO FLOOR AND GAVE VERBAL REPORT TO DESTINY GALINDO. RIGHT GROIN SITE NO BLEEDING NOTED TO PRESSURE DRESSING. TRANSFERRED WITH ANOTHER RN MONITORED TO ROOM 347.
[2021-05-12 12:45] LABS: VBG Base Excess -21.7 mmol/L; VBG HCO3 4 mmol/L (22-26); VBG pCO2 11 mmHg; VBG pH 7.15 (7.32-7.43); VBG pO2 229 mmHg
[2021-05-12 12:47] LABS: Venous Blood Gas Refer to POC result
[2021-05-12 12:57] LABS: Acetone, serum QL Small (Negative)
[2021-05-12 12:59] LABS: Alanine Aminotransferase 304 U/L (0-31); Albumin Level 3.9 g/dL (3.5-5.0); Alkaline Phosphatase 139 U/L (39-117); Aspartate Amino Transferase 70 U/L (5-31); Bilirubin Total 1.3 mg/dL (0.0-1.0); Blood Urea Nitrogen 23 mg/dL (9-16); Calcium 8.5 mg/dL (8.4-10.2); Carbon Dioxide < 5 mmol/L (22-29); Chloride 112 mmol/L (96-108); Estimated Glomerular Filt Rate 52; Glucose Random 216 mg/dL (60-115); Potassium 4.6 mmol/L (3.3-5.1); Sodium 134 mmol/L (135-145); Total Protein 7.1 g/dL (6.5-8.0)
[2021-05-12] MEDS: Sodium Bicarbonate 8.4% 50 MEQ/50 ML VIAL IVPUSH (13:41)
[2021-05-12 14:48] LABS: Glucose, Whole Blood 199 mg/dL (60-115)
[2021-05-12] MEDS: 0.9 % Sodium Chloride 1,000 ML 100 ML IVCONT (14:50)
[2021-05-12] MEDS: Insulin Lispro 100 UNIT/ML 3 ML VIAL SUBCUT (14:51)
[2021-05-12] MEDS: Insulin Regular/NS 100 UNIT/100 ML PLAST..BAG IVCONT (15:00)
[2021-05-12] MEDS: Dextrose 5 % and Lactated Ring 1,000 ML 150 ML IVCONT ×2 (15:00→21:43)
[2021-05-12 15:10] LABS: Appearance Urine CLEAR; Color Urine YELLOW; Glucose Urine UA 500 MG/DL (NEG); Leukocyte Esterase Urine NEG (NEG); Nitrite Urine NEG (NEG); Specific Gravity - Urine 1.025 (1.005-1.025); Urine Blood 1+ (NEG); Urine Ketones >=80 MG/DL (NEG); Urine Protein 1+ MG/DL (NEG-TRACE)
[2021-05-12 15:33] LABS: Glucose, Whole Blood 220 mg/dL (60-115)
[2021-05-12 15:46] LABS: Bacteria Urine TRACE /LPF; RBC Urine 0-2 /HPF (0); Squamous Epithelial Cell Urine TRACE /LPF; WBC Urine 0 /HPF (0-4)
--- NOTE | 2021-05-12 15:56 | P.PNCC_ITS ---
Subjective Subjective Date of Service: 05/12/21 Interval History: 65-year-old lady with underlying acquired hypothyroidism, diabetes mellitus, CAD status post stenting and AICD, hypertension, breast CA admitted on 05/10/2021 with back pain, nausea, and vomiting. On ER evaluation she was noted to have transaminitis with concern for cholelithiasis with possible cholangitis. She has been admitted and treated with empiric antibiotics and was planned for a ERCP. Her insulin was held for procedure, however she developed diabetic ketoacidosis, her ERCP was canceled, and patient was transferred to intensive care unit for further management. Critical Care Time (minutes): 45 Physical Exam Vital Signs: Vital Signs: Last Vital Signs Temp 98.1 F 05/12/21 11:06 Pulse 104 H 05/12/21 15:00 Resp 28 H 05/12/21 15:00 BP 135/66 05/12/21 15:00 Pulse Ox 97 05/12/21 15:00 Body Mass Index 33.4 Const: General: no acute distress, alert and awake Eyes: Sclerae: sclerae normal EOM: EOMs intact bilaterally Neck: Neck: Yes no lymphadenopathy, Yes trachea midline and Yes supple Resp: Effort & Inspection: normal respiratory effort and no respiratory distress Auscultation: clear to auscultation bilaterally Cardio: Rate: regular rate Rhythm: regular rhythm Heart sounds: no gallops, no murmurs and no rubs GI: Palpation (GI): Soft to palpation and Other GI palpation findings present ( Nontender) Auscultation: normal bowel sounds Extrem: General: Yes no pedal edema, No clubbing and No cyanosis Objective Data Labs CBC & Chem 7: 05/12/21 05:49 05/12/21 12:22 Labs: Laboratory Results - last 24 hr 05/11/21 05/11/21 05/11/21 12:21 19:44 21:49 WBC RBC Hgb Hct MCV MCH MCHC RDW Plt Count MPV Absolute Nucleated RBC Nucleated RBC % (auto) VBG pH VBG pCO2 VBG pO2 VBG HCO3 VBG O2 Saturation VBG Base Excess Sodium Potassium Chloride Carbon Dioxide Anion Gap BUN Creatinine Estim Creat Clear Calc Estimated GFR POC Glucose 179 H 167 H 172 H Random Glucose Lactic Acid Calcium Total Bilirubin Direct Bilirubin AST ALT Alkaline Phosphatase Total Protein Albumin Urine Color Urine Appearance Urine pH Ur Specific [place] Urine Protein Urine Glucose (UA) Urine Ketones Urine Blood Urine Nitrite Ur Leukocyte Esterase Urine RBC Urine WBC Ur Squamous Epith Cells Urine Bacteria Acetone, Qual 05/12/21 05/12/21 05/12/21 05:49 05:49 08:19 WBC 17.3 H RBC 5.45 Hgb 15.0 Hct 47.5 H MCV 87.2 MCH 27.5 MCHC 31.6 RDW 15.9 Plt Count 192 MPV 10.7 Absolute Nucleated RBC 0.000 Nucleated RBC % (auto) 0.0 VBG pH VBG pCO2 VBG pO2 VBG HCO3 VBG O2 Saturation VBG Base Excess Sodium 134 L Potassium 5.1 Chloride 108 Carbon Dioxide 6 L* D Anion Gap 25 H BUN 24 H D Creatinine 1.03 Estim Creat Clear Calc 58.6 Estimated GFR 54 POC Glucose 225 H Random Glucose 204 H Lactic Acid Calcium 9.1 D Total Bilirubin 1.8 H Direct Bilirubin 1.1 H AST 114 H ALT 362 H Alkaline Phosphatase 147 H D Total Protein 7.6 Albumin 4.1 Urine Color Urine Appearance Urine pH Ur Specific [place] Urine Protein Urine Glucose (UA) Urine Ketones Urine Blood Urine Nitrite Ur Leukocyte Esterase Urine RBC Urine WBC Ur Squamous Epith Cells Urine Bacteria Acetone, Qual 05/12/21 05/12/21 05/12/21 10:49 12:22 12:22 WBC RBC Hgb Hct MCV MCH MCHC RDW Plt Count MPV Absolute Nucleated RBC Nucleated RBC % (auto) VBG pH VBG pCO2 VBG pO2 VBG HCO3 VBG O2 Saturation VBG Base Excess Sodium 134 L Potassium 4.6 Chloride 112 H Carbon Dioxide < 5 L* Anion Gap TNP BUN 23 H Creatinine 1.06 Estim Creat Clear Calc 57.0 Estimated GFR 52 POC Glucose 227 H Random Glucose 216 H Lactic Acid Cancelled Calcium 8.5 D Total Bilirubin 1.3 H Direct Bilirubin AST 70 H ALT 304 H Alkaline Phosphatase 139 H Total Protein 7.1 Albumin 3.9 Urine Color Urine Appearance Urine pH Ur Specific [place] Urine Protein Urine Glucose (UA) Urine Ketones Urine Blood Urine Nitrite Ur Leukocyte Esterase Urine RBC Urine WBC Ur Squamous Epith Cells Urine Bacteria Acetone, Qual 05/12/21 05/12/21 05/12/21 12:22 12:22 12:31 WBC RBC Hgb Hct MCV MCH MCHC RDW Plt Count MPV Absolute Nucleated RBC Nucleated RBC % (auto) VBG pH 7.15 L* VBG pCO2 11 VBG pO2 229 VBG HCO3 4 L VBG O2 Saturation 99.0 VBG Base Excess -21.7 Sodium Potassium Chloride Carbon Dioxide Anion Gap BUN Creatinine Estim Creat Clear Calc Estimated GFR POC Glucose Random Glucose Lactic Acid 1.0 Calcium Total Bilirubin Direct Bilirubin AST ALT Alkaline Phosphatase Total Protein Albumin Urine Color Urine Appearance Urine pH Ur Specific [place] Urine Protein Urine Glucose (UA) Urine Ketones Urine Blood Urine Nitrite Ur Leukocyte Esterase Urine RBC Urine WBC Ur Squamous Epith Cells Urine Bacteria Acetone, Qual Small H 05/12/21 05/12/21 05/12/21 12:33 14:27 14:45 WBC RBC Hgb Hct MCV MCH MCHC RDW Plt Count MPV Absolute Nucleated RBC Nucleated RBC % (auto) VBG pH VBG pCO2 VBG pO2 VBG HCO3 VBG O2 Saturation VBG Base Excess Sodium Potassium Chloride Carbon Dioxide Anion Gap BUN Creatinine Estim Creat Clear Calc Estimated GFR POC Glucose 224 H 199 H Random Glucose Lactic Acid Calcium Total Bilirubin Direct Bilirubin AST ALT Alkaline Phosphatase Total Protein Albumin Urine Color YELLOW Urine Appearance CLEAR Urine pH 6.0 Ur Specific [place] 1.025 Urine Protein 1+ H Urine Glucose (UA) 500 H Urine Ketones >=80 Urine Blood 1+ H Urine Nitrite NEG Ur Leukocyte Esterase NEG Urine RBC 0-2 Urine WBC 0 Ur Squamous Epith Cells TRACE Urine Bacteria TRACE Acetone, Qual 05/12/21 15:29 WBC RBC Hgb Hct MCV MCH MCHC RDW Plt Count MPV Absolute Nucleated RBC Nucleated RBC % (auto) VBG pH VBG pCO2 VBG pO2 VBG HCO3 VBG O2 Saturation VBG Base Excess Sodium Potassium Chloride Carbon Dioxide Anion Gap BUN Creatinine Estim Creat Clear Calc Estimated GFR POC Glucose 220 H Random Glucose Lactic Acid Calcium Total Bilirubin Direct Bilirubin AST ALT Alkaline Phosphatase Total Protein Albumin Urine Color Urine Appearance Urine pH Ur Specific [place] Urine Protein Urine Glucose (UA) Urine Ketones Urine Blood Urine Nitrite Ur Leukocyte Esterase Urine RBC Urine WBC Ur Squamous Epith Cells Urine Bacteria Acetone, Qual Microbiology Microbiology Results: Microbiology 05/10/21 19:48 Blood - Venous Blood Culture - Preliminary No growth after 24 hours. 05/10/21 19:52 Blood - Venous Blood Culture - Preliminary No growth after 24 hours. Quality Stroke Does the patient have a stroke diagnosis?: No VTE Prior VTE?: No VTE Risk Level:: Medical - moderate - high VTE Device Contraindication: N/A - Device Ordered VTE Drug Contraindication: Treatment Not Indicated Progress Note: A&P Assessment and plan (1) DKA (diabetic ketoacidosis): Status: Acute Assessment and Plan: Assessment: 65-year-old lady admitted with concern for cholangitis hospital course further complicated by diabetic ketoacidosis, now being monitored in the intensive care unit. Plan: Neuro: No acute issues. Cardiac: No acute issues. Underlying history of ischemic cardiomyopathy, coronary artery disease, and ventricular tachycardia status post stenting and AICD placement. Brilinta held peripreprocedurely. Continues on spironolactone. Pulmonary: No acute issues. Renal: Metabolic acidosis, likely secondary to diabetic ketoacidosis. Non oliguric. Continue to monitor renal indices and urine output. Endo: Diabetic ketoacidosis, continue to titrate off insulin drip as per yessenia col. GI: No acute issues. ID: Suspicion for underlying cholangitis. Patient was scheduled for CP that was canceled secondary to development of acute diabetic ketoacidosis. Continue with empiric cefepime. Heme/Onc: No acute issues. Psych: No acute issues. Miscellaneous: No acute issues. Prophylaxis: Heparin Diet: NPO Critical care time spent: 45 minutes (2) Transaminitis: Status: Acute (3) Cholangitis: Status: Acute (4) Obesity (BMI 30-39.9): Status: Acute (5) Type 2 diabetes mellitus with diabetic polyneuropathy: Status: Acute (6) Ischemic cardiomyopathy: Status: Acute
[2021-05-12 16:11] LABS: Glucose, Whole Blood 219 mg/dL (60-115)
--- NOTE | 2021-05-12 16:53 | W.PM.CCHP ---
Procedures Date of Service Date of Service: 05/12/21 Central Line Placement Left IJ: Central Line Comments: Left internal jugular triple-lumen central venous catheter placed for vascular access under ultrasound guidance and usual sterile conditions with no immediate complications. X-ray for line position is pending.
[2021-05-12 17:10] LABS: Glucose, Whole Blood 204 mg/dL (60-115)
[2021-05-12 18:11] LABS: Glucose, Whole Blood 202 mg/dL (60-115)
[2021-05-12] MEDS: Acetaminophen 325 MG TABLET 650 MG PO (19:03)
[2021-05-12 20:10] LABS: Anion Gap 17 (12-20); Blood Urea Nitrogen 19 mg/dL (9-16); Calcium 8.5 mg/dL (8.4-10.2); Carbon Dioxide 12 mmol/L (22-29); Chloride 112 mmol/L (96-108); Creatinine Clr Calc Pharmacy 58.6; Estimated Glomerular Filt Rate 54; Glucose Random 195 mg/dL (60-115); Sodium 137 mmol/L (135-145)
[2021-05-12 20:17] LABS: Glucose, Whole Blood 195 mg/dL (60-115)
[2021-05-12 20:17] LABS: Glucose, Whole Blood 184 mg/dL (60-115)
[2021-05-12] MEDS: Morphine Sulfate 2 MG/ML CARTRIDGE 0.5 MG IVPUSH (21:12)
[2021-05-12 22:02] LABS: Glucose, Whole Blood 171 mg/dL (60-115)
[2021-05-12] MEDS: fentaNYL 50 MCG PATCH.TD72 TRANSDERMA (22:21)
[2021-05-13] VITALS (27 sets, daily range): BP systolic 94–165; BP diastolic 45–86; PULSE 70–98; RESP 8–23; TEMP 36.2–37.2; O2SAT 94–99
[2021-05-13 00:04] LABS: Glucose, Whole Blood 161 mg/dL (60-115)
[2021-05-13 02:05] LABS: Glucose, Whole Blood 158 mg/dL (60-115)
[2021-05-13] MEDS: Morphine Sulfate 2 MG/ML CARTRIDGE 1 MG IVPUSH (02:21)
[2021-05-13] MEDS: Dextrose 5 % and Lactated Ring 1,000 ML 150 ML IVCONT ×2 (02:26→09:32)
[2021-05-13 03:38] LABS: Glucose, Whole Blood 160 mg/dL (60-115)
[2021-05-13] MEDS: cefEPime HCl 2 GM in 0.9 % Sodium Chloride 50 ML IV ×3 (04:08→20:53)
[2021-05-13 05:29] LABS: VBG HCO3 18 mmol/L (22-26); VBG pCO2 32 mmHg; VBG pH 7.35 (7.32-7.43); VBG pO2 51 mmHg
[2021-05-13 05:33] LABS: Venous Blood Gas Refer to POC result
[2021-05-13 05:37] LABS: MANUAL DIFF FLAG NO
[2021-05-13 05:49] LABS: Basophils Percent Auto 0.1 % (0-2); Hematocrit 43.4 % (37-47); Hemoglobin 14.4 g/dl (12.0-16.0); Imm Gran Abs Auto 0.07 X10*3/uL (0.00-0.03); Imm Gran Pct Auto 0.5 % (0.0-0.4); Lymphocytes Absolute Auto 1.9 X10*3/uL (1.2-4.9); Lymphocytes Percent Auto 12.2 % (20-40); Mean Corpuscular HGB Conc 33.2 g/dl (31.0-35.0); Mean Corpuscular Hemoglobin 27.4 pg (27.0-33.0); Mean Corpuscular Volume 82.7 fL (80-98); Mean Platelet Volume 10.4 fL (9.4-12.3); Monocytes Percent Auto 6.8 % (2-11); Neutrophils Absolute Auto 12.2 X10*3/uL (2.0-8.3); Neutrophils Percent Auto 80.4 % (45-73); Platelet Count 192 X10*3/uL (160-400); Red Blood Count 5.25 X10*6/uL (4.20-5.50); White Blood Count 15.2 X10*3/uL (4.8-10.8)
[2021-05-13 06:00] LABS: Glucose, Whole Blood 168 mg/dL (60-115)
[2021-05-13 06:19] LABS: Albumin Level 3.5 g/dL (3.5-5.0); Anion Gap 14 (12-20); Blood Urea Nitrogen 14 mg/dL (9-16); Calcium 8.7 mg/dL (8.4-10.2); Carbon Dioxide 18 mmol/L (22-29); Chloride 110 mmol/L (96-108); Estimated Glomerular Filt Rate > 60; Glucose Random 174 mg/dL (60-115); Magnesium 2.3 mg/dL (1.6-2.6); Phosphorus 1.1 mg/dL (2.7-4.5); Potassium 3.5 mmol/L (3.3-5.1); Sodium 138 mmol/L (135-145)
[2021-05-13] MEDS: Isosorbide Mononitrate 30 MG TAB.ER.24H PO (08:06)
[2021-05-13] MEDS: Levothyroxine Sodium 50 MCG TABLET PO (08:06)
[2021-05-13] MEDS: Spironolactone 25 MG TABLET PO (08:06)
[2021-05-13 08:07] LABS: Glucose, Whole Blood 161 mg/dL (60-115)
[2021-05-13] MEDS: ondansetron HCL 4 MG/2 ML VIAL IVPUSH (08:08)
[2021-05-13 09:27] LABS: Alanine Aminotransferase 200 U/L (0-31); Alkaline Phosphatase 114 U/L (39-117); Aspartate Amino Transferase 28 U/L (5-31); Bilirubin Direct 0.6 mg/dL (0.0-0.5); Total Protein 6.4 g/dL (6.5-8.0)
[2021-05-13] MEDS: Insulin Regular/NS 100 UNIT/100 ML PLAST..BAG IVCONT (09:32)
[2021-05-13] MEDS: Potassium Phosphate 30 MMOL in 0.9 % Sodium Chloride 500 ML 85 MMOL IV (09:55)
[2021-05-13 10:11] LABS: Glucose, Whole Blood 157 mg/dL (60-115)
[2021-05-13 10:45] LABS: Anion Gap 11 (12-20); Blood Urea Nitrogen 12 mg/dL (9-16); Calcium 8.4 mg/dL (8.4-10.2); Carbon Dioxide 21 mmol/L (22-29); Chloride 110 mmol/L (96-108); Creatinine Clr Calc Pharmacy 73.6; Estimated Glomerular Filt Rate > 60; Glucose Random 188 mg/dL (60-115); Potassium 3.5 mmol/L (3.3-5.1); Sodium 138 mmol/L (135-145)
[2021-05-13 11:23] LABS: Glucose, Whole Blood 162 mg/dL (60-115)
[2021-05-13] MEDS: Insulin Lispro 100 UNIT/ML 3 ML VIAL SUBCUT ×2 (11:23→20:53)
[2021-05-13] MEDS: Insulin Glargine,Hum.rec.anlog 100 UNIT/ML 10 ML VIAL 50 UNIT SUBCUT (11:23)
--- NOTE | 2021-05-13 12:30 | PM.CCPN ---
Subjective Subjective Date of Service: 05/13/21 Interval History: 65-year-old lady with underlying acquired hypothyroidism, diabetes mellitus, CAD status post stenting and AICD, hypertension, breast CA admitted on 05/10/2021 with back pain, nausea, and vomiting. On ER evaluation she was noted to have transaminitis with concern for cholelithiasis with possible cholangitis. She has been admitted and treated with empiric antibiotics and was planned for a ERCP. Her insulin was held for procedure, however she developed diabetic ketoacidosis, her ERCP was canceled, and patient was transferred to intensive care unit for further management. She has been started on insulin drip and has been successfully titrated off it overnight. Critical Care Time (minutes): 0 Physical Exam Vital Signs: Vital Signs: Last Vital Signs Temp 99.0 F 05/13/21 11:00 Pulse 77 05/13/21 12:00 Resp 18 05/13/21 12:00 BP 94/52 L 05/13/21 12:00 Pulse Ox 95 05/13/21 12:00 Body Mass Index 33.4 Const: General: no acute distress, alert and awake Eyes: Sclerae: sclerae normal EOM: EOMs intact bilaterally Neck: Neck: Yes no lymphadenopathy, Yes trachea midline and Yes supple Resp: Effort & Inspection: normal respiratory effort and no respiratory distress Auscultation: clear to auscultation bilaterally Cardio: Rate: regular rate Rhythm: regular rhythm Heart sounds: no gallops, no murmurs and no rubs GI: Palpation (GI): Soft to palpation and Other GI palpation findings present ( Nontender) Auscultation: normal bowel sounds Extrem: General: Yes no pedal edema, No clubbing and No cyanosis Objective Data Labs CBC & Chem 7: 05/13/21 05:18 05/13/21 10:15 Labs: Laboratory Results - last 24 hr 05/12/21 05/12/21 05/12/21 12:22 12:22 12:22 WBC Cancelled RBC Cancelled Hgb Cancelled Hct Cancelled MCV Cancelled MCH Cancelled MCHC Cancelled RDW Cancelled Plt Count Cancelled MPV Cancelled Immature Gran % (Auto) Neut % (Auto) Lymph % (Auto) [place] % (Auto) Eos % (Auto) Baso % (Auto) Lymph # (Auto) [place] # (Auto) Eos # (Auto) Baso # (Auto) Abs Immat Gran (auto) Absolute Neuts (auto) Absolute Nucleated RBC Cancelled Nucleated RBC % (auto) Cancelled VBG pH VBG pCO2 VBG pO2 VBG HCO3 VBG O2 Saturation VBG Base Excess Sodium 134 L Potassium 4.6 Chloride 112 H Carbon Dioxide < 5 L* Anion Gap TNP BUN 23 H Creatinine 1.06 Estim Creat Clear Calc 57.0 Estimated GFR 52 POC Glucose Random Glucose 216 H Lactic Acid Cancelled Calcium 8.5 D Phosphorus Magnesium Total Bilirubin 1.3 H Direct Bilirubin AST 70 H ALT 304 H Alkaline Phosphatase 139 H Total Protein 7.1 Albumin 3.9 Urine Color Urine Appearance Urine pH Ur Specific [place] Urine Protein Urine Glucose (UA) Urine Ketones Urine Blood Urine Nitrite Ur Leukocyte Esterase Urine RBC Urine WBC Ur Squamous Epith Cells Urine Bacteria Acetone, Qual 05/12/21 05/12/21 05/12/21 12:22 12:22 12:31 WBC RBC Hgb Hct MCV MCH MCHC RDW Plt Count MPV Immature Gran % (Auto) Neut % (Auto) Lymph % (Auto) [place] % (Auto) Eos % (Auto) Baso % (Auto) Lymph # (Auto) [place] # (Auto) Eos # (Auto) Baso # (Auto) Abs Immat Gran (auto) Absolute Neuts (auto) Absolute Nucleated RBC Nucleated RBC % (auto) VBG pH 7.15 L* VBG pCO2 11 VBG pO2 229 VBG HCO3 4 L VBG O2 Saturation 99.0 VBG Base Excess -21.7 Sodium Potassium Chloride Carbon Dioxide Anion Gap BUN Creatinine Estim Creat Clear Calc Estimated GFR POC Glucose Random Glucose Lactic Acid 1.0 Calcium Phosphorus Magnesium Total Bilirubin Direct Bilirubin AST ALT Alkaline Phosphatase Total Protein Albumin Urine Color Urine Appearance Urine pH Ur Specific [place] Urine Protein Urine Glucose (UA) Urine Ketones Urine Blood Urine Nitrite Ur Leukocyte Esterase Urine RBC Urine WBC Ur Squamous Epith Cells Urine Bacteria Acetone, Qual Small H 05/12/21 05/12/21 05/12/21 12:33 14:27 14:45 WBC RBC Hgb Hct MCV MCH MCHC RDW Plt Count MPV Immature Gran % (Auto) Neut % (Auto) Lymph % (Auto) [place] % (Auto) Eos % (Auto) Baso % (Auto) Lymph # (Auto) [place] # (Auto) Eos # (Auto) Baso # (Auto) Abs Immat Gran (auto) Absolute Neuts (auto) Absolute Nucleated RBC Nucleated RBC % (auto) VBG pH VBG pCO2 VBG pO2 VBG HCO3 VBG O2 Saturation VBG Base Excess Sodium Potassium Chloride Carbon Dioxide Anion Gap BUN Creatinine Estim Creat Clear Calc Estimated GFR POC Glucose 224 H 199 H Random Glucose Lactic Acid Calcium Phosphorus Magnesium Total Bilirubin Direct Bilirubin AST ALT Alkaline Phosphatase Total Protein Albumin Urine Color YELLOW Urine Appearance CLEAR Urine pH 6.0 Ur Specific [place] 1.025 Urine Protein 1+ H Urine Glucose (UA) 500 H Urine Ketones >=80 Urine Blood 1+ H Urine Nitrite NEG Ur Leukocyte Esterase NEG Urine RBC 0-2 Urine WBC 0 Ur Squamous Epith Cells TRACE Urine Bacteria TRACE Acetone, Qual 05/12/21 05/12/21 05/12/21 15:29 16:08 17:05 WBC RBC Hgb Hct MCV MCH MCHC RDW Plt Count MPV Immature Gran % (Auto) Neut % (Auto) Lymph % (Auto) [place] % (Auto) Eos % (Auto) Baso % (Auto) Lymph # (Auto) [place] # (Auto) Eos # (Auto) Baso # (Auto) Abs Immat Gran (auto) Absolute Neuts (auto) Absolute Nucleated RBC Nucleated RBC % (auto) VBG pH VBG pCO2 VBG pO2 VBG HCO3 VBG O2 Saturation VBG Base Excess Sodium Potassium Chloride Carbon Dioxide Anion Gap BUN Creatinine Estim Creat Clear Calc Estimated GFR POC Glucose 220 H 219 H 204 H Random Glucose Lactic Acid Calcium Phosphorus Magnesium Total Bilirubin Direct Bilirubin AST ALT Alkaline Phosphatase Total Protein Albumin Urine Color Urine Appearance Urine pH Ur Specific [place] Urine Protein Urine Glucose (UA) Urine Ketones Urine Blood Urine Nitrite Ur Leukocyte Esterase Urine RBC Urine WBC Ur Squamous Epith Cells Urine Bacteria Acetone, Qual 05/12/21 05/12/21 05/12/21 18:05 19:08 19:09 WBC RBC Hgb Hct MCV MCH MCHC RDW Plt Count MPV Immature Gran % (Auto) Neut % (Auto) Lymph % (Auto) [place] % (Auto) Eos % (Auto) Baso % (Auto) Lymph # (Auto) [place] # (Auto) Eos # (Auto) Baso # (Auto) Abs Immat Gran (auto) Absolute Neuts (auto) Absolute Nucleated RBC Nucleated RBC % (auto) VBG pH VBG pCO2 VBG pO2 VBG HCO3 VBG O2 Saturation VBG Base Excess Sodium 137 Potassium 4.0 Chloride 112 H Carbon Dioxide 12 L Anion Gap 17 BUN 19 H Creatinine 1.03 Estim Creat Clear Calc 58.6 Estimated GFR 54 POC Glucose 202 H 184 H Random Glucose 195 H Lactic Acid Calcium 8.5 Phosphorus Magnesium Total Bilirubin Direct Bilirubin AST ALT Alkaline Phosphatase Total Protein Albumin Urine Color Urine Appearance Urine pH Ur Specific [place] Urine Protein Urine Glucose (UA) Urine Ketones Urine Blood Urine Nitrite Ur Leukocyte Esterase Urine RBC Urine WBC Ur Squamous Epith Cells Urine Bacteria Acetone, Qual 05/12/21 05/12/21 05/12/21 20:09 21:58 23:44 WBC RBC Hgb Hct MCV MCH MCHC RDW Plt Count MPV Immature Gran % (Auto) Neut % (Auto) Lymph % (Auto) [place] % (Auto) Eos % (Auto) Baso % (Auto) Lymph # (Auto) [place] # (Auto) Eos # (Auto) Baso # (Auto) Abs Immat Gran (auto) Absolute Neuts (auto) Absolute Nucleated RBC Nucleated RBC % (auto) VBG pH VBG pCO2 VBG pO2 VBG HCO3 VBG O2 Saturation VBG Base Excess Sodium Potassium Chloride Carbon Dioxide Anion Gap BUN Creatinine Estim Creat Clear Calc Estimated GFR POC Glucose 195 H 171 H 161 H Random Glucose Lactic Acid Calcium Phosphorus Magnesium Total Bilirubin Direct Bilirubin AST ALT Alkaline Phosphatase Total Protein Albumin Urine Color Urine Appearance Urine pH Ur Specific [place] Urine Protein Urine Glucose (UA) Urine Ketones Urine Blood Urine Nitrite Ur Leukocyte Esterase Urine RBC Urine WBC Ur Squamous Epith Cells Urine Bacteria Acetone, Qual 05/13/21 05/13/21 05/13/21 01:59 03:34 05:18 WBC 15.2 H RBC 5.25 Hgb 14.4 Hct 43.4 MCV 82.7 MCH 27.4 MCHC 33.2 RDW 16.0 Plt Count 192 MPV 10.4 Immature Gran % (Auto) 0.5 H Neut % (Auto) 80.4 H Lymph % (Auto) 12.2 L [place] % (Auto) 6.8 Eos % (Auto) 0.0 Baso % (Auto) 0.1 Lymph # (Auto) 1.9 [place] # (Auto) 1.0 Eos # (Auto) 0.0 Baso # (Auto) 0.0 Abs Immat Gran (auto) 0.07 H Absolute Neuts (auto) 12.2 H Absolute Nucleated RBC 0.000 Nucleated RBC % (auto) 0.0 VBG pH VBG pCO2 VBG pO2 VBG HCO3 VBG O2 Saturation VBG Base Excess Sodium Potassium Chloride Carbon Dioxide Anion Gap BUN Creatinine Estim Creat Clear Calc Estimated GFR POC Glucose 158 H 160 H Random Glucose Lactic Acid Calcium Phosphorus Magnesium Total Bilirubin Direct Bilirubin AST ALT Alkaline Phosphatase Total Protein Albumin Urine Color Urine Appearance Urine pH Ur Specific [place] Urine Protein Urine Glucose (UA) Urine Ketones Urine Blood Urine Nitrite Ur Leukocyte Esterase Urine RBC Urine WBC Ur Squamous Epith Cells Urine Bacteria Acetone, Qual 05/13/21 05/13/21 05/13/21 05:18 05:23 05:39 WBC RBC Hgb Hct MCV MCH MCHC RDW Plt Count MPV Immature Gran % (Auto) Neut % (Auto) Lymph % (Auto) [place] % (Auto) Eos % (Auto) Baso % (Auto) Lymph # (Auto) [place] # (Auto) Eos # (Auto) Baso # (Auto) Abs Immat Gran (auto) Absolute Neuts (auto) Absolute Nucleated RBC Nucleated RBC % (auto) VBG pH 7.35 VBG pCO2 32 VBG pO2 51 VBG HCO3 18 L VBG O2 Saturation 82.0 VBG Base Excess -6.0 Sodium 138 Potassium 3.5 Chloride 110 H Carbon Dioxide 18 L Anion Gap 14 BUN 14 Creatinine 0.85 Estim Creat Clear Calc 71.0 Estimated GFR > 60 POC Glucose 168 H Random Glucose 174 H Lactic Acid Calcium 8.7 Phosphorus 1.1 L Magnesium 2.3 Total Bilirubin 1.0 Direct Bilirubin 0.6 H AST 28 D ALT 200 H Alkaline Phosphatase 114 Total Protein 6.4 L Albumin 3.5 Urine Color Urine Appearance Urine pH Ur Specific [place] Urine Protein Urine Glucose (UA) Urine Ketones Urine Blood Urine Nitrite Ur Leukocyte Esterase Urine RBC Urine WBC Ur Squamous Epith Cells Urine Bacteria Acetone, Qual 05/13/21 05/13/21 05/13/21 08:04 10:07 10:15 WBC RBC Hgb Hct MCV MCH MCHC RDW Plt Count MPV Immature Gran % (Auto) Neut % (Auto) Lymph % (Auto) [place] % (Auto) Eos % (Auto) Baso % (Auto) Lymph # (Auto) [place] # (Auto) Eos # (Auto) Baso # (Auto) Abs Immat Gran (auto) Absolute Neuts (auto) Absolute Nucleated RBC Nucleated RBC % (auto) VBG pH VBG pCO2 VBG pO2 VBG HCO3 VBG O2 Saturation VBG Base Excess Sodium 138 Potassium 3.5 Chloride 110 H Carbon Dioxide 21 L Anion Gap 11 L BUN 12 Creatinine 0.82 Estim Creat Clear Calc 73.6 Estimated GFR > 60 POC Glucose 161 H 157 H Random Glucose 188 H Lactic Acid Calcium 8.4 Phosphorus Magnesium Total Bilirubin Direct Bilirubin AST ALT Alkaline Phosphatase Total Protein Albumin Urine Color Urine Appearance Urine pH Ur Specific [place] Urine Protein Urine Glucose (UA) Urine Ketones Urine Blood Urine Nitrite Ur Leukocyte Esterase Urine RBC Urine WBC Ur Squamous Epith Cells Urine Bacteria Acetone, Qual 05/13/21 11:18 WBC RBC Hgb Hct MCV MCH MCHC RDW Plt Count MPV Immature Gran % (Auto) Neut % (Auto) Lymph % (Auto) [place] % (Auto) Eos % (Auto) Baso % (Auto) Lymph # (Auto) [place] # (Auto) Eos # (Auto) Baso # (Auto) Abs Immat Gran (auto) Absolute Neuts (auto) Absolute Nucleated RBC Nucleated RBC % (auto) VBG pH VBG pCO2 VBG pO2 VBG HCO3 VBG O2 Saturation VBG Base Excess Sodium Potassium Chloride Carbon Dioxide Anion Gap BUN Creatinine Estim Creat Clear Calc Estimated GFR POC Glucose 162 H Random Glucose Lactic Acid Calcium Phosphorus Magnesium Total Bilirubin Direct Bilirubin AST ALT Alkaline Phosphatase Total Protein Albumin Urine Color Urine Appearance Urine pH Ur Specific [place] Urine Protein Urine Glucose (UA) Urine Ketones Urine Blood Urine Nitrite Ur Leukocyte Esterase Urine RBC Urine WBC Ur Squamous Epith Cells Urine Bacteria Acetone, Qual Microbiology Microbiology Results: Microbiology 05/10/21 19:48 Blood - Venous Blood Culture - Preliminary No growth after 48 hours. 05/10/21 19:52 Blood - Venous Blood Culture - Preliminary No growth after 48 hours. Quality Stroke Does the patient have a stroke diagnosis?: No VTE Prior VTE?: No VTE Risk Level:: Medical - moderate - high VTE Device Contraindication: N/A - Device Ordered VTE Drug Contraindication: Treatment Not Indicated Progress Note: A&P Assessment and plan (1) DKA (diabetic ketoacidosis): Status: Acute Assessment and Plan: Assessment: 65-year-old lady admitted with concern for cholangitis hospital course further complicated by diabetic ketoacidosis, now being monitored in the intensive care unit. Plan: Neuro: No acute issues. Cardiac: No acute issues. Underlying history of ischemic cardiomyopathy, coronary artery disease, and ventricular tachycardia status post stenting and AICD placement. Brilinta held peripreprocedurely. Continues on spironolactone. Pulmonary: No acute issues. Renal: Metabolic acidosis, likely secondary to diabetic ketoacidosis resolved Non oliguric. Continue to monitor renal indices and urine output. Endo: Diabetic ketoacidosis, resolved. Titrated off insulin drip. Continue on Lantus and sliding scale insulin. GI: Gallstones, planned for ERCP. Gastroenterology service care appreciated. ID: Suspicion for underlying cholangitis. Continues on empiric cefepime. Heme/Onc: No acute issues. Psych: No acute issues. Miscellaneous: No acute issues. Prophylaxis: Heparin Diet: NPO for procedure Critical care time spent: 45 minutes (2) Elevated LFTs: Status: Acute (3) ICD (implantable cardioverter-defibrillator) in place: Status: Acute (4) Obesity (BMI 30-39.9): Status: Acute (5) Gallstone: Status: Acute (6) Type 2 diabetes mellitus with diabetic polyneuropathy: Status: Acute
--- NOTE | 2021-05-13 16:10 | HO.ANESPROP2 ---
HPI - Anesthesia Eval Consult details Narrative: 65yo female patient for ERCP PMFSH Active Problems Active Problems: All Active Problems (Updated 05/12/21 @ 16:13 by Arnav Vines MD) Metabolic acidosis (Acute) DKA (diabetic ketoacidosis) (Acute) Abnormal CT lung screening (Acute) Elevated troponin (Acute) Back pain (Acute) Cholangitis (Acute) Elevated LFTs (Acute) Gallstone (Acute) Acute cholangitis (Acute) Transaminitis (Acute) Pityriasis rosea (Acute) Medicare annual wellness visit, initial (Acute) ICD (implantable cardioverter-defibrillator) in place (Acute) Ventricular tachycardia (Acute) Atherosclerotic cardiovascular disease (Acute) Obesity (BMI 30-39.9) (Acute) Major depressive disorder, recurrent episode, mild (Acute) Anxiety (Acute) Insomnia (Acute) Drug induced constipation (Acute) Osteoarthritis of spine with radiculopathy, cervical region (Acute) Lumbar degenerative disc disease (Acute) Neuropathy (Acute) History of ductal carcinoma in situ (DCIS) of breast (Acute) Vitamin D deficiency (Acute) Acquired hypothyroidism (Acute) Pure hypercholesterolemia (Acute) Benign essential hypertension (Acute) care home (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 of insulin (Acute) Type 2 diabetes mellitus with diabetic polyneuropathy (Acute) Ischemic cardiomyopathy (Acute) Atherosclerosis of coronary artery of [place] heart with stable angina pectoris (Acute) Past Medical History Medical History Acquired hypothyroidism Anxiety 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 Benign essential hypertension Diabetes Diabetic neuropathy Drug induced constipation History of breast cancer History of ductal carcinoma in situ (DCIS) of breast History of [place] (myocardial infarction) Hyperlipidemia Hypothyroidism ICD (implantable cardioverter-defibrillator) in place Insomnia Ischemic cardiomyopathy care home (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 of insulin Lumbar degenerative disc disease Major depressive disorder, recurrent episode, mild Neuropathy Obesity (BMI 30-39.9) Osteoarthritis Osteoarthritis of spine with radiculopathy, cervical region Pityriasis rosea Pure hypercholesterolemia Type 2 diabetes mellitus with diabetic polyneuropathy Ventricular tachycardia Vitamin D deficiency Family History Family History Mother Heart attack Hypertension CVD (cardiovascular disease) Father Diabetes Family history of problems with anesthesia: No Surgical History Surgical History History of implantable cardioverter-defibrillator (ICD) placement (~06/22/18) History of lumpectomy of both breasts History of percutaneous coronary intervention (~12/2017) History of tubal ligation S/P angioplasty (~07/2017) History of Problems with Anesthesia: No Social History Social History Household Members: Spouse Housing: House Do you presently have visiting nurse or other home services: Yes ([employer] 7 DAYS A WEEK) Alcohol intake: never Patient Tobacco Use Status: Never used Tobacco Second Hand Smoke Exposure: Yes Advance Directives Date on File: 06/05/20 service: No Current occupational status: disabled Sexual orientation: Straight/Heterosexual Gender identity: Female Meds Allergies Allergy/AdvReac Type Severity Reaction Status Date / Time No Known Allergies Allergy Mild NOT Verified 05/10/21 14:43 APPLICABLE Active Medications: Current Medications Generic Name Dose Route Start Last Admin Trade Name Freq PRN Reason Stop Dose Admin Acetaminophen 650 mg 05/11/21 01:29 05/12/21 19:03 Acetaminophen 325 Mg Tablet PO 650 mg Q6H PRN Administration Pain, Mild (Pain Scale 1-3) Dextrose 25 gm 05/11/21 01:29 Dextrose 50 % 25 Gm/50 Ml Vial IVPUSH Q15M PRN per Hypoglycemia Standing Ord. Protocol Fentanyl 50 mcg 05/11/21 07:00 05/12/21 22:21 Fentanyl 50 Mcg Patch.[id number] TRANSDERMA 50 mcg Q72H IVETTE Administration Glucose 15 gm 05/11/21 01:29 Glucose Gel 15 Gm Gel..Gram. PO Q15M PRN per Hypoglycemia Standing Ord. Protocol Cefepime HCl 2 gm/ Sodium 50 mls @ 100 mls/hr 05/11/21 05:00 05/13/21 14:11 Chloride IV Infused Q8H IVETTE Infusion Insulin Glargine 50 unit 05/13/21 11:00 05/13/21 11:23 Insulin Glargine,Hum.Rec.Anlog 100 Unit/Ml 10 Ml Vial SUBCUT 50 unit DAILY IVETTE Administration Insulin Human Lispro 0 unit 05/13/21 12:00 05/13/21 11:23 Insulin Lispro 100 Unit/Ml 3 Ml Vial SUBCUT 2 unit Q6H IVETTE Administration Protocol Isosorbide Mononitrate 30 mg 05/11/21 09:00 05/13/21 08:06 Isosorbide Mononitrate 30 Mg Tab.Er.24h PO 30 mg DAILY [facility] Administration Protocol Latanoprost 1 drop 05/11/21 01:29 05/12/21 21:22 Latanoprost 0.005 % Ophth Elsa 2.5 Ml Drops EYE-BOTH Not Given BEDTIME [facility] Levothyroxine Sodium 50 mcg 05/11/21 06:30 05/13/21 08:06 Levothyroxine Sodium 50 Mcg Tablet PO 50 mcg DAILY@0630 [facility] Administration Lorazepam 0.5 mg 05/11/21 01:29 Lorazepam 0.5 Mg Tablet PO DAILY PRN anxiety Non-Formulary Medication 1 drop 05/11/21 09:00 Brimonidine EYE-BOTH BID [facility] Ondansetron HCl 4 mg 05/11/21 01:29 05/13/21 08:08 Ondansetron Hcl 4 Mg/2 Ml Vial IVPUSH 4 mg Q8H PRN Administration Nausea and Vomiting Spironolactone 25 mg 05/11/21 09:00 05/13/21 08:06 Spironolactone 25 Mg Tablet PO 25 mg DAILY [facility] Administration Protocol Home Medications Medication Instructions Recorded Confirmed Last Taken Type brimonidine 0.1 % eye drops 1 drp OPHTHALMIC (EYE) BID 06/03/20 05/10/21 05/10/21 09:00 History latanoprost 0.005 % eye drops 1 drp OPHTHALMIC (EYE) BEDTIME 06/03/20 05/10/21 05/09/21 22:00 History aspirin 81 mg tablet,delayed 81 mg PO DAILY 07/14/20 05/11/21 Unknown History release docusate sodium 100 mg capsule 100 mg PO BEDTIME 05/10/21 05/10/21 05/09/21 22:00 History (Colace) ticagrelor 90 mg tablet (Brilinta) 1 tab PO BID 05/10/21 05/10/21 05/10/21 09:00 History atorvastatin 80 mg tablet 1 tab PO DAILY 05/11/21 05/11/21 Unknown History Exam Exam Date and Time: May 13, 2021 161 Height,Weight and Vital Signs: Height 5 ft 4 in Weight 88.4 kg Last Vital Signs Temp 98 F 05/13/21 15:29 Pulse 75 05/13/21 15:29 Resp 20 05/13/21 15:29 BP 111/52 L 05/13/21 15:29 Pulse Ox 97 05/13/21 15:29 Pertinent Lab Results Pertinent Lab Results: Laboratory Tests 05/10/21 05/10/21 05/10/21 16:28 17:04 17:04 WBC 16.6 H RBC 6.13 H Hgb 16.7 H Hct 50.0 H MCV 81.6 MCH 27.2 MCHC 33.4 RDW 15.0 Plt Count 214 MPV 10.5 Immature Gran % (Auto) 0.5 H Neut % (Auto) 87.6 H Lymph % (Auto) 6.0 L [place] % (Auto) 5.7 Eos % (Auto) 0.0 Baso % (Auto) 0.2 Lymph # (Auto) 1.0 L [place] # (Auto) 0.9 Eos # (Auto) 0.0 Baso # (Auto) 0.0 Abs Immat Gran (auto) 0.09 H Absolute Neuts (auto) 14.5 H Absolute Nucleated RBC 0.000 Nucleated RBC % (auto) 0.0 PT 11.3 INR 1.0 VBG pH VBG pCO2 VBG pO2 VBG HCO3 VBG O2 Saturation VBG Base Excess Sodium Potassium Chloride Carbon Dioxide Anion Gap BUN Creatinine Estim Creat Clear Calc Estimated GFR POC Glucose 175 H Random Glucose Lactic Acid Calcium Phosphorus Magnesium Total Bilirubin Direct Bilirubin AST ALT Alkaline Phosphatase Troponin I High Sens Total Protein Albumin Lipase Urine Color Urine Appearance Urine pH Ur Specific [place] Urine Protein Urine Glucose (UA) Urine Ketones Urine Blood Urine Nitrite Ur Leukocyte Esterase Urine RBC Urine WBC Ur Squamous Epith Cells Urine Bacteria Acetone, Qual COVID-19 (HERNANDO) COVID-19 Clin Com 05/10/21 05/10/21 05/10/21 17:04 18:40 21:13 WBC RBC Hgb Hct MCV MCH MCHC RDW Plt Count MPV Immature Gran % (Auto) Neut % (Auto) Lymph % (Auto) [place] % (Auto) Eos % (Auto) Baso % (Auto) Lymph # (Auto) [place] # (Auto) Eos # (Auto) Baso # (Auto) Abs Immat Gran (auto) Absolute Neuts (auto) Absolute Nucleated RBC Nucleated RBC % (auto) PT INR VBG pH VBG pCO2 VBG pO2 VBG HCO3 VBG O2 Saturation VBG Base Excess Sodium 136 Potassium 4.4 Chloride 100 Carbon Dioxide 22 Anion Gap 18 BUN 13 Creatinine 0.81 Estim Creat Clear Calc 74.5 Estimated GFR > 60 POC Glucose Random Glucose 188 H Lactic Acid Calcium 10.8 H D Phosphorus Magnesium Total Bilirubin 3.5 H Direct Bilirubin 2.3 H AST 730 H ALT 529 H Alkaline Phosphatase 106 D Troponin I High Sens Total Protein 8.8 H Albumin 4.8 Lipase 26 Urine Color YELLOW Urine Appearance CLEAR Urine pH 7.0 Ur Specific [place] 1.010 Urine Protein 2+ H Urine Glucose (UA) >=1000 H Urine Ketones 5 Urine Blood TRACE Urine Nitrite NEG Ur Leukocyte Esterase NEG Urine RBC 1-4 Urine WBC 0-2 Ur Squamous Epith Cells 1+ Urine Bacteria NONE Acetone, Qual COVID-19 (HERNANDO) Negative COVID-19 Clin Com See Note 05/10/21 05/11/21 05/11/21 23:25 00:47 08:37 WBC RBC Hgb Hct MCV MCH MCHC RDW Plt Count MPV Immature Gran % (Auto) Neut % (Auto) Lymph % (Auto) [place] % (Auto) Eos % (Auto) Baso % (Auto) Lymph # (Auto) [place] # (Auto) Eos # (Auto) Baso # (Auto) Abs Immat Gran (auto) Absolute Neuts (auto) Absolute Nucleated RBC Nucleated RBC % (auto) PT INR VBG pH VBG pCO2 VBG pO2 VBG HCO3 VBG O2 Saturation VBG Base Excess Sodium Potassium Chloride Carbon Dioxide Anion Gap BUN Creatinine Estim Creat Clear Calc Estimated GFR POC Glucose 188 H Random Glucose Lactic Acid 2.0 Calcium Phosphorus Magnesium Total Bilirubin Direct Bilirubin AST ALT Alkaline Phosphatase Troponin I High Sens 110.6 H* Total Protein Albumin Lipase Urine Color Urine Appearance Urine pH Ur Specific [place] Urine Protein Urine Glucose (UA) Urine Ketones Urine Blood Urine Nitrite Ur Leukocyte Esterase Urine RBC Urine WBC Ur Squamous Epith Cells Urine Bacteria Acetone, Qual COVID-19 (HERNANDO) COVID-19 Clin Com 05/11/21 05/11/21 05/11/21 09:13 09:13 09:13 WBC 10.9 H RBC 5.43 Hgb 14.8 Hct 45.7 MCV 84.2 MCH 27.3 MCHC 32.4 RDW 15.5 Plt Count 185 MPV 11.0 Immature Gran % (Auto) 0.4 Neut % (Auto) 84.7 H Lymph % (Auto) 10.1 L [place] % (Auto) 4.6 Eos % (Auto) 0.0 Baso % (Auto) 0.2 Lymph # (Auto) 1.1 L [place] # (Auto) 0.5 Eos # (Auto) 0.0 Baso # (Auto) 0.0 Abs Immat Gran (auto) 0.04 H Absolute Neuts (auto) 9.2 H Absolute Nucleated RBC 0.000 Nucleated RBC % (auto) 0.0 PT INR VBG pH VBG pCO2 VBG pO2 VBG HCO3 VBG O2 Saturation VBG Base Excess Sodium 136 Potassium 4.6 Chloride 109 H Carbon Dioxide 14 L Anion Gap 18 BUN 13 Creatinine 0.72 Estim Creat Clear Calc 83.8 Estimated GFR > 60 POC Glucose Random Glucose 183 H Lactic Acid Calcium 8.3 L D Phosphorus Magnesium Total Bilirubin 6.1 H Direct Bilirubin 4.4 H AST 306 H ALT 435 H Alkaline Phosphatase 119 H Troponin I High Sens 177.0 H* D Total Protein 6.6 D Albumin 3.6 D Lipase Urine Color Urine Appearance Urine pH Ur Specific [place] Urine Protein Urine Glucose (UA) Urine Ketones Urine Blood Urine Nitrite Ur Leukocyte Esterase Urine RBC Urine WBC Ur Squamous Epith Cells Urine Bacteria Acetone, Qual COVID-19 (HERNANDO) COVID-19 Clin Com 05/11/21 05/11/21 05/11/21 12:21 19:44 21:49 WBC RBC Hgb Hct MCV MCH MCHC RDW Plt Count MPV Immature Gran % (Auto) Neut % (Auto) Lymph % (Auto) [place] % (Auto) Eos % (Auto) Baso % (Auto) Lymph # (Auto) [place] # (Auto) Eos # (Auto) Baso # (Auto) Abs Immat Gran (auto) Absolute Neuts (auto) Absolute Nucleated RBC Nucleated RBC % (auto) PT INR VBG pH VBG pCO2 VBG pO2 VBG HCO3 VBG O2 Saturation VBG Base Excess Sodium Potassium Chloride Carbon Dioxide Anion Gap BUN Creatinine Estim Creat Clear Calc Estimated GFR POC Glucose 179 H 167 H 172 H Random Glucose Lactic Acid Calcium Phosphorus Magnesium Total Bilirubin Direct Bilirubin AST ALT Alkaline Phosphatase Troponin I High Sens Total Protein Albumin Lipase Urine Color Urine Appearance Urine pH Ur Specific [place] Urine Protein Urine Glucose (UA) Urine Ketones Urine Blood Urine Nitrite Ur Leukocyte Esterase Urine RBC Urine WBC Ur Squamous Epith Cells Urine Bacteria Acetone, Qual COVID-19 (HERNANDO) COVID-19 Clin Com 05/12/21 05/12/21 05/12/21 05:49 05:49 08:19 WBC 17.3 H RBC 5.45 Hgb 15.0 Hct 47.5 H MCV 87.2 MCH 27.5 MCHC 31.6 RDW 15.9 Plt Count 192 MPV 10.7 Immature Gran % (Auto) Neut % (Auto) Lymph % (Auto) [place] % (Auto) Eos % (Auto) Baso % (Auto) Lymph # (Auto) [place] # (Auto) Eos # (Auto) Baso # (Auto) Abs Immat Gran (auto) Absolute Neuts (auto) Absolute Nucleated RBC 0.000 Nucleated RBC % (auto) 0.0 PT INR VBG pH VBG pCO2 VBG pO2 VBG HCO3 VBG O2 Saturation VBG Base Excess Sodium 134 L Potassium 5.1 Chloride 108 Carbon Dioxide 6 L* D Anion Gap 25 H BUN 24 H D Creatinine 1.03 Estim Creat Clear Calc 58.6 Estimated GFR 54 POC Glucose 225 H Random Glucose 204 H Lactic Acid Calcium 9.1 D Phosphorus Magnesium Total Bilirubin 1.8 H Direct Bilirubin 1.1 H AST 114 H ALT 362 H Alkaline Phosphatase 147 H D Troponin I High Sens Total Protein 7.6 Albumin 4.1 Lipase Urine Color Urine Appearance Urine pH Ur Specific [place] Urine Protein Urine Glucose (UA) Urine Ketones Urine Blood Urine Nitrite Ur Leukocyte Esterase Urine RBC Urine WBC Ur Squamous Epith Cells Urine Bacteria Acetone, Qual COVID-19 (HERNANDO) COVID-19 Clin Com 05/12/21 05/12/21 05/12/21 10:49 12:22 12:22 WBC Cancelled RBC Cancelled Hgb Cancelled Hct Cancelled MCV Cancelled MCH Cancelled MCHC Cancelled RDW Cancelled Plt Count Cancelled MPV Cancelled Immature Gran % (Auto) Neut % (Auto) Lymph % (Auto) [place] % (Auto) Eos % (Auto) Baso % (Auto) Lymph # (Auto) [place] # (Auto) Eos # (Auto) Baso # (Auto) Abs Immat Gran (auto) Absolute Neuts (auto) Absolute Nucleated RBC Cancelled Nucleated RBC % (auto) Cancelled PT INR VBG pH VBG pCO2 VBG pO2 VBG HCO3 VBG O2 Saturation VBG Base Excess Sodium 134 L Potassium 4.6 Chloride 112 H Carbon Dioxide < 5 L* Anion Gap TNP BUN 23 H Creatinine 1.06 Estim Creat Clear Calc 57.0 Estimated GFR 52 POC Glucose 227 H Random Glucose 216 H Lactic Acid Calcium 8.5 D Phosphorus Magnesium Total Bilirubin 1.3 H Direct Bilirubin AST 70 H ALT 304 H Alkaline Phosphatase 139 H Troponin I High Sens Total Protein 7.1 Albumin 3.9 Lipase Urine Color Urine Appearance Urine pH Ur Specific [place] Urine Protein Urine Glucose (UA) Urine Ketones Urine Blood Urine Nitrite Ur Leukocyte Esterase Urine RBC Urine WBC Ur Squamous Epith Cells Urine Bacteria Acetone, Qual COVID-19 (HERNANDO) COVID-19 [employer] 05/12/21 05/12/21 05/12/21 12:22 12:22 12:22 WBC RBC Hgb Hct MCV MCH MCHC RDW Plt Count MPV Immature Gran % (Auto) Neut % (Auto) Lymph % (Auto) [place] % (Auto) Eos % (Auto) Baso % (Auto) Lymph # (Auto) [place] # (Auto) Eos # (Auto) Baso # (Auto) Abs Immat Gran (auto) Absolute Neuts (auto) Absolute Nucleated RBC Nucleated RBC % (auto) PT INR VBG pH VBG pCO2 VBG pO2 VBG HCO3 VBG O2 Saturation VBG Base Excess Sodium Potassium Chloride Carbon Dioxide Anion Gap BUN Creatinine Estim Creat Clear Calc Estimated GFR POC Glucose Random Glucose Lactic Acid Cancelled 1.0 Calcium Phosphorus Magnesium Total Bilirubin Direct Bilirubin AST ALT Alkaline Phosphatase Troponin I High Sens Total Protein Albumin Lipase Urine Color Urine Appearance Urine pH Ur Specific [place] Urine Protein Urine Glucose (UA) Urine Ketones Urine Blood Urine Nitrite Ur Leukocyte Esterase Urine RBC Urine WBC Ur Squamous Epith Cells Urine Bacteria Acetone, Qual Small H COVID-19 (HERNANDO) COVID-19 [employer] 05/12/21 05/12/21 05/12/21 12:31 12:33 14:27 WBC RBC Hgb Hct MCV MCH MCHC RDW Plt Count MPV Immature Gran % (Auto) Neut % (Auto) Lymph % (Auto) [place] % (Auto) Eos % (Auto) Baso % (Auto) Lymph # (Auto) [place] # (Auto) Eos # (Auto) Baso # (Auto) Abs Immat Gran (auto) Absolute Neuts (auto) Absolute Nucleated RBC Nucleated RBC % (auto) PT INR VBG pH 7.15 L* VBG pCO2 11 VBG pO2 229 VBG HCO3 4 L VBG O2 Saturation 99.0 VBG Base Excess -21.7 Sodium Potassium Chloride Carbon Dioxide Anion Gap BUN Creatinine Estim Creat Clear Calc Estimated GFR POC Glucose 224 H Random Glucose Lactic Acid Calcium Phosphorus Magnesium Total Bilirubin Direct Bilirubin AST ALT Alkaline Phosphatase Troponin I High Sens Total Protein Albumin Lipase Urine Color YELLOW Urine Appearance CLEAR Urine pH 6.0 Ur Specific [place] 1.025 Urine Protein 1+ H Urine Glucose (UA) 500 H Urine Ketones >=80 Urine Blood 1+ H Urine Nitrite NEG Ur Leukocyte Esterase NEG Urine RBC 0-2 Urine WBC 0 Ur Squamous Epith Cells TRACE Urine Bacteria TRACE Acetone, Qual COVID-19 (HERNANDO) COVID-19 [employer]igo 05/12/21 05/12/21 05/12/21 14:45 15:29 16:08 WBC RBC Hgb Hct MCV MCH MCHC RDW Plt Count MPV Immature Gran % (Auto) Neut % (Auto) Lymph % (Auto) [place] % (Auto) Eos % (Auto) Baso % (Auto) Lymph # (Auto) [place] # (Auto) Eos # (Auto) Baso # (Auto) Abs Immat Gran (auto) Absolute Neuts (auto) Absolute Nucleated RBC Nucleated RBC % (auto) PT INR VBG pH VBG pCO2 VBG pO2 VBG HCO3 VBG O2 Saturation VBG Base Excess Sodium Potassium Chloride Carbon Dioxide Anion Gap BUN Creatinine Estim Creat Clear Calc Estimated GFR POC Glucose 199 H 220 H 219 H Random Glucose Lactic Acid Calcium Phosphorus Magnesium Total Bilirubin Direct Bilirubin AST ALT Alkaline Phosphatase Troponin I High Sens Total Protein Albumin Lipase Urine Color Urine Appearance Urine pH Ur Specific [place] Urine Protein Urine Glucose (UA) Urine Ketones Urine Blood Urine Nitrite Ur Leukocyte Esterase Urine RBC Urine WBC Ur Squamous Epith Cells Urine Bacteria Acetone, Qual COVID-19 (HERNANDO) COVID-19 [employer]igo 05/12/21 05/12/21 05/12/21 17:05 18:05 19:08 WBC RBC Hgb Hct MCV MCH MCHC RDW Plt Count MPV Immature Gran % (Auto) Neut % (Auto) Lymph % (Auto) [place] % (Auto) Eos % (Auto) Baso % (Auto) Lymph # (Auto) [place] # (Auto) Eos # (Auto) Baso # (Auto) Abs Immat Gran (auto) Absolute Neuts (auto) Absolute Nucleated RBC Nucleated RBC % (auto) PT INR VBG pH VBG pCO2 VBG pO2 VBG HCO3 VBG O2 Saturation VBG Base Excess Sodium 137 Potassium 4.0 Chloride 112 H Carbon Dioxide 12 L Anion Gap 17 BUN 19 H Creatinine 1.03 Estim Creat Clear Calc 58.6 Estimated GFR 54 POC Glucose 204 H 202 H Random Glucose 195 H Lactic Acid Calcium 8.5 Phosphorus Magnesium Total Bilirubin Direct Bilirubin AST ALT Alkaline Phosphatase Troponin I High Sens Total Protein Albumin Lipase Urine Color Urine Appearance Urine pH Ur Specific [place] Urine Protein Urine Glucose (UA) Urine Ketones Urine Blood Urine Nitrite Ur Leukocyte Esterase Urine RBC Urine WBC Ur Squamous Epith Cells Urine Bacteria Acetone, Qual COVID-19 (HERNANDO) COVID-19 [employer]igo 05/12/21 05/12/21 05/12/21 19:09 20:09 21:58 WBC RBC Hgb Hct MCV MCH MCHC RDW Plt Count MPV Immature Gran % (Auto) Neut % (Auto) Lymph % (Auto) [place] % (Auto) Eos % (Auto) Baso % (Auto) Lymph # (Auto) [place] # (Auto) Eos # (Auto) Baso # (Auto) Abs Immat Gran (auto) Absolute Neuts (auto) Absolute Nucleated RBC Nucleated RBC % (auto) PT INR VBG pH VBG pCO2 VBG pO2 VBG HCO3 VBG O2 Saturation VBG Base Excess Sodium Potassium Chloride Carbon Dioxide Anion Gap BUN Creatinine Estim Creat Clear Calc Estimated GFR POC Glucose 184 H 195 H 171 H Random Glucose Lactic Acid Calcium Phosphorus Magnesium Total Bilirubin Direct Bilirubin AST ALT Alkaline Phosphatase Troponin I High Sens Total Protein Albumin Lipase Urine Color Urine Appearance Urine pH Ur Specific [place] Urine Protein Urine Glucose (UA) Urine Ketones Urine Blood Urine Nitrite Ur Leukocyte Esterase Urine RBC Urine WBC Ur Squamous Epith Cells Urine Bacteria Acetone, Qual COVID-19 (HERNANDO) COVID-19 [employer]igo 05/12/21 05/13/21 05/13/21 23:44 01:59 03:34 WBC RBC Hgb Hct MCV MCH MCHC RDW Plt Count MPV Immature Gran % (Auto) Neut % (Auto) Lymph % (Auto) [place] % (Auto) Eos % (Auto) Baso % (Auto) Lymph # (Auto) [place] # (Auto) Eos # (Auto) Baso # (Auto) Abs Immat Gran (auto) Absolute Neuts (auto) Absolute Nucleated RBC Nucleated RBC % (auto) PT INR VBG pH VBG pCO2 VBG pO2 VBG HCO3 VBG O2 Saturation VBG Base Excess Sodium Potassium Chloride Carbon Dioxide Anion Gap BUN Creatinine Estim Creat Clear Calc Estimated GFR POC Glucose 161 H 158 H 160 H Random Glucose Lactic Acid Calcium Phosphorus Magnesium Total Bilirubin Direct Bilirubin AST ALT Alkaline Phosphatase Troponin I High Sens Total Protein Albumin Lipase Urine Color Urine Appearance Urine pH Ur Specific [place] Urine Protein Urine Glucose (UA) Urine Ketones Urine Blood Urine Nitrite Ur Leukocyte Esterase Urine RBC Urine WBC Ur Squamous Epith Cells Urine Bacteria Acetone, Qual COVID-19 (HERNANDO) COVID-19 Clin Com 05/13/21 05/13/21 05/13/21 05:18 05:18 05:23 WBC 15.2 H RBC 5.25 Hgb 14.4 Hct 43.4 MCV 82.7 MCH 27.4 MCHC 33.2 RDW 16.0 Plt Count 192 MPV 10.4 Immature Gran % (Auto) 0.5 H Neut % (Auto) 80.4 H Lymph % (Auto) 12.2 L [place] % (Auto) 6.8 Eos % (Auto) 0.0 Baso % (Auto) 0.1 Lymph # (Auto) 1.9 [place] # (Auto) 1.0 Eos # (Auto) 0.0 Baso # (Auto) 0.0 Abs Immat Gran (auto) 0.07 H Absolute Neuts (auto) 12.2 H Absolute Nucleated RBC 0.000 Nucleated RBC % (auto) 0.0 PT INR VBG pH 7.35 VBG pCO2 32 VBG pO2 51 VBG HCO3 18 L VBG O2 Saturation 82.0 VBG Base Excess -6.0 Sodium 138 Potassium 3.5 Chloride 110 H Carbon Dioxide 18 L Anion Gap 14 BUN 14 Creatinine 0.85 Estim Creat Clear Calc 71.0 Estimated GFR > 60 POC Glucose Random Glucose 174 H Lactic Acid Calcium 8.7 Phosphorus 1.1 L Magnesium 2.3 Total Bilirubin 1.0 Direct Bilirubin 0.6 H AST 28 D ALT 200 H Alkaline Phosphatase 114 Troponin I High Sens Total Protein 6.4 L Albumin 3.5 Lipase Urine Color Urine Appearance Urine pH Ur Specific [place] Urine Protein Urine Glucose (UA) Urine Ketones Urine Blood Urine Nitrite Ur Leukocyte Esterase Urine RBC Urine WBC Ur Squamous Epith Cells Urine Bacteria Acetone, Qual COVID-19 (HERNANDO) COVID-19 Clin Com 05/13/21 05/13/21 05/13/21 05:39 08:04 10:07 WBC RBC Hgb Hct MCV MCH MCHC RDW Plt Count MPV Immature Gran % (Auto) Neut % (Auto) Lymph % (Auto) [place] % (Auto) Eos % (Auto) Baso % (Auto) Lymph # (Auto) [place] # (Auto) Eos # (Auto) Baso # (Auto) Abs Immat Gran (auto) Absolute Neuts (auto) Absolute Nucleated RBC Nucleated RBC % (auto) PT INR VBG pH VBG pCO2 VBG pO2 VBG HCO3 VBG O2 Saturation VBG Base Excess Sodium Potassium Chloride Carbon Dioxide Anion Gap BUN Creatinine Estim Creat Clear Calc Estimated GFR POC Glucose 168 H 161 H 157 H Random Glucose Lactic Acid Calcium Phosphorus Magnesium Total Bilirubin Direct Bilirubin AST ALT Alkaline Phosphatase Troponin I High Sens Total Protein Albumin Lipase Urine Color Urine Appearance Urine pH Ur Specific [place] Urine Protein Urine Glucose (UA) Urine Ketones Urine Blood Urine Nitrite Ur Leukocyte Esterase Urine RBC Urine WBC Ur Squamous Epith Cells Urine Bacteria Acetone, Qual COVID-19 (HERNANDO) COVID-19 [employer] Com 05/13/21 05/13/21 10:15 11:18 WBC RBC Hgb Hct MCV MCH MCHC RDW Plt Count MPV Immature Gran % (Auto) Neut % (Auto) Lymph % (Auto) [place] % (Auto) Eos % (Auto) Baso % (Auto) Lymph # (Auto) [place] # (Auto) Eos # (Auto) Baso # (Auto) Abs Immat Gran (auto) Absolute Neuts (auto) Absolute Nucleated RBC Nucleated RBC % (auto) PT INR VBG pH VBG pCO2 VBG pO2 VBG HCO3 VBG O2 Saturation VBG Base Excess Sodium 138 Potassium 3.5 Chloride 110 H Carbon Dioxide 21 L Anion Gap 11 L BUN 12 Creatinine 0.82 Estim Creat Clear Calc 73.6 Estimated GFR > 60 POC Glucose 162 H Random Glucose 188 H Lactic Acid Calcium 8.4 Phosphorus Magnesium Total Bilirubin Direct Bilirubin AST ALT Alkaline Phosphatase Troponin I High Sens Total Protein Albumin Lipase Urine Color Urine Appearance Urine pH Ur Specific [place] Urine Protein Urine Glucose (UA) Urine Ketones Urine Blood Urine Nitrite Ur Leukocyte Esterase Urine RBC Urine WBC Ur Squamous Epith Cells Urine Bacteria Acetone, Qual COVID-19 (HERNANDO) COVID-19 Clin Com Airway Mallampati Class: II TM Dist: >3cm Neck ROM: Full Denture: Upper Partial: Lower Heart: RRR Lungs: CTAB. Diminished Right. Assessment and Plan Assessment Anesthesia Assessment: Anesthesia Plan Discussed and Chart Reviewed Final Anesthetic Review Family History of Problems with Anesthesia: No History of Problems with Anesthesia: No NPO: Yes ASA Class: IV Final Preanesthetic Review: No Changes in Pt Med Stat, Meds/Allgs Chart Reviewed, Consent Obtained/Reviewed and Anes Risks/Benef Reviewed Patient Risk: High Procedure Risk: Intermediate Assessment/Block/Sedation in SS: Assess/Block/Sedation-SS Anesthetic Plan Anesthetic Plan: GA Disposition: Inp. Admit - ICU
--- NOTE | 2021-05-13 16:17 | MHC.CM.PN ---
Left message for dtr, Francisca to call CM back to discuss d/c needs/plans: Will attempt call on 05/14
--- NOTE | 2021-05-13 16:38 | MHC.SHP ---
Pre-Procedural Eval Section A Date of Service: 05/13/21 The patient is an INPATIENT: Yes The History & Physical has been completed within 30 days and I have reviewed it.: Yes Section B Chief Complaint: Cholangitis? transminitis Allergies: Allergies Allergy/AdvReac Type Severity Reaction Status Date / Time No Known Allergies Allergy Mild NOT Verified 05/10/21 14:43 APPLICABLE Plan Diagnosis/Plan: Unchanged I have reviewed the history and physical and performed a pertinent physical examination on my patient. No changes have occurred unless specified.
--- NOTE | 2021-05-13 16:46 | PM.OP ---
Brief Operative Note Date of Service: 05/13/21 Pre-op diagnosis: CBD stones Post-op diagnosis: same Procedure: ERCP and EGD with biopsy Surgeon: Cong Soto MD Anesthesia: GETA Was an Body Design Checker used for this Procedure?: No Estimated blood loss (mL): 0 Pathology: other Disposition: PACU
--- NOTE | 2021-05-13 16:46 | W.PM.OPN ---
Operative Note Operative Note Date of Service: 05/13/21 Narrative: Description: Endoscopic retrograde cholangiopancreatography (ERCP) with sphincterotomy, and EGD with biopsy and foreign body retrieval PROCEDURE: Endoscopic retrograde cholangiopancreatography, EGD with biopsy INDICATION FOR THE PROCEDURE: Patient with a history of cholangitis, may have passed stones MEDICATIONS: General anesthesia, rectal indomethacin 100 mg, ABx per primary team The risks of the procedure were made aware to the patient and consisted of medication reaction, bleeding, perforation, aspiration, and post ERCP pancreatitis. DESCRIPTION OF PROCEDURE: After informed consent and appropriate sedation, the duodenoscope was inserted into the oropharynx, down the esophagus, and into the stomach. The scope was then advanced through the pylorus to the ampulla. Multiple uclerations noted in duodenum with eschar. The ampulla was scarred and atrophic. With angulation and positioning the CBD was accessed rather easily. A cholangiogram suggested a small filling defect in distal CBD. The GB was not visualized and the CBD was dilated. The tome was exchanged for a 12 mm balloon after a generous sphincterotomy was performed. The balloon was dragged down the CBD and debris and dark colored sludge was noted. There was no bleeding. An occlusion cholangiogram did not reveal any filling defects. During the procedure the plastic tip of the scope fell off, so an EGD scope was used to both retrieve this with rat tooth and also to further examine the upper GI tract. Severe erosive esophagitis LA grade D was noted involving about 8-10 cm of esophagus. The duodenum had multiple ulcerations of various sizes noted with the worst being in the duodenal bulb with eschar over the surface. A biopsy was taken from the stomach for h pylori. There was some minor oozing which had ceased by the end of the procedure. The stomach was then decompressed and the endoscope was withdrawn. FINDINGS: 1. Severe erosive esophagitis, LA grade D 2. Severe ulcerative duodenitis 3. sphincterotomy with biliary debris removed. RECOMMENDATIONS: 1. NPO except ice chips for next 4-6 hrs then clears as tolerated, can advance diet tomorrow if feels well 2. Can restart aspirin and brilinta in 48 hrs. PLEASE make sure on high dose PPi e.g pantoprazole 40 mg BID starting today, can titrate down after 3 months. would also add carafate for 2 weeks. 3. If h pylori pos then treat 4. Refer surgery for cholecystectomy, may benefit from this during this admission due to her multiple medical issues. If plan is for same admission cholecystectomy then obviously cont to hold brilinta but would at least restart aspirin. 5. She will need repeat EGD in 3-4 months
--- NOTE | 2021-05-13 16:47 | P.EN_ITS ---
Event Note Date of Service: 05/13/21 Event Note: Doing much better today, Gap pretty much closed. LFT improved as w daniella. Discussed option of holding off ERCP -she may have passed stones or disimpacted and still in duct like ball shuttle valve phenomenon. We have a good window right now as she is off her anti platelets for few days. Sebeni wants to proceed with ERCP as she wants to avoid further risk of cholangitis pending her surgical evaluation. Discussed risks and benefits and will proceed.
--- NOTE | 2021-05-13 16:48 | PC.NURSE ---
on way to ERCP, took watches [employer] phone.
[2021-05-13 18:32] LABS: Glucose, Whole Blood 192 mg/dL (60-115)
[2021-05-13] MEDS: Indomethacin 50 MG SUPP.RECT 100 MG PR (19:45)
[2021-05-13 20:41] LABS: Glucose, Whole Blood 213 mg/dL (60-115)
[2021-05-13 23:24] LABS: Glucose, Whole Blood 185 mg/dL (60-115)
[2021-05-14] VITALS (8 sets, daily range): BP systolic 113–143; BP diastolic 56–67; PULSE 66–76; RESP 17–20; TEMP 36.6–37.1; O2SAT 95–97
[2021-05-14] MEDS: Insulin Lispro 100 UNIT/ML 3 ML VIAL SUBCUT ×4 (00:05→18:16)
[2021-05-14] MEDS: cefEPime HCl 2 GM in 0.9 % Sodium Chloride 50 ML IV ×3 (05:46→21:32)
[2021-05-14] MEDS: Levothyroxine Sodium 50 MCG TABLET PO (05:46)
[2021-05-14] MEDS: Acetaminophen 325 MG TABLET 650 MG PO ×2 (05:57→13:54)
[2021-05-14 05:58] LABS: Glucose, Whole Blood 160 mg/dL (60-115)
[2021-05-14 06:42] LABS: MANUAL DIFF FLAG NO
[2021-05-14 06:47] LABS: Basophils Percent Auto 0.3 % (0-2); Hematocrit 40.4 % (37-47); Hemoglobin 13.2 g/dl (12.0-16.0); Imm Gran Abs Auto 0.04 X10*3/uL (0.00-0.03); Imm Gran Pct Auto 0.4 % (0.0-0.4); Lymphocytes Absolute Auto 2.2 X10*3/uL (1.2-4.9); Lymphocytes Percent Auto 22.9 % (20-40); Mean Corpuscular HGB Conc 32.7 g/dl (31.0-35.0); Mean Corpuscular Volume 82.6 fL (80-98); Mean Platelet Volume 10.2 fL (9.4-12.3); Monocytes Absolute Auto 0.9 X10*3/uL (0.1-1.2); Monocytes Percent Auto 9.8 % (2-11); Neutrophils Absolute Auto 6.4 X10*3/uL (2.0-8.3); Neutrophils Percent Auto 66.6 % (45-73); Platelet Count 145 X10*3/uL (160-400); Red Blood Count 4.89 X10*6/uL (4.20-5.50); Red Cell Distribution Width 16.1 % (11.0-16.0); White Blood Count 9.5 X10*3/uL (4.8-10.8)
[2021-05-14 06:54] LABS: Glucose, Whole Blood 150 mg/dL (60-115)
[2021-05-14 07:21] LABS: Anion Gap 12 (12-20); Blood Urea Nitrogen 14 mg/dL (9-16); Calcium 8.2 mg/dL (8.4-10.2); Carbon Dioxide 21 mmol/L (22-29); Chloride 110 mmol/L (96-108); Creatinine Clr Calc Pharmacy 80.4; Estimated Glomerular Filt Rate > 60; Glucose Random 169 mg/dL (60-115); Magnesium 2.3 mg/dL (1.6-2.6); Phosphorus 1.7 mg/dL (2.7-4.5); Potassium 3.8 mmol/L (3.3-5.1); Sodium 139 mmol/L (135-145)
--- NOTE | 2021-05-14 07:26 | HO.POSTANES ---
Post Anesthesia Evaluation Post Anesthesia Evaluation Vital Signs: Vital Signs Temp Pulse Resp BP Pulse Ox 05/14/21 03:20 97.8 F 69 17 143/67 H 96 05/13/21 23:00 97.8 F 73 17 132/61 96 05/13/21 20:00 98.0 F 74 20 118/57 L 94 Anesthesia: General Endotracheal-GETA Mental Status: Awake Pain Control: Satisfactory Nausea/Vomiting: Mild Hydration: Adequate Anesthesia-Related Issues: No Anes. Related Issues
--- NOTE | 2021-05-14 07:40 | HE.PHANOTE ---
Reached out to the provider to see if they would like to continue the non-formulary eye drops on the patients home medication list. If they would like to continue the medication in house, then the patients family would need to bring the medication in. Vilma Nava, PharmD [phone]
[2021-05-14] MEDS: Insulin Glargine,Hum.rec.anlog 100 UNIT/ML 10 ML VIAL 50 UNIT SUBCUT (08:56)
[2021-05-14] MEDS: Isosorbide Mononitrate 30 MG TAB.ER.24H PO (08:56)
[2021-05-14 09:04] LABS: Glucose, Whole Blood 161 mg/dL (60-115)
[2021-05-14 10:29] LABS: Alanine Aminotransferase 112 U/L (0-31); Albumin Level 3.2 g/dL (3.5-5.0); Alkaline Phosphatase 88 U/L (39-117); Aspartate Amino Transferase 15 U/L (5-31); Bilirubin Direct 0.5 mg/dL (0.0-0.5); Bilirubin Total 0.9 mg/dL (0.0-1.0); Total Protein 5.7 g/dL (6.5-8.0)
--- NOTE | 2021-05-14 11:08 | HO.PM.IMPN ---
Subjective Subjective Date of Service: 05/14/21 Interval History: Seen in f/u for choledocholithiasis, DKA that has resolved. She is c/o of back pain that is chronic. DKA resolved. ERCP done yesterday, finding below Review of Systems No fever no abdominal pain Back pain Physical Exam Vital Signs: Vital Signs: Last Vital Signs Temp 98.6 F 05/14/21 07:39 Pulse 76 05/14/21 08:56 Resp 20 05/14/21 07:39 BP 139/67 05/14/21 08:56 Pulse Ox 95 05/14/21 07:39 Body Mass Index 33.4 General: AO X 3, no acute distress Resp: CTA bilateral CVS: S1,S2,RRR GI: +BS, NT, no distention Skin: No rash Neuro: motor grossly intact Psych: appropriate affect Objective Data Active Medications Acetaminophen (Acetaminophen 325 Mg Tablet) 650 mg PO Q6H PRN PRN Reason: Pain, Mild (Pain Scale 1-3) Last Admin: 05/14/21 05:57 Dose: 650 mg Documented by: ANGELA Dextrose (Dextrose 50 % 25 Gm/50 Ml Vial) 25 gm IVPUSH Q15M PRN; Protocol PRN Reason: per Hypoglycemia Standing Ord. Fentanyl (Fentanyl Citrate/Pf 100 Mcg/2 Ml Vial) 50 mcg IVPUSH Q5M PRN; Protocol PRN Reason: Pain, Severe (Pain Scale 7-10) Fentanyl (Fentanyl 50 Mcg Patch.Td72) 50 mcg TRANSDERMA Q72H IVETTE Glucose (Glucose Gel 15 Gm Gel..Gram.) 15 gm PO Q15M PRN; Protocol PRN Reason: per Hypoglycemia Standing Ord. Cefepime HCl 2 gm/ Sodium (Chloride) 50 mls @ 100 mls/hr IV Q8H IVETTE Last Infusion: 05/14/21 06:31 Dose: 0 mls/hr Documented by: SHAJIASY Insulin Glargine (Insulin Glargine,Hum.Rec.Anlog 100 Unit/Ml 10 Ml Vial) 50 unit SUBCUT DAILY [facility] Last Admin: 05/14/21 08:56 Dose: 50 unit Documented by: CHICOIC Insulin Human Lispro (Insulin Lispro 100 Unit/Ml 3 Ml Vial) 0 unit SUBCUT Q6H IVETTE; Protocol Last Admin: 05/14/21 05:57 Dose: 2 unit Documented by: ANGELA Isosorbide Mononitrate (Isosorbide Mononitrate 30 Mg Tab.Er.24h) 30 mg PO DAILY [facility] [place]; Protocol Last Admin: 05/14/21 08:56 Dose: 30 mg Documented by: SANDY Latanoprost (Latanoprost 0.005 % Ophth Elsa 2.5 Ml Drops) 1 drop EYE-BOTH BEDTIME [facility] [place] Last Admin: 05/13/21 21:48 Dose: Not Given Documented by: ANGELA Non-Admin Reason: Med Not Available Levothyroxine Sodium (Levothyroxine Sodium 50 Mcg Tablet) 50 mcg PO DAILY@0630 [facility] [place] Last Admin: 05/14/21 05:46 Dose: 50 mcg Documented by: ANGELA Lorazepam (Lorazepam 0.5 Mg Tablet) 0.5 mg PO DAILY PRN PRN Reason: anxiety Non-Formulary Medication (Brimonidine) 1 drop EYE-BOTH BID [facility] [place] Omeprazole (Omeprazole 40 Mg Capsule.Dr) 40 mg PO BID@0630,1630 [facility] [place] Ondansetron HCl (Ondansetron Hcl 4 Mg/2 Ml Vial) 4 mg IVPUSH Q8H PRN PRN Reason: Nausea and Vomiting Last Admin: 05/13/21 08:08 Dose: 4 mg Documented by: PAULA Ondansetron HCl (Ondansetron Hcl 4 Mg/2 Ml Vial) 4 mg IVPUSH ONCE PRN PRN Reason: Nausea and Vomiting Oxycodone HCl (Oxycodone Hcl Immed Release 5 Mg Tablet) 5 mg PO Q4H PRN PRN Reason: Pain, Severe (Pain Scale 7-10) Spironolactone (Spironolactone 25 Mg Tablet) 25 mg PO DAILY [facility] [place]; Protocol Last Admin: 05/13/21 08:06 Dose: 25 mg Documented by: PAULA Labs CBC & Chem 7: 05/14/21 06:33 05/14/21 06:33 Labs: Laboratory Results - last 24 hr 05/13/21 05/13/21 05/13/21 11:18 18:26 20:37 MCV MCH MCHC RDW Plt Count MPV Immature Gran % (Auto) Neut % (Auto) Lymph % (Auto) [place] % (Auto) Eos % (Auto) Baso % (Auto) Lymph # (Auto) [place] # (Auto) Eos # (Auto) Baso # (Auto) Abs Immat Gran (auto) Absolute Neuts (auto) Absolute Nucleated RBC Nucleated RBC % (auto) Anion Gap Estim Creat Clear Calc Estimated GFR POC Glucose 162 H 192 H 213 H Random Glucose Calcium Phosphorus Magnesium Total Bilirubin Direct Bilirubin AST ALT Alkaline Phosphatase Total Protein Albumin 05/13/21 05/14/21 05/14/21 23:20 05:47 06:33 MCV 82.6 MCH 27.0 MCHC 32.7 RDW 16.1 H Plt Count 145 L MPV 10.2 Immature Gran % (Auto) 0.4 Neut % (Auto) 66.6 Lymph % (Auto) 22.9 [place] % (Auto) 9.8 Eos % (Auto) 0.0 Baso % (Auto) 0.3 Lymph # (Auto) 2.2 [place] # (Auto) 0.9 Eos # (Auto) 0.0 Baso # (Auto) 0.0 Abs Immat Gran (auto) 0.04 H Absolute Neuts (auto) 6.4 Absolute Nucleated RBC 0.000 Nucleated RBC % (auto) 0.0 Anion Gap Estim Creat Clear Calc Estimated GFR POC Glucose 185 H 160 H Random Glucose Calcium Phosphorus Magnesium Total Bilirubin Direct Bilirubin AST ALT Alkaline Phosphatase Total Protein Albumin 05/14/21 05/14/21 05/14/21 06:33 06:50 08:52 MCV MCH MCHC RDW Plt Count MPV Immature Gran % (Auto) Neut % (Auto) Lymph % (Auto) [place] % (Auto) Eos % (Auto) Baso % (Auto) Lymph # (Auto) [place] # (Auto) Eos # (Auto) Baso # (Auto) Abs Immat Gran (auto) Absolute Neuts (auto) Absolute Nucleated RBC Nucleated RBC % (auto) Anion Gap 12 Estim Creat Clear Calc 80.4 Estimated GFR > 60 POC Glucose 150 H 161 H Random Glucose 169 H Calcium 8.2 L Phosphorus 1.7 L Magnesium 2.3 Total Bilirubin 0.9 Direct Bilirubin 0.5 AST 15 D ALT 112 H Alkaline Phosphatase 88 D Total Protein 5.7 L Albumin 3.2 L Assessment and Plan (1) Metabolic acidosis: Status: Acute Assessment and Plan: 65/F with complex medical issues --SEE H and P for detail, has diabetes, cardiomyopathy s/p AIC she presents with abd/back pain elevated LFTS and concern for cholangitis, and during hospitalization amada into DKA and went to ICU from 05/12 to 05/13 for insulin and IVF managemnet #Choledocholithiasis ? colangitis--no clinical evidence of cholangitis. Probably has passed a stone, LFTS have trended down, WBC is normal and no fever. Cultures negative ERCP on 05/13 with the following finding and recommendation by Dr. Soto 1. Severe erosive esophagitis, LA grade D 2. Severe ulcerative duodenitis 3. sphincterotomy with biliary debris removed. RECOMMENDATIONS: 1. NPO except ice chips for next 4-6 hrs then clears as tolerated, can advance diet tomorrow if feels well 2. Can restart aspirin and brilinta in 48 hrs. PLEASE make sure on high dose PPi e.g pantoprazole 40 mg BID starting today, can titrate down after 3 months. would also add carafate for 2 weeks. 3. If h pylori pos then treat 4. Refer surgery for cholecystectomy, may benefit from this during this admission due to her multiple medical issues. If plan is for same admission cholecystectomy then obviously cont to hold brilinta but would at least restart aspirin. 5. She will need repeat EGD in 3-4 months #DKA--s/p treatment in ICU and now resolved. She is a brittle diabetic and should be on inssulin at all time ?# back pain- chronic, on Fentanyl patch at home, add Oxycodone PRN #Elevated troponin, EKG showing multiple abnormalities but nothing acute/history of CAD seen by cardio-thought to be elevated trops sec to cholangitis--no further w/u. No chest pain at moment #bnormal CT lung findings- some nodules seen on CT scan given her history of breast cancer these will need follow-up on further evaluation once patient's transaminitis/cholangitis addressed 5. hypertension--normal, no change 6. Diabetes--continue insulin (Lantus 50 and SSI) 7.History of CHF--Presently Euvolemic.. Can restart Lasix and Lisinpril 8. Erosive esophagitis, duodenitis--High dose PPI 40 bid, Careafate as above Because repeat labs showed worsening acidisos, given 1 amp of bicab, discussed with ICU and being transfered to ICU for closer monitoring DVT prophylaxis:? SCDs, heparin later today Quality Stroke Does the patient have a stroke diagnosis?: No VTE Prior VTE?: No VTE Risk Level:: Medical - moderate - high VTE Device Contraindication: N/A - Device Ordered VTE Drug Contraindication: Treatment Not Indicated
[2021-05-14] MEDS: oxyCODONE HCl Immed Release 5 MG TABLET PO ×3 (11:40→22:56)
--- NOTE | 2021-05-14 12:09 | PC.NURSE ---
Skin assessment completed today. Patient has small excoriated area in left groin. Red and painful. Interdry applied on a daily basis. No other skin issues noted at this time.
[2021-05-14 12:29] LABS: Glucose, Whole Blood 196 mg/dL (60-115)
[2021-05-14] MEDS: ondansetron HCL 4 MG/2 ML VIAL IVPUSH (14:04)
--- NOTE | 2021-05-14 16:55 | P.CONGS_ITS ---
History of Present Illness Consult details Consult date: 05/14/21 Requesting physician: Arnav Vines Narrative: 65-year-old female patient with history of diabetes mellitus, coronary artery disease status post stent, ICD placement, ischemic cardiomyopathy, breast cancer and hypertension presenting with complaints of back and abdominal pain found on initial laboratories to have an elevated WBC of 16.6, total bilirubin 3.5 elevated transaminases and alkaline phosphatase. An abdominal ultrasound revealed cholelithiasis and dilation of the common bile duct.. CT of the abdomen and pelvis confirmed a prominent common bile duct. The patient subsequently developed diabetic ketoacidosis from being offered diabetic medications. She underwent ERCP yesterday which did reveal stones within the common bile duct. Surgical consultation was requested for possible cholecystectomy while in house. Today she mainly complains of throat pain with difficulty swallowing. She also reports nausea with vomiting earlier today. Her abdominal pain is improved but she continues to have back pain. Review of Systems Review of Systems: Yes all other systems are reviewed and are negative Constitutional: Constitutional: Reports anorexia, Reports chills and Reports fever(s) Cardiovascular: Cardiovascular: Denies chest pain, Denies rapid heart rate and Denies irregular heart rhythm Respiratory: Respiratory: Denies chest congestion, Denies cough and Denies wheezing Gastrointestinal: Gastrointestinal: Reports abdominal pain, Reports GI cramping, Reports nausea and Reports vomiting Musculoskeletal: Musculoskeletal: Reports back pain Allergic/Immunologic: Allergic/Immunologic: Denies wheezing PMFSH Past Medical History Medical History Acquired hypothyroidism Anxiety Atherosclerosis of coronary artery of [place] heart with stable angina pectoris Atherosclerotic cardiovascular disease Benign essential hypertension Diabetes Diabetic neuropathy Drug induced constipation History of breast cancer History of ductal carcinoma in situ (DCIS) of breast History of MD (myocardial infarction) Hyperlipidemia Hypothyroidism ICD (implantable cardioverter-defibrillator) in place Insomnia 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 Lumbar degenerative disc disease Major depressive disorder, recurrent episode, mild Neuropathy Obesity (BMI 30-39.9) Osteoarthritis Osteoarthritis of spine with radiculopathy, cervical region Pityriasis rosea Pure hypercholesterolemia Type 2 diabetes mellitus with diabetic polyneuropathy Ventricular tachycardia Vitamin D deficiency Family History Family History Mother Heart attack Hypertension CVD (cardiovascular disease) Father Diabetes Surgical History Surgical History History of implantable cardioverter-defibrillator (ICD) placement (~06/22/18) History of lumpectomy of both breasts History of percutaneous coronary intervention (~12/2017) History of tubal ligation S/P angioplasty (~07/2017) Social History Social History Household Members: Spouse Housing: House Do you presently have visiting nurse or other home services: Yes ([employer] 7 DAYS A WEEK) Alcohol intake: never Patient Tobacco Use Status: Never used Tobacco Second Hand Smoke Exposure: Yes Advance Directives Date on File: 06/05/20 service: No Current occupational status: disabled Sexual orientation: Straight/Heterosexual Gender identity: Female Meds Allergies Allergy/AdvReac Type Severity Reaction Status Date / Time No Known Allergies Allergy Mild NOT Verified 05/10/21 14:43 APPLICABLE Active Medications: Current Medications Generic Name Dose Route Start Last Admin Trade Name Freq PRN Reason Stop Dose Admin Acetaminophen 650 mg 05/11/21 01:29 05/14/21 13:54 Acetaminophen 325 Mg Tablet PO 650 mg Q6H PRN Administration Pain, Mild (Pain Scale 1-3) Dextrose 25 gm 05/11/21 01:29 Dextrose 50 % 25 Gm/50 Ml Vial IVPUSH Q15M PRN per Hypoglycemia Standing Ord. Protocol Fentanyl 50 mcg 05/13/21 18:02 Fentanyl Citrate/Pf 100 Mcg/2 Ml Vial IVPUSH Q5M PRN Pain, Severe (Pain Scale 7-10) Protocol Fentanyl 50 mcg 05/15/21 07:00 Fentanyl 50 Mcg Patch.Td72 TRANSDERMA Q72H IVETTE Glucose 15 gm 05/11/21 01:29 Glucose Gel 15 Gm Gel..Gram. PO Q15M PRN per Hypoglycemia Standing Ord. Protocol Cefepime HCl 2 gm/ Sodium 50 mls @ 100 mls/hr 05/11/21 05:00 05/14/21 14:45 Chloride IV Infused Q8H IVETTE Infusion Insulin Glargine 50 unit 05/13/21 11:00 05/14/21 08:56 Insulin Glargine,Hum.Rec.Anlog 100 Unit/Ml 10 Ml Vial SUBCUT 50 unit DAILY IVETTE Administration Insulin Human Lispro 0 unit 05/13/21 12:00 05/14/21 13:52 Insulin Lispro 100 Unit/Ml 3 Ml Vial SUBCUT 2 unit Q6H [facility] Administration Protocol Isosorbide Mononitrate 30 mg 05/11/21 09:00 05/14/21 08:56 Isosorbide Mononitrate 30 Mg Tab.Er.24h PO 30 mg DAILY [facility] Administration Protocol Latanoprost 1 drop 05/11/21 01:29 05/13/21 21:48 Latanoprost 0.005 % Ophth Elsa 2.5 Ml Drops EYE-BOTH Not Given BEDTIME [facility] Levothyroxine Sodium 50 mcg 05/11/21 06:30 05/14/21 05:46 Levothyroxine Sodium 50 Mcg Tablet PO 50 mcg DAILY@0630 [facility] Administration Lorazepam 0.5 mg 05/11/21 01:29 Lorazepam 0.5 Mg Tablet PO DAILY PRN anxiety Non-Formulary Medication 1 drop 05/11/21 09:00 Brimonidine EYE-BOTH BID [facility] Omeprazole 40 mg 05/14/21 21:08 Omeprazole 40 Mg Capsule.Dr PO BID@0630,1630 [facility] Ondansetron HCl 4 mg 05/11/21 01:29 05/14/21 14:04 Ondansetron Hcl 4 Mg/2 Ml Vial IVPUSH 4 mg Q8H PRN Administration Nausea and Vomiting Ondansetron HCl 4 mg 05/13/21 18:02 Ondansetron Hcl 4 Mg/2 Ml Vial IVPUSH ONCE PRN Nausea and Vomiting Oxycodone HCl 5 mg 05/14/21 11:05 05/14/21 11:40 Oxycodone Hcl Immed Release 5 Mg Tablet PO 5 mg Q4H PRN Administration Pain, Severe (Pain Scale 7-10) Spironolactone 25 mg 05/11/21 09:00 05/13/21 08:06 Spironolactone 25 Mg Tablet PO 25 mg DAILY [facility] Administration Protocol Home Medications Medication Instructions Recorded Confirmed Last Taken Type brimonidine 0.1 % eye drops 1 drp OPHTHALMIC (EYE) BID 06/03/20 05/10/21 05/10/21 09:00 History latanoprost 0.005 % eye drops 1 drp OPHTHALMIC (EYE) BEDTIME 06/03/20 05/10/21 05/09/21 22:00 History aspirin 81 mg tablet,delayed 81 mg PO DAILY 07/14/20 05/11/21 Unknown History release docusate sodium 100 mg capsule 100 mg PO BEDTIME 05/10/21 05/10/21 05/09/21 22:00 History (Colace) ticagrelor 90 mg tablet (Brilinta) 1 tab PO BID 05/10/21 05/10/21 05/10/21 09:00 History atorvastatin 80 mg tablet 1 tab PO DAILY 05/11/21 05/11/21 Unknown History Physical Exam Vital Signs: Vital Signs: Last Vital Signs Temp 98.7 F 05/14/21 15:23 Pulse 71 05/14/21 15:23 Resp 18 05/14/21 15:23 BP 123/58 L 05/14/21 15:23 Pulse Ox 97 05/14/21 15:23 Body Mass Index 33.4 Const: General: alert, awake and tired appearing Nutritional Appearance: well nourished Orientation/consciousness: patient oriented x3 Limitations: no limitations Eyes: Sclerae: sclerae normal Resp: Effort & Inspection: normal respiratory effort Auscultation: clear to auscultation bilaterally GI: Inspection: Yes distended Palpation (GI): Tenderness to palpation present (GI) in the RUQ; Negative for Barcenas's sign negative and no masses Rectal Exam - Female: deferred Skin: General skin exam: no rashes or lesions noted Neuro: General: patient oriented x3 Extrem: General: Yes edema Results Labs Result diagrams: 05/14/21 06:33 05/14/21 06:33 Labs: Abnormal lab results 05/13/21 05/13/21 05/13/21 Range/Units 18:26 20:37 23:20 RDW (11.0-16.0) % Plt Count (160-400) X10*3/uL Abs Immat Gran (auto) (0.00-0.03) X10*3/uL Chloride (96-108) mmol/L Carbon Dioxide (22-29) mmol/L POC Glucose 192 H 213 H 185 H (60-115) mg/dL Random Glucose (60-115) mg/dL Calcium (8.4-10.2) mg/dL Phosphorus (2.7-4.5) mg/dL ALT (0-31) U/L Total Protein (6.5-8.0) g/dL Albumin (3.5-5.0) g/dL 05/14/21 05/14/21 05/14/21 Range/Units 05:47 06:33 06:33 RDW 16.1 H (11.0-16.0) % Plt Count 145 L (160-400) X10*3/uL Abs Immat Gran (auto) 0.04 H (0.00-0.03) X10*3/uL Chloride 110 H (96-108) mmol/L Carbon Dioxide 21 L (22-29) mmol/L POC Glucose 160 H (60-115) mg/dL Random Glucose 169 H (60-115) mg/dL Calcium 8.2 L (8.4-10.2) mg/dL Phosphorus 1.7 L (2.7-4.5) mg/dL ALT 112 H (0-31) U/L Total Protein 5.7 L (6.5-8.0) g/dL Albumin 3.2 L (3.5-5.0) g/dL 05/14/21 05/14/21 05/14/21 Range/Units 06:50 08:52 12:26 RDW (11.0-16.0) % Plt Count (160-400) X10*3/uL Abs Immat Gran (auto) (0.00-0.03) X10*3/uL Chloride (96-108) mmol/L Carbon Dioxide (22-29) mmol/L POC Glucose 150 H 161 H 196 H (60-115) mg/dL Random Glucose (60-115) mg/dL Calcium (8.4-10.2) mg/dL Phosphorus (2.7-4.5) mg/dL ALT (0-31) U/L Total Protein (6.5-8.0) g/dL Albumin (3.5-5.0) g/dL Short CBC 05/14/21 Range/Units 06:33 WBC 9.5 (4.8-10.8) X10*3/uL Hgb 13.2 (12.0-16.0) g/dl Hct 40.4 (37-47) % Plt Count 145 L (160-400) X10*3/uL BMP 05/14/21 06:33 Sodium 139 Potassium 3.8 Chloride 110 H Carbon Dioxide 21 L BUN 14 Creatinine 0.75 Calcium 8.2 L Liver Function 05/14/21 Range/Units 06:33 Total Bilirubin 0.9 (0.0-1.0) mg/dL Direct Bilirubin 0.5 (0.0-0.5) mg/dL AST 15 D (5-31) U/L ALT 112 H (0-31) U/L Alkaline Phosphatase 88 D (39-117) U/L Albumin 3.2 L (3.5-5.0) g/dL Urine 05/10/21 05/12/21 Range/Units 18:40 14:27 Urine Color YELLOW YELLOW Urine Appearance CLEAR CLEAR Urine pH 7.0 6.0 (5.0-8.0) Ur Specific [place] 1.010 1.025 (1.005-1.025) Urine Protein 2+ H 1+ H (NEG-TRACE) MG/DL Urine Glucose (UA) >=1000 H 500 H (NEG) MG/DL All other labs normal. Assessment and Plan (1) Cholangitis: Status: Acute (2) Choledocholithiasis: Status: Acute 65-year-old female patient with multiple medical problems as noted above presenting with elevated transaminase and bilirubin levels found to have a dilated common bile duct. Patient underwent ERCP which revealed debris within the common bile duct. Surgical consultation was requested to discuss laparoscop ic cholecystectomy while in house. Patient is still uncomfortable following the ERCP but wishes to proceed with a laparoscopic or possible open cholecystectomy. We discussed possible cholecystectomy tomorrow versus Tuesday. She would prefer Tuesday to give her time to recover from the previous procedure. She will be added onto the operative schedule for Tuesday if she is deemed a suitable medical risk for surgery and general anesthesia. Procedures Date of Service Date of Service: 05/14/21
[2021-05-14 17:38] LABS: Glucose, Whole Blood 159 mg/dL (60-115)
[2021-05-14 21:25] LABS: Glucose, Whole Blood 198 mg/dL (60-115)
[2021-05-14] MEDS: Omeprazole 40 MG CAPSULE.DR PO (21:32)
[2021-05-15] VITALS (12 sets, daily range): BP systolic 95–149; BP diastolic 50–76; PULSE 70–80; RESP 15–20; TEMP 36.1–37.1; O2SAT 96–98
[2021-05-15 00:29] LABS: Glucose, Whole Blood 182 mg/dL (60-115)
[2021-05-15] MEDS: ondansetron HCL 4 MG/2 ML VIAL IVPUSH ×2 (00:33→09:19)
[2021-05-15] MEDS: Insulin Lispro 100 UNIT/ML 3 ML VIAL SUBCUT ×4 (00:33→23:49)
[2021-05-15] MEDS: HYDROmorphone HCl 0.5 MG/0.5 ML SYRINGE IVPUSH ×4 (04:04→20:28)
[2021-05-15] MEDS: cefEPime HCl 2 GM in 0.9 % Sodium Chloride 50 ML IV ×3 (05:38→20:29)
[2021-05-15 05:42] LABS: Glucose, Whole Blood 144 mg/dL (60-115)
[2021-05-15] MEDS: Omeprazole 40 MG CAPSULE.DR PO ×2 (06:27→15:54)
[2021-05-15] MEDS: Levothyroxine Sodium 50 MCG TABLET PO (06:27)
[2021-05-15 09:04] LABS: Anion Gap 8 (12-20); Blood Urea Nitrogen 7 mg/dL (9-16); Calcium 8.3 mg/dL (8.4-10.2); Carbon Dioxide 27 mmol/L (22-29); Chloride 106 mmol/L (96-108); Creatinine Clr Calc Pharmacy 94.3; Estimated Glomerular Filt Rate > 60; Glucose Random 163 mg/dL (60-115); Sodium 137 mmol/L (135-145)
[2021-05-15] MEDS: Insulin Glargine,Hum.rec.anlog 100 UNIT/ML 10 ML VIAL 50 UNIT SUBCUT (09:12)
[2021-05-15] MEDS: fentaNYL 50 MCG PATCH.TD72 TRANSDERMA (09:13)
[2021-05-15] MEDS: oxyCODONE HCl Immed Release 5 MG TABLET PO ×2 (09:14→14:06)
[2021-05-15] MEDS: Isosorbide Mononitrate 30 MG TAB.ER.24H PO (09:14)
[2021-05-15] MEDS: Lidocaine 4 % Patch ADH..PATCH 1 PATCH TRANSDERMA (09:15)
--- NOTE | 2021-05-15 09:50 | P.PNIM_ITS ---
Subjective Subjective Date of Service: 05/15/21 Interval History: Seen in f/uf for DKA, choledocholithiasis. Still has abd pain and now c/o back pain 06/07 that is chronic but now worse--no associated nueorlogical changes, no urinary or bowel incontinence Review of Systems no fever bacl pain + abd pain Physical Exam Vital Signs: Vital Signs: Last Vital Signs Temp 98.7 F 05/15/21 08:00 Pulse 73 05/15/21 09:14 Resp 20 05/15/21 08:00 BP 133/68 05/15/21 09:14 Pulse Ox 96 05/15/21 08:00 Body Mass Index 33.4 General: AO X 3, no acute distress Resp: CTA bilateral CVS: S1,S2,RRR GI: +BS, NT, no distention Skin: No rash Neuro: motor grossly intact, no weakness in legs Psych: appropriate affect Objective Data Active Medications Acetaminophen (Acetaminophen 325 Mg Tablet) 650 mg PO Q6H PRN PRN Reason: Pain, Mild (Pain Scale 1-3) Last Admin: 05/14/21 13:54 Dose: 650 mg Documented by: SANDY Dextrose (Dextrose 50 % 25 Gm/50 Ml Vial) 25 gm IVPUSH Q15M PRN; Protocol PRN Reason: per Hypoglycemia Standing Ord. Fentanyl (Fentanyl Citrate/Pf 100 Mcg/2 Ml Vial) 50 mcg IVPUSH Q5M PRN; Protocol PRN Reason: Pain, Severe (Pain Scale 7-10) Fentanyl (Fentanyl 50 Mcg Patch.Td72) 50 mcg TRANSDERMA Q72H [facility] Last Admin: 05/15/21 09:13 Dose: 50 mcg Documented by: KETURAH Glucose (Glucose Gel 15 Gm Gel..Gram.) 15 gm PO Q15M PRN; Protocol PRN Reason: per Hypoglycemia Standing Ord. Cefepime HCl 2 gm/ Sodium (Chloride) 50 mls @ 100 mls/hr IV Q8H [facility] Last Infusion: 05/15/21 06:09 Dose: 0 mls/hr Documented by: DOMINGUEZLN Insulin Glargine (Insulin Glargine,Hum.Rec.Anlog 100 Unit/Ml 10 Ml Vial) 50 unit SUBCUT DAILY [facility] Last Admin: 05/15/21 09:12 Dose: 50 unit Documented by: HO.COLLIAL Insulin Human Lispro (Insulin Lispro 100 Unit/Ml 3 Ml Vial) 0 unit SUBCUT Q6H [facility]; Protocol Last Admin: 05/15/21 06:09 Dose: Not Given Documented by: ROSENDO Non-Admin Reason: No Insulin Coverage Isosorbide Mononitrate (Isosorbide Mononitrate 30 Mg Tab.Er.24h) 30 mg PO DAILY [facility]; Protocol Last Admin: 05/15/21 09:14 Dose: 30 mg Documented by: KETURAH Latanoprost (Latanoprost 0.005 % Ophth Elsa 2.5 Ml Drops) 1 drop EYE-BOTH BEDTIME [facility] Last Admin: 05/14/21 21:33 Dose: Not Given Documented by: ROSENDO Non-Admin Reason: PT SELF ADMIN AT 20:00 Levothyroxine Sodium (Levothyroxine Sodium 50 Mcg Tablet) 50 mcg PO DAILY@0630 [facility] Last Admin: 05/15/21 06:27 Dose: 50 mcg Documented by: ROSENDO Lidocaine (Lidocaine 4 % Patch Adh..Patch) 1 patch TRANSDERMA DAILY [facility]; Protocol Last Admin: 05/15/21 09:15 Dose: 1 patch Documented by: KETURAH Lorazepam (Lorazepam 0.5 Mg Tablet) 0.5 mg PO DAILY PRN PRN Reason: anxiety Non-Formulary Medication (Brimonidine) 1 drop EYE-BOTH BID [facility] Omeprazole (Omeprazole 40 Mg Capsule.Dr) 40 mg PO BID@0630,1630 [facility] Last Admin: 05/15/21 06:27 Dose: 40 mg Documented by: ROSENDO Ondansetron HCl (Ondansetron Hcl 4 Mg/2 Ml Vial) 4 mg IVPUSH Q8H PRN PRN Reason: Nausea and Vomiting Last Admin: 05/15/21 09:19 Dose: 4 mg Documented by: KETURAH Ondansetron HCl (Ondansetron Hcl 4 Mg/2 Ml Vial) 4 mg IVPUSH ONCE PRN PRN Reason: Nausea and Vomiting Oxycodone HCl (Oxycodone Hcl Immed Release 5 Mg Tablet) 5 mg PO Q4H PRN PRN Reason: Pain, Severe (Pain Scale 7-10) Last Admin: 05/15/21 09:14 Dose: 5 mg Documented by: KETURAH Spironolactone (Spironolactone 25 Mg Tablet) 25 mg PO DAILY [facility]; Protocol Last Admin: 05/13/21 08:06 Dose: 25 mg Documented by: PAULA Labs CBC & Chem 7: 05/14/21 06:33 05/15/21 08:15 Labs: Laboratory Results - last 24 hr 05/14/21 05/14/21 05/14/21 06:33 12:26 17:36 Anion Gap Estim Creat Clear Calc Estimated GFR POC Glucose 196 H 159 H Random Glucose Calcium Total Bilirubin 0.9 Direct Bilirubin 0.5 AST 15 D ALT 112 H Alkaline Phosphatase 88 D Total Protein 5.7 L Albumin 3.2 L 05/14/21 05/15/21 05/15/21 21:22 00:26 05:31 Anion Gap Estim Creat Clear Calc Estimated GFR POC Glucose 198 H 182 H 144 H Random Glucose Calcium Total Bilirubin Direct Bilirubin AST ALT Alkaline Phosphatase Total Protein Albumin 05/15/21 08:15 Anion Gap 8 L Estim Creat Clear Calc 94.3 Estimated GFR > 60 POC Glucose Random Glucose 163 H Calcium 8.3 L Total Bilirubin Direct Bilirubin AST ALT Alkaline Phosphatase Total Protein Albumin Assessment and Plan (1) Metabolic acidosis: Status: Acute Assessment and Plan: 65/F with complex medical issues --SEE H and P for detail, has diabetes, cardiomyopathy s/p AIC she presents with abd/back pain elevated LFTS and concern for cholangitis, and during hospitalization amada into DKA and went to ICU from 05/12 to 05/13 for insulin and IVF managemnet #Choledocholithiasis ? colangitis--no clinical evidence of cholangitis but possible cholecustis. Probably has passed a stone, LFTS have trended down, WBC is normal and no fever. Cultures negative ERCP on 05/13 with the following finding and recommendation by Dr. Soto 1. Severe erosive esophagitis, LA grade D 2. Severe ulcerative duodenitis 3. sphincterotomy with biliary debris removed. RECOMMENDATIONS: 1. NPO except ice chips for next 4-6 hrs then clears as tolerated, can advance diet tomorrow if feels well 2. Can restart aspirin and brilinta in 48 hrs. PLEASE make sure on high dose PPi e.g pantoprazole 40 mg BID starting today, can titrate down after 3 months. would also add carafate for 2 weeks. 3. If h pylori pos then treat 4. Refer surgery for cholecystectomy, may benefit from this during this admission due to her multiple medical issues. If plan is for same admission cholecystectomy then obviously cont to hold brilinta but would at least restart aspirin. 5. She will need repeat EGD in 3-4 months -Dr. Scott will do CCY on Friday 05/18 -Dilaudid for pain #Diabetes, DKA--s/p treatment in ICU and now resolved. She is a brittle diabetic and should be on inssulin at all time -continue Lantus and Short acting insulin--Bicab is normal today -continue Cefepime ?# back pain- chronic, on Fentanyl patch at home, add Oxycodone PRN #Elevated troponin, EKG showing multiple abnormalities but nothing acute/history of CAD seen by cardio-thought to be elevated trops sec to cholangitis--no further w/u. No chest pain at moment #bnormal CT lung findings- some nodules seen on CT scan given her history of breast cancer these will need follow-up on further evaluation once patient's transaminitis/cholangitis addressed 5. hypertension--normal, no change 6. Diabetes--continue insulin (Lantus 55 and SSI) asabove--At home Lantus 70 qhs and Aspart 30 tid, FBS 144 today 7.History of CHF--Presently Euvolemic.. -continue Coreg, restart Lasix, Aldactone and Lisinopril--monitor BP 8. Erosive esophagitis, duodenitis--High dose PPI 40 bid, Careafate as above DVT prophylaxis:? SCDs, heparin later today Quality Stroke Does the patient have a stroke diagnosis?: No VTE Prior VTE?: No VTE Risk Level:: Medical - moderate - high VTE Device Contraindication: N/A - Device Ordered VTE Drug Contraindication: Treatment Not Indicated
[2021-05-15] MEDS: lisinopriL 2.5 MG TABLET PO (11:21)
[2021-05-15] MEDS: Sucralfate 1 GM TABLET PO ×2 (11:21→15:55)
[2021-05-15] MEDS: Furosemide 20 MG TABLET PO (11:22)
[2021-05-15 12:12] LABS: Glucose, Whole Blood 206 mg/dL (60-115)
[2021-05-15 18:15] LABS: Glucose, Whole Blood 186 mg/dL (60-115)
--- NOTE | 2021-05-15 19:40 | PC.NURSE ---
During morning assessment, pt found to have white port of triple lumen catheter with no clave. Port clamped at time of discovery and left clamped. Oncoming nurse made aware.
[2021-05-15] MEDS: Latanoprost 0.005 % Ophth Sol 2.5 ML DROPS 1 DROP EYE-BOTH (21:09)
[2021-05-15 23:44] LABS: Glucose, Whole Blood 157 mg/dL (60-115)
[2021-05-16] VITALS (13 sets, daily range): BP systolic 105–134; BP diastolic 55–65; PULSE 68–110; RESP 15–20; TEMP 36.3–37; O2SAT 95–99
[2021-05-16] MEDS: HYDROmorphone HCl 0.5 MG/0.5 ML SYRINGE IVPUSH ×6 (00:23→21:03)
[2021-05-16 03:32] LABS: Beta-Hydroxybutyrate 7.38 mmol/L
[2021-05-16] MEDS: cefEPime HCl 2 GM in 0.9 % Sodium Chloride 50 ML IV ×3 (04:45→21:07)
[2021-05-16 05:25] LABS: Glucose, Whole Blood 166 mg/dL (60-115)
[2021-05-16] MEDS: Omeprazole 40 MG CAPSULE.DR PO ×2 (05:26→17:02)
[2021-05-16] MEDS: Levothyroxine Sodium 50 MCG TABLET PO (05:26)
[2021-05-16] MEDS: Insulin Lispro 100 UNIT/ML 3 ML VIAL SUBCUT ×3 (05:26→17:02)
[2021-05-16 07:42] LABS: Glucose, Whole Blood 184 mg/dL (60-115)
[2021-05-16] MEDS: Insulin Glargine,Hum.rec.anlog 100 UNIT/ML 10 ML VIAL 50 UNIT SUBCUT (08:47)
[2021-05-16] MEDS: Isosorbide Mononitrate 30 MG TAB.ER.24H PO (08:48)
[2021-05-16] MEDS: Furosemide 20 MG TABLET PO (08:48)
[2021-05-16] MEDS: Spironolactone 25 MG TABLET PO (08:48)
[2021-05-16] MEDS: lisinopriL 2.5 MG TABLET PO (08:48)
[2021-05-16] MEDS: Sucralfate 1 GM TABLET PO ×2 (08:48→17:02)
[2021-05-16] MEDS: Lidocaine 4 % Patch ADH..PATCH 1 PATCH TRANSDERMA (08:49)
--- NOTE | 2021-05-16 10:09 | HO.PM.IMPN ---
Subjective Subjective Date of Service: 05/16/21 Interval History: Seen in f/uf for DKA, choledocholithiasis. abdominal pain and back pain are better, she's more comfortable today Review of Systems no fever + abd pain +back pain, better Physical Exam Vital Signs: Vital Signs: Last Vital Signs Temp 98.6 F 05/16/21 07:34 Pulse 77 05/16/21 08:48 Resp 16 05/16/21 08:47 BP 120/63 05/16/21 08:48 Pulse Ox 98 05/16/21 07:34 Body Mass Index 33.4 General: AO X 3, no acute distress Resp:? CTA bilateral CVS: S1,S2,RRR GI: +BS, NT, no distention Skin: No rash Neuro:? motor grossly intact, no weakness in legs Psych: appropriate affect Objective Data Active Medications Acetaminophen (Acetaminophen 325 Mg Tablet) 650 mg PO Q6H PRN PRN Reason: Pain, Mild (Pain Scale 1-3) Last Admin: 05/14/21 13:54 Dose: 650 mg Documented by: SANDY Dextrose (Dextrose 50 % 25 Gm/50 Ml Vial) 25 gm IVPUSH Q15M PRN; Protocol PRN Reason: per Hypoglycemia Standing Ord. Fentanyl (Fentanyl Citrate/Pf 100 Mcg/2 Ml Vial) 50 mcg IVPUSH Q5M PRN; Protocol PRN Reason: Pain, Severe (Pain Scale 7-10) Fentanyl (Fentanyl 50 Mcg Patch.Td72) 50 mcg TRANSDERMA Q72H [facility] Last Admin: 05/15/21 09:13 Dose: 50 mcg Documented by: KETURAH Furosemide (Furosemide 20 Mg Tablet) 20 mg PO DAILY [facility]; Protocol Last Admin: 05/16/21 08:48 Dose: 20 mg Documented by: GALINA Glucose (Glucose Gel 15 Gm Gel..Gram.) 15 gm PO Q15M PRN; Protocol PRN Reason: per Hypoglycemia Standing Ord. Hydromorphone HCl (Hydromorphone Hcl 0.5 Mg/0.5 Ml Syringe) 0.5 mg IVPUSH Q4H PRN; Protocol PRN Reason: Pain, Severe (Pain Scale 7-10) Last Admin: 05/16/21 08:47 Dose: 0.5 mg Documented by: GALINA Cefepime HCl 2 gm/ Sodium (Chloride) 50 mls @ 100 mls/hr IV Q8H [facility] Last Infusion: 05/16/21 05:25 Dose: 0 mls/hr Documented by: SILVESTRE Insulin Glargine (Insulin Glargine,Hum.Rec.Anlog 100 Unit/Ml 10 Ml Vial) 50 unit SUBCUT DAILY [facility] Last Admin: 05/16/21 08:47 Dose: 50 unit Documented by: GALINA Insulin Human Lispro (Insulin Lispro 100 Unit/Ml 3 Ml Vial) 0 unit SUBCUT Q6H [facility]; Protocol Last Admin: 05/16/21 05:26 Dose: 2 unit Documented by: SILVESTRE Isosorbide Mononitrate (Isosorbide Mononitrate 30 Mg Tab.Er.24h) 30 mg PO DAILY [facility]; Protocol Last Admin: 05/16/21 08:48 Dose: 30 mg Documented by: GALINA Latanoprost (Latanoprost 0.005 % Ophth Elsa 2.5 Ml Drops) 1 drop EYE-BOTH BEDTIME [facility] Last Admin: 05/15/21 21:09 Dose: 1 drop Documented by: SILVESTRE Levothyroxine Sodium (Levothyroxine Sodium 50 Mcg Tablet) 50 mcg PO DAILY@0630 [facility] Last Admin: 05/16/21 05:26 Dose: 50 mcg Documented by: SILVESTRE Lidocaine (Lidocaine 4 % Patch Adh..Patch) 1 patch TRANSDERMA DAILY [facility]; Protocol Last Admin: 05/16/21 08:49 Dose: 1 patch Documented by: GALINA Lisinopril (Lisinopril 2.5 Mg Tablet) 2.5 mg PO DAILY [facility]; Protocol Last Admin: 05/16/21 08:48 Dose: 2.5 mg Documented by: GALINA Patient Own Medication ( Brimonidine 0.1 % Drops) 1 each EYE-BOTH BID [facility] Last Admin: 05/16/21 09:04 Dose: 1 each Documented by: GALINA Omeprazole (Omeprazole 40 Mg Capsule.Dr) 40 mg PO BID@0630,1630 [facility] Last Admin: 05/16/21 05:26 Dose: 40 mg Documented by: SILVESTRE Ondansetron HCl (Ondansetron Hcl 4 Mg/2 Ml Vial) 4 mg IVPUSH Q8H PRN PRN Reason: Nausea and Vomiting Last Admin: 05/15/21 09:19 Dose: 4 mg Documented by: KETURAH Ondansetron HCl (Ondansetron Hcl 4 Mg/2 Ml Vial) 4 mg IVPUSH ONCE PRN PRN Reason: Nausea and Vomiting Oxycodone HCl (Oxycodone Hcl Immed Release 5 Mg Tablet) 5 mg PO Q4H PRN PRN Reason: Pain, Severe (Pain Scale 7-10) Last Admin: 05/15/21 14:06 Dose: 5 mg Documented by: KETURAH Spironolactone (Spironolactone 25 Mg Tablet) 25 mg PO DAILY [facility]; Protocol Last Admin: 05/16/21 08:48 Dose: 25 mg Documented by: GALINA Sucralfate (Sucralfate 1 Gm Tablet) 1 gm PO BIDAC [facility] Last Admin: 05/16/21 08:48 Dose: 1 gm Documented by: GALINA Labs CBC & Chem 7: 05/14/21 06:33 05/15/21 08:15 Labs: Laboratory Results - last 24 hr 05/12/21 05/15/21 05/15/21 12:22 12:08 18:12 POC Glucose 206 H 186 H Beta-Hydroxybutyrate/Acetoacetate 7.38 H 05/15/21 05/16/21 05/16/21 23:40 05:21 07:36 POC Glucose 157 H 166 H 184 H Beta-Hydroxybutyrate/Acetoacetate Microbiology Microbiology Results: Microbiology 05/10/21 19:48 Blood Culture - Final Blood - Venous No growth after 5 days. 05/10/21 19:52 Blood Culture - Final Blood - Venous No growth after 5 days. Assessment and Plan (1) Metabolic acidosis: Status: Acute Assessment and Plan: 65/F with complex medical issues --SEE H and P for detail, has diabetes, cardiomyopathy s/p AIC she presents with abd/back pain elevated LFTS and concern for cholangitis, and during hospitalization amada into DKA and went to ICU from 05/12 to 05/13 for insulin and IVF managemnet #Choledocholithiasis ? cholangitis--no clinical evidence of cholangitis but possible cholecystis. Probably has passed a stone, LFTS have trended down, WBC is normal and no fever. Cultures negative ERCP on 05/13 with the following finding and recommendation by Dr. Soto 1. Severe erosive esophagitis, LA grade D 2. Severe ulcerative duodenitis 3. sphincterotomy with biliary debris removed. RECOMMENDATIONS: 1. NPO except ice chips for next 4-6 hrs then clears as tolerated, can advance diet tomorrow if feels well 2. Can restart aspirin and brilinta in 48 hrs. PLEASE make sure on high dose PPi e.g pantoprazole 40 mg BID starting today, can titrate down after 3 months. would also add carafate for 2 weeks. 3. If h pylori pos then treat 4. Refer surgery for cholecystectomy, may benefit from this during this admission due to her multiple medical issues. If plan is for same admission cholecystectomy then obviously cont to hold brilinta but would at least restart aspirin. 5. She will need repeat EGD in 3-4 months -Dr. Scott will do CCY on Friday 05/18 -Dilaudid for pain -continue Cefepime #Diabetes, DKA--s/p treatment in ICU and now resolved. She is a brittle diabetic and should be on inssulin at all time continue insulin (Lantus 55 and SSI) asabove--At home Lantus 70 qhs and Aspart 30 tid, FBS 184 today ?# back pain- chronic, on Fentanyl patch at home, Dilaudid and oxycodone PRN #Elevated troponin, EKG showing multiple abnormalities but nothing acute/history of CAD seen by cardio-thought to be elevated trops sec to cholangitis--no further w/u. No chest pain at moment #abnormal CT lung findings- some nodules seen on CT scan given her history of breast cancer these will need follow-up on further evaluation once patient's transaminitis/cholangitis addressed # hypertension--normal, no change # History of CHF--Presently Euvolemic.. -continue Coreg, restart Lasix, Aldactone and Lisinopril--monitor BP # Erosive esophagitis, duodenitis--High dose PPI 40 bid, Careafate as above DVT prophylaxis:? SCDs, heparin later today Quality Stroke Does the patient have a stroke diagnosis?: No VTE Prior VTE?: No VTE Risk Level:: Medical - moderate - high VTE Device Contraindication: N/A - Device Ordered VTE Drug Contraindication: Treatment Not Indicated
--- NOTE | 2021-05-16 11:02 | PM.PNGS ---
Subjective Subjective Date of Service: 05/16/21 Interval history: Little pain on the abdomen but much better Tolerating diet No events reported Physical Exam Vital Signs: Vital Signs: Last Vital Signs Temp 98.6 F 05/16/21 07:34 Pulse 77 05/16/21 08:48 Resp 16 05/16/21 08:47 BP 120/63 05/16/21 08:48 Pulse Ox 98 05/16/21 07:34 Body Mass Index 33.4 Const: Other: Chemistry 05/14/21 05/15/21 06:33 08:15 Sodium 139 137 Potassium 3.8 4.0 Carbon Dioxide 21 L 27 BUN 14 7 L Creatinine 0.75 0.64 Calcium 8.2 L 8.3 L Phosphorus 1.7 L Hematology 05/14/21 06:33 WBC 9.5 Hgb 13.2 Plt Count 145 L General: comfortable and no acute distress Eyes: Sclerae: sclerae normal Resp: Effort & Inspection: normal respiratory effort GI: Palpation (GI): Soft to palpation, not firm and nontender Procedures Date of Service Date of Service: 05/16/21 Progress Note: A&P Assessment and plan (1) Choledocholithiasis: Status: Acute Assessment and Plan: Status post ERCP Check LFTs Looks well Possible lap neelam on Tuesday as per Dr. Burnett Doing well Fall Risk Details Current Medications: Current Medications Acetaminophen (Acetaminophen 325 Mg Tablet) 650 mg PO Q6H PRN PRN Reason: Pain, Mild (Pain Scale 1-3) Last Admin: 05/14/21 13:54 Dose: 650 mg Documented by: Dextrose (Dextrose 50 % 25 Gm/50 Ml Vial) 25 gm IVPUSH Q15M PRN; Protocol PRN Reason: per Hypoglycemia Standing Ord. Fentanyl (Fentanyl Citrate/Pf 100 Mcg/2 Ml Vial) 50 mcg IVPUSH Q5M PRN; Protocol PRN Reason: Pain, Severe (Pain Scale 7-10) Fentanyl (Fentanyl 50 Mcg Patch.Td72) 50 mcg TRANSDERMA Q72H [facility] Last Admin: 05/15/21 09:13 Dose: 50 mcg Documented by: Furosemide (Furosemide 20 Mg Tablet) 20 mg PO DAILY [facility]; Protocol Last Admin: 05/16/21 08:48 Dose: 20 mg Documented by: Glucose (Glucose Gel 15 Gm Gel..Gram.) 15 gm PO Q15M PRN; Protocol PRN Reason: per Hypoglycemia Standing Ord. Hydromorphone HCl (Hydromorphone Hcl 0.5 Mg/0.5 Ml Syringe) 0.5 mg IVPUSH Q4H PRN; Protocol PRN Reason: Pain, Severe (Pain Scale 7-10) Last Admin: 05/16/21 08:47 Dose: 0.5 mg Documented by: Cefepime HCl 2 gm/ Sodium (Chloride) 50 mls @ 100 mls/hr IV Q8H [facility] Last Infusion: 05/16/21 05:25 Dose: Infused Documented by: Insulin Glargine (Insulin Glargine,Hum.Rec.Anlog 100 Unit/Ml 10 Ml Vial) 55 unit SUBCUT DAILY [facility] Insulin Human Lispro (Insulin Lispro 100 Unit/Ml 3 Ml Vial) 0 unit SUBCUT Q6H [facility]; Protocol Last Admin: 05/16/21 05:26 Dose: 2 unit Documented by: Isosorbide Mononitrate (Isosorbide Mononitrate 30 Mg Tab.Er.24h) 30 mg PO DAILY [facility]; Protocol Last Admin: 05/16/21 08:48 Dose: 30 mg Documented by: Latanoprost (Latanoprost 0.005 % Ophth Elsa 2.5 Ml Drops) 1 drop EYE-BOTH BEDTIME [facility] Last Admin: 05/15/21 21:09 Dose: 1 drop Documented by: Levothyroxine Sodium (Levothyroxine Sodium 50 Mcg Tablet) 50 mcg PO DAILY@0630 [facility] Last Admin: 05/16/21 05:26 Dose: 50 mcg Documented by: Lidocaine (Lidocaine 4 % Patch Adh..Patch) 1 patch TRANSDERMA DAILY [facility]; Protocol Last Admin: 05/16/21 08:49 Dose: 1 patch Documented by: Lisinopril (Lisinopril 2.5 Mg Tablet) 2.5 mg PO DAILY [facility]; Protocol Last Admin: 05/16/21 08:48 Dose: 2.5 mg Documented by: Patient Own Medication ( Brimonidine 0.1 % Drops) 1 each EYE-BOTH BID [facility] Last Admin: 05/16/21 09:04 Dose: 1 each Documented by: Omeprazole (Omeprazole 40 Mg Capsule.) 40 mg PO BID@0630,1630 [facility] Last Admin: 05/16/21 05:26 Dose: 40 mg Documented by: Ondansetron HCl (Ondansetron Hcl 4 Mg/2 Ml Vial) 4 mg IVPUSH Q8H PRN PRN Reason: Nausea and Vomiting Last Admin: 05/15/21 09:19 Dose: 4 mg Documented by: Ondansetron HCl (Ondansetron Hcl 4 Mg/2 Ml Vial) 4 mg IVPUSH ONCE PRN PRN Reason: Nausea and Vomiting Oxycodone HCl (Oxycodone Hcl Immed Release 5 Mg Tablet) 5 mg PO Q4H PRN PRN Reason: Pain, Severe (Pain Scale 7-10) Last Admin: 05/15/21 14:06 Dose: 5 mg Documented by: Spironolactone (Spironolactone 25 Mg Tablet) 25 mg PO DAILY [facility]; Protocol Last Admin: 05/16/21 08:48 Dose: 25 mg Documented by: Sucralfate (Sucralfate 1 Gm Tablet) 1 gm PO BIDAC [facility] Last Admin: 05/16/21 08:48 Dose: 1 gm Documented by: Time Spent With Patient Time: Total time spent is greater than 50% in coordination of care (as documented) at patient's floor/unit and/or counseling patient: Time with patient: 15 - 24 minutes Quality Stroke Does the patient have a stroke diagnosis?: No VTE Prior VTE?: No VTE Risk Level:: Medical - moderate - high VTE Device Contraindication: N/A - Device Ordered VTE Drug Contraindication: Treatment Not Indicated
[2021-05-16 11:46] LABS: Glucose, Whole Blood 255 mg/dL (60-115)
[2021-05-16] MEDS: ondansetron HCL 4 MG/2 ML VIAL IVPUSH (12:36)
[2021-05-16 17:01] LABS: Glucose, Whole Blood 242 mg/dL (60-115)
[2021-05-16] MEDS: Latanoprost 0.005 % Ophth Sol 2.5 ML DROPS 1 DROP EYE-BOTH (21:15)
[2021-05-16] MEDS: Acetaminophen 325 MG TABLET 650 MG PO (23:47)
[2021-05-17] VITALS (12 sets, daily range): BP systolic 101–143; BP diastolic 54–70; PULSE 69–78; RESP 15–19; TEMP 36.2–37.2; O2SAT 93–99
[2021-05-17 00:45] LABS: Glucose, Whole Blood 174 mg/dL (60-115)
[2021-05-17] MEDS: Insulin Lispro 100 UNIT/ML 3 ML VIAL SUBCUT ×3 (00:52→17:54)
[2021-05-17] MEDS: HYDROmorphone HCl 0.5 MG/0.5 ML SYRINGE IVPUSH ×5 (00:52→18:27)
[2021-05-17] MEDS: cefEPime HCl 2 GM in 0.9 % Sodium Chloride 50 ML IV ×3 (05:26→20:39)
[2021-05-17] MEDS: Levothyroxine Sodium 50 MCG TABLET PO (05:34)
[2021-05-17] MEDS: Omeprazole 40 MG CAPSULE.DR PO ×2 (05:34→15:54)
[2021-05-17 06:13] LABS: Glucose, Whole Blood 135 mg/dL (60-115)
[2021-05-17 07:29] LABS: Glucose, Whole Blood 162 mg/dL (60-115)
[2021-05-17] MEDS: lisinopriL 2.5 MG TABLET PO (09:28)
[2021-05-17] MEDS: Furosemide 20 MG TABLET PO (09:30)
[2021-05-17] MEDS: Isosorbide Mononitrate 30 MG TAB.ER.24H PO (09:31)
[2021-05-17] MEDS: Sucralfate 1 GM TABLET PO ×2 (09:31→15:54)
[2021-05-17] MEDS: Spironolactone 25 MG TABLET PO (09:31)
[2021-05-17] MEDS: Insulin Glargine,Hum.rec.anlog 100 UNIT/ML 10 ML VIAL 55 UNIT SUBCUT (09:32)
[2021-05-17] MEDS: Lidocaine 4 % Patch ADH..PATCH 1 PATCH TRANSDERMA (09:35)
[2021-05-17] MEDS: Acetaminophen 325 MG TABLET 650 MG PO (09:50)
[2021-05-17] MEDS: ondansetron HCL 4 MG/2 ML VIAL IVPUSH (09:51)
--- NOTE | 2021-05-17 10:07 | P.PNIM_ITS ---
Subjective Subjective Date of Service: 05/17/21 Interval History: Seen in f/uf for DKA, choledocholithiasis. She is more comfortable today Review of Systems no fever + abd pain +back pain, better Physical Exam Vital Signs: Vital Signs: Last Vital Signs Temp 98.7 F 05/17/21 07:34 Pulse 77 05/17/21 09:31 Resp 18 05/17/21 07:34 BP 133/70 05/17/21 09:31 Pulse Ox 99 05/17/21 07:34 Body Mass Index 33.4 She is alert, comfortable RRR on monitor Neuro alert, orient No abdominal tenderness Respiratory normal effort Objective Data Active Medications Acetaminophen (Acetaminophen 325 Mg Tablet) 650 mg PO Q6H PRN PRN Reason: Pain, Mild (Pain Scale 1-3) Last Admin: 05/17/21 09:50 Dose: 650 mg Documented by: TERI Dextrose (Dextrose 50 % 25 Gm/50 Ml Vial) 25 gm IVPUSH Q15M PRN; Protocol PRN Reason: per Hypoglycemia Standing Ord. Fentanyl (Fentanyl Citrate/Pf 100 Mcg/2 Ml Vial) 50 mcg IVPUSH Q5M PRN; Protocol PRN Reason: Pain, Severe (Pain Scale 7-10) Fentanyl (Fentanyl 50 Mcg Patch.Td72) 50 mcg TRANSDERMA Q72H [facility] Last Admin: 05/15/21 09:13 Dose: 50 mcg Documented by: KETURAH Furosemide (Furosemide 20 Mg Tablet) 20 mg PO DAILY [facility]; Protocol Last Admin: 05/17/21 09:30 Dose: 20 mg Documented by: TERI Glucose (Glucose Gel 15 Gm Gel..Gram.) 15 gm PO Q15M PRN; Protocol PRN Reason: per Hypoglycemia Standing Ord. Hydromorphone HCl (Hydromorphone Hcl 0.5 Mg/0.5 Ml Syringe) 0.5 mg IVPUSH Q4H PRN; Protocol PRN Reason: Pain, Severe (Pain Scale 7-10) Last Admin: 05/17/21 09:51 Dose: 0.5 mg Documented by: TERI Cefepime HCl 2 gm/ Sodium (Chloride) 50 mls @ 100 mls/hr IV Q8H [facility] Last Infusion: 05/17/21 06:02 Dose: 0 mls/hr Documented by: PHUONG Insulin Glargine (Insulin Glargine,Hum.Rec.Anlog 100 Unit/Ml 10 Ml Vial) 55 unit SUBCUT DAILY [facility] Last Admin: 05/17/21 09:32 Dose: 55 unit Documented by: TERI Insulin Human Lispro (Insulin Lispro 100 Unit/Ml 3 Ml Vial) 0 unit SUBCUT Q6H [facility]; Protocol Last Admin: 05/17/21 06:14 Dose: Not Given Documented by: PHUONG Non-Admin Reason: No Insulin Coverage Isosorbide Mononitrate (Isosorbide Mononitrate 30 Mg Tab.Er.24h) 30 mg PO DAILY [facility]; Protocol Last Admin: 05/17/21 09:31 Dose: 30 mg Documented by: TERI Latanoprost (Latanoprost 0.005 % Ophth Elsa 2.5 Ml Drops) 1 drop EYE-BOTH BEDTIME [facility] Last Admin: 05/16/21 21:15 Dose: 1 drop Documented by: PHUONG Levothyroxine Sodium (Levothyroxine Sodium 50 Mcg Tablet) 50 mcg PO DAILY@0630 [facility] Last Admin: 05/17/21 05:34 Dose: 50 mcg Documented by: PHUONG Lidocaine (Lidocaine 4 % Patch Adh..Patch) 1 patch TRANSDERMA DAILY [facility]; Protocol Last Admin: 05/17/21 09:35 Dose: 1 patch Documented by: TERI Lisinopril (Lisinopril 2.5 Mg Tablet) 2.5 mg PO DAILY [facility]; Protocol Last Admin: 05/17/21 09:28 Dose: 2.5 mg Documented by: TERI Patient Own Medication ( Brimonidine 0.1 % Drops) 1 each EYE-BOTH BID [facility] Last Admin: 05/16/21 21:14 Dose: 1 each Documented by: PHUONG Omeprazole (Omeprazole 40 Mg Capsule.) 40 mg PO BID@0630,1630 [facility] Last Admin: 05/17/21 05:34 Dose: 40 mg Documented by: PHUONG Ondansetron HCl (Ondansetron Hcl 4 Mg/2 Ml Vial) 4 mg IVPUSH Q8H PRN PRN Reason: Nausea and Vomiting Last Admin: 05/17/21 09:51 Dose: 4 mg Documented by: TERI Ondansetron HCl (Ondansetron Hcl 4 Mg/2 Ml Vial) 4 mg IVPUSH ONCE PRN PRN Reason: Nausea and Vomiting Oxycodone HCl (Oxycodone Hcl Immed Release 5 Mg Tablet) 5 mg PO Q4H PRN PRN Reason: Pain, Severe (Pain Scale 7-10) Last Admin: 05/15/21 14:06 Dose: 5 mg Documented by: KETURAH Spironolactone (Spironolactone 25 Mg Tablet) 25 mg PO DAILY [facility]; Protocol Last Admin: 05/17/21 09:31 Dose: 25 mg Documented by: TERI Sucralfate (Sucralfate 1 Gm Tablet) 1 gm PO BIDAC [facility] Last Admin: 05/17/21 09:31 Dose: 1 gm Documented by: TERI Labs CBC & Chem 7: 05/14/21 06:33 05/15/21 08:15 Labs: Laboratory Results - last 24 hr 05/16/21 05/16/21 05/17/21 11:40 16:56 00:40 POC Glucose 255 H 242 H 174 H 05/17/21 05/17/21 06:06 07:14 POC Glucose 135 H 162 H Assessment and Plan (1) Metabolic acidosis: Status: Acute Assessment and Plan: 65/F with complex medical issues --SEE H and P for detail, has diabetes, cardiomyopathy s/p AIC she presents with abd/back pain elevated LFTS and concern for cholangitis, and during hospitalization amada into DKA and went to ICU from 05/12 to 05/13 for insulin and IVF managemnet #Choledocholithiasis ? cholangitis--no clinical evidence of cholangitis but possible cholecystis. Probably has passed a stone, LFTS have trended down, WBC is normal and no fever. Cultures negative ERCP on 05/13 with the following finding and recommendation by Dr. Soto 1. Severe erosive esophagitis, LA grade D 2. Severe ulcerative duodenitis 3. sphincterotomy with biliary debris removed. RECOMMENDATIONS: 1. NPO except ice chips for next 4-6 hrs then clears as tolerated, can advance diet tomorrow if feels well 2. Can restart aspirin and brilinta in 48 hrs. PLEASE make sure on high dose PPi e.g pantoprazole 40 mg BID starting today, can titrate down after 3 months. would also add carafate for 2 weeks. 3. If h pylori pos then treat 4. Refer surgery for cholecystectomy, may benefit from this during this admission due to her multiple medical issues. If plan is for same admission cholecystectomy then obviously cont to hold brilinta but would at least restart aspirin. 5. She will need repeat EGD in 3-4 months -Dr. Scott will do CCY on Friday 05/18 -Dilaudid for pain -continue Cefepime #Diabetes, DKA--s/p treatment in ICU and now resolved. She is a brittle diabetic and should be on inssulin at all time continue insulin (Lantus 55 and SSI) asabove--At home Lantus 70 qhs and Aspart 30 tid, FBS 184 today. check labs today ?# back pain- chronic, on Fentanyl patch at home, Dilaudid and oxycodone PRN #Elevated troponin, EKG showing multiple abnormalities but nothing acute/history of CAD seen by cardio-thought to be elevated trops sec to cholangitis--no further w/u. No chest pain at moment #abnormal CT lung findings- some nodules seen on CT scan given her history of breast cancer these will need follow-up on further evaluation once patient's transaminitis/cholangitis addressed # hypertension--normal, no change # History of CHF--Presently Euvolemic.. -continue Coreg, continue Lasix, Aldactone and Lisinopril--monitor BP # Erosive esophagitis, duodenitis--High dose PPI 40 bid, Careafate as above DVT prophylaxis:? SCDs, heparin later today Quality Stroke Does the patient have a stroke diagnosis?: No VTE Prior VTE?: No VTE Risk Level:: Medical - moderate - high VTE Device Contraindication: N/A - Device Ordered VTE Drug Contraindication: Treatment Not Indicated
[2021-05-17 10:56] LABS: Glucose, Whole Blood 244 mg/dL (60-115)
--- NOTE | 2021-05-17 11:48 | P.PNGS_ITS ---
Subjective Subjective Date of Service: 05/17/21 Interval history: Feels better Still some mild epigastric pain No other complaints Physical Exam Vital Signs: Vital Signs: Last Vital Signs Temp 98.9 F 05/17/21 11:31 Pulse 78 05/17/21 11:31 Resp 19 05/17/21 11:31 BP 101/59 L 05/17/21 11:31 Pulse Ox 97 05/17/21 11:31 Body Mass Index 33.4 Const: Other: PT 11.3 SEC (9.9-13. 0) 05/10/21 17:04 General: comfortable and no acute distress Resp: Effort & Inspection: normal respiratory effort Cardio: Rate: regular rate GI: Other: Mild epigastric tenderness Palpation (GI): Soft to palpation, not firm and no guarding Procedures Date of Service Date of Service: 05/17/21 Progress Note: A&P Assessment and plan (1) Choledocholithiasis: Status: Acute Assessment and Plan: Status post ERCP Doing well Follow-up LFTs ordered Abdomen soft and benign As per Dr. Burnett, possible cholecystectomy tomorrow Fall Risk Details Current Medications: Current Medications Acetaminophen (Acetaminophen 325 Mg Tablet) 650 mg PO Q6H PRN PRN Reason: Pain, Mild (Pain Scale 1-3) Last Admin: 05/17/21 09:50 Dose: 650 mg Documented by: Dextrose (Dextrose 50 % 25 Gm/50 Ml Vial) 25 gm IVPUSH Q15M PRN; Protocol PRN Reason: per Hypoglycemia Standing Ord. Fentanyl (Fentanyl Citrate/Pf 100 Mcg/2 Ml Vial) 50 mcg IVPUSH Q5M PRN; Protocol PRN Reason: Pain, Severe (Pain Scale 7-10) Fentanyl (Fentanyl 50 Mcg Patch.Td72) 50 mcg TRANSDERMA Q72H [facility] Last Admin: 05/15/21 09:13 Dose: 50 mcg Documented by: Furosemide (Furosemide 20 Mg Tablet) 20 mg PO DAILY [facility]; Protocol Last Admin: 05/17/21 09:30 Dose: 20 mg Documented by: Glucose (Glucose Gel 15 Gm Gel..Gram.) 15 gm PO Q15M PRN; Protocol PRN Reason: per Hypoglycemia Standing Ord. Hydromorphone HCl (Hydromorphone Hcl 0.5 Mg/0.5 Ml Syringe) 0.5 mg IVPUSH Q4H PRN; Protocol PRN Reason: Pain, Severe (Pain Scale 7-10) Last Admin: 05/17/21 09:51 Dose: 0.5 mg Documented by: Cefepime HCl 2 gm/ Sodium (Chloride) 50 mls @ 100 mls/hr IV Q8H [facility] Last Infusion: 05/17/21 06:02 Dose: Infused Documented by: Insulin Glargine (Insulin Glargine,Hum.Rec.Anlog 100 Unit/Ml 10 Ml Vial) 55 unit SUBCUT DAILY [facility] Last Admin: 05/17/21 09:32 Dose: 55 unit Documented by: Insulin Human Lispro (Insulin Lispro 100 Unit/Ml 3 Ml Vial) 0 unit SUBCUT Q6H [facility]; Protocol Last Admin: 05/17/21 06:14 Dose: Not Given Documented by: Isosorbide Mononitrate (Isosorbide Mononitrate 30 Mg Tab.Er.24h) 30 mg PO DAILY [facility]; Protocol Last Admin: 05/17/21 09:31 Dose: 30 mg Documented by: Latanoprost (Latanoprost 0.005 % Ophth Elsa 2.5 Ml Drops) 1 drop EYE-BOTH BEDTIME [facility] Last Admin: 05/16/21 21:15 Dose: 1 drop Documented by: Levothyroxine Sodium (Levothyroxine Sodium 50 Mcg Tablet) 50 mcg PO DAILY@0630 [facility] Last Admin: 05/17/21 05:34 Dose: 50 mcg Documented by: Lidocaine (Lidocaine 4 % Patch Adh..Patch) 1 patch TRANSDERMA DAILY [facility]; Protocol Last Admin: 05/17/21 09:35 Dose: 1 patch Documented by: Lisinopril (Lisinopril 2.5 Mg Tablet) 2.5 mg PO DAILY [facility]; Protocol Last Admin: 05/17/21 09:28 Dose: 2.5 mg Documented by: Patient Own Medication ( Brimonidine 0.1 % Drops) 1 each EYE-BOTH BID [facility] Last Admin: 05/17/21 10:10 Dose: 1 each Documented by: Omeprazole (Omeprazole 40 Mg Capsule.) 40 mg PO BID@0630,1630 [facility] Last Admin: 05/17/21 05:34 Dose: 40 mg Documented by: Ondansetron HCl (Ondansetron Hcl 4 Mg/2 Ml Vial) 4 mg IVPUSH Q8H PRN PRN Reason: Nausea and Vomiting Last Admin: 05/17/21 09:51 Dose: 4 mg Documented by: Ondansetron HCl (Ondansetron Hcl 4 Mg/2 Ml Vial) 4 mg IVPUSH ONCE PRN PRN Reason: Nausea and Vomiting Oxycodone HCl (Oxycodone Hcl Immed Release 5 Mg Tablet) 5 mg PO Q4H PRN PRN Reason: Pain, Severe (Pain Scale 7-10) Last Admin: 05/15/21 14:06 Dose: 5 mg Documented by: Spironolactone (Spironolactone 25 Mg Tablet) 25 mg PO DAILY [facility]; Protocol Last Admin: 05/17/21 09:31 Dose: 25 mg Documented by: Sucralfate (Sucralfate 1 Gm Tablet) 1 gm PO BIDAC [facility] Last Admin: 05/17/21 09:31 Dose: 1 gm Documented by: Time Spent With Patient Time: Total time spent is greater than 50% in coordination of care (as documented) at patient's floor/unit and/or counseling patient: Time with patient: 15 - 24 minutes Quality Stroke Does the patient have a stroke diagnosis?: No VTE Prior VTE?: No VTE Risk Level:: Medical - moderate - high VTE Device Contraindication: N/A - Device Ordered VTE Drug Contraindication: Treatment Not Indicated
[2021-05-17 12:27] LABS: Alanine Aminotransferase 38 U/L (0-31); Albumin Level 3.4 g/dL (3.5-5.0); Alkaline Phosphatase 75 U/L (39-117); Anion Gap 12 (12-20); Aspartate Amino Transferase 10 U/L (5-31); Bilirubin Direct 0.4 mg/dL (0.0-0.5); Bilirubin Total 0.6 mg/dL (0.0-1.0); Carbon Dioxide 27 mmol/L (22-29); Chloride 102 mmol/L (96-108); Potassium 4.1 mmol/L (3.3-5.1); Sodium 137 mmol/L (135-145); Total Protein 6.1 g/dL (6.5-8.0)
[2021-05-17] MEDS: Milk of Magnesia 30 ML ORAL.SUSP PO (17:00)
[2021-05-17 17:41] LABS: Glucose, Whole Blood 201 mg/dL (60-115)
[2021-05-17] MEDS: oxyCODONE HCl Immed Release 5 MG TABLET PO (20:38)
[2021-05-17] MEDS: Latanoprost 0.005 % Ophth Sol 2.5 ML DROPS 1 DROP EYE-BOTH (20:46)
[2021-05-18] VITALS (25 sets, daily range): BP systolic 98–176; BP diastolic 57–85; PULSE 72–90; RESP 16–20; TEMP 36.2–37.3; O2SAT 97–100
[2021-05-18 00:18] LABS: Glucose, Whole Blood 148 mg/dL (60-115)
[2021-05-18] MEDS: HYDROmorphone HCl 0.5 MG/0.5 ML SYRINGE IVPUSH ×6 (01:26→23:00)
[2021-05-18] MEDS: cefEPime HCl 2 GM in 0.9 % Sodium Chloride 50 ML IV (04:33)
[2021-05-18] MEDS: Acetaminophen 325 MG TABLET 650 MG PO (04:40)
[2021-05-18] MEDS: Omeprazole 40 MG CAPSULE.DR PO ×2 (05:42→18:06)
[2021-05-18] MEDS: Levothyroxine Sodium 50 MCG TABLET PO (05:43)
[2021-05-18 06:25] LABS: Glucose, Whole Blood 137 mg/dL (60-115)
[2021-05-18] MEDS: Isosorbide Mononitrate 30 MG TAB.ER.24H PO (08:34)
[2021-05-18] MEDS: Dextrose 5 % and Lactated Ring 1,000 ML 50 ML IVCONT (09:50)
--- NOTE | 2021-05-18 10:27 | HO.PM.IMPN ---
Subjective Subjective Date of Service: 05/18/21 Interval History: Seen in f/u for cholecystitis, for surgery today, c/o some dizziness this morning, vitals ok, sugar level ok. Review of Systems no fever feels dizzy no chest pain, no sob Physical Exam Vital Signs: Vital Signs: Last Vital Signs Temp 97.9 F 05/18/21 08:00 Pulse 82 05/18/21 08:34 Resp 16 05/18/21 09:48 BP 117/62 05/18/21 08:34 Pulse Ox 98 05/18/21 08:00 Oxygen Flow Rate 0 05/17/21 17:33 Body Mass Index 33.4 General: AO X 3, no acute distress Resp: CTA bilateral CVS: S1,S2,RRR GI: +BS, NT, no distention Skin: No rash Neuro: motor grossly intact Psych: appropriate affect Objective Data Active Medications Acetaminophen (Acetaminophen 325 Mg Tablet) 650 mg PO Q6H PRN PRN Reason: Pain, Mild (Pain Scale 1-3) Last Admin: 05/18/21 04:40 Dose: 650 mg Documented by: ELIANA Dextrose (Dextrose 50 % 25 Gm/50 Ml Vial) 25 gm IVPUSH Q15M PRN; Protocol PRN Reason: per Hypoglycemia Standing Ord. Fentanyl (Fentanyl Citrate/Pf 100 Mcg/2 Ml Vial) 50 mcg IVPUSH Q5M PRN; Protocol PRN Reason: Pain, Severe (Pain Scale 7-10) Fentanyl (Fentanyl 50 Mcg Patch.Td72) 50 mcg TRANSDERMA Q72H [facility] Last Admin: 05/18/21 08:33 Dose: Not Given Documented by: JAYNE Non-Admin Reason: NPO Comments: held per OR Furosemide (Furosemide 20 Mg Tablet) 20 mg PO DAILY [facility]; Protocol Last Admin: 05/18/21 08:25 Dose: Not Given Documented by: JAYNE Non-Admin Reason: NPO Comments: verified with OR to hold Glucose (Glucose Gel 15 Gm Gel..Gram.) 15 gm PO Q15M PRN; Protocol PRN Reason: per Hypoglycemia Standing Ord. Hydromorphone HCl (Hydromorphone Hcl 0.5 Mg/0.5 Ml Syringe) 0.5 mg IVPUSH Q4H PRN; Protocol PRN Reason: Pain, Severe (Pain Scale 7-10) Last Admin: 05/18/21 09:48 Dose: 0.5 mg Documented by: JAYNE Dextrose/Lactated Ringer's (D5lr) 1,000 mls @ 50 mls/hr IVCONT .Q20H [facility] Last Admin: 05/18/21 09:50 Dose: 50 mls/hr Documented by: JAYNE Insulin Glargine (Insulin Glargine,Hum.Rec.Anlog 100 Unit/Ml 10 Ml Vial) 55 unit SUBCUT DAILY [facility] Last Admin: 05/18/21 08:25 Dose: Not Given Documented by: JAYNE Non-Admin Reason: NPO Comments: verified with OR to hold Insulin Human Lispro (Insulin Lispro 100 Unit/Ml 3 Ml Vial) 0 unit SUBCUT Q6H [facility]; Protocol Last Admin: 05/18/21 07:23 Dose: Not Given Documented by: JAYNE Non-Admin Reason: No Insulin Coverage Isosorbide Mononitrate (Isosorbide Mononitrate 30 Mg Tab.Er.24h) 30 mg PO DAILY [facility]; Protocol Last Admin: 05/18/21 08:34 Dose: 30 mg Documented by: JAYNE Latanoprost (Latanoprost 0.005 % Ophth Elsa 2.5 Ml Drops) 1 drop EYE-BOTH BEDTIME [facility] Last Admin: 05/17/21 20:46 Dose: 1 drop Documented by: DARLEEN Levothyroxine Sodium (Levothyroxine Sodium 50 Mcg Tablet) 50 mcg PO DAILY@0630 [facility] Last Admin: 05/18/21 05:43 Dose: 50 mcg Documented by: ELIANA Lidocaine (Lidocaine 4 % Patch Adh..Patch) 1 patch TRANSDERMA DAILY [facility]; Protocol Last Admin: 05/18/21 08:26 Dose: Not Given Documented by: JAYNE Non-Admin Reason: NPO Comments: verified with OR to hold Lisinopril (Lisinopril 2.5 Mg Tablet) 2.5 mg PO DAILY [facility]; Protocol Last Admin: 05/18/21 08:27 Dose: Not Given Documented by: JAYNE Non-Admin Reason: NPO Comments: verified with OR to hold Magnesium Hydroxide (Milk Of Magnesia 30 Ml Oral.Susp) 30 ml PO DAILY PRN PRN Reason: Constipation Last Admin: 05/17/21 17:00 Dose: 30 ml Documented by: SMITH Patient Own Medication ( Brimonidine 0.1 % Drops) 1 each EYE-BOTH BID [facility] Last Admin: 05/18/21 08:27 Dose: Not Given Documented by: JAYNE Non-Admin Reason: NPO Comments: verified with OR to hold Omeprazole (Omeprazole 40 Mg Capsule.Dr) 40 mg PO BID@0630,1630 [facility] Last Admin: 05/18/21 05:42 Dose: 40 mg Documented by: ELIANA Ondansetron HCl (Ondansetron Hcl 4 Mg/2 Ml Vial) 4 mg IVPUSH Q8H PRN PRN Reason: Nausea and Vomiting Last Admin: 05/17/21 09:51 Dose: 4 mg Documented by: TERI Ondansetron HCl (Ondansetron Hcl 4 Mg/2 Ml Vial) 4 mg IVPUSH ONCE PRN PRN Reason: Nausea and Vomiting Oxycodone HCl (Oxycodone Hcl Immed Release 5 Mg Tablet) 5 mg PO Q4H PRN PRN Reason: Pain, Severe (Pain Scale 7-10) Last Admin: 05/17/21 20:38 Dose: 5 mg Documented by: DARLEEN Spironolactone (Spironolactone 25 Mg Tablet) 25 mg PO DAILY [facility]; Protocol Last Admin: 05/18/21 08:28 Dose: Not Given Documented by: JAYNE Non-Admin Reason: NPO Comments: verified to hold by OR Sucralfate (Sucralfate 1 Gm Tablet) 1 gm PO BIDAC [facility] Last Admin: 05/18/21 08:25 Dose: Not Given Documented by: JAYNE Non-Admin Reason: NPO Labs CBC & Chem 7: 05/14/21 06:33 05/17/21 11:39 Labs: Laboratory Results - last 24 hr 05/17/21 05/17/21 05/17/21 10:48 11:39 17:37 Anion Gap 12 POC Glucose 244 H 201 H Total Bilirubin 0.6 Direct Bilirubin 0.4 AST 10 ALT 38 H Alkaline Phosphatase 75 Total Protein 6.1 L Albumin 3.4 L 05/18/21 05/18/21 00:11 06:15 Anion Gap POC Glucose 148 H 137 H Total Bilirubin Direct Bilirubin AST ALT Alkaline Phosphatase Total Protein Albumin Assessment and Plan (1) Metabolic acidosis: Status: Acute Assessment and Plan: 65/F with complex medical issues --SEE H and P for detail, has diabetes, cardiomyopathy s/p AIC she presents with abd/back pain elevated LFTS and concern for cholangitis, and during hospitalization amada into DKA and went to ICU from 05/12 to 05/13 for insulin and IVF managemnet #Choledocholithiasis ? cholangitis--no clinical evidence of cholangitis but possible cholecystis. Probably has passed a stone, LFTS have trended down, WBC is normal and no fever. Cultures negative ERCP on 05/13 with the following finding and recommendation by Dr. Soto 1. Severe erosive esophagitis, LA grade D 2. Severe ulcerative duodenitis 3. sphincterotomy with biliary debris removed. RECOMMENDATIONS: 1. NPO except ice chips for next 4-6 hrs then clears as tolerated, can advance diet tomorrow if feels well 2. Can restart aspirin and brilinta in 48 hrs. PLEASE make sure on high dose PPi e.g pantoprazole 40 mg BID starting today, can titrate down after 3 months. would also add carafate for 2 weeks. 3. If h pylori pos then treat 4. Refer surgery for cholecystectomy, may benefit from this during this admission due to her multiple medical issues. If plan is for same admission cholecystectomy then obviously cont to hold brilinta but would at least restart aspirin. 5. She will need repeat EGD in 3-4 months -Dr. Scott will do CCY today 05/18 -Dilaudid for pain -continue Cefepime #Diabetes, DKA--s/p treatment in ICU and now resolved. She is a brittle diabetic and should be on inssulin at all time continue insulin (Lantus 55 and SSI) asabove--At home Lantus 70 qhs and Aspart 30 tid, FBS 184 today. check labs today -IVF with glucose while NPO ?# back pain- chronic, on Fentanyl patch at home, Dilaudid and oxycodone PRN #Elevated troponin, EKG showing multiple abnormalities but nothing acute/history of CAD seen by cardio-thought to be elevated trops sec to cholangitis--no further w/u. No chest pain at moment #abnormal CT lung findings- some nodules seen on CT scan given her history of breast cancer these will need follow-up on further evaluation once patient's transaminitis/cholangitis addressed # hypertension--normal, no change # History of CHF--Presently Euvolemic.. -continue Coreg, continue Lasix, Aldactone and Lisinopril--monitor BP # Erosive esophagitis, duodenitis--High dose PPI 40 bid, Careafate as above DVT prophylaxis:? SCDs, heparin later today Quality Stroke Does the patient have a stroke diagnosis?: No VTE Prior VTE?: No VTE Risk Level:: Medical - moderate - high VTE Device Contraindication: N/A - Device Ordered VTE Drug Contraindication: Treatment Not Indicated
--- NOTE | 2021-05-18 10:38 | HO.ANESPROP2 ---
[facility] Active Problems Active Problems: All Active Problems (Updated 05/14/21 @ 17:02 by Jose Antonio Burnett MD) Choledocholithiasis (Acute) Metabolic acidosis (Acute) DKA (diabetic ketoacidosis) (Acute) Abnormal CT lung screening (Acute) Elevated troponin (Acute) Back pain (Acute) Cholangitis (Acute) Elevated LFTs (Acute) Gallstone (Acute) Acute cholangitis (Acute) Transaminitis (Acute) Pityriasis rosea (Acute) Medicare annual wellness visit, initial (Acute) ICD (implantable cardioverter-defibrillator) in place (Acute) Ventricular tachycardia (Acute) Atherosclerotic cardiovascular disease (Acute) Obesity (BMI 30-39.9) (Acute) Major depressive disorder, recurrent episode, mild (Acute) Anxiety (Acute) Insomnia (Acute) Drug induced constipation (Acute) Osteoarthritis of spine with radiculopathy, cervical region (Acute) Lumbar degenerative disc disease (Acute) Neuropathy (Acute) History of ductal carcinoma in situ (DCIS) of breast (Acute) Vitamin D deficiency (Acute) Acquired hypothyroidism (Acute) Pure hypercholesterolemia (Acute) Benign essential hypertension (Acute) skilled nursing (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 of insulin (Acute) Type 2 diabetes mellitus with diabetic polyneuropathy (Acute) Ischemic cardiomyopathy (Acute) Atherosclerosis of coronary artery of [place] heart with stable angina pectoris (Acute) Past Medical History Medical History Acquired hypothyroidism Anxiety 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 Benign essential hypertension Diabetes Diabetic neuropathy Drug induced constipation History of breast cancer History of ductal carcinoma in situ (DCIS) of breast History of [place] (myocardial infarction) Hyperlipidemia Hypothyroidism ICD (implantable cardioverter-defibrillator) in place Insomnia Ischemic cardiomyopathy skilled nursing (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 of insulin Lumbar degenerative disc disease Major depressive disorder, recurrent episode, mild Neuropathy Obesity (BMI 30-39.9) Osteoarthritis Osteoarthritis of spine with radiculopathy, cervical region Pityriasis rosea Pure hypercholesterolemia Type 2 diabetes mellitus with diabetic polyneuropathy Ventricular tachycardia Vitamin D deficiency Family History Family History Mother Heart attack Hypertension CVD (cardiovascular disease) Father Diabetes Family history of problems with anesthesia: No Surgical History Surgical History History of implantable cardioverter-defibrillator (ICD) placement (~06/22/18) History of lumpectomy of both breasts History of percutaneous coronary intervention (~12/2017) History of tubal ligation S/P angioplasty (~07/2017) History of Problems with Anesthesia: No Social History Social History Household Members: Spouse Housing: House Do you presently have visiting nurse or other home services: Yes ([employer] 7 DAYS A WEEK) Alcohol intake: never Patient Tobacco Use Status: Never used Tobacco Second Hand Smoke Exposure: Yes Advance Directives Date on File: 06/05/20 service: No Current occupational status: disabled Sexual orientation: Straight/Heterosexual Gender identity: Female Meds Allergies Allergy/AdvReac Type Severity Reaction Status Date / Time No Known Allergies Allergy Mild NOT Verified 05/10/21 14:43 APPLICABLE Active Medications: Current Medications Acetaminophen (Acetaminophen 325 Mg Tablet) 650 mg PO Q6H PRN PRN Reason: Pain, Mild (Pain Scale 1-3) Last Admin: 05/18/21 04:40 Dose: 650 mg Documented by: Dextrose (Dextrose 50 % 25 Gm/50 Ml Vial) 25 gm IVPUSH Q15M PRN; Protocol PRN Reason: per Hypoglycemia Standing Ord. Fentanyl (Fentanyl Citrate/Pf 100 Mcg/2 Ml Vial) 50 mcg IVPUSH Q5M PRN; Protocol PRN Reason: Pain, Severe (Pain Scale 7-10) Fentanyl (Fentanyl 50 Mcg Patch.Td72) 50 mcg TRANSDERMA Q72H [facility] Last Admin: 05/18/21 08:33 Dose: Not Given Documented by: Furosemide (Furosemide 20 Mg Tablet) 20 mg PO DAILY IVETTE; Protocol Last Admin: 05/18/21 08:25 Dose: Not Given Documented by: Glucose (Glucose Gel 15 Gm Gel..Gram.) 15 gm PO Q15M PRN; Protocol PRN Reason: per Hypoglycemia Standing Ord. Hydromorphone HCl (Hydromorphone Hcl 0.5 Mg/0.5 Ml Syringe) 0.5 mg IVPUSH Q4H PRN; Protocol PRN Reason: Pain, Severe (Pain Scale 7-10) Last Admin: 05/18/21 09:48 Dose: 0.5 mg Documented by: Dextrose/Lactated Ringer's (D5lr) 1,000 mls @ 50 mls/hr IVCONT .Q20H [facility] Last Admin: 05/18/21 09:50 Dose: 50 mls/hr Documented by: Insulin Glargine (Insulin Glargine,Hum.Rec.Anlog 100 Unit/Ml 10 Ml Vial) 55 unit SUBCUT DAILY [facility] Last Admin: 05/18/21 08:25 Dose: Not Given Documented by: Insulin Human Lispro (Insulin Lispro 100 Unit/Ml 3 Ml Vial) 0 unit SUBCUT Q6H [facility]; Protocol Last Admin: 05/18/21 07:23 Dose: Not Given Documented by: Isosorbide Mononitrate (Isosorbide Mononitrate 30 Mg Tab.Er.24h) 30 mg PO DAILY [facility]; Protocol Last Admin: 05/18/21 08:34 Dose: 30 mg Documented by: Latanoprost (Latanoprost 0.005 % Ophth Elsa 2.5 Ml Drops) 1 drop EYE-BOTH BEDTIME [facility] Last Admin: 05/17/21 20:46 Dose: 1 drop Documented by: Levothyroxine Sodium (Levothyroxine Sodium 50 Mcg Tablet) 50 mcg PO DAILY@0630 [facility] Last Admin: 05/18/21 05:43 Dose: 50 mcg Documented by: Lidocaine (Lidocaine 4 % Patch Adh..Patch) 1 patch TRANSDERMA DAILY [facility]; Protocol Last Admin: 05/18/21 08:26 Dose: Not Given Documented by: Lisinopril (Lisinopril 2.5 Mg Tablet) 2.5 mg PO DAILY [facility]; Protocol Last Admin: 05/18/21 08:27 Dose: Not Given Documented by: Magnesium Hydroxide (Milk Of Magnesia 30 Ml Oral.Susp) 30 ml PO DAILY PRN PRN Reason: Constipation Last Admin: 05/17/21 17:00 Dose: 30 ml Documented by: Patient Own Medication ( Brimonidine 0.1 % Drops) 1 each EYE-BOTH BID [facility] Last Admin: 05/18/21 08:27 Dose: Not Given Documented by: Omeprazole (Omeprazole 40 Mg Capsule.Dr) 40 mg PO BID@0630,1630 [facility] Last Admin: 05/18/21 05:42 Dose: 40 mg Documented by: Ondansetron HCl (Ondansetron Hcl 4 Mg/2 Ml Vial) 4 mg IVPUSH Q8H PRN PRN Reason: Nausea and Vomiting Last Admin: 05/17/21 09:51 Dose: 4 mg Documented by: Ondansetron HCl (Ondansetron Hcl 4 Mg/2 Ml Vial) 4 mg IVPUSH ONCE PRN PRN Reason: Nausea and Vomiting Oxycodone HCl (Oxycodone Hcl Immed Release 5 Mg Tablet) 5 mg PO Q4H PRN PRN Reason: Pain, Severe (Pain Scale 7-10) Last Admin: 05/17/21 20:38 Dose: 5 mg Documented by: Spironolactone (Spironolactone 25 Mg Tablet) 25 mg PO DAILY [facility]; Protocol Last Admin: 05/18/21 08:28 Dose: Not Given Documented by: Sucralfate (Sucralfate 1 Gm Tablet) 1 gm PO BIDAC [facility] Last Admin: 05/18/21 08:32 Dose: Not Given Documented by: Home Medications Medication Instructions Recorded Confirmed Last Taken Type brimonidine 0.1 % eye drops 1 drp OPHTHALMIC (EYE) BID 06/03/20 05/10/21 05/10/21 09:00 History latanoprost 0.005 % eye drops 1 drp OPHTHALMIC (EYE) BEDTIME 06/03/20 05/10/21 05/09/21 22:00 History aspirin 81 mg tablet,delayed 81 mg PO DAILY 07/14/20 05/11/21 Unknown History release docusate sodium 100 mg capsule 100 mg PO BEDTIME 05/10/21 05/10/21 05/09/21 22:00 History (Colace) ticagrelor 90 mg tablet (Brilinta) 1 tab PO BID 05/10/21 05/10/21 05/10/21 09:00 History atorvastatin 80 mg tablet 1 tab PO DAILY 05/11/21 05/11/21 Unknown History Exam Exam Date and Time: May 18, 2021 1038 Height,Weight and Vital Signs: Height 5 ft 4 in Weight 88.4 kg Last Vital Signs Temp 97.9 F 05/18/21 08:00 Pulse 82 05/18/21 08:34 Resp 16 05/18/21 09:48 BP 117/62 05/18/21 08:34 Pulse Ox 98 05/18/21 08:00 Oxygen Flow Rate 0 05/17/21 17:33 Pertinent Lab Results Pertinent Lab Results: Laboratory Tests 05/10/21 05/10/21 05/10/21 16:28 17:04 17:04 WBC 16.6 H RBC 6.13 H Hgb 16.7 H Hct 50.0 H MCV 81.6 MCH 27.2 MCHC 33.4 RDW 15.0 Plt Count 214 MPV 10.5 Immature Gran % (Auto) 0.5 H Neut % (Auto) 87.6 H Lymph % (Auto) 6.0 L [place] % (Auto) 5.7 Eos % (Auto) 0.0 Baso % (Auto) 0.2 Lymph # (Auto) 1.0 L [place] # (Auto) 0.9 Eos # (Auto) 0.0 Baso # (Auto) 0.0 Abs Immat Gran (auto) 0.09 H Absolute Neuts (auto) 14.5 H Absolute Nucleated RBC 0.000 Nucleated RBC % (auto) 0.0 PT 11.3 INR 1.0 VBG pH VBG pCO2 VBG pO2 VBG HCO3 VBG O2 Saturation VBG Base Excess Sodium Potassium Chloride Carbon Dioxide Anion Gap BUN Creatinine Estim Creat Clear Calc Estimated GFR POC Glucose 175 H Random Glucose Lactic Acid Calcium Phosphorus Magnesium Total Bilirubin Direct Bilirubin AST ALT Alkaline Phosphatase Troponin I High Sens Total Protein Albumin Lipase Beta-Hydroxybutyrate/Acetoacetate Urine Color Urine Appearance Urine pH Ur Specific [place] Urine Protein Urine Glucose (UA) Urine Ketones Urine Blood Urine Nitrite Ur Leukocyte Esterase Urine RBC Urine WBC Ur Squamous Epith Cells Urine Bacteria Acetone, Qual COVID-19 ([facility]) COVID-19 Clin Com 05/10/21 05/10/21 05/10/21 17:04 18:40 21:13 WBC RBC Hgb Hct MCV MCH MCHC RDW Plt Count MPV Immature Gran % (Auto) Neut % (Auto) Lymph % (Auto) [place] % (Auto) Eos % (Auto) Baso % (Auto) Lymph # (Auto) [place] # (Auto) Eos # (Auto) Baso # (Auto) Abs Immat Gran (auto) Absolute Neuts (auto) Absolute Nucleated RBC Nucleated RBC % (auto) PT INR VBG pH VBG pCO2 VBG pO2 VBG HCO3 VBG O2 Saturation VBG Base Excess Sodium 136 Potassium 4.4 Chloride 100 Carbon Dioxide 22 Anion Gap 18 BUN 13 Creatinine 0.81 Estim Creat Clear Calc 74.5 Estimated GFR > 60 POC Glucose Random Glucose 188 H Lactic Acid Calcium 10.8 H D Phosphorus Magnesium Total Bilirubin 3.5 H Direct Bilirubin 2.3 H AST 730 H ALT 529 H Alkaline Phosphatase 106 D Troponin I High Sens Total Protein 8.8 H Albumin 4.8 Lipase 26 Beta-Hydroxybutyrate/Acetoacetate Urine Color YELLOW Urine Appearance CLEAR Urine pH 7.0 Ur Specific [place] 1.010 Urine Protein 2+ H Urine Glucose (UA) >=1000 H Urine Ketones 5 Urine Blood TRACE Urine Nitrite NEG Ur Leukocyte Esterase NEG Urine RBC 1-4 Urine WBC 0-2 Ur Squamous Epith Cells 1+ Urine Bacteria NONE Acetone, Qual COVID-19 ([facility]) Negative COVID-19 Clin Com See Note 05/10/21 05/11/21 05/11/21 23:25 00:47 08:37 WBC RBC Hgb Hct MCV MCH MCHC RDW Plt Count MPV Immature Gran % (Auto) Neut % (Auto) Lymph % (Auto) [place] % (Auto) Eos % (Auto) Baso % (Auto) Lymph # (Auto) [place] # (Auto) Eos # (Auto) Baso # (Auto) Abs Immat Gran (auto) Absolute Neuts (auto) Absolute Nucleated RBC Nucleated RBC % (auto) PT INR VBG pH VBG pCO2 VBG pO2 VBG HCO3 VBG O2 Saturation VBG Base Excess Sodium Potassium Chloride Carbon Dioxide Anion Gap BUN Creatinine Estim Creat Clear Calc Estimated GFR POC Glucose 188 H Random Glucose Lactic Acid 2.0 Calcium Phosphorus Magnesium Total Bilirubin Direct Bilirubin AST ALT Alkaline Phosphatase Troponin I High Sens 110.6 H* Total Protein Albumin Lipase Beta-Hydroxybutyrate/Acetoacetate Urine Color Urine Appearance Urine pH Ur Specific [place] Urine Protein Urine Glucose (UA) Urine Ketones Urine Blood Urine Nitrite Ur Leukocyte Esterase Urine RBC Urine WBC Ur Squamous Epith Cells Urine Bacteria Acetone, Qual COVID-19 ([facility]) COVID-19 Clin Com 05/11/21 05/11/21 05/11/21 09:13 09:13 09:13 WBC 10.9 H RBC 5.43 Hgb 14.8 Hct 45.7 MCV 84.2 MCH 27.3 MCHC 32.4 RDW 15.5 Plt Count 185 MPV 11.0 Immature Gran % (Auto) 0.4 Neut % (Auto) 84.7 H Lymph % (Auto) 10.1 L [place] % (Auto) 4.6 Eos % (Auto) 0.0 Baso % (Auto) 0.2 Lymph # (Auto) 1.1 L [place] # (Auto) 0.5 Eos # (Auto) 0.0 Baso # (Auto) 0.0 Abs Immat Gran (auto) 0.04 H Absolute Neuts (auto) 9.2 H Absolute Nucleated RBC 0.000 Nucleated RBC % (auto) 0.0 PT INR VBG pH VBG pCO2 VBG pO2 VBG HCO3 VBG O2 Saturation VBG Base Excess Sodium 136 Potassium 4.6 Chloride 109 H Carbon Dioxide 14 L Anion Gap 18 BUN 13 Creatinine 0.72 Estim Creat Clear Calc 83.8 Estimated GFR > 60 POC Glucose Random Glucose 183 H Lactic Acid Calcium 8.3 L D Phosphorus Magnesium Total Bilirubin 6.1 H Direct Bilirubin 4.4 H AST 306 H ALT 435 H Alkaline Phosphatase 119 H Troponin I High Sens 177.0 H* D Total Protein 6.6 D Albumin 3.6 D Lipase Beta-Hydroxybutyrate/Acetoacetate Urine Color Urine Appearance Urine pH Ur Specific [place] Urine Protein Urine Glucose (UA) Urine Ketones Urine Blood Urine Nitrite Ur Leukocyte Esterase Urine RBC Urine WBC Ur Squamous Epith Cells Urine Bacteria Acetone, Qual COVID-19 ([facility]NANDO) COVID-19 [employer] 05/11/21 05/11/21 05/11/21 12:21 19:44 21:49 WBC RBC Hgb Hct MCV MCH MCHC RDW Plt Count MPV Immature Gran % (Auto) Neut % (Auto) Lymph % (Auto) [place] % (Auto) Eos % (Auto) Baso % (Auto) Lymph # (Auto) [place] # (Auto) Eos # (Auto) Baso # (Auto) Abs Immat Gran (auto) Absolute Neuts (auto) Absolute Nucleated RBC Nucleated RBC % (auto) PT INR VBG pH VBG pCO2 VBG pO2 VBG HCO3 VBG O2 Saturation VBG Base Excess Sodium Potassium Chloride Carbon Dioxide Anion Gap BUN Creatinine Estim Creat Clear Calc Estimated GFR POC Glucose 179 H 167 H 172 H Random Glucose Lactic Acid Calcium Phosphorus Magnesium Total Bilirubin Direct Bilirubin AST ALT Alkaline Phosphatase Troponin I High Sens Total Protein Albumin Lipase Beta-Hydroxybutyrate/Acetoacetate Urine Color Urine Appearance Urine pH Ur Specific [place] Urine Protein Urine Glucose (UA) Urine Ketones Urine Blood Urine Nitrite Ur Leukocyte Esterase Urine RBC Urine WBC Ur Squamous Epith Cells Urine Bacteria Acetone, Qual COVID-19 ([facility]NAND[facility]) COVID-19 [employer] Com 05/12/21 05/12/21 05/12/21 05:49 05:49 08:19 WBC 17.3 H RBC 5.45 Hgb 15.0 Hct 47.5 H MCV 87.2 MCH 27.5 MCHC 31.6 RDW 15.9 Plt Count 192 MPV 10.7 Immature Gran % (Auto) Neut % (Auto) Lymph % (Auto) [place] % (Auto) Eos % (Auto) Baso % (Auto) Lymph # (Auto) [place] # (Auto) Eos # (Auto) Baso # (Auto) Abs Immat Gran (auto) Absolute Neuts (auto) Absolute Nucleated RBC 0.000 Nucleated RBC % (auto) 0.0 PT INR VBG pH VBG pCO2 VBG pO2 VBG HCO3 VBG O2 Saturation VBG Base Excess Sodium 134 L Potassium 5.1 Chloride 108 Carbon Dioxide 6 L* D Anion Gap 25 H BUN 24 H D Creatinine 1.03 Estim Creat Clear Calc 58.6 Estimated GFR 54 POC Glucose 225 H Random Glucose 204 H Lactic Acid Calcium 9.1 D Phosphorus Magnesium Total Bilirubin 1.8 H Direct Bilirubin 1.1 H AST 114 H ALT 362 H Alkaline Phosphatase 147 H D Troponin I High Sens Total Protein 7.6 Albumin 4.1 Lipase Beta-Hydroxybutyrate/Acetoacetate Urine Color Urine Appearance Urine pH Ur Specific [place] Urine Protein Urine Glucose (UA) Urine Ketones Urine Blood Urine Nitrite Ur Leukocyte Esterase Urine RBC Urine WBC Ur Squamous Epith Cells Urine Bacteria Acetone, Qual COVID-19 ([facility]NA[facility]O) COVID-19 Clin [employer] 05/12/21 05/12/21 05/12/21 10:49 12:22 12:22 WBC Cancelled RBC Cancelled Hgb Cancelled Hct Cancelled MCV Cancelled MCH Cancelled MCHC Cancelled RDW Cancelled Plt Count Cancelled MPV Cancelled Immature Gran % (Auto) Neut % (Auto) Lymph % (Auto) [place] % (Auto) Eos % (Auto) Baso % (Auto) Lymph # (Auto) [place] # (Auto) Eos # (Auto) Baso # (Auto) Abs Immat Gran (auto) Absolute Neuts (auto) Absolute Nucleated RBC Cancelled Nucleated RBC % (auto) Cancelled PT INR VBG pH VBG pCO2 VBG pO2 VBG HCO3 VBG O2 Saturation VBG Base Excess Sodium 134 L Potassium 4.6 Chloride 112 H Carbon Dioxide < 5 L* Anion Gap TNP BUN 23 H Creatinine 1.06 Estim Creat Clear Calc 57.0 Estimated GFR 52 POC Glucose 227 H Random Glucose 216 H Lactic Acid Calcium 8.5 D Phosphorus Magnesium Total Bilirubin 1.3 H Direct Bilirubin AST 70 H ALT 304 H Alkaline Phosphatase 139 H Troponin I High Sens Total Protein 7.1 Albumin 3.9 Lipase Beta-Hydroxybutyrate/Acetoacetate Urine Color Urine Appearance Urine pH Ur Specific [place] Urine Protein Urine Glucose (UA) Urine Ketones Urine Blood Urine Nitrite Ur Leukocyte Esterase Urine RBC Urine WBC Ur Squamous Epith Cells Urine Bacteria Acetone, Qual COVID-19 ([facility]) COVID-19 Clin [facility] 05/12/21 05/12/21 05/12/21 12:22 12:22 12:22 WBC RBC Hgb Hct MCV MCH MCHC RDW Plt Count MPV Immature Gran % (Auto) Neut % (Auto) Lymph % (Auto) [place] % (Auto) Eos % (Auto) Baso % (Auto) Lymph # (Auto) [place] # (Auto) Eos # (Auto) Baso # (Auto) Abs Immat Gran (auto) Absolute Neuts (auto) Absolute Nucleated RBC Nucleated RBC % (auto) PT INR VBG pH VBG pCO2 VBG pO2 VBG HCO3 VBG O2 Saturation VBG Base Excess Sodium Potassium Chloride Carbon Dioxide Anion Gap BUN Creatinine Estim Creat Clear Calc Estimated GFR POC Glucose Random Glucose Lactic Acid Cancelled 1.0 Calcium Phosphorus Magnesium Total Bilirubin Direct Bilirubin AST ALT Alkaline Phosphatase Troponin I High Sens Total Protein Albumin Lipase Beta-Hydroxybutyrate/Acetoacetate 7.38 H Urine Color Urine Appearance Urine pH Ur Specific [place] Urine Protein Urine Glucose (UA) Urine Ketones Urine Blood Urine Nitrite Ur Leukocyte Esterase Urine RBC Urine WBC Ur Squamous Epith Cells Urine Bacteria Acetone, Qual COVID-19 ([facility]) COVID-19 Clin [facility] 05/12/21 05/12/21 05/12/21 12:22 12:31 12:33 WBC RBC Hgb Hct MCV MCH MCHC RDW Plt Count MPV Immature Gran % (Auto) Neut % (Auto) Lymph % (Auto) [place] % (Auto) Eos % (Auto) Baso % (Auto) Lymph # (Auto) [place] # (Auto) Eos # (Auto) Baso # (Auto) Abs Immat Gran (auto) Absolute Neuts (auto) Absolute Nucleated RBC Nucleated RBC % (auto) PT INR VBG pH 7.15 L* VBG pCO2 11 VBG pO2 229 VBG HCO3 4 L VBG O2 Saturation 99.0 VBG Base Excess -21.7 Sodium Potassium Chloride Carbon Dioxide Anion Gap BUN Creatinine Estim Creat Clear Calc Estimated GFR POC Glucose 224 H Random Glucose Lactic Acid Calcium Phosphorus Magnesium Total Bilirubin Direct Bilirubin AST ALT Alkaline Phosphatase Troponin I High Sens Total Protein Albumin Lipase Beta-Hydroxybutyrate/Acetoacetate Urine Color Urine Appearance Urine pH Ur Specific [place] Urine Protein Urine Glucose (UA) Urine Ketones Urine Blood Urine Nitrite Ur Leukocyte Esterase Urine RBC Urine WBC Ur Squamous Epith Cells Urine Bacteria Acetone, Qual Small H COVID-19 (HERNANDO) COVID-19 [employer] 05/12/21 05/12/21 05/12/21 14:27 14:45 15:29 WBC RBC Hgb Hct MCV MCH MCHC RDW Plt Count MPV Immature Gran % (Auto) Neut % (Auto) Lymph % (Auto) [place] % (Auto) Eos % (Auto) Baso % (Auto) Lymph # (Auto) [place] # (Auto) Eos # (Auto) Baso # (Auto) Abs Immat Gran (auto) Absolute Neuts (auto) Absolute Nucleated RBC Nucleated RBC % (auto) PT INR VBG pH VBG pCO2 VBG pO2 VBG HCO3 VBG O2 Saturation VBG Base Excess Sodium Potassium Chloride Carbon Dioxide Anion Gap BUN Creatinine Estim Creat Clear Calc Estimated GFR POC Glucose 199 H 220 H Random Glucose Lactic Acid Calcium Phosphorus Magnesium Total Bilirubin Direct Bilirubin AST ALT Alkaline Phosphatase Troponin I High Sens Total Protein Albumin Lipase Beta-Hydroxybutyrate/Acetoacetate Urine Color YELLOW Urine Appearance CLEAR Urine pH 6.0 Ur Specific [place] 1.025 Urine Protein 1+ H Urine Glucose (UA) 500 H Urine Ketones >=80 Urine Blood 1+ H Urine Nitrite NEG Ur Leukocyte Esterase NEG Urine RBC 0-2 Urine WBC 0 Ur Squamous Epith Cells TRACE Urine Bacteria TRACE Acetone, Qual COVID-19 (HERNANDO) COVID-19 [employer] 05/12/21 05/12/21 05/12/21 16:08 17:05 18:05 WBC RBC Hgb Hct MCV MCH MCHC RDW Plt Count MPV Immature Gran % (Auto) Neut % (Auto) Lymph % (Auto) [place] % (Auto) Eos % (Auto) Baso % (Auto) Lymph # (Auto) [place] # (Auto) Eos # (Auto) Baso # (Auto) Abs Immat Gran (auto) Absolute Neuts (auto) Absolute Nucleated RBC Nucleated RBC % (auto) PT INR VBG pH VBG pCO2 VBG pO2 VBG HCO3 VBG O2 Saturation VBG Base Excess Sodium Potassium Chloride Carbon Dioxide Anion Gap BUN Creatinine Estim Creat Clear Calc Estimated GFR POC Glucose 219 H 204 H 202 H Random Glucose Lactic Acid Calcium Phosphorus Magnesium Total Bilirubin Direct Bilirubin AST ALT Alkaline Phosphatase Troponin I High Sens Total Protein Albumin Lipase Beta-Hydroxybutyrate/Acetoacetate Urine Color Urine Appearance Urine pH Ur Specific [place] Urine Protein Urine Glucose (UA) Urine Ketones Urine Blood Urine Nitrite Ur Leukocyte Esterase Urine RBC Urine WBC Ur Squamous Epith Cells Urine Bacteria Acetone, Qual COVID-19 ([facility]NANDO) COVID-19 [employer] 05/12/21 05/12/21 05/12/21 19:08 19:09 20:09 WBC RBC Hgb Hct MCV MCH MCHC RDW Plt Count MPV Immature Gran % (Auto) Neut % (Auto) Lymph % (Auto) [place] % (Auto) Eos % (Auto) Baso % (Auto) Lymph # (Auto) [place] # (Auto) Eos # (Auto) Baso # (Auto) Abs Immat Gran (auto) Absolute Neuts (auto) Absolute Nucleated RBC Nucleated RBC % (auto) PT INR VBG pH VBG pCO2 VBG pO2 VBG HCO3 VBG O2 Saturation VBG Base Excess Sodium 137 Potassium 4.0 Chloride 112 H Carbon Dioxide 12 L Anion Gap 17 BUN 19 H Creatinine 1.03 Estim Creat Clear Calc 58.6 Estimated GFR 54 POC Glucose 184 H 195 H Random Glucose 195 H Lactic Acid Calcium 8.5 Phosphorus Magnesium Total Bilirubin Direct Bilirubin AST ALT Alkaline Phosphatase Troponin I High Sens Total Protein Albumin Lipase Beta-Hydroxybutyrate/Acetoacetate Urine Color Urine Appearance Urine pH Ur Specific [place] Urine Protein Urine Glucose (UA) Urine Ketones Urine Blood Urine Nitrite Ur Leukocyte Esterase Urine RBC Urine WBC Ur Squamous Epith Cells Urine Bacteria Acetone, Qual COVID-19 (HERNANDO) COVID-19 [employer] 05/12/21 05/12/21 05/13/21 21:58 23:44 01:59 WBC RBC Hgb Hct MCV MCH MCHC RDW Plt Count MPV Immature Gran % (Auto) Neut % (Auto) Lymph % (Auto) [place] % (Auto) Eos % (Auto) Baso % (Auto) Lymph # (Auto) [place] # (Auto) Eos # (Auto) Baso # (Auto) Abs Immat Gran (auto) Absolute Neuts (auto) Absolute Nucleated RBC Nucleated RBC % (auto) PT INR VBG pH VBG pCO2 VBG pO2 VBG HCO3 VBG O2 Saturation VBG Base Excess Sodium Potassium Chloride Carbon Dioxide Anion Gap BUN Creatinine Estim Creat Clear Calc Estimated GFR POC Glucose 171 H 161 H 158 H Random Glucose Lactic Acid Calcium Phosphorus Magnesium Total Bilirubin Direct Bilirubin AST ALT Alkaline Phosphatase Troponin I High Sens Total Protein Albumin Lipase Beta-Hydroxybutyrate/Acetoacetate Urine Color Urine Appearance Urine pH Ur Specific [place] Urine Protein Urine Glucose (UA) Urine Ketones Urine Blood Urine Nitrite Ur Leukocyte Esterase Urine RBC Urine WBC Ur Squamous Epith Cells Urine Bacteria Acetone, Qual COVID-19 ([facility]) COVID-19 Clin Com 05/13/21 05/13/21 05/13/21 03:34 05:18 05:18 WBC 15.2 H RBC 5.25 Hgb 14.4 Hct 43.4 MCV 82.7 MCH 27.4 MCHC 33.2 RDW 16.0 Plt Count 192 MPV 10.4 Immature Gran % (Auto) 0.5 H Neut % (Auto) 80.4 H Lymph % (Auto) 12.2 L [place] % (Auto) 6.8 Eos % (Auto) 0.0 Baso % (Auto) 0.1 Lymph # (Auto) 1.9 [place] # (Auto) 1.0 Eos # (Auto) 0.0 Baso # (Auto) 0.0 Abs Immat Gran (auto) 0.07 H Absolute Neuts (auto) 12.2 H Absolute Nucleated RBC 0.000 Nucleated RBC % (auto) 0.0 PT INR VBG pH VBG pCO2 VBG pO2 VBG HCO3 VBG O2 Saturation VBG Base Excess Sodium 138 Potassium 3.5 Chloride 110 H Carbon Dioxide 18 L Anion Gap 14 BUN 14 Creatinine 0.85 Estim Creat Clear Calc 71.0 Estimated GFR > 60 POC Glucose 160 H Random Glucose 174 H Lactic Acid Calcium 8.7 Phosphorus 1.1 L Magnesium 2.3 Total Bilirubin 1.0 Direct Bilirubin 0.6 H AST 28 D ALT 200 H Alkaline Phosphatase 114 Troponin I High Sens Total Protein 6.4 L Albumin 3.5 Lipase Beta-Hydroxybutyrate/Acetoacetate Urine Color Urine Appearance Urine pH Ur Specific [place] Urine Protein Urine Glucose (UA) Urine Ketones Urine Blood Urine Nitrite Ur Leukocyte Esterase Urine RBC Urine WBC Ur Squamous Epith Cells Urine Bacteria Acetone, Qual COVID-19 ([facility]) COVID-19 Clin Com 05/13/21 05/13/21 05/13/21 05:23 05:39 08:04 WBC RBC Hgb Hct MCV MCH MCHC RDW Plt Count MPV Immature Gran % (Auto) Neut % (Auto) Lymph % (Auto) [place] % (Auto) Eos % (Auto) Baso % (Auto) Lymph # (Auto) [place] # (Auto) Eos # (Auto) Baso # (Auto) Abs Immat Gran (auto) Absolute Neuts (auto) Absolute Nucleated RBC Nucleated RBC % (auto) PT INR VBG pH 7.35 VBG pCO2 32 VBG pO2 51 VBG HCO3 18 L VBG O2 Saturation 82.0 VBG Base Excess -6.0 Sodium Potassium Chloride Carbon Dioxide Anion Gap BUN Creatinine Estim Creat Clear Calc Estimated GFR POC Glucose 168 H 161 H Random Glucose Lactic Acid Calcium Phosphorus Magnesium Total Bilirubin Direct Bilirubin AST ALT Alkaline Phosphatase Troponin I High Sens Total Protein Albumin Lipase Beta-Hydroxybutyrate/Acetoacetate Urine Color Urine Appearance Urine pH Ur Specific [place] Urine Protein Urine Glucose (UA) Urine Ketones Urine Blood Urine Nitrite Ur Leukocyte Esterase Urine RBC Urine WBC Ur Squamous Epith Cells Urine Bacteria Acetone, Qual COVID-19 (HERNANDO) COVID-19 Clin [facility] 05/13/21 05/13/21 05/13/21 10:07 10:15 11:18 WBC RBC Hgb Hct MCV MCH MCHC RDW Plt Count MPV Immature Gran % (Auto) Neut % (Auto) Lymph % (Auto) [place] % (Auto) Eos % (Auto) Baso % (Auto) Lymph # (Auto) [place] # (Auto) Eos # (Auto) Baso # (Auto) Abs Immat Gran (auto) Absolute Neuts (auto) Absolute Nucleated RBC Nucleated RBC % (auto) PT INR VBG pH VBG pCO2 VBG pO2 VBG HCO3 VBG O2 Saturation VBG Base Excess Sodium 138 Potassium 3.5 Chloride 110 H Carbon Dioxide 21 L Anion Gap 11 L BUN 12 Creatinine 0.82 Estim Creat Clear Calc 73.6 Estimated GFR > 60 POC Glucose 157 H 162 H Random Glucose 188 H Lactic Acid Calcium 8.4 Phosphorus Magnesium Total Bilirubin Direct Bilirubin AST ALT Alkaline Phosphatase Troponin I High Sens Total Protein Albumin Lipase Beta-Hydroxybutyrate/Acetoacetate Urine Color Urine Appearance Urine pH Ur Specific [place] Urine Protein Urine Glucose (UA) Urine Ketones Urine Blood Urine Nitrite Ur Leukocyte Esterase Urine RBC Urine WBC Ur Squamous Epith Cells Urine Bacteria Acetone, Qual COVID-19 (HERNANDO) COVID-19 Clin Com 05/13/21 05/13/21 05/13/21 18:26 20:37 23:20 WBC RBC Hgb Hct MCV MCH MCHC RDW Plt Count MPV Immature Gran % (Auto) Neut % (Auto) Lymph % (Auto) [place] % (Auto) Eos % (Auto) Baso % (Auto) Lymph # (Auto) [place] # (Auto) Eos # (Auto) Baso # (Auto) Abs Immat Gran (auto) Absolute Neuts (auto) Absolute Nucleated RBC Nucleated RBC % (auto) PT INR VBG pH VBG pCO2 VBG pO2 VBG HCO3 VBG O2 Saturation VBG Base Excess Sodium Potassium Chloride Carbon Dioxide Anion Gap BUN Creatinine Estim Creat Clear Calc Estimated GFR POC Glucose 192 H 213 H 185 H Random Glucose Lactic Acid Calcium Phosphorus Magnesium Total Bilirubin Direct Bilirubin AST ALT Alkaline Phosphatase Troponin I High Sens Total Protein Albumin Lipase Beta-Hydroxybutyrate/Acetoacetate Urine Color Urine Appearance Urine pH Ur Specific [place] Urine Protein Urine Glucose (UA) Urine Ketones Urine Blood Urine Nitrite Ur Leukocyte Esterase Urine RBC Urine WBC Ur Squamous Epith Cells Urine Bacteria Acetone, Qual COVID-19 (HERNANDO) COVID-19 Clin Com 05/14/21 05/14/21 05/14/21 05:47 06:33 06:33 WBC 9.5 RBC 4.89 Hgb 13.2 Hct 40.4 MCV 82.6 MCH 27.0 MCHC 32.7 RDW 16.1 H Plt Count 145 L MPV 10.2 Immature Gran % (Auto) 0.4 Neut % (Auto) 66.6 Lymph % (Auto) 22.9 [place] % (Auto) 9.8 Eos % (Auto) 0.0 Baso % (Auto) 0.3 Lymph # (Auto) 2.2 [place] # (Auto) 0.9 Eos # (Auto) 0.0 Baso # (Auto) 0.0 Abs Immat Gran (auto) 0.04 H Absolute Neuts (auto) 6.4 Absolute Nucleated RBC 0.000 Nucleated RBC % (auto) 0.0 PT INR VBG pH VBG pCO2 VBG pO2 VBG HCO3 VBG O2 Saturation VBG Base Excess Sodium 139 Potassium 3.8 Chloride 110 H Carbon Dioxide 21 L Anion Gap 12 BUN 14 Creatinine 0.75 Estim Creat Clear Calc 80.4 Estimated GFR > 60 POC Glucose 160 H Random Glucose 169 H Lactic Acid Calcium 8.2 L Phosphorus 1.7 L Magnesium 2.3 Total Bilirubin 0.9 Direct Bilirubin 0.5 AST 15 D ALT 112 H Alkaline Phosphatase 88 D Troponin I High Sens Total Protein 5.7 L Albumin 3.2 L Lipase Beta-Hydroxybutyrate/Acetoacetate Urine Color Urine Appearance Urine pH Ur Specific [place] Urine Protein Urine Glucose (UA) Urine Ketones Urine Blood Urine Nitrite Ur Leukocyte Esterase Urine RBC Urine WBC Ur Squamous Epith Cells Urine Bacteria Acetone, Qual COVID-19 (HERNANDO) COVID-19 [employer] 05/14/21 05/14/21 05/14/21 06:50 08:52 12:26 WBC RBC Hgb Hct MCV MCH MCHC RDW Plt Count MPV Immature Gran % (Auto) Neut % (Auto) Lymph % (Auto) [place] % (Auto) Eos % (Auto) Baso % (Auto) Lymph # (Auto) [place] # (Auto) Eos # (Auto) Baso # (Auto) Abs Immat Gran (auto) Absolute Neuts (auto) Absolute Nucleated RBC Nucleated RBC % (auto) PT INR VBG pH VBG pCO2 VBG pO2 VBG HCO3 VBG O2 Saturation VBG Base Excess Sodium Potassium Chloride Carbon Dioxide Anion Gap BUN Creatinine Estim Creat Clear Calc Estimated GFR POC Glucose 150 H 161 H 196 H Random Glucose Lactic Acid Calcium Phosphorus Magnesium Total Bilirubin Direct Bilirubin AST ALT Alkaline Phosphatase Troponin I High Sens Total Protein Albumin Lipase Beta-Hydroxybutyrate/Acetoacetate Urine Color Urine Appearance Urine pH Ur Specific [place] Urine Protein Urine Glucose (UA) Urine Ketones Urine Blood Urine Nitrite Ur Leukocyte Esterase Urine RBC Urine WBC Ur Squamous Epith Cells Urine Bacteria Acetone, Qual COVID-19 (HERNANDO) COVID-19 [employer] 05/14/21 05/14/21 05/15/21 17:36 21:22 00:26 WBC RBC Hgb Hct MCV MCH MCHC RDW Plt Count MPV Immature Gran % (Auto) Neut % (Auto) Lymph % (Auto) [place] % (Auto) Eos % (Auto) Baso % (Auto) Lymph # (Auto) [place] # (Auto) Eos # (Auto) Baso # (Auto) Abs Immat Gran (auto) Absolute Neuts (auto) Absolute Nucleated RBC Nucleated RBC % (auto) PT INR VBG pH VBG pCO2 VBG pO2 VBG HCO3 VBG O2 Saturation VBG Base Excess Sodium Potassium Chloride Carbon Dioxide Anion Gap BUN Creatinine Estim Creat Clear Calc Estimated GFR POC Glucose 159 H 198 H 182 H Random Glucose Lactic Acid Calcium Phosphorus Magnesium Total Bilirubin Direct Bilirubin AST ALT Alkaline Phosphatase Troponin I High Sens Total Protein Albumin Lipase Beta-Hydroxybutyrate/Acetoacetate Urine Color Urine Appearance Urine pH Ur Specific [place] Urine Protein Urine Glucose (UA) Urine Ketones Urine Blood Urine Nitrite Ur Leukocyte Esterase Urine RBC Urine WBC Ur Squamous Epith Cells Urine Bacteria Acetone, Qual COVID-19 (HERNANDO) COVID-19 [employer] 05/15/21 05/15/21 05/15/21 05:31 08:15 12:08 WBC RBC Hgb Hct MCV MCH MCHC RDW Plt Count MPV Immature Gran % (Auto) Neut % (Auto) Lymph % (Auto) [place] % (Auto) Eos % (Auto) Baso % (Auto) Lymph # (Auto) [place] # (Auto) Eos # (Auto) Baso # (Auto) Abs Immat Gran (auto) Absolute Neuts (auto) Absolute Nucleated RBC Nucleated RBC % (auto) PT INR VBG pH VBG pCO2 VBG pO2 VBG HCO3 VBG O2 Saturation VBG Base Excess Sodium 137 Potassium 4.0 Chloride 106 Carbon Dioxide 27 Anion Gap 8 L BUN 7 L Creatinine 0.64 Estim Creat Clear Calc 94.3 Estimated GFR > 60 POC Glucose 144 H 206 H Random Glucose 163 H Lactic Acid Calcium 8.3 L Phosphorus Magnesium Total Bilirubin Direct Bilirubin AST ALT Alkaline Phosphatase Troponin I High Sens Total Protein Albumin Lipase Beta-Hydroxybutyrate/Acetoacetate Urine Color Urine Appearance Urine pH Ur Specific [place] Urine Protein Urine Glucose (UA) Urine Ketones Urine Blood Urine Nitrite Ur Leukocyte Esterase Urine RBC Urine WBC Ur Squamous Epith Cells Urine Bacteria Acetone, Qual COVID-19 (HERNANDO) COVID-19 [employer] 05/15/21 05/15/21 05/16/21 18:12 23:40 05:21 WBC RBC Hgb Hct MCV MCH MCHC RDW Plt Count MPV Immature Gran % (Auto) Neut % (Auto) Lymph % (Auto) [place] % (Auto) Eos % (Auto) Baso % (Auto) Lymph # (Auto) [place] # (Auto) Eos # (Auto) Baso # (Auto) Abs Immat Gran (auto) Absolute Neuts (auto) Absolute Nucleated RBC Nucleated RBC % (auto) PT INR VBG pH VBG pCO2 VBG pO2 VBG HCO3 VBG O2 Saturation VBG Base Excess Sodium Potassium Chloride Carbon Dioxide Anion Gap BUN Creatinine Estim Creat Clear Calc Estimated GFR POC Glucose 186 H 157 H 166 H Random Glucose Lactic Acid Calcium Phosphorus Magnesium Total Bilirubin Direct Bilirubin AST ALT Alkaline Phosphatase Troponin I High Sens Total Protein Albumin Lipase Beta-Hydroxybutyrate/Acetoacetate Urine Color Urine Appearance Urine pH Ur Specific [place] Urine Protein Urine Glucose (UA) Urine Ketones Urine Blood Urine Nitrite Ur Leukocyte Esterase Urine RBC Urine WBC Ur Squamous Epith Cells Urine Bacteria Acetone, Qual COVID-19 (HERNANDO) [employer] 05/16/21 05/16/21 05/16/21 07:36 11:40 16:56 WBC RBC Hgb Hct MCV MCH MCHC RDW Plt Count MPV Immature Gran % (Auto) Neut % (Auto) Lymph % (Auto) [place] % (Auto) Eos % (Auto) Baso % (Auto) Lymph # (Auto) [place] # (Auto) Eos # (Auto) Baso # (Auto) Abs Immat Gran (auto) Absolute Neuts (auto) Absolute Nucleated RBC Nucleated RBC % (auto) PT INR VBG pH VBG pCO2 VBG pO2 VBG HCO3 VBG O2 Saturation VBG Base Excess Sodium Potassium Chloride Carbon Dioxide Anion Gap BUN Creatinine Estim Creat Clear Calc Estimated GFR POC Glucose 184 H 255 H 242 H Random Glucose Lactic Acid Calcium Phosphorus Magnesium Total Bilirubin Direct Bilirubin AST ALT Alkaline Phosphatase Troponin I High Sens Total Protein Albumin Lipase Beta-Hydroxybutyrate/Acetoacetate Urine Color Urine Appearance Urine pH Ur Specific [place] Urine Protein Urine Glucose (UA) Urine Ketones Urine Blood Urine Nitrite Ur Leukocyte Esterase Urine RBC Urine WBC Ur Squamous Epith Cells Urine Bacteria Acetone, Qual COVID-19 (HERNANDO) COVID-19 [employer] 05/17/21 05/17/21 05/17/21 00:40 06:06 07:14 WBC RBC Hgb Hct MCV MCH MCHC RDW Plt Count MPV Immature Gran % (Auto) Neut % (Auto) Lymph % (Auto) [place] % (Auto) Eos % (Auto) Baso % (Auto) Lymph # (Auto) [place] # (Auto) Eos # (Auto) Baso # (Auto) Abs Immat Gran (auto) Absolute Neuts (auto) Absolute Nucleated RBC Nucleated RBC % (auto) PT INR VBG pH VBG pCO2 VBG pO2 VBG HCO3 VBG O2 Saturation VBG Base Excess Sodium Potassium Chloride Carbon Dioxide Anion Gap BUN Creatinine Estim Creat Clear Calc Estimated GFR POC Glucose 174 H 135 H 162 H Random Glucose Lactic Acid Calcium Phosphorus Magnesium Total Bilirubin Direct Bilirubin AST ALT Alkaline Phosphatase Troponin I High Sens Total Protein Albumin Lipase Beta-Hydroxybutyrate/Acetoacetate Urine Color Urine Appearance Urine pH Ur Specific [place] Urine Protein Urine Glucose (UA) Urine Ketones Urine Blood Urine Nitrite Ur Leukocyte Esterase Urine RBC Urine WBC Ur Squamous Epith Cells Urine Bacteria Acetone, Qual COVID-19 (HERNANDO) COVID-19 [employer] 05/17/21 05/17/21 05/17/21 10:48 11:39 17:37 WBC RBC Hgb Hct MCV MCH MCHC RDW Plt Count MPV Immature Gran % (Auto) Neut % (Auto) Lymph % (Auto) [place] % (Auto) Eos % (Auto) Baso % (Auto) Lymph # (Auto) [place] # (Auto) Eos # (Auto) Baso # (Auto) Abs Immat Gran (auto) Absolute Neuts (auto) Absolute Nucleated RBC Nucleated RBC % (auto) PT INR VBG pH VBG pCO2 VBG pO2 VBG HCO3 VBG O2 Saturation VBG Base Excess Sodium 137 Potassium 4.1 Chloride 102 Carbon Dioxide 27 Anion Gap 12 BUN Creatinine Estim Creat Clear Calc Estimated GFR POC Glucose 244 H 201 H Random Glucose Lactic Acid Calcium Phosphorus Magnesium Total Bilirubin 0.6 Direct Bilirubin 0.4 AST 10 ALT 38 H Alkaline Phosphatase 75 Troponin I High Sens Total Protein 6.1 L Albumin 3.4 L Lipase Beta-Hydroxybutyrate/Acetoacetate Urine Color Urine Appearance Urine pH Ur Specific [place] Urine Protein Urine Glucose (UA) Urine Ketones Urine Blood Urine Nitrite Ur Leukocyte Esterase Urine RBC Urine WBC Ur Squamous Epith Cells Urine Bacteria Acetone, Qual COVID-19 (HERNANDO) [employer] 05/18/21 05/18/21 00:11 06:15 WBC RBC Hgb Hct MCV MCH MCHC RDW Plt Count MPV Immature Gran % (Auto) Neut % (Auto) Lymph % (Auto) [place] % (Auto) Eos % (Auto) Baso % (Auto) Lymph # (Auto) [place] # (Auto) Eos # (Auto) Baso # (Auto) Abs Immat Gran (auto) Absolute Neuts (auto) Absolute Nucleated RBC Nucleated RBC % (auto) PT INR VBG pH VBG pCO2 VBG pO2 VBG HCO3 VBG O2 Saturation VBG Base Excess Sodium Potassium Chloride Carbon Dioxide Anion Gap BUN Creatinine Estim Creat Clear Calc Estimated GFR POC Glucose 148 H 137 H Random Glucose Lactic Acid Calcium Phosphorus Magnesium Total Bilirubin Direct Bilirubin AST ALT Alkaline Phosphatase Troponin I High Sens Total Protein Albumin Lipase Beta-Hydroxybutyrate/Acetoacetate Urine Color Urine Appearance Urine pH Ur Specific [place] Urine Protein Urine Glucose (UA) Urine Ketones Urine Blood Urine Nitrite Ur Leukocyte Esterase Urine RBC Urine WBC Ur Squamous Epith Cells Urine Bacteria Acetone, Qual COVID-19 (HERNANDO) COVID-19 Clin Com Airway Mallampati Class: II (edentulous upper) TM Dist: >3cm Neck ROM: Full Loose/Missing/Broken Teeth: Yes and Upper Heart: RRR Lungs: CTA Assessment and Plan Assessment Anesthesia Assessment: Anesthesia Plan Discussed and Chart Reviewed Final Anesthetic Review Family History of Problems with Anesthesia: No History of Problems with Anesthesia: No NPO: Yes ASA Class: III Final Preanesthetic Review: Meds/Allgs Chart Reviewed, Consent Obtained/Reviewed and Anes Risks/Benef Reviewed Patient Risk: Intermediate Procedure Risk: Intermediate Anesthetic Plan Anesthetic Plan: GA Disposition: Standard PACU
--- NOTE | 2021-05-18 11:28 | P.PNGS_ITS ---
Subjective Subjective Date of Service: 05/18/21 Interval history: Patient feels much improved with decreased abdominal pain. She does have occasional nausea. Physical Exam Vital Signs: Vital Signs: Last Vital Signs Temp 97.9 F 05/18/21 08:00 Pulse 82 05/18/21 08:34 Resp 16 05/18/21 09:48 BP 117/62 05/18/21 08:34 Pulse Ox 98 05/18/21 08:00 Oxygen Flow Rate 0 05/17/21 17:33 Body Mass Index 33.4 HENMT: Head: Yes normocephalic and Yes atraumatic Eyes: Sclerae: sclerae normal EOM: EOMs intact bilaterally GI: Inspection: Yes normal to inspection Palpation (GI): Soft to palpation, nontender, no guarding and not rigid Percussion: Yes normal to percussion Auscultation: normal bowel sounds Extrem: General: Yes no clubbing, cyanosis or edema Procedures Date of Service Date of Service: 05/18/21 Progress Note: A&P Assessment and plan (1) Choledocholithiasis: Status: Acute Assessment and Plan: 65-year-old female patient with a recent history of cholangitis, choledocholithiasis found to have gallstones in her gallbladder. We discussed laparoscopic or possible open cholecystectomy including the risks, alternatives, benefits. She expressed understanding and consents to a laparoscopic possible open cholecystectomy. She has been added onto the operative schedule for today. Fall Risk Details Current Medications: Current Medications Acetaminophen (Acetaminophen 325 Mg Tablet) 650 mg PO Q6H PRN PRN Reason: Pain, Mild (Pain Scale 1-3) Last Admin: 05/18/21 04:40 Dose: 650 mg Documented by: Dextrose (Dextrose 50 % 25 Gm/50 Ml Vial) 25 gm IVPUSH Q15M PRN; Protocol PRN Reason: per Hypoglycemia Standing Ord. Fentanyl (Fentanyl Citrate/Pf 100 Mcg/2 Ml Vial) 50 mcg IVPUSH Q5M PRN; Ivory col PRN Reason: Pain, Severe (Pain Scale 7-10) Fentanyl (Fentanyl 50 Mcg Patch.Td72) 50 mcg TRANSDERMA Q72H IVETTE Last Admin: 05/18/21 08:33 Dose: Not Given Documented by: Furosemide (Furosemide 20 Mg Tablet) 20 mg PO DAILY IVETTE; Protocol Last Admin: 05/18/21 08:25 Dose: Not Given Documented by: Glucose (Glucose Gel 15 Gm Gel..Gram.) 15 gm PO Q15M PRN; Protocol PRN Reason: per Hypoglycemia Standing Ord. Hydromorphone HCl (Hydromorphone Hcl 0.5 Mg/0.5 Ml Syringe) 0.5 mg IVPUSH Q4H PRN; Protocol PRN Reason: Pain, Severe (Pain Scale 7-10) Last Admin: 05/18/21 09:48 Dose: 0.5 mg Documented by: Dextrose/Lactated Ringer's (D5lr) 1,000 mls @ 50 mls/hr IVCONT .Q20H IVETTE Last Admin: 05/18/21 09:50 Dose: 50 mls/hr Documented by: Insulin Glargine (Insulin Glargine,Hum.Rec.Anlog 100 Unit/Ml 10 Ml Vial) 55 unit SUBCUT DAILY [facility] Last Admin: 05/18/21 08:25 Dose: Not Given Documented by: Insulin Human Lispro (Insulin Lispro 100 Unit/Ml 3 Ml Vial) 0 unit SUBCUT Q6H IVETTE; Protocol Last Admin: 05/18/21 07:23 Dose: Not Given Documented by: Isosorbide Mononitrate (Isosorbide Mononitrate 30 Mg Tab.Er.24h) 30 mg PO DAILY [facility]; Protocol Last Admin: 05/18/21 08:34 Dose: 30 mg Documented by: Latanoprost (Latanoprost 0.005 % Ophth Elsa 2.5 Ml Drops) 1 drop EYE-BOTH BEDTIME [facility] Last Admin: 05/17/21 20:46 Dose: 1 drop Documented by: Levothyroxine Sodium (Levothyroxine Sodium 50 Mcg Tablet) 50 mcg PO DAILY@0630 [facility] Last Admin: 05/18/21 05:43 Dose: 50 mcg Documented by: Lidocaine (Lidocaine 4 % Patch Adh..Patch) 1 patch TRANSDERMA DAILY [facility]; Protocol Last Admin: 05/18/21 08:26 Dose: Not Given Documented by: Lisinopril (Lisinopril 2.5 Mg Tablet) 2.5 mg PO DAILY [facility]; Protocol Last Admin: 05/18/21 08:27 Dose: Not Given Documented by: Magnesium Hydroxide (Milk Of Magnesia 30 Ml Oral.Susp) 30 ml PO DAILY PRN PRN Reason: Constipation Last Admin: 05/17/21 17:00 Dose: 30 ml Documented by: Patient Own Medication ( Brimonidine 0.1 % Drops) 1 each EYE-BOTH BID [facility] Last Admin: 05/18/21 08:27 Dose: Not Given Documented by: Omeprazole (Omeprazole 40 Mg Capsule.Dr) 40 mg PO BID@0630,1630 [facility] Last Admin: 05/18/21 05:42 Dose: 40 mg Documented by: Ondansetron HCl (Ondansetron Hcl 4 Mg/2 Ml Vial) 4 mg IVPUSH Q8H PRN PRN Reason: Nausea and Vomiting Last Admin: 05/17/21 09:51 Dose: 4 mg Documented by: Ondansetron HCl (Ondansetron Hcl 4 Mg/2 Ml Vial) 4 mg IVPUSH ONCE PRN PRN Reason: Nausea and Vomiting Oxycodone HCl (Oxycodone Hcl Immed Release 5 Mg Tablet) 5 mg PO Q4H PRN PRN Reason: Pain, Severe (Pain Scale 7-10) Last Admin: 05/17/21 20:38 Dose: 5 mg Documented by: Spironolactone (Spironolactone 25 Mg Tablet) 25 mg PO DAILY [facility]; Protocol Last Admin: 05/18/21 08:28 Dose: Not Given Documented by: Sucralfate ([facility] 1 Gm Tablet) [facility] Last Admin: 05/18/21 08:32 Dose: Not Given Documented by: Time Spent With Patient Time: Total time spent is greater than 50% in coordination of care (as documented) at patient's floor/unit and/or counseling patient: Time with patient: 15 - 24 minutes Quality Stroke Does the patient have a stroke diagnosis?: No VTE Prior VTE?: No VTE Risk Level:: Medical - moderate - high VTE Device Contraindication: N/A - Device Ordered VTE Drug Contraindication: Treatment Not Indicated
[2021-05-18 11:29] LABS: Glucose, Whole Blood 176 mg/dL (60-115)
--- NOTE | 2021-05-18 14:45 | P.OP_ITS ---
Operative Note Operative Note Date of Service: 05/18/21 Narrative: Preoperative diagnosis: Choledocholithiasis, cholangitis Postoperative diagnosis: Same Procedure: Laparoscopic cholecystectomy Surgeon: Jose Antonio Burnett MD Appellate Court Judge: CLEMENTINA Brown Anesthesia: General endotracheal Indications for procedure: 65-year-old female patient presenting with complaints of abdominal pain right upper quadrant found to elevated liver function tests with elevated WBC. Patient subsequently underwent ERCP was found of debris within the common bile duct. She was now for laparoscopic cholecystectomy. Operative findings: Multiple small gallbladder stones without significant wall thickening or pericholecystic fluid Specimen: Gallbladder Estimated blood loss: 5 mL Complications: None Procedure details: Patient was brought to the OR and placed in a supine position. After administering general anesthesia the patient's abdomen was prepped with ChloraPrep and draped in a sterile fashion. Local anesthesia consisting of 0.5% Sensorcaine without epinephrine was infiltrated in a periumbilical region. A 5 mm incision was made above the umbilicus in a transverse fashion. The Veress needle was then inserted while elevating abdominal cavity with towel clips. After positive drop test the abdomen was insufflated to a pressure of 15 mm of mercury. The Veress needle was then removed and a 5 mm trocar inserted. The camera was inserted in the abdomen explored. A 12 mm trocar was then placed in the epigastrium and 2 5 mm trocars placed in the right upper quadrant. The patient was placed in reverse Trendelenburg positioning and rotated to the left. The gallbladder was grasped with the fundus and retracted cephalad.. The infundibulum Was then grasped and retracted away from the liver bed. The Dolphin dissected was then used to dissect the peritoneum off the infundibulum to reveal the junction with the cystic duct. Cystic artery was noted slightly medial and posterior to the cystic duct. After obtaining a critical view the cystic duct was doubly clipped and divided. The cystic artery was then doubly clipped and divided. The gallbladder was then dissected off the liver bed using electrocautery with an L hook. Hemostasis was assured all times using the electrocautery. When the gallbladder is completely dissected off the liver bed was placed in an Endo- Catch bag and brought out through the epigastric incision. The gallbladder was sent to pathology for further examination. The abdomen was then re-examined. The liver bed was irrigated and suctioned dry. No bleeding or bile leak could be identified. CO2 was then evacuated and all trocars removed. Fascia was closed at the epigastric incision using a [id number] Polysorb suture. Skin was closed in all incisions using a subcuticular 4 0 Polysorb suture. Sterile dressings consisting of Steri-Strips, 2 x 2 gauze, and Tegaderm were then applied. The patient tolerated the procedure well. Sponge instrument and needle counts reported as correct. The patient was transferred to PACU in stable condition.
--- NOTE | 2021-05-18 14:48 | MHC.SHP ---
Pre-Procedural Eval Section A Date of Service: 05/18/21 The patient is an INPATIENT: Yes Changes since office visit: No Cold of Flu in the past 2 weeks, No New Medical Problems, No Changes in Medication and No Patient answered all questions Section B Chief Complaint: Cholangitis? transminitis Allergies: Allergies Allergy/AdvReac Type Severity Reaction Status Date / Time No Known Allergies Allergy Mild NOT Verified 05/10/21 14:43 APPLICABLE Plan Diagnosis/Plan: Unchanged I have reviewed the history and physical and performed a pertinent physical examination on my patient. No changes have occurred unless specified.
[2021-05-18 15:01] LABS: Glucose, Whole Blood 178 mg/dL (60-115)
[2021-05-18] MEDS: ondansetron HCL 4 MG/2 ML VIAL IVPUSH (15:10)
--- NOTE | 2021-05-18 16:28 | MHC.CM.PN ---
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 Family will provide transportation to home.
[2021-05-18 17:41] LABS: Glucose, Whole Blood 191 mg/dL (60-115)
--- NOTE | 2021-05-18 17:48 | PC.NURSE ---
Addendum entered by Susan Mccoy RN 05/18/21 18:21: BILATERAL EYES APPEAR BLOODSHOT UPON RETURNING FROM OR. PT AND STATE THAT HAPPENS SOMETIMES . WILL CONTINUE TO MONITOR. Original Note: BACK FROM OR AT 1730. SLEEPY, BUT AWAKES TO NAME. 4 ABDOMINAL DRESSINGS C/D/I. PT STATES ABDOMEN TENDER TO TOUCH . RESTING COMFORTABLY. WILL CONTINUE TO MONITOR. FAMILY UPDATED.
[2021-05-18] MEDS: Insulin Lispro 100 UNIT/ML 3 ML VIAL SUBCUT (18:06)
[2021-05-18] MEDS: oxyCODONE HCl Immed Release 5 MG TABLET PO (19:28)
[2021-05-18] MEDS: Latanoprost 0.005 % Ophth Sol 2.5 ML DROPS 1 DROP EYE-BOTH (22:28)
[2021-05-19] VITALS (9 sets, daily range): BP systolic 100–137; BP diastolic 55–74; PULSE 78–92; RESP 18–26; TEMP 36.1–37.7; O2SAT 93–96
[2021-05-19] MEDS: Morphine Sulfate 2 MG/ML CARTRIDGE IVPUSH ×2 (00:26→04:49)
[2021-05-19] MEDS: Insulin Lispro 100 UNIT/ML 3 ML VIAL SUBCUT ×5 (00:30→20:10)
[2021-05-19] MEDS: oxyCODONE HCl Immed Release 5 MG TABLET PO ×2 (00:33→04:49)
[2021-05-19 00:56] LABS: Glucose, Whole Blood 311 mg/dL (60-115)
[2021-05-19] MEDS: HYDROmorphone HCl 0.5 MG/0.5 ML SYRINGE IVPUSH ×5 (02:58→21:14)
[2021-05-19 04:48] LABS: Glucose, Whole Blood 247 mg/dL (60-115)
[2021-05-19] MEDS: Omeprazole 40 MG CAPSULE.DR PO ×2 (04:50→15:47)
[2021-05-19] MEDS: Levothyroxine Sodium 50 MCG TABLET PO (04:50)
[2021-05-19 07:49] LABS: Glucose, Whole Blood 213 mg/dL (60-115)
[2021-05-19] MEDS: fentaNYL 50 MCG PATCH.TD72 TRANSDERMA (07:54)
--- NOTE | 2021-05-19 08:00 | PM.PNGS ---
Subjective Subjective Date of Service: 05/19/21 Interval history: Patient reports abdominal pain mainly in the right upper quadrant and right flank. She is normally on a fentanyl patch every 3 days, due to be changed yesterday however this was not changed. Physical Exam Vital Signs: Vital Signs: Last Vital Signs Temp 98.7 F 05/19/21 07:45 Pulse 92 05/19/21 07:45 Resp 19 05/19/21 07:45 BP 129/62 05/19/21 07:45 Pulse Ox 94 05/19/21 07:45 Oxygen Flow Rate 0 05/17/21 17:33 Body Mass Index 33.4 Const: General: cooperative and tired appearing Nutritional Appearance: well nourished Orientation/consciousness: patient oriented x3 Limitations: no limitations Eyes: Sclerae: sclerae normal EOM: EOMs intact bilaterally Resp: Effort & Inspection: normal respiratory effort, no respiratory distress and no stridor GI: Other: Soft and nondistended, incisions clean, dry, and intact without redness or discharge. Skin: General skin exam: dry skin and no jaundice Rashes: no rashes Neuro: General: patient oriented x3 Extrem: General: Yes no pedal edema Procedures Date of Service Date of Service: 05/19/21 Progress Note: A&P Assessment and plan (1) Choledocholithiasis: Status: Acute Assessment and Plan: 65-year-old female patient with cholangitis, cholelithiasis, choledocholithiasis, status post laparoscopic cholecystectomy postoperative day 1. She is reporting abdominal pain which is not controlled with her current medication. Patient was due for fentanyl patch changed yesterday which was not done apparently. Will continue to monitor. Discussed with nursing service. Fall Risk Details Current Medications: Current Medications Acetaminophen (Acetaminophen 325 Mg Tablet) 650 mg PO Q6H PRN PRN Reason: Pain, Mild (Pain Scale 1-3) Last Admin: 05/18/21 04:40 Dose: 650 mg Documented by: Albuterol Sulfate (Albuterol Sulfate (0.083%) 2.5 Mg/3 Ml Vial.Neb) 2.5 mg INHALE ONCE PRN PRN Reason: Wheezing Dextrose (Dextrose 50 % 25 Gm/50 Ml Vial) 25 gm IVPUSH Q15M PRN; Protocol PRN Reason: per Hypoglycemia Standing Ord. Fentanyl (Fentanyl 50 Mcg Patch.Td72) 50 mcg TRANSDERMA Q72H [facility] Furosemide (Furosemide 20 Mg Tablet) 20 mg PO DAILY [facility]; Protocol Last Admin: 05/18/21 08:25 Dose: Not Given Documented by: Glucose (Glucose Gel 15 Gm Gel..Gram.) 15 gm PO Q15M PRN; Protocol PRN Reason: per Hypoglycemia Standing Ord. Hydromorphone HCl (Hydromorphone Hcl 0.5 Mg/0.5 Ml Syringe) 0.5 mg IVPUSH Q4H PRN; Protocol PRN Reason: Pain, Severe (Pain Scale 7-10) Last Admin: 05/19/21 02:58 Dose: 0.5 mg Documented by: Dextrose/Lactated Ringer's (D5lr) 1,000 mls @ 50 mls/hr IVCONT .Q20H [facility] Last Admin: 05/19/21 04:32 Dose: Not Given Documented by: Promethazine HCl 12.5 mg/ (Sodium Chloride) 50.5 mls @ 202 mls/hr IV ONCE PRN PRN Reason: Nausea and Vomiting Last Infusion: 05/18/21 17:47 Dose: Infused Documented by: Insulin Glargine (Insulin Glargine,Hum.Rec.Anlog 100 Unit/Ml 10 Ml Vial) 55 unit SUBCUT DAILY [facility] Last Admin: 05/18/21 08:25 Dose: Not Given Documented by: Insulin Human Lispro (Insulin Lispro 100 Unit/Ml 3 Ml Vial) 0 unit SUBCUT Q6H [facility]; Protocol Last Admin: 05/19/21 04:50 Dose: 4 unit Documented by: Isosorbide Mononitrate (Isosorbide Mononitrate 30 Mg Tab.Er.24h) 30 mg PO DAILY [facility]; Protocol Last Admin: 05/18/21 08:34 Dose: 30 mg Documented by: Latanoprost (Latanoprost 0.005 % Ophth Elsa 2.5 Ml Drops) 1 drop EYE-BOTH BEDTIME [facility] Last Admin: 05/18/21 22:28 Dose: 1 drop Documented by: Levothyroxine Sodium (Levothyroxine Sodium 50 Mcg Tablet) 50 mcg PO DAILY@0630 [facility] Last Admin: 05/19/21 04:50 Dose: 50 mcg Documented by: Lidocaine (Lidocaine 4 % Patch Adh..Patch) 1 patch TRANSDERMA DAILY [facility]; Protocol Last Admin: 05/18/21 08:26 Dose: Not Given Documented by: Lisinopril (Lisinopril 2.5 Mg Tablet) 2.5 mg PO DAILY [facility]; Protocol Last Admin: 05/18/21 08:27 Dose: Not Given Documented by: Magnesium Hydroxide (Milk Of Magnesia 30 Ml Oral.Susp) 30 ml PO DAILY PRN PRN Reason: Constipation Last Admin: 05/17/21 17:00 Dose: 30 ml Documented by: Morphine Sulfate (Morphine Sulfate 2 Mg/Ml Cartridge) 2 mg IVPUSH Q2H PRN; Protocol PRN Reason: Pain, Severe (Pain Scale 7-10) Last Admin: 05/19/21 04:49 Dose: 2 mg Documented by: Patient Own Medication ( Brimonidine 0.1 % Drops) 1 each EYE-BOTH BID [facility] Last Admin: 05/18/21 22:28 Dose: 1 each Documented by: Omeprazole (Omeprazole 40 Mg Capsule.Dr) 40 mg PO BID@0630,1630 [facility] Last Admin: 05/19/21 04:50 Dose: 40 mg Documented by: Ondansetron HCl (Ondansetron Hcl 4 Mg/2 Ml Vial) 4 mg IVPUSH Q8H PRN PRN Reason: Nausea and Vomiting Last Admin: 05/17/21 09:51 Dose: 4 mg Documented by: Ondansetron HCl (Ondansetron Hcl 4 Mg/2 Ml Vial) 4 mg IVPUSH ONCE PRN PRN Reason: Nausea and Vomiting Last Admin: 05/18/21 15:10 Dose: 4 mg Documented by: Oxycodone HCl (Oxycodone Hcl Immed Release 5 Mg Tablet) 5 mg PO Q4H PRN PRN Reason: Pain, Severe (Pain Scale 7-10) Last Admin: 05/19/21 04:49 Dose: 5 mg Documented by: Spironolactone (Spironolactone 25 Mg Tablet) 25 mg PO DAILY [facility]; Protocol Last Admin: 05/18/21 08:28 Dose: Not Given Documented by: Sucralfate (Sucralfate 1 Gm Tablet) 1 gm PO BIDAC [facility] Last Admin: 05/18/21 08:32 Dose: Not Given Documented by: Time Spent With Patient Time: Total time spent is greater than 50% in coordination of care (as documented) at patient's floor/unit and/or counseling patient: Time with patient: 15 - 24 minutes Quality Stroke Does the patient have a stroke diagnosis?: No VTE Prior VTE?: No VTE Risk Level:: Medical - moderate - high VTE Device Contraindication: N/A - Device Ordered VTE Drug Contraindication: Treatment Not Indicated
[2021-05-19] MEDS: Spironolactone 25 MG TABLET PO (08:07)
[2021-05-19] MEDS: lisinopriL 2.5 MG TABLET PO (08:07)
[2021-05-19] MEDS: Sucralfate 1 GM TABLET PO ×2 (08:07→15:47)
[2021-05-19] MEDS: Isosorbide Mononitrate 30 MG TAB.ER.24H PO (08:07)
[2021-05-19] MEDS: Furosemide 20 MG TABLET PO (08:08)
[2021-05-19] MEDS: Lidocaine 4 % Patch ADH..PATCH 1 PATCH TRANSDERMA (08:08)
[2021-05-19 08:48] LABS: Hematocrit 44.1 % (37-47); Hemoglobin 14.1 g/dl (12.0-16.0); Mean Corpuscular Hemoglobin 26.7 pg (27.0-33.0); Mean Corpuscular Volume 83.4 fL (80-98); Mean Platelet Volume 10.7 fL (9.4-12.3); Platelet Count 197 X10*3/uL (160-400); Red Blood Count 5.29 X10*6/uL (4.20-5.50); Red Cell Distribution Width 15.6 % (11.0-16.0); White Blood Count 14.7 X10*3/uL (4.8-10.8)
[2021-05-19 09:22] LABS: Anion Gap 14 (12-20); Blood Urea Nitrogen 6 mg/dL (9-16); Carbon Dioxide 26 mmol/L (22-29); Chloride 102 mmol/L (96-108); Estimated Glomerular Filt Rate > 60; Glucose Random 211 mg/dL (60-115); Potassium 4.1 mmol/L (3.3-5.1); Sodium 138 mmol/L (135-145)
--- NOTE | 2021-05-19 09:46 | P.PNIM_ITS ---
Subjective Subjective Date of Service: 05/29/21 Interval History: Seen in f/u for cholecystitis,? succesful CCY yesterday, has some post op pain, doesn't feel like eating however able to drink some orange juice and few fruits Review of Systems no fever feels dizzy no chest pain, no sob Physical Exam Vital Signs: Vital Signs: Last Vital Signs Temp 98.7 F 05/19/21 07:45 Pulse 92 05/19/21 07:45 Resp 19 05/19/21 07:45 BP 129/62 05/19/21 07:45 Pulse Ox 94 05/19/21 07:45 Oxygen Flow Rate 0 05/17/21 17:33 Body Mass Index 33.4 General: AO X 3, no acute distress Resp: CTA bilateral CVS: S1,S2,RRR GI: +BS, NT, no distention Skin: No rash Neuro: motor grossly intact Psych: appropriate affect Objective Data Active Medications Albuterol Sulfate (Albuterol Sulfate (0.083%) 2.5 Mg/3 Ml Vial.Neb) 2.5 mg IN [place]UC[place] ONCE PRN PRN Reason: Wheezing Dextrose (Dextrose 50 % 25 Gm/50 Ml Vial) 25 gm IVPUSH Q15M PRN; Protocol PRN Reason: per Hypoglycemia Standing Ord. Fentanyl (Fentanyl 50 Mcg Patch.Td72) 50 mcg TRANSDERMA Q72H [facility] Last Admin: 05/19/21 08:20 Dose: Not Given Documented by: LEVON Non-Admin Reason: unscheled doase given Furosemide (Furosemide 20 Mg Tablet) 20 mg PO DAILY [facility]; Protocol Last Admin: 05/19/21 08:08 Dose: 20 mg Documented by: LEVON Glucose (Glucose Gel 15 Gm Gel..Gram.) 15 gm PO Q15M PRN; Protocol PRN Reason: per Hypoglycemia Standing Ord. Hydromorphone HCl (Hydromorphone Hcl 0.5 Mg/0.5 Ml Syringe) 0.5 mg IVPUSH Q4H PRN; Protocol PRN Reason: Pain, Severe (Pain Scale 7-10) Last Admin: 05/19/21 08:11 Dose: 0.5 mg Documented by: LEVON Dextrose/Lactated Ringer's (D5lr) 1,000 mls @ 50 mls/hr IVCONT .Q20H [facility] Last Admin: 05/19/21 04:32 Dose: Not Given Documented by: AROLDO Non-Admin Reason: IV Running Promethazine HCl 12.5 mg/ (Sodium Chloride) 50.5 mls @ 202 mls/hr IV ONCE PRN PRN Reason: Nausea and Vomiting Last Infusion: 05/18/21 17:47 Dose: 0 mls/hr Documented by: JAYNE Acetaminophen (Ofirmev) 1,000 mg in 100 mls @ 400 mls/hr IV Q6H PRN PRN Reason: abdominal pain Insulin Glargine (Insulin Glargine,Hum.Rec.Anlog 100 Unit/Ml 10 Ml Vial) 55 unit SUBCUT DAILY [facility] Last Admin: 05/18/21 08:25 Dose: Not Given Documented by: JAYNE Non-Admin Reason: NPO Comments: verified with OR to hold Insulin Human Lispro (Insulin Lispro 100 Unit/Ml 3 Ml Vial) 0 unit SUBCUT Q6H [facility]; Protocol Last Admin: 05/19/21 04:50 Dose: 4 unit Documented by: ARODLO Isosorbide Mononitrate (Isosorbide Mononitrate 30 Mg Tab.Er.24h) 30 mg PO DAILY [facility]; Protocol Last Admin: 05/19/21 08:07 Dose: 30 mg Documented by: LEVON Latanoprost (Latanoprost 0.005 % Ophth Elsa 2.5 Ml Drops) 1 drop EYE-BOTH BEDTIME [facility] Last Admin: 05/18/21 22:28 Dose: 1 drop Documented by: JEZ Levothyroxine Sodium (Levothyroxine Sodium 50 Mcg Tablet) 50 mcg PO DAILY@0630 [facility] Last Admin: 05/19/21 04:50 Dose: 50 mcg Documented by: AROLDO Lidocaine (Lidocaine 4 % Patch Adh..Patch) 1 patch TRANSDERMA DAILY [facility]; Protocol Last Admin: 05/19/21 08:08 Dose: 1 patch Documented by: LEVON Lisinopril (Lisinopril 2.5 Mg Tablet) 2.5 mg PO DAILY [facility]; Protocol Last Admin: 05/19/21 08:07 Dose: 2.5 mg Documented by: LEVON Magnesium Hydroxide (Milk Of Magnesia 30 Ml Oral.Susp) 30 ml PO DAILY PRN PRN Reason: Constipation Last Admin: 05/17/21 17:00 Dose: 30 ml Documented by: SMITH Morphine Sulfate (Morphine Sulfate 2 Mg/Ml Cartridge) 2 mg IVPUSH Q2H PRN; Protocol PRN Reason: Pain, Severe (Pain Scale 7-10) Last Admin: 05/19/21 04:49 Dose: 2 mg Documented by: AROLDO Patient Own Medication ( Brimonidine 0.1 % Drops) 1 each EYE-BOTH BID [facility] Last Admin: 05/19/21 08:22 Dose: 1 each Documented by: LEVON Omeprazole (Omeprazole 40 Mg Capsule.Dr) 40 mg PO BID@0630,1630 [facility] Last Admin: 05/19/21 04:50 Dose: 40 mg Documented by: AROLDO Ondansetron HCl (Ondansetron Hcl 4 Mg/2 Ml Vial) 4 mg IVPUSH Q8H PRN PRN Reason: Nausea and Vomiting Last Admin: 05/17/21 09:51 Dose: 4 mg Documented by: TERI Ondansetron HCl (Ondansetron Hcl 4 Mg/2 Ml Vial) 4 mg IVPUSH ONCE PRN PRN Reason: Nausea and Vomiting Last Admin: 05/18/21 15:10 Dose: 4 mg Documented by: MARIO Oxycodone HCl (Oxycodone Hcl Immed Release 5 Mg Tablet) 10 mg PO Q4H PRN PRN Reason: Pain, Severe (Pain Scale 7-10) Spironolactone (Spironolactone 25 Mg Tablet) 25 mg PO DAILY [facility]; Protocol Last Admin: 05/19/21 08:07 Dose: 25 mg Documented by: LEVON Sucralfate (Sucralfate 1 Gm Tablet) 1 gm PO BIDAC [facility] Last Admin: 05/19/21 08:07 Dose: 1 gm Documented by: LEVON Labs CBC & Chem 7: 05/21/21 05:44 05/21/21 05:44 Assessment and Plan (1) Metabolic acidosis: Status: Resolved Assessment and Plan: 65/F with complex medical issues --SEE H and P for detail, has diabetes, cardiomyopathy s/p AIC she presents with abd/back pain elevated LFTS and concern for cholangitis, and during hospitalization amada into DKA and went to ICU from 05/12 to 05/13 for insulin and IVF managemnet #Choledocholithiasis ? cholangitis--no clinical evidence of cholangitis but possible cholecystis. Probably has passed a stone, LFTS have trended down, WBC is normal and no fever. Cultures negative ERCP on 05/13 with the following finding and recommendation by Dr. Soto 1. Severe erosive esophagitis, LA grade D 2. Severe ulcerative duodenitis 3. sphincterotomy with biliary debris removed. RECOMMENDATIONS: 1. NPO except ice chips for next 4-6 hrs then clears as tolerated, can advance diet tomorrow if feels well 2. Can restart aspirin and brilinta in 48 hrs. PLEASE make sure on high dose PPi e.g pantoprazole 40 mg BID starting today, can titrate down after 3 months. would also add carafate for 2 weeks. 3. If h pylori pos then treat 4. Refer surgery for cholecystectomy, may benefit from this during this admission due to her multiple medical issues. If plan is for same admission cholecystectomy then obviously cont to hold brilinta but would at least restart aspirin. 5. She will need repeat EGD in 3-4 months -Dr. Scott will do CCY today 05/18 -Dilaudid for pain -continue Cefepime #Diabetes, DKA--s/p treatment in ICU and now resolved. She is a brittle diabetic and should be on inssulin at all time continue insulin (Lantus 55 and SSI) asabove--At home Lantus 70 qhs and Aspart 30 tid, FBS 184 today. check labs today -IVF with glucose while NPO ?# back pain- chronic, on Fentanyl patch at home, Dilaudid and oxycodone PRN #Elevated troponin, EKG showing multiple abnormalities but nothing acute/history of CAD seen by cardio-thought to be elevated trops sec to cholangitis--no further w/u. No chest pain at moment #abnormal CT lung findings- some nodules seen on CT scan given her history of breast cancer these will need follow-up on further evaluation once patient's transaminitis/cholangitis addressed # hypertension--normal, no change # History of CHF--Presently Euvolemic.. -continue Coreg, continue Lasix, Aldactone and Lisinopril--monitor BP # Erosive esophagitis, duodenitis--High dose PPI 40 bid, Careafate as above DVT prophylaxis:? SCDs, heparin later today Quality Stroke Does the patient have a stroke diagnosis?: No VTE Prior VTE?: No VTE Risk Level:: Medical - moderate - high VTE Device Contraindication: N/A - Device Ordered VTE Drug Contraindication: Treatment Not Indicated
[2021-05-19] MEDS: Dextrose 5 % and Lactated Ring 1,000 ML 50 ML IVCONT (10:34)
[2021-05-19] MEDS: oxyCODONE HCl Immed Release 5 MG TABLET 10 MG PO ×3 (10:35→20:03)
--- NOTE | 2021-05-19 10:43 | HO.POSTANES ---
Post Anesthesia Evaluation Post Anesthesia Evaluation Vital Signs: Vital Signs Temp Pulse Resp BP Pulse Ox 05/19/21 07:45 98.7 F 92 19 129/62 94 05/19/21 03:23 98.2 F 88 18 137/71 96 05/19/21 00:26 26 H 05/19/21 00:00 99.9 F 84 18 135/74 96 05/18/21 23:00 16 Anesthesia: General Endotracheal-GETA Mental Status: Awake Pain Control: Satisfactory Nausea/Vomiting: None Hydration: Adequate Anesthesia-Related Issues: No Anes. Related Issues
[2021-05-19 10:59] LABS: Glucose, Whole Blood 374 mg/dL (60-115)
[2021-05-19 12:20] LABS: Gastrin <15 pg/mL (<=100)
--- NOTE | 2021-05-19 15:56 | PC.NURSE ---
arango cath was removed at 15:50 ,due to void at 21:50
[2021-05-19 16:02] LABS: Glucose, Whole Blood 274 mg/dL (60-115)
[2021-05-19 19:59] LABS: Glucose, Whole Blood 228 mg/dL (60-115)
[2021-05-19] MEDS: Latanoprost 0.005 % Ophth Sol 2.5 ML DROPS 1 DROP EYE-BOTH (20:05)
[2021-05-20] VITALS (8 sets, daily range): BP systolic 96–136; BP diastolic 53–63; PULSE 65–83; RESP 18–20; TEMP 35.8–37.1; O2SAT 92–97
[2021-05-20] MEDS: oxyCODONE HCl Immed Release 5 MG TABLET 10 MG PO ×4 (00:13→14:26)
[2021-05-20] MEDS: HYDROmorphone HCl 0.5 MG/0.5 ML SYRINGE IVPUSH ×3 (01:11→09:42)
[2021-05-20] MEDS: Omeprazole 40 MG CAPSULE.DR PO ×2 (05:41→17:08)
[2021-05-20] MEDS: Levothyroxine Sodium 50 MCG TABLET PO (05:41)
[2021-05-20 06:40] LABS: Glucose, Whole Blood 206 mg/dL (60-115)
[2021-05-20] MEDS: Insulin Lispro 100 UNIT/ML 3 ML VIAL SUBCUT ×4 (06:45→22:20)
[2021-05-20 07:30] LABS: Anion Gap 13 (12-20); Blood Urea Nitrogen 6 mg/dL (9-16); Carbon Dioxide 24 mmol/L (22-29); Chloride 101 mmol/L (96-108); Creatinine Clr Calc Pharmacy 91.5; Estimated Glomerular Filt Rate > 60; Glucose Random 232 mg/dL (60-115); Potassium 4.1 mmol/L (3.3-5.1); Sodium 134 mmol/L (135-145)
[2021-05-20 07:48] LABS: Glucose, Whole Blood 222 mg/dL (60-115)
[2021-05-20 07:52] LABS: Calcium 8.3 mg/dL (8.4-10.2)
[2021-05-20] MEDS: Sucralfate 1 GM TABLET PO ×2 (09:21→18:27)
[2021-05-20] MEDS: Spironolactone 25 MG TABLET PO (09:21)
[2021-05-20] MEDS: Furosemide 20 MG TABLET PO (09:21)
[2021-05-20] MEDS: lisinopriL 2.5 MG TABLET PO (09:22)
[2021-05-20] MEDS: Lidocaine 4 % Patch ADH..PATCH 1 PATCH TRANSDERMA (09:22)
[2021-05-20] MEDS: Isosorbide Mononitrate 30 MG TAB.ER.24H PO (09:22)
[2021-05-20 11:29] LABS: Glucose, Whole Blood 258 mg/dL (60-115)
[2021-05-20] MEDS: Lactulose 20 GM/30 ML SOLUTION 15 GM PO (11:50)
[2021-05-20] MEDS: Docusate Sodium 100 MG CAPSULE PO ×2 (11:51→22:18)
--- NOTE | 2021-05-20 14:19 | MHC.CM.PN ---
Female 65 S/P Choli DP is home with resumption of [employer]. CM will follow.
--- NOTE | 2021-05-20 14:32 | PM.PNGS ---
Subjective Subjective Date of Service: 05/21/21 Interval history: Still with incisional pain in the right upper quadrant, better with pain patch on. Patient with constipation, now in bathroom. Physical Exam Vital Signs: Vital Signs: Last Vital Signs Temp 97.6 F 05/20/21 11:15 Pulse 83 05/20/21 11:15 Resp 18 05/20/21 11:15 BP 105/58 L 05/20/21 11:15 Pulse Ox 95 05/20/21 11:15 Oxygen Flow Rate 0 05/17/21 17:33 Body Mass Index 33.4 Const: General: no acute distress Nutritional Appearance: well nourished Orientation/consciousness: patient oriented x3 Limitations: no limitations GI: Other: Incisions clean and intact Inspection: Yes normal to inspection Palpation (GI): Soft to palpation, Tenderness to palpation present (GI) and no guarding Neuro: General: patient oriented x3 Extrem: General: Yes normal to inspection Procedures Date of Service Date of Service: 05/20/21 Progress Note: A&P Assessment and plan (1) Choledocholithiasis: Status: Acute Assessment and Plan: Pod 2 following laparoscopic cholecystectomy. Pain remains an issue. Patient also constipated due to the multiple pain medications. Fall Risk Details Current Medications: Current Medications Albuterol Sulfate (Albuterol Sulfate (0.083%) 2.5 Mg/3 Ml Vial.Neb) 2.5 mg INHALE ONCE PRN PRN Reason: Wheezing Dextrose (Dextrose 50 % 25 Gm/50 Ml Vial) 25 gm IVPUSH Q15M PRN; Protocol PRN Reason: per Hypoglycemia Standing Ord. Docusate Sodium (Docusate Sodium 100 Mg Capsule) 100 mg PO BID [facility] Last Admin: 05/20/21 11:51 Dose: 100 mg Documented by: Fentanyl (Fentanyl 50 Mcg Patch.Td72) 50 mcg TRANSDERMA Q72H [facility] Last Admin: 05/19/21 08:20 Dose: Not Given Documented by: Furosemide (Furosemide 20 Mg Tablet) 20 mg PO DAILY [facility]; Protocol Last Admin: 05/20/21 09:21 Dose: 20 mg Documented by: Glucose (Glucose Gel 15 Gm Gel..Gram.) 15 gm PO Q15M PRN; Protocol PRN Reason: per Hypoglycemia Standing Ord. Promethazine HCl 12.5 mg/ (Sodium Chloride) 50.5 mls @ 202 mls/hr IV ONCE PRN PRN Reason: Nausea and Vomiting Last Infusion: 05/18/21 17:47 Dose: Infused Documented by: Acetaminophen (Ofirmev) 1,000 mg in 100 mls @ 400 mls/hr IV Q6H PRN PRN Reason: abdominal pain Last Infusion: 05/20/21 12:18 Dose: Infused Documented by: Insulin Glargine (Insulin Glargine,Hum.Rec.Anlog 100 Unit/Ml 10 Ml Vial) 25 unit SUBCUT DAILY [facility] Insulin Human Lispro (Insulin Lispro 100 Unit/Ml 3 Ml Vial) 0 unit SUBCUT Q6H [facility]; Protocol Last Admin: 05/20/21 11:51 Dose: 6 unit Documented by: Isosorbide Mononitrate (Isosorbide Mononitrate 30 Mg Tab.Er.24h) 30 mg PO DAILY [facility]; Protocol Last Admin: 05/20/21 09:22 Dose: 30 mg Documented by: Latanoprost (Latanoprost 0.005 % Ophth Elsa 2.5 Ml Drops) 1 drop EYE-BOTH BEDTIME [facility] Last Admin: 05/19/21 20:05 Dose: 1 drop Documented by: Levothyroxine Sodium (Levothyroxine Sodium 50 Mcg Tablet) 50 mcg PO DAILY@0630 [facility] Last Admin: 05/20/21 05:41 Dose: 50 mcg Documented by: Lidocaine (Lidocaine 4 % Patch Adh..Patch) 1 patch TRANSDERMA DAILY [facility]; Protocol Last Admin: 05/20/21 09:22 Dose: 1 patch Documented by: Lisinopril (Lisinopril 2.5 Mg Tablet) 2.5 mg PO DAILY [facility]; Protocol Last Admin: 05/20/21 09:22 Dose: 2.5 mg Documented by: Magnesium Hydroxide (Milk Of Magnesia 30 Ml Oral.Susp) 30 ml PO DAILY PRN PRN Reason: Constipation Last Admin: 05/17/21 17:00 Dose: 30 ml Documented by: Patient Own Medication ( Brimonidine 0.1 % Drops) 1 each EYE-BOTH BID [facility] Last Admin: 05/20/21 09:23 Dose: 1 each Documented by: Omeprazole (Omeprazole 40 Mg Capsule.Dr) 40 mg PO BID@0630,1630 [facility] Last Admin: 05/20/21 05:41 Dose: 40 mg Documented by: Ondansetron HCl (Ondansetron Hcl 4 Mg/2 Ml Vial) 4 mg IVPUSH Q8H PRN PRN Reason: Nausea and Vomiting Last Admin: 05/17/21 09:51 Dose: 4 mg Documented by: Ondansetron HCl (Ondansetron Hcl 4 Mg/2 Ml Vial) 4 mg IVPUSH ONCE PRN PRN Reason: Nausea and Vomiting Last Admin: 05/18/21 15:10 Dose: 4 mg Documented by: Oxycodone HCl (Oxycodone Hcl Immed Release 5 Mg Tablet) 10 mg PO Q4H PRN PRN Reason: Pain, Severe (Pain Scale 7-10) Last Admin: 05/20/21 14:26 Dose: 10 mg Documented by: Spironolactone (Spironolactone 25 Mg Tablet) 25 mg PO DAILY [facility]; Protocol Last Admin: 05/20/21 09:21 Dose: 25 mg Documented by: Sucralfate (Sucralfate 1 Gm Tablet) 1 gm PO BIDAC [facility] Last Admin: 05/20/21 09:21 Dose: 1 gm Documented by: Time Spent With Patient Time: Total time spent is greater than 50% in coordination of care (as documented) at patient's floor/unit and/or counseling patient: Time with patient: 15 - 24 minutes Quality Stroke Does the patient have a stroke diagnosis?: No VTE Prior VTE?: No VTE Risk Level:: Medical - moderate - high VTE Device Contraindication: N/A - Device Ordered VTE Drug Contraindication: Treatment Not Indicated
--- NOTE | 2021-05-20 15:51 | P.PNIM_ITS ---
Subjective Subjective Date of Service: 05/20/21 Interval History: Patient complaining of abdominal pain, with movement, nausea, decreased by mouth intake and constipation. Review of Systems General no headache, no dizziness no fever chills. CVS no chest pain, no palpitation. Respiratory no cough, no sob. Gastrointestinal complaining of nausea, no vomiting, abdominal pain with coughing sneezing and movement Skin no rash Review of Systems: Yes all other systems are reviewed and are negative Physical Exam Vital Signs: Vital Signs: Last Vital Signs Temp 96.4 F L 05/20/21 14:59 Pulse 77 05/20/21 14:59 Resp 20 05/20/21 14:59 BP 96/55 L 05/20/21 14:59 Pulse Ox 94 05/20/21 14:59 Oxygen Flow Rate 0 05/17/21 17:33 Body Mass Index 33.4 General no acute distress. Neck supple no JVD. CVS regular rate rhythm, Respiratory lungs clear to auscultation, no respiratory distress, no wheeze, no rhonchi. Gastrointestinal abdomen soft, nontender, bowel sounds audible, no guarding , no rigidity,dressing in place Extremities no edema. Neuro nonfocal , speech clear. Skin no rash Objective Data Active Medications Albuterol Sulfate (Albuterol Sulfate (0.083%) 2.5 Mg/3 Ml Vial.Neb) 2.5 mg INHALE ONCE PRN PRN Reason: Wheezing Dextrose (Dextrose 50 % 25 Gm/50 Ml Vial) 25 gm IVPUSH Q15M PRN; Protocol PRN Reason: per Hypoglycemia Standing Ord. Docusate Sodium (Docusate Sodium 100 Mg Capsule) 100 mg PO BID [facility] Last Admin: 05/20/21 11:51 Dose: 100 mg Documented by: TERESA Fentanyl (Fentanyl 50 Mcg Patch.Td72) 50 mcg TRANSDERMA Q72H [facility] Last Admin: 05/19/21 08:20 Dose: Not Given Documented by: LEVON Non-Admin Reason: unscheled doase given Furosemide (Furosemide 20 Mg Tablet) 20 mg PO DAILY [facility]; Protocol Last Admin: 05/20/21 09:21 Dose: 20 mg Documented by: TERESA Glucose (Glucose Gel 15 Gm Gel..Gram.) 15 gm PO Q15M PRN; Protocol PRN Reason: per Hypoglycemia Standing Ord. Promethazine HCl 12.5 mg/ (Sodium Chloride) 50.5 mls @ 202 mls/hr IV ONCE PRN PRN Reason: Nausea and Vomiting Last Infusion: 05/18/21 17:47 Dose: 0 mls/hr Documented by: JAYNE Acetaminophen (Ofirmev) 1,000 mg in 100 mls @ 400 mls/hr IV Q6H PRN PRN Reason: abdominal pain Last Infusion: 05/20/21 12:18 Dose: 0 mls/hr Documented by: TERESA Insulin Glargine (Insulin Glargine,Hum.Rec.Anlog 100 Unit/Ml 10 Ml Vial) 25 unit SUBCUT DAILY [facility] Insulin Human Lispro (Insulin Lispro 100 Unit/Ml 3 Ml Vial) 0 unit SUBCUT Q6H [facility]; Protocol Last Admin: 05/20/21 11:51 Dose: 6 unit Documented by: TERESA Isosorbide Mononitrate (Isosorbide Mononitrate 30 Mg Tab.Er.24h) 30 mg PO DAILY [facility]; Protocol Last Admin: 05/20/21 09:22 Dose: 30 mg Documented by: TERESA Latanoprost (Latanoprost 0.005 % Ophth Elsa 2.5 Ml Drops) 1 drop EYE-BOTH BEDTIME [facility] Last Admin: 05/19/21 20:05 Dose: 1 drop Documented by: BINTA Levothyroxine Sodium (Levothyroxine Sodium 50 Mcg Tablet) 50 mcg PO DAILY@0630 [facility] Last Admin: 05/20/21 05:41 Dose: 50 mcg Documented by: ISRAEL Lidocaine (Lidocaine 4 % Patch Adh..Patch) 1 patch TRANSDERMA DAILY [facility]; Protocol Last Admin: 05/20/21 09:22 Dose: 1 patch Documented by: TERESA Lisinopril (Lisinopril 2.5 Mg Tablet) 2.5 mg PO DAILY [facility]; Protocol Last Admin: 05/20/21 09:22 Dose: 2.5 mg Documented by: TERESA Magnesium Hydroxide (Milk Of Magnesia 30 Ml Oral.Susp) 30 ml PO DAILY PRN PRN Reason: Constipation Last Admin: 05/17/21 17:00 Dose: 30 ml Documented by: SMITH Patient Own Medication ( Brimonidine 0.1 % Drops) 1 each EYE-BOTH BID [facility] Last Admin: 05/20/21 09:23 Dose: 1 each Documented by: TERESA Omeprazole (Omeprazole 40 Mg Capsule.Dr) 40 mg PO BID@0630,1630 [facility] Last Admin: 05/20/21 05:41 Dose: 40 mg Documented by: ISRAEL Ondansetron HCl (Ondansetron Hcl 4 Mg/2 Ml Vial) 4 mg IVPUSH Q8H PRN PRN Reason: Nausea and Vomiting Last Admin: 05/17/21 09:51 Dose: 4 mg Documented by: TERI Ondansetron HCl (Ondansetron Hcl 4 Mg/2 Ml Vial) 4 mg IVPUSH ONCE PRN PRN Reason: Nausea and Vomiting Last Admin: 05/18/21 15:10 Dose: 4 mg Documented by: MARIO Oxycodone HCl (Oxycodone Hcl Immed Release 5 Mg Tablet) 10 mg PO Q4H PRN PRN Reason: Pain, Severe (Pain Scale 7-10) Last Admin: 05/20/21 14:26 Dose: 10 mg Documented by: TERESA Spironolactone (Spironolactone 25 Mg Tablet) 25 mg PO DAILY [facility]; Protocol Last Admin: 05/20/21 09:21 Dose: 25 mg Documented by: TERESA Sucralfate (Sucralfate 1 Gm Tablet) 1 gm PO BIDAC [facility] Last Admin: 05/20/21 09:21 Dose: 1 gm Documented by: TERESA Labs CBC & Chem 7: 05/19/21 08:22 05/20/21 06:31 Labs: Laboratory Results - last 24 hr 05/19/21 05/19/21 05/20/21 15:50 19:38 06:31 Anion Gap 13 Estim Creat Clear Calc 91.5 Estimated GFR > 60 POC Glucose 274 H 228 H Random Glucose 232 H Calcium 8.3 L D 05/20/21 05/20/21 05/20/21 06:31 07:39 11:09 Anion Gap Estim Creat Clear Calc Estimated GFR POC Glucose 206 H 222 H 258 H Random Glucose Calcium Assessment and Plan (1) Choledocholithiasis: Status: Acute (2) DKA (diabetic ketoacidosis): Status: Acute (3) Elevated LFTs: Status: Acute Assessment and Plan: 65/F with complex medical issues --SEE H and P for detail, has diabetes, cardiomyopathy s/p AIC she presents with abd/back pain elevated LFTS and concern for cholangitis, and during hospitalization amada into DKA and went to ICU from 05/12 to 05/13 for insulin and IVF managemnet #Choledocholithiasis -no clinical evidence of cholangitis noted likely had cholecystitis and probably has passed a stone, LFTS trended down CBC today showed leukocytosis, patient afebrile ,blood cultures negative Complaining of persistent abdominal pain, nausea and constipation ERCP on 05/13 showed Severe erosive esophagitis, LA grade D, Severe ulcerative duodenitis, sphincterotomy with biliary debris removed. Continue PPI 40 mg b.i.d. and titrate down after 3 months, continue Carafate for 2 weeks, will follow H pylori result, repeat EGD in 3-4 months Patient is status post cholecystectomy 05/18 Patient received total 7-8 days of IV cefepime will follow CBC at a.m. if improv ing will hold off on further antibiotics. Will minimize narcotic medications will DC IV pain medication, encourage ambulation Resume aspirin and check with surgery when to resume brilinta Will add stool softeners, lactulose and as needed milk of Mag Minimize narcotics encourage ambulation. #Diabetes, DKA--s/p treatment in ICU and now resolved. She is a brittle diabetic due to decreased by mouth intake Lantus is on hold will resume low-dose Lantus 25 units at bedtime At home Lantus 70 qhs and Aspart 30 tid, FBS in 200s today, encourage by mouth intake ?# back pain- chronic, on Fentanyl patch at home, DC IV Dilaudid , continue as needed oxycodone #Elevated? troponin, EKG showing multiple abnormalities but nothing acute/history of CAD seen by cardio-thought to be elevated trops sec to cholangitis--no further w/u. No chest pain #abnormal CT lung findings- some nodules seen on CT scan given her history of breast cancer these will need follow-up on further evaluation as outpatient # hypertension--low blood pressure, will hold Aldactone # History of CHF--Presently Euvolemic.. -continue Coreg, continue Lasix, hold Aldactone and Lisinopril--monitor BP # Erosive esophagitis, duodenitis--High dose PPI 40 bid, Carafate as above DVT prophylaxis:? SCDs. Quality Stroke Does the patient have a stroke diagnosis?: No VTE Prior VTE?: No VTE Risk Level:: Medical - moderate - high VTE Device Contraindication: N/A - Device Ordered VTE Drug Contraindication: Treatment Not Indicated
[2021-05-20 16:20] LABS: Glucose, Whole Blood 297 mg/dL (60-115)
[2021-05-20] MEDS: Aspirin Enteric Coated 81 MG TABLET.DR PO (17:08)
[2021-05-20] MEDS: Milk of Magnesia 30 ML ORAL.SUSP 15 ML PO (17:09)
[2021-05-20] MEDS: oxyCODONE HCl Immed Release 5 MG TABLET PO ×2 (18:17→22:18)
[2021-05-20 21:02] LABS: Glucose, Whole Blood 266 mg/dL (60-115)
[2021-05-20] MEDS: Insulin Glargine,Hum.rec.anlog 100 UNIT/ML 10 ML VIAL 25 UNIT SUBCUT (22:19)
[2021-05-20] MEDS: Latanoprost 0.005 % Ophth Sol 2.5 ML DROPS 1 DROP EYE-BOTH (22:21)
[2021-05-21 04:00] VITALS: BP 133/63; PULSE 85; RESP 18; TEMP 35.7; O2SAT 94
[2021-05-21] MEDS: Levothyroxine Sodium 50 MCG TABLET PO (06:01)
[2021-05-21] MEDS: oxyCODONE HCl Immed Release 5 MG TABLET PO ×2 (06:01→11:43)
[2021-05-21] MEDS: Omeprazole 40 MG CAPSULE.DR PO (06:02)
[2021-05-21 06:18] LABS: MANUAL DIFF FLAG NO
[2021-05-21 06:25] LABS: Basophils Percent Auto 0.1 % (0-2); Hematocrit 39.6 % (37-47); Hemoglobin 12.7 g/dl (12.0-16.0); Imm Gran Abs Auto 0.05 X10*3/uL (0.00-0.03); Imm Gran Pct Auto 0.5 % (0.0-0.4); Lymphocytes Absolute Auto 2.2 X10*3/uL (1.2-4.9); Mean Corpuscular HGB Conc 32.1 g/dl (31.0-35.0); Mean Corpuscular Volume 84.3 fL (80-98); Monocytes Absolute Auto 0.8 X10*3/uL (0.1-1.2); Monocytes Percent Auto 8.4 % (2-11); Neutrophils Absolute Auto 6.8 X10*3/uL (2.0-8.3); Platelet Count 165 X10*3/uL (160-400); Red Cell Distribution Width 15.5 % (11.0-16.0); White Blood Count 9.8 X10*3/uL (4.8-10.8)
[2021-05-21 06:46] LABS: Glucose, Whole Blood 220 mg/dL (60-115)
[2021-05-21 07:08] LABS: Anion Gap 14 (12-20); Blood Urea Nitrogen 6 mg/dL (9-16); Calcium 8.7 mg/dL (8.4-10.2); Carbon Dioxide 27 mmol/L (22-29); Chloride 100 mmol/L (96-108); Creatinine Clr Calc Pharmacy 88.7; Estimated Glomerular Filt Rate > 60; Glucose Random 239 mg/dL (60-115); Potassium 4.5 mmol/L (3.3-5.1); Sodium 136 mmol/L (135-145)
[2021-05-21 07:26] VITALS: BP 118/58; PULSE 83; RESP 18; TEMP 37.2; O2SAT 95
[2021-05-21] MEDS: Insulin Lispro 100 UNIT/ML 3 ML VIAL SUBCUT ×2 (07:30→11:38)
[2021-05-21] MEDS: Lidocaine 4 % Patch ADH..PATCH 1 PATCH TRANSDERMA (07:31)
[2021-05-21] MEDS: Furosemide 20 MG TABLET PO (07:31)
[2021-05-21 07:32] VITALS: BP 118/58; PULSE 83
[2021-05-21] MEDS: Sucralfate 1 GM TABLET PO (07:32)
[2021-05-21] MEDS: Isosorbide Mononitrate 30 MG TAB.ER.24H PO (07:32)
[2021-05-21] MEDS: Aspirin Enteric Coated 81 MG TABLET.DR PO (07:32)
--- NOTE | 2021-05-21 08:16 | PM.PNGS ---
Subjective Subjective Date of Service: 05/21/21 Interval history: Patient feels improved today, does not like hospital food. Still has some pain but it is improved from yesterday. Physical Exam Vital Signs: Vital Signs: Last Vital Signs Temp 99.0 F 05/21/21 07:26 Pulse 83 05/21/21 07:32 Resp 18 05/21/21 07:26 BP 118/58 L 05/21/21 07:32 Pulse Ox 95 05/21/21 07:26 Oxygen Flow Rate 0 05/17/21 17:33 Body Mass Index 33.4 Const: General: no acute distress and well developed Nutritional Appearance: well nourished Orientation/consciousness: patient oriented x3 Limitations: no limitations Resp: Effort & Inspection: normal respiratory effort GI: Other: Incisions clean, dry, and intact. No redness or discharge. Abdomen is soft and nondistended. Neuro: General: patient oriented x3 Extrem: Other: No pedal edema Procedures Date of Service Date of Service: 05/21/21 Progress Note: A&P Assessment and plan (1) Choledocholithiasis: Status: Acute Assessment and Plan: 65-year-old female patient with prior history of choledocholithiasis, status post laparoscopic cholecystectomy postoperative day 3. She is much improved and her wounds are clean and intact. She is tolerating a diet and moving her bowels today. She should follow up my office in approximately 1 week for wound examination. No lifting greater than 10 lb for 2 weeks and avoid fatty foods for 1 month. Fall Risk Details Current Medications: Current Medications Albuterol Sulfate (Albuterol Sulfate (0.083%) 2.5 Mg/3 Ml Vial.Kaushik) 2.5 mg INHALE ONCE PRN PRN Reason: Wheezing Aspirin (Aspirin Enteric Coated 81 Mg Tablet.) 81 mg PO DAILY [facility] Last Admin: 05/21/21 07:32 Dose: 81 mg Documented by: Dextrose (Dextrose 50 % 25 Gm/50 Ml Vial) 25 gm IVPUSH Q15M PRN; Protocol PRN Reason: per Hypoglycemia Standing Ord. Docusate Sodium (Docusate Sodium 100 Mg Capsule) 100 mg PO BID [facility] Last Admin: 05/21/21 07:33 Dose: Not Given Documented by: Fentanyl (Fentanyl 50 Mcg Patch.Td72) 50 mcg TRANSDERMA Q72H [facility] Last Admin: 05/19/21 08:20 Dose: Not Given Documented by: Furosemide (Furosemide 20 Mg Tablet) 20 mg PO DAILY [facility]; Protocol Last Admin: 05/21/21 07:31 Dose: 20 mg Documented by: Glucose (Glucose Gel 15 Gm Gel..Gram.) 15 gm PO Q15M PRN; Protocol PRN Reason: per Hypoglycemia Standing Ord. Promethazine HCl 12.5 mg/ (Sodium Chloride) 50.5 mls @ 202 mls/hr IV ONCE PRN PRN Reason: Nausea and Vomiting Last Infusion: 05/18/21 17:47 Dose: Infused Documented by: Acetaminophen ([facility]) 1,000 mg in 100 mls @ 400 mls/hr IV Q6H PRN PRN Reason: abdominal pain Last Infusion: 05/20/21 19:00 Dose: Infused Documented by: Insulin Glargine (Insulin Glargine,Hum.Rec.Anlog 100 Unit/Ml 10 Ml Vial) 25 unit SUBCUT BEDTIME [facility] Last Admin: 05/20/21 22:19 Dose: 25 unit Documented by: Insulin Human Lispro (Insulin Lispro 100 Unit/Ml 3 Ml Vial) 0 unit SUBCUT Q6H [facility]; Protocol Last Admin: 05/21/21 07:30 Dose: 4 unit Documented by: Isosorbide Mononitrate (Isosorbide Mononitrate 30 Mg Tab.Er.24h) 30 mg PO DAILY [facility]; Protocol Last Admin: 05/21/21 07:32 Dose: 30 mg Documented by: Latanoprost (Latanoprost 0.005 % Ophth Elsa 2.5 Ml Drops) 1 drop EYE-BOTH BEDTIME [facility] Last Admin: 05/20/21 22:21 Dose: 1 drop Documented by: Levothyroxine Sodium (Levothyroxine Sodium 50 Mcg Tablet) 50 mcg PO DAILY@0630 [facility] Last Admin: 05/21/21 06:01 Dose: 50 mcg Documented by: Lidocaine (Lidocaine 4 % Patch Adh..Patch) 1 patch TRANSDERMA DAILY [facility]; Protocol Last Admin: 05/21/21 07:31 Dose: 1 patch Documented by: Magnesium Hydroxide (Milk Of Magnesia 30 Ml Oral.Susp) 30 ml PO DAILY PRN PRN Reason: Constipation Last Admin: 05/17/21 17:00 Dose: 30 ml Documented by: Patient Own Medication ( Brimonidine 0.1 % Drops) 1 each EYE-BOTH BID [facility] Last Admin: 05/20/21 22:21 Dose: 1 each Documented by: Omeprazole (Omeprazole 40 Mg Capsule.Dr) 40 mg PO BID@0630,1630 [facility] Last Admin: 05/21/21 06:02 Dose: 40 mg Documented by: Ondansetron HCl (Ondansetron Hcl 4 Mg/2 Ml Vial) 4 mg IVPUSH Q8H PRN PRN Reason: Nausea and Vomiting Last Admin: 05/17/21 09:51 Dose: 4 mg Documented by: Ondansetron HCl (Ondansetron Hcl 4 Mg/2 Ml Vial) 4 mg IVPUSH ONCE PRN PRN Reason: Nausea and Vomiting Last Admin: 05/18/21 15:10 Dose: 4 mg Documented by: Oxycodone HCl (Oxycodone Hcl Immed Release 5 Mg Tablet) 5 mg PO Q4H PRN PRN Reason: Pain, Severe (Pain Scale 7-10) Last Admin: 05/21/21 06:01 Dose: 5 mg Documented by: Sucralfate (Sucralfate 1 Gm Tablet) 1 gm PO BIDAC [facility] Last Admin: 05/21/21 07:32 Dose: 1 gm Documented by: Time Spent With Patient Time: Total time spent is greater than 50% in coordination of care (as documented) at patient's floor/unit and/or counseling patient: Time with patient: 15 - 24 minutes Quality Stroke Does the patient have a stroke diagnosis?: No VTE Prior VTE?: No VTE Risk Level:: Medical - moderate - high VTE Device Contraindication: N/A - Device Ordered VTE Drug Contraindication: Treatment Not Indicated
[2021-05-21 11:07] VITALS: BP 121/58; PULSE 83; RESP 20; TEMP 37.1; O2SAT 95
[2021-05-21 11:13] LABS: Glucose, Whole Blood 316 mg/dL (60-115)
--- NOTE | 2021-05-21 11:28 | P.DS_ITS ---
DS: Providers Provider Date of Service: 05/21/21 Date of admission: 05/10/21 23:07 Primary care physician: Saul Lazo MD Consults: 05/11/21 01:29 Consult to Gastroenterology Routine Consulting Provider: Cong Soto Reason for consultation: Dilated common bile duct, MRCP? Has provider been notified: Yes 05/11/21 12:40 Consult to Cardiology Routine Consulting Provider: Jayce Ortiz Reason for consultation: Elevated trops /ekg cnages t inversion lateral leads Has provider been notified: No 05/14/21 11:07 Consult to General Surgery Routine Consulting Provider: Jose Antonio Burnett Reason for consultation: gallstones DS: Diagnosis Discharge Diagnosis (1) Choledocholithiasis: Status: Acute DS: Summary Hospital Course Hospital Course: History of presenting illness Chief Complaint: back pain This is a 65 year old female with past medical history of hypothyroidism, coronary artery disease status post stent placement, HTN, diabetes, history of breast cancer, HLD, ICD in place, ischemic cardiomyopathy, among others who presents to the hospital with complaints of back pain that is localized to the region between the shoulder blades radiating down her back, not associated with any numbness or tingling in the arms or legs, patient denies any trauma or injury.? She describes the pain as shooting pain, not radiating to the chest, about 8/10, she had some nausea and some vomiting episode earlier but no abdominal pain, patient is also complaining of diarrhea for the past few days. She? denies having any chest pain, no shortness of breath, no abdominal pain nausea or vomiting, no diarrhea constipation, no urinary symptoms and no lower extremity edema.? She denies any fever or chills. All other review of system negative except as mentioned above On arrival to the ED patient hemodynamically stable with a temp of 98.8?, heart rate of 82, respiratory rate of 17, blood pressure 177 recently satting 90% on room air.? Patient did develop hypotension with a blood pressure of 95/46. Labs are significant for WBC of 16.6, hemoglobin of 16.7, total bili of 3.5, AST of 730, ALT of 529, alk-phos of 106, these were elevated on her previous visit her PCP in March, at that time her PCP had planned for ultrasound but patient has not undergone ultrasound yet. Patient also has an elevated troponin of 110, denies any chest pain, UA negative. LFTs patient underwent abdominal ultrasound that showed cholelithiasis with some low-level echoes within the common duct, she then underwent CT scan of the abdomen pelvis which showed some small lower lobe pulmonary nodules, given the history of breast cancer close follow-up is warranted, patient also found to have fatty change in the liver with prominent common duct.? In the presence of elevated liver function testing and cholelithiasis MRCP may be warranted Hospital course 65/F with complex medical issues --SEE H and P for detail, has diabetes, cardiomyopathy s/p AICD presents with abd/back pain elevated LFTS and concern f or cholangitis, and during hospitalization went into DKA and went to ICU from 05/12 to 05/13 for insulin and IVF management, patient was admitted to intermediate care unit initially felt to have cholangitis but had no clinical evidence patient had choledocholithiasis and underwent ERCP on 05/13 that showed severe erosive esophagitis, severe ulcerative duodenitis, in speaking to retro me with biliary depressed was removed during the procedure subsequently patient placed on Prilosec 40 mg b.i.d. to be taken for 3 months she has also placed on Carafate twice daily for 2 weeks she has been recommended to have a repeat EGD in 3-4 months, subsequently patient underwent cholecystectomy on 05/18, patient was treated with a course of IV cefepime for 8 days a repeat CBC showed normal white cell count and stable hematocrit, currently patient is tolerating regular diet she has been instructed to follow up with Dr. Burnett and 1 week time. During hospitalization patient developed DKA therefore required treatment in ICU subsequently blood sugars remain stable her dose of Lantus and insulin has been reduced due to poor by mouth intake she has been recommended to adjust home dose of insulin if noted to have elevated blood sugars. Patient was noted to have elevated troponin but no acute EKG changes were noted patient was seen by Cardiology and elevated report troponins were felt to be related to infection no further workup was recommended patient has been continued on home medication except Aldactone and lisinopril are held due to low blood pressure patient has been recommended to have close outpatient follow-up with Cardiology in next 1-2 weeks. Patient noted to have abnormal CT lung findings she needs outpatient follow-up with primary care physician due to prior history of breast cancer. Time Spent with Patient Time attestation: Total time spent providing and/or coordinating discharge services: Discharge coordination time: Greater than 30 minutes Quality: Stroke Does the patient have a stroke diagnosis?: No Physical Exam Vital Signs: Vital Signs: Last Vital Signs Temp 98.8 F 05/21/21 11:07 Pulse 83 05/21/21 11:07 Resp 20 05/21/21 11:07 BP 121/58 L 05/21/21 11:07 Pulse Ox 95 05/21/21 11:07 Oxygen Flow Rate 0 05/17/21 17:33 Body Mass Index 33.4 General no acute d istress.? Neck sup ple no JVD. CVS? r egular rate rhythm , Respiratory lung s clear to auscult ation, no respirat ory distress, no w heeze, no rhonchi. Gastrointestinal abdomen soft, nont karen, bowel sound s audible, no guar ding , no rigidity ,dressing in place Extremities no? e lamine. Neuro nonfoc al , speech clear. Skin no rash DS: Data Data Completed and Pending Completed studies during hospitalization [Text1]: Pending at discharge 05/13/21 18:24 Surgical [PTH] Routine 05/18/21 14:08 Surgical [PTH] Routine Labs on day of discharge: Laboratory Results - last 24 hr 05/20/21 05/20/21 05/20/21 11:09 16:04 20:55 WBC RBC Hgb Hct MCV MCH MCHC RDW Plt Count MPV Immature Gran % (Auto) Neut % (Auto) Lymph % (Auto) Fountain % (Auto) Eos % (Auto) Baso % (Auto) Lymph # (Auto) Fountain # (Auto) Eos # (Auto) Baso # (Auto) Abs Immat Gran (auto) Absolute Neuts (auto) Absolute Nucleated RBC Nucleated RBC % (auto) Sodium Potassium Chloride Carbon Dioxide Anion Gap BUN Creatinine Estim Creat Clear Calc Estimated GFR POC Glucose 258 H 297 H 266 H Random Glucose Calcium 05/21/21 05/21/21 05/21/21 05:44 05:44 06:41 WBC 9.8 RBC 4.70 Hgb 12.7 Hct 39.6 MCV 84.3 MCH 27.0 MCHC 32.1 RDW 15.5 Plt Count 165 MPV 11.0 Immature Gran % (Auto) 0.5 H Neut % (Auto) 69.0 Lymph % (Auto) 22.0 Fountain % (Auto) 8.4 Eos % (Auto) 0.0 Baso % (Auto) 0.1 Lymph # (Auto) 2.2 Fountain # (Auto) 0.8 Eos # (Auto) 0.0 Baso # (Auto) 0.0 Abs Immat Gran (auto) 0.05 H Absolute Neuts (auto) 6.8 Absolute Nucleated RBC 0.000 Nucleated RBC % (auto) 0.0 Sodium 136 Potassium 4.5 Chloride 100 Carbon Dioxide 27 Anion Gap 14 BUN 6 L Creatinine 0.68 Estim Creat Clear Calc 88.7 Estimated GFR > 60 POC Glucose 220 H Random Glucose 239 H Calcium 8.7 05/21/21 11:06 WBC RBC Hgb Hct MCV MCH MCHC RDW Plt Count MPV Immature Gran % (Auto) Neut % (Auto) Lymph % (Auto) Fountain % (Auto) Eos % (Auto) Baso % (Auto) Lymph # (Auto) Fountain # (Auto) Eos # (Auto) Baso # (Auto) Abs Immat Gran (auto) Absolute Neuts (auto) Absolute Nucleated RBC Nucleated RBC % (auto) Sodium Potassium Chloride Carbon Dioxide Anion Gap BUN Creatinine Estim Creat Clear Calc Estimated GFR POC Glucose 316 H Random Glucose Calcium Discharge Plan Discharge Patient Disposition: Home Health Service Discharge Diagnosis: choledocholithiasis DKA Status post cholecystectomy Abnormal CT lungs Erosive esophagitis/duodenitis Elevated troponin Referrals: Saul Lazo MD [Primary Care Provider] - 1 Week Jose Antonio Burnett MD [Physician] - 1 Week Discharge Medications: New sucralfate 1 gram Tablet 1 g PO BIDAC Qty: 28 RF: 0 omeprazole 40 mg Capsule,Delayed Release(Dr/Ec) 40 mg PO BID@0630,1630 Qty: 60 RF: 0 docusate sodium 100 mg Capsule 100 mg PO BID Qty: 60 RF: 0 Continued empagliflozin [Jardiance] 25 mg tablet 25 mg PO DAILY Qty: 90 RF: 3 levothyroxine 50 mcg tablet 50 mcg PO QAM Qty: 90 RF: 3 gabapentin 400 mg capsule 400 mg PO TID Qty: 270 RF: 3 carvedilol 3.125 mg tablet 3.125 mg PO BID Qty: 180 RF: 1 isosorbide mononitrate 30 mg tablet extended release 24 hr 30 mg PO QAM 30 Days Qty: 30 RF: 0 fentanyl 50 mcg/hr patch 72 hour 1 patch transdermal Q72H 30 Days Qty: 10 RF: 0 furosemide 20 mg tablet 20 mg PO DAILY Qty: 30 RF: 3 lorazepam 0.5 mg tablet 0.5 mg PO DAILY PRN (Reason: anxiety) 30 Days Qty: 30 RF: 0 docusate sodium [Colace] 100 mg Capsule 100 mg PO BEDTIME RF: 0 Brilinta 90 mg tablet 1 tab PO BID RF: 0 atorvastatin 80 mg tablet 1 tab PO DAILY RF: 0 aspirin 81 mg tablet,delayed release (DR/EC) 81 mg PO DAILY RF: 0 brimonidine 0.1 % drops 1 drp ophthalmic (eye) BID RF: 0 latanoprost 0.005 % drops 1 drp ophthalmic (eye) BEDTIME RF: 0 Changed insulin aspart U-100 [Novolog Flexpen U-100 Insulin] 100 unit/mL (3 mL) insulin pen 15 unit subcut TID Qty: 81 RF: 3 Levemir FlexTouch U-100 Insuln 100 unit/mL (3 mL) insulin pen 50 unit subcut DAILY Qty: 63 RF: 6 Held spironolactone 25 mg tablet 25 mg PO DAILY Qty: 90 RF: 0 Hold Instructions: Resume on 05/25/21. Discontinued lisinopril 2.5 mg tablet 2.5 mg PO DAILY 90 Days Qty: 90 RF: 1 No Action (DME) blood-glucose meter [Accu-Chek Catie Plus Meter] Misc See Rx Instructions .ROUTE .MEDSUPPLY Qty: 1 RF: 0 Discharge Orders: Discharge Order (Routine); Ordered 05/21/21 Ordered By: Carolyne Haney Diet: diabetic diet and low fat, low cholesterol Activity on Discharge: As tolerated Stand Alone Forms: Patient Portal Discharge page Activity Restrictions/Additional Instructions: If the incision area is tender, you may apply an ice pack for short intervals (No more than 20 minutes on, followed by at least 20 minutes off). Do not apply heat. Do not use creams, lotions, or topical antibiotics unless instructed to do so by your surgeon. These can cause infection or allergic reaction. Ok to shower. Remove clear dressings 3 days following your procedure. You have steri strips (small white cloth strips) covering your incision- these will fall off ~1 week. No heavy lifting (>10lbs)! Follow up in office with Dr. Burnett in 1 week. ([phone]) Call Your Doctor If: -Your temperature exceeds 101.5? F -You experience excessive pain or swelling -You have an unexpected reaction to medication -You have excessive bleeding -You experience continued vomiting/nausea -Your incision begins to separate -Your incision shows signs of infection such as increased redness, swelling, excessive pain, drainage (light blood or clear fluid is normal) or heat Care Plan Goals: Dose of Lantus and insulin reduced due to decreased by mouth intake,if noted to have elevated blood sugars resume baseline dosages of Lantus and pre meal insulin, Aldactone and lisinopril held due to low blood pressure follow BP and resume medications if blood pressure allows, follow-up with cardiology to adjust baseline medication. Increase ambulation as tolerated Health Concerns: Diabetes mellitus/CHF take all medications as before follow diabetic and low-fat diet Plan of Treatment: Outpatient follow-up with Dr. Burnett in 1 week, follow-up with primary care physician in 1 week and follow-up with Cardiology on a regular basis Assessment: As above
[2021-05-21 11:55] VITALS: BP 121/58; PULSE 83; O2SAT 95
--- NOTE | 2021-05-21 12:24 | MHC.CM.PN ---
Patient has been medically cleared for dc to home today, with services. CM spoke with Daughter/Emily @ [phone] who has indicated that Patient receives [facility] services through [facility] 7 days/week, but not a RN. With PATIENT/Emily's permission, A REFERRAL HAS BEEN MADE TO [facility], WHO HAS BEEN NOTIFIED OF TODAY'S DC. imm TO BE ADDRESSED WITH pATIENT AND ORIGINAL WILL BE GIVEN TO HER AND A COPY PLACED ON THE CHART.pATIENT/dAUGHTER ARE AWARE OF AND IN AGREEMENT WITH THE DC PLAN.
--- NOTE | 2021-05-21 15:34 | P.F2F_ITS ---
Service Date Service Date: 05/21/21 Encounter Date of encounter: 05/21/21 Reasons for Services Signs and symptoms assessed: Blood pressure and blood sugar monitoring Reason for long-term: postoperative assessment and/or care, diabetic teaching and medication management Homebound: Leaving the home is medically contraindicated at this time without the asist of a device and/or another person due th the listed conditions above and below. Reason homebound: weakness related to hospital stay Certification: Based on the above findings, I certify that this patient is confined to the home and needs intermittent long-term care, physical therapy and/or speech therapy, or continues to need occupational therapy. The patient is under my care, and I have initiated the establishment of the plan of care. The patient will be followed by a physician who will periodically review the plan of care.
== END 2021-05-21 14:46 | disposition home health service (06) | DRG 418 ==
LOC: HO.ED 21:12 → HO.EDOVER 23:26 → HO.S3 05-11 18:29 → HO.ICU 05-12 13:25 → HO.IMC 05-13 18:19
PROVIDERS: Internal Medicine; Internal Medicine Gastroenterology; Internal Medicine Pulmonary Disease; Surgery; Admitting Provider Internal Medicine; Emergency Provider Emergency Medicine; PCP Internal Medicine; Visit Provider Hospitalist
PROC: 0F798ZZ Dilation of Common Bile Duct, Via Natural or Artificial Opening Endoscopic (ICD-10-PCS; CPT 43260; principal; 2021-05-13 16:30)
PROC: 0FT44ZZ Resection of Gallbladder, Percutaneous Endoscopic Approach (ICD-10-PCS; CPT 47562; principal; 2021-05-18 13:00)
DX: K80.30 Calculus of bile duct with cholangitis, unspecified, without obstruction (principal); K22.10 Ulcer of esophagus without bleeding; E11.10 Type 2 diabetes mellitus with ketoacidosis without coma; I25.10 Atherosclerotic heart disease of native coronary artery without angina pectoris; I25.5 Ischemic cardiomyopathy; E03.9 Hypothyroidism, unspecified; G89.29 Other chronic pain; E11.42 Type 2 diabetes mellitus with diabetic polyneuropathy; I11.0 Hypertensive heart disease with heart failure; I50.9 Heart failure, unspecified; E66.9 Obesity, unspecified; Z68.33 Body mass index [BMI] 33.0-33.9, adult; Z95.1 Presence of aortocoronary bypass graft; R91.8 Other nonspecific abnormal finding of lung field; I95.9 Hypotension, unspecified; Z20.822 Contact with and (suspected) exposure to COVID-19; K80.80 Other cholelithiasis without obstruction; Z95.810 Presence of automatic (implantable) cardiac defibrillator; K29.80 Duodenitis without bleeding; Z85.3 Personal history of malignant neoplasm of breast; Z79.4 Long term (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 of insulin; Z79.01 Long term (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 of anticoagulants; Z79.82 Long term (current) use of aspirin; Z79.890 Hormone replacement therapy; Z79.891 Long term (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 of opiate analgesic; Z79.899 Other long term (current) drug therapy
CPT/HCPCS: 36415; 71045; 71260; 72020; 72070; 74177; 76700; 80048; 80051; 80053; 80076; 81001; 82009; 82010; 82040; 82248; 82803; 82941; 82947; 83605; 83690; 83735; 84100; 84484; 85025; 85027; 85610; 87040; 87635; 88304; 88305; 88342; 93005; 96361; 96365; 96375; 97110; 97116; 97162; 99024; 99285; C1758; J0131; J0692; J1170; J1610; J1885; J2250; J2270; J2370; J2405; J2550; J3010; Q9967

== ENCOUNTER 2021-05-29 09:12 | Outpatient (REF) | payer MEDICARE, MEDICAID, SELFPAY ==
[2021-05-29 13:43] LABS: Appearance Urine CLEAR; Color Urine YELLOW; Glucose Urine UA NEG (NEG); Leukocyte Esterase Urine NEG (NEG); Nitrite Urine NEG (NEG); Specific Gravity - Urine 1.025 (1.005-1.025); Urine Blood NEG (NEG); Urine Ketones NEG (NEG); Urine Protein TRACE MG/DL (NEG-TRACE)
[2021-05-29 13:47] LABS: Glucose Random 223 mg/dL (60-115)
[2021-05-29 13:56] LABS: Alanine Aminotransferase 24 U/L (0-31); Albumin Level 3.7 g/dL (3.5-5.0); Alkaline Phosphatase 71 U/L (39-117); Anion Gap 11 (12-20); Aspartate Amino Transferase 23 U/L (5-31); Bilirubin Direct 0.3 mg/dL (0.0-0.5); Bilirubin Total 0.7 mg/dL (0.0-1.0); Blood Urea Nitrogen 11 mg/dL (9-16); Calcium 9.3 mg/dL (8.4-10.2); Carbon Dioxide 27 mmol/L (22-29); Chloride 104 mmol/L (96-108); Estimated Glomerular Filt Rate > 60; Glucose Random 220 mg/dL (60-115); Potassium 5.1 mmol/L (3.3-5.1); Sodium 137 mmol/L (135-145); Total Protein 7.4 g/dL (6.5-8.0)
== END 2021-05-29 09:13 | disposition home or self-care (01) ==
LOC: HO.LAB 09:12
PROVIDERS: Absent Provider Nurse Practitioner Family; PCP Internal Medicine; Referring Provider Internal Medicine; Visit Provider Surgery
DX: Z09 Encounter for follow-up examination after completed treatment for conditions other than malignant neoplasm (principal); Z87.19 Personal history of other diseases of the digestive system; Z90.49 Acquired absence of other specified parts of digestive tract; I10 Essential (primary) hypertension; E11.42 Type 2 diabetes mellitus with diabetic polyneuropathy; Z79.4 Long term (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 of insulin
CPT/HCPCS: 36415; 80048; 80076; 81003; 82947; 99212

== ENCOUNTER → 2021-07-14 14:36 | Outpatient (BNVA) | payer MEDICARE, MEDICAID, SELFPAY | PROVIDERS: PCP Internal Medicine; Visit Provider Internal Medicine | DX: R91.8 Other nonspecific abnormal finding of lung field (principal) | CPT/HCPCS: 99202 ==

== ENCOUNTER → 2021-07-15 12:51 | Outpatient (BNVA) | payer MEDICARE, MEDICAID, SELFPAY | PROVIDERS: PCP Internal Medicine; Referring Provider Internal Medicine; Visit Provider Internal Medicine | DX: I25.5 Ischemic cardiomyopathy (principal); I25.10 Atherosclerotic heart disease of native coronary artery without angina pectoris; I47.2 Ventricular tachycardia; Z95.810 Presence of automatic (implantable) cardiac defibrillator | CPT/HCPCS: 99212 ==

== ENCOUNTER 2021-07-29 11:15 | Outpatient (REF) | payer MEDICARE, MEDICAID, SELFPAY ==
[2021-07-29 13:16] LABS: Anion Gap 14 (12-20); Blood Urea Nitrogen 17 mg/dL (9-16); Calcium 9.9 mg/dL (8.4-10.2); Carbon Dioxide 24 mmol/L (22-29); Chloride 103 mmol/L (96-108); Estimated Glomerular Filt Rate > 60; Glucose Random 207 mg/dL (60-115); Potassium 5.1 mmol/L (3.3-5.1); Sodium 136 mmol/L (135-145)
== END 2021-07-29 11:16 | disposition home or self-care (01) ==
LOC: HO.LAB 11:15
PROVIDERS: PCP Internal Medicine; Visit Provider Internal Medicine
DX: I25.5 Ischemic cardiomyopathy (principal)
CPT/HCPCS: 36415; 80048

== ENCOUNTER 2021-10-29 12:49 | Outpatient (REF) | payer OTHER, MEDICAID, SELFPAY ==
--- NOTE | ~2021-10-29 | CT_ITS ---
EXAMINATION: CT CHEST WITHOUT CONTRAST CLINICAL INFORMATION: Follow-up pulmonary nodules COMPARISON: Previous chest CT April 2021 TECHNIQUE: Multidetector volumetric CT imaging of the chest was done. Axial MIP volume rendering provided. Sagittal and coronal reformatted images were obtained. This CT examination was performed using dose optimization techniques as appropriate, variously including the following: *Automated exposure control *Adjustment of mA and/or kV according to patient size (this includes techniques or standardized protocols for targeted exams where dose is matched to indication/reason for exam; i.e. extremities or head) *Use of iterative reconstruction technique DLP: 209 mGy-cm FINDINGS: LUNGS: Exam is limited due to respiratory motion artifact. Elevated right hemidiaphragm.There is question of a 5 mm right lower lobe nodule, axial image 237 series 5, similar to April 2021 exam. There is question of a 3 mm left lower lobe nodule, axial image 277 series 5, similar to April 2021 exam as well. No other pulmonary nodule is seen. MEDIASTINUM: The heart is enlarged. There is coronary artery calcification. Left subclavian AICD device appears unchanged. There are no enlarged hilar or mediastinal lymph nodes. There is no pericardial effusion. The thoracic aorta is normal in caliber. PLEURA: There is no pleural effusion. No pleural mass or thickening. AXILLA: No lymphadenopathy. UPPER ABDOMEN: The gallbladder has been removed. There is pneumobilia. OSSEOUS STRUCTURES: There are degenerative changes of the spine and curvature to the right. CT/CT chest wo con IMPRESSION: Stable chest CT exam. Slight elevation of the right hemidiaphragm. Limited evaluation of the lungs due to respiratory motion artifact. The questioned bilateral lower lobe pulmonary nodules appear unchanged. Fleischner guidelines were followed.
== END 2021-10-29 12:50 | disposition home or self-care (01) ==
LOC: HO.CT 12:49
PROVIDERS: PCP Internal Medicine; Visit Provider Internal Medicine
DX: R91.8 Other nonspecific abnormal finding of lung field (principal)
CPT/HCPCS: 71250

== ENCOUNTER → 2021-11-12 14:01 | Outpatient (BNVA) | payer OTHER, MEDICAID, SELFPAY | PROVIDERS: PCP Internal Medicine; Visit Provider Internal Medicine | DX: R91.8 Other nonspecific abnormal finding of lung field (principal); R06.00 Dyspnea, unspecified; Q79.1 Other congenital malformations of diaphragm | CPT/HCPCS: 99212 ==

== ENCOUNTER 2021-12-11 13:52 | Outpatient (REF) | payer OTHER, MEDICAID, SELFPAY ==
--- NOTE | 2021-12-11 07:40 | PFT_ITS ---
FLOWS: The patient was unable to successfully complete pulmonary function test maneuvers, despite several attempts. IMPRESSION: Aborted pulmonary function test. MD KEENAN Montoya/GAYATRI / [id number]
== END 2021-12-11 13:53 | disposition home or self-care (01) ==
LOC: HO.RESP 13:52
PROVIDERS: PCP Internal Medicine; Visit Provider Internal Medicine
DX: Z13.89 Encounter for screening for other disorder (principal)

== ENCOUNTER 2021-12-12 08:15 | Outpatient (REF) | payer OTHER, MEDICAID, SELFPAY ==
[2021-12-12 08:26] LABS: MANUAL DIFF FLAG NO
[2021-12-12 08:41] LABS: Basophils Percent Auto 0.4 % (0-2); Hematocrit 44.5 % (37.0-47.0); Hemoglobin 14.2 g/dl (12.0-16.0); Imm Gran Abs Auto 0.02 X10*3/uL (0.00-0.03); Imm Gran Pct Auto 0.3 % (0.0-0.4); Lymphocytes Absolute Auto 2.6 X10*3/uL (1.2-4.9); Lymphocytes Percent Auto 33.2 % (20-40); Mean Corpuscular HGB Conc 31.9 g/dl (31.0-35.0); Mean Corpuscular Hemoglobin 26.2 pg (27.0-33.0); Mean Platelet Volume 11.3 fL (9.4-12.3); Monocytes Absolute Auto 0.6 X10*3/uL (0.1-1.2); Monocytes Percent Auto 7.1 % (2-11); Neutrophils Absolute Auto 4.6 x10*3/uL (2.0-8.3); Platelet Count 197 X10*3/uL (160-400); Red Blood Count 5.43 X10*6/uL (4.20-5.50); Red Cell Distribution Width 15.9 % (11.0-16.0); White Blood Count 7.7 X10*3/uL (4.8-10.8)
[2021-12-12 08:56] LABS: Alanine Aminotransferase 16 U/L (0-31); Albumin Level 4.2 g/dL (3.5-5.0); Alkaline Phosphatase 53 U/L (39-117); Anion Gap 14 (12-20); Aspartate Amino Transferase 17 U/L (5-31); Bilirubin Total 0.4 mg/dL (0.0-1.0); Blood Urea Nitrogen 22 mg/dL (9-16); Calcium 9.7 mg/dL (8.4-10.2); Carbon Dioxide 25 mmol/L (22-29); Chloride 103 mmol/L (96-108); Cholesterol 136 mg/dL; Estimated Glomerular Filt Rate > 60; Glucose Fasting 153 mg/dL (60-99); HDL Cholesterol 38 mg/dL; LDL Cholesterol Calculated 70 mg/dl; Potassium 4.6 mmol/L (3.3-5.1); Sodium 137 mmol/L (135-145); Total Protein 7.7 g/dL (6.5-8.0); Triglycerides 141 mg/dL
[2021-12-12 09:19] LABS: TSH reflex Free T4 8.61 uIU/mL (0.32-4.0); Vitamin D 25-OH Total 37.3 ng/mL (>30)
[2021-12-12 09:35] LABS: Estimated Average Glucose 183 mg/dL
[2021-12-12 10:09] LABS: Free T4 (Free Thyroxine) 0.95 ng/dL (0.71-1.85)
[2021-12-12 10:21] LABS: Microalbum/Creatinine Ratio Ur 45.2 ug/mg cr
[2021-12-12 10:43] LABS: Appearance Urine HAZY; Color Urine YELLOW; Glucose Urine UA >=1000 MG/DL (NEG); Leukocyte Esterase Urine NEG (NEG); Nitrite Urine NEG (NEG); Urine Blood NEG (NEG); Urine Ketones NEG (NEG); Urine Protein NEG (NEG-TRACE)
[2021-12-12 10:51] LABS: Bacteria Urine TRACE /LPF; Mucus Urine TRACE /LPF; RBC Urine 0-2 /HPF (0); Squamous Epithelial Cell Urine 1+ /LPF; WBC Urine 0-2 /HPF (0-4)
== END 2021-12-12 08:16 | disposition home or self-care (01) ==
LOC: HO.LAB 08:15
PROVIDERS: PCP Internal Medicine; Visit Provider Internal Medicine
DX: E11.9 Type 2 diabetes mellitus without complications (principal); E55.9 Vitamin D deficiency, unspecified; E78.00 Pure hypercholesterolemia, unspecified; I10 Essential (primary) hypertension
CPT/HCPCS: 36415; 80053; 80061; 81001; 81003; 82043; 82306; 83036; 84439; 84443; 85025

== ENCOUNTER → 2021-12-15 14:43 | Outpatient (BNVA) | payer OTHER, MEDICAID, SELFPAY | PROVIDERS: Visit Provider Obstetrics & Gynecology | DX: Z01.419 Encounter for gynecological examination (general) (routine) without abnormal findings (principal); Z78.0 Asymptomatic menopausal state ==

== ENCOUNTER → 2022-01-06 12:54 | Outpatient (BNVA) | payer OTHER, SELFPAY | PROVIDERS: PCP Internal Medicine; Referring Provider Internal Medicine; Visit Provider Internal Medicine | DX: I25.5 Ischemic cardiomyopathy (principal); I25.10 Atherosclerotic heart disease of native coronary artery without angina pectoris; I47.2 Ventricular tachycardia; Z95.810 Presence of automatic (implantable) cardiac defibrillator | CPT/HCPCS: 93005; 99212 ==

== ENCOUNTER 2022-01-07 09:23 | Outpatient (REF) | payer OTHER, SELFPAY ==
--- NOTE | ~2022-01-07 | XR_ITS ---
EXAMINATION: XR CALCANEUS, LEFT CLINICAL INFORMATION: Pain COMPARISON: None TECHNIQUE: Lateral and axial views of the left calcaneus were obtained. FINDINGS: No fracture of the calcaneus. Small posterior and plantar calcaneal enthesophytes. No gross ankle joint effusion. Mild degenerative changes of the midfoot. XR/XR calcaneus LT min 2V IMPRESSION: No fracture
== END 2022-01-07 09:24 | disposition home or self-care (01) ==
LOC: HO.XRAY 09:23
PROVIDERS: PCP Internal Medicine; Visit Provider Physician Assistant
DX: M79.672 Pain in left foot (principal)
CPT/HCPCS: 73650

== ENCOUNTER → 2022-01-11 14:55 | Outpatient (BNVA) | payer OTHER, SELFPAY | PROVIDERS: PCP Internal Medicine; Visit Provider Internal Medicine | DX: R06.00 Dyspnea, unspecified (principal); R91.8 Other nonspecific abnormal finding of lung field | CPT/HCPCS: 99212 ==

== ENCOUNTER 2022-04-03 08:42 | Outpatient (REF) | payer OTHER, SELFPAY ==
[2022-04-03 08:55] LABS: MANUAL DIFF FLAG NO
[2022-04-03 09:16] LABS: Basophils Percent Auto 0.4 % (0-2); Hemoglobin 14.2 g/dl (12.0-16.0); Imm Gran Abs Auto 0.04 X10*3/uL (0.00-0.03); Imm Gran Pct Auto 0.4 % (0.0-0.4); Lymphocytes Absolute Auto 2.8 X10*3/uL (1.2-4.9); Lymphocytes Percent Auto 29.8 % (20-40); Mean Corpuscular HGB Conc 32.3 g/dl (31.0-35.0); Mean Corpuscular Hemoglobin 26.3 pg (27.0-33.0); Mean Corpuscular Volume 81.6 fL (80.0-98.0); Mean Platelet Volume 10.7 fL (9.4-12.3); Monocytes Absolute Auto 0.7 X10*3/uL (0.1-1.2); Neutrophils Absolute Auto 5.8 x10*3/uL (2.0-8.3); Neutrophils Percent Auto 62.4 % (45-73); Platelet Count 184 X10*3/uL (160-400); Red Blood Count 5.39 X10*6/uL (4.20-5.50); Red Cell Distribution Width 15.9 % (11.0-16.0); White Blood Count 9.2 X10*3/uL (4.8-10.8)
[2022-04-03 09:24] LABS: Appearance Urine HAZY; Color Urine STRAW; Glucose Urine UA >=1000 MG/DL (NEG); Leukocyte Esterase Urine NEG (NEG); Nitrite Urine NEG (NEG); UACC Culture Trigger NO; Urine Blood TRACE (NEG); Urine Ketones NEG (NEG); Urine Protein NEG (NEG-TRACE)
[2022-04-03 09:32] LABS: Estimated Average Glucose 200 mg/dL; Hemoglobin A1c % 8.6 %
[2022-04-03 09:40] LABS: Alanine Aminotransferase 18 U/L (0-31); Albumin Level 4.3 g/dL (3.5-5.0); Alkaline Phosphatase 56 U/L (39-117); Anion Gap 16 (12-20); Aspartate Amino Transferase 14 U/L (5-31); Bilirubin Total 0.5 mg/dL (0.0-1.0); Blood Urea Nitrogen 25 mg/dL (9-16); Calcium 9.6 mg/dL (8.4-10.2); Carbon Dioxide 25 mmol/L (22-29); Chloride 100 mmol/L (96-108); Cholesterol 162 mg/dL; Creatinine Urine 55.92 mg/dL; Estimated Glomerular Filt Rate > 60; Glucose Fasting 181 mg/dL (60-99); HDL Cholesterol 38 mg/dL; LDL Cholesterol Calculated 69 mg/dl; Microalbum/Creatinine Ratio Ur 26.8 ug/mg cr; Potassium 4.6 mmol/L (3.3-5.1); Sodium 136 mmol/L (135-145); Total Protein 7.9 g/dL (6.5-8.0); Triglycerides 277 mg/dL
[2022-04-03 09:50] LABS: Bacteria Urine 1+ /LPF; RBC Urine 0-2 /HPF (0); Squamous Epithelial Cell Urine 3+ /LPF
[2022-04-03 10:03] LABS: Free T4 (Free Thyroxine) 1.04 ng/dL (0.71-1.85); Thyroid Stimulating Hormone 4.13 uIU/mL (0.32-4.0)
[2022-04-03 10:06] LABS: Vitamin D 25-OH Total 40.7 ng/mL (>30)
== END 2022-04-03 08:43 | disposition home or self-care (01) ==
LOC: HO.LAB 08:42
PROVIDERS: PCP Internal Medicine; Visit Provider Internal Medicine
DX: E11.9 Type 2 diabetes mellitus without complications (principal); E03.9 Hypothyroidism, unspecified; E55.9 Vitamin D deficiency, unspecified; I10 Essential (primary) hypertension; E78.00 Pure hypercholesterolemia, unspecified
CPT/HCPCS: 36415; 80053; 80061; 81001; 82043; 82306; 83036; 84439; 84443; 85025

== ENCOUNTER 2022-04-22 10:20 | Outpatient (REF) | payer OTHER, SELFPAY ==
--- NOTE | ~2022-04-22 | MM_ITS ---
EXAMINATION: BONE DENSITOMETRY CLINICAL INDICATION: Menopause. COMPARISON: Previous BD dated 08/05/2016 and baseline BD dated 01/02/2009. TECHNIQUE: Using a [employer] DXA System (software version: 13.1) manufactured by [employer], dual-energy x-ray absorptiometry was performed of the lumbar spine and left hip. The images are of good technical quality. Summary results are attached. FINDINGS: AP SPINE L1-L4: Current: BMD 1.387 g/cm2, Z-score 2.3, T-score 1.7, normal, 1.8% decrease from previous, 3.0% increase from baseline (<5% change is not significant). Prior: BMD 1.412 g/cm2. Baseline: BMD 1.347 g/cm2. LEFT FEMUR, NECK: Current: BMD 1.084 g/cm2, Z-score 1.2, T-score 0.3, normal. Prior: BMD 1.200 g/cm2. Baseline: BMD 1.099 g/cm2. LEFT FEMUR, TOTAL: Current: BMD 1.191 g/cm2, Z-score 2.0, T-score 1.5, normal, 2.3% decrease from previous, 3.0% decrease from baseline (<5% change is not significant). Prior: BMD 1.219 g/cm2. Baseline: BMD 1.228 g/cm2. IDENTIFIED RISK FACTORS: Menopause, height loss, low calcium intake, secondary osteoporosis. HISTORY OF FRACTURE: None listed. MEDICATIONS: Vitamin D. MM/XR DEXA axial skeleton IMPRESSION: 1. DIAGNOSIS: Normal bone density based on the lowest T-score value of 0.3 in the femoral neck applying World Health Organization criteria. 2. 10-YEAR FRACTURE RISK PREDICTION, FRAX: Major osteoporotic fracture (clinical spine, forearm, hip or shoulder) 3.3%. Hip fracture 0.1%. 3. Treatment Recommendations: NOF guidelines recommend consideration for treatment in postmenopausal women and men age 50 and older presenting with the following: -A hip or vertebral (clinical or morphometric) fracture. -T-score less than or equal to -2.5 at the femoral neck or spine after appropriate evaluation to exclude secondary causes. -Low bone mass at the hip or spine and a 10-year fracture probability by FRAX of greater than or equal to 3% for hip fracture or greater than or equal to 20% for major osteoporotic fracture based on the [place] adapted WHO algorithm. 4. Other Recommendations: All treatment decisions require clinical judgment and consideration of individual patient factors, including patient preferences, comorbidities, previous drug use, risk factors not captured in the FRAX model (e.g. frailty, falls, vitamin D deficiency, increased bone turnover, interval significant decline in bone density) and possible under or overestimation of fracture risk by FRAX. FUTURE SCAN RECOMMENDATION: People with diagnosed cases of osteoporosis or at high risk for fracture should have regular bone mineral density tests. For patients eligible for Medicare, routine testing is allowed once every 2 years. The testing frequency can be increased to one year for patients who have rapidly progressing disease, those who are receiving or discontinuing medical therapy to restore bone mass, or have additional risk factors.
--- NOTE | ~2022-04-22 | MM_ITS ---
EXAMINATION: MM SCREENING DIGITAL BREAST TOMOSYNTHESIS, BILATERAL CLINICAL INFORMATION: Screening. Asymptomatic. 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 COMPARISON: Mammography: April 20, 2021 and studies dating back to February 11, 2014 TECHNIQUE: Digital breast tomosynthesis is performed in both the craniocaudal and mediolateral oblique views along with computer-aided detection (CAD). Synthesized 2D images are generated from the tomosynthesis. FINDINGS: There are scattered areas of fibroglandular density (ACR BI-RADS breast composition Category b). Pacemaker seen within the left axilla. There are postsurgical scarring seen bilaterally from previous lumpectomies. No new abnormal dominant mass or suspicious grouping of microcalcifications identified. MM/MM tomosynthesis screening BI IMPRESSION: No significant changes ASSESSMENT: BI-RADS 2: Benign RECOMMENDATION: Routine annual mammography screening. This patient's information was entered into a reminder system with a target due date for their next mammogram.
== END 2022-04-22 10:21 | disposition home or self-care (01) ==
LOC: HO.MAMMO 10:20
PROVIDERS: PCP Internal Medicine; Visit Provider Internal Medicine Medical Oncology
DX: Z12.31 Encounter for screening mammogram for malignant neoplasm of breast (principal); Z13.820 Encounter for screening for osteoporosis; Z78.0 Asymptomatic menopausal state
CPT/HCPCS: 77063; 77067; 77080

== ENCOUNTER 2022-04-22 11:29 | Outpatient (REF) | payer OTHER, SELFPAY | END 2022-04-22 11:30 | disposition home or self-care (01) | LOC: HO.MAMMO 11:29 | PROVIDERS: PCP Internal Medicine; Visit Provider Obstetrics & Gynecology | DX: Z13.89 Encounter for screening for other disorder (principal) ==

== ENCOUNTER → 2022-05-13 14:56 | Outpatient (BNVA) | payer OTHER, SELFPAY | PROVIDERS: PCP Internal Medicine; Visit Provider Obstetrics & Gynecology | DX: Z78.0 Asymptomatic menopausal state (principal) | CPT/HCPCS: 99212 ==

== ENCOUNTER 2022-07-10 08:21 | Outpatient (REF) | payer OTHER, SELFPAY ==
[2022-07-10 08:38] LABS: MANUAL DIFF FLAG NO
[2022-07-10 09:05] LABS: Basophils Percent Auto 0.3 % (0-2); Hematocrit 44.7 % (37.0-47.0); Hemoglobin 14.2 g/dl (12.0-16.0); Imm Gran Abs Auto 0.04 X10*3/uL (0.00-0.03); Imm Gran Pct Auto 0.4 % (0.0-0.4); Lymphocytes Absolute Auto 3.2 X10*3/uL (1.2-4.9); Lymphocytes Percent Auto 36.1 % (20-40); Mean Corpuscular HGB Conc 31.8 g/dl (31.0-35.0); Mean Corpuscular Volume 81.9 fL (80.0-98.0); Monocytes Absolute Auto 0.7 X10*3/uL (0.1-1.2); Monocytes Percent Auto 7.4 % (2-11); Neutrophils Percent Auto 55.8 % (45-73); Platelet Count 185 X10*3/uL (160-400); Red Blood Count 5.46 X10*6/uL (4.20-5.50); Red Cell Distribution Width 15.1 % (11.0-16.0); White Blood Count 8.9 X10*3/uL (4.8-10.8)
[2022-07-10 09:11] LABS: Appearance Urine Cloudy; Color Urine Yellow; Glucose Urine UA >=1000 mg/dL (Negative); Leukocyte Esterase Urine Negative (Negative); Nitrite Urine Negative (Negative); Specific Gravity - Urine >= 1.030 (1.005-1.025); UMIC TRIGGER UACC YES; Urine Blood Negative (Negative); Urine Ketones Negative (Negative); Urine Protein Negative (Neg-Trace)
[2022-07-10 09:16] LABS: Bacteria Urine 1+ (None Seen); Hyaline Casts Urine 0-2 /LPF (0-2); RBC Urine 0-2 /HPF (0-2); Squamous Epithelial Cell Urine >20 /HPF (0-2); WBC Urine 0-5 /HPF (0-5)
[2022-07-10 09:20] LABS: Estimated Average Glucose 206 mg/dL; Hemoglobin A1c % 8.8 %
[2022-07-10 09:41] LABS: Alanine Aminotransferase 21 U/L (0-31); Albumin Level 4.1 g/dL (3.5-5.0); Alkaline Phosphatase 54 U/L (39-117); Anion Gap 16 (12-20); Aspartate Amino Transferase 16 U/L (5-31); Bilirubin Total 0.4 mg/dL (0.0-1.0); Blood Urea Nitrogen 17 mg/dL (9-16); Calcium 9.6 mg/dL (8.4-10.2); Carbon Dioxide 25 mmol/L (22-29); Chloride 102 mmol/L (96-108); Cholesterol 141 mg/dL; Estimated Glomerular Filt Rate > 60; Glucose Fasting 131 mg/dL (60-99); HDL Cholesterol 35 mg/dL; LDL Cholesterol Calculated 70 mg/dl; Potassium 4.5 mmol/L (3.3-5.1); Sodium 138 mmol/L (135-145); Total Protein 7.5 g/dL (6.5-8.0); Triglycerides 182 mg/dL
[2022-07-10 09:55] LABS: Free T4 (Free Thyroxine) 1.19 ng/dL (0.71-1.85); Thyroid Stimulating Hormone 5.42 uIU/mL (0.32-4.0)
[2022-07-10 10:32] LABS: Creatinine Urine 101.84 mg/dL; Microalbum/Creatinine Ratio Ur 34.3 ug/mg cr
[2022-07-10 15:16] LABS: Vitamin D 25-OH Total 43.3 ng/mL (>30)
== END 2022-07-10 08:22 | disposition home or self-care (01) ==
LOC: HO.LAB 08:21
PROVIDERS: PCP Internal Medicine; Visit Provider Internal Medicine
DX: I10 Essential (primary) hypertension (principal); E55.9 Vitamin D deficiency, unspecified; E03.9 Hypothyroidism, unspecified; E11.9 Type 2 diabetes mellitus without complications; E78.00 Pure hypercholesterolemia, unspecified
CPT/HCPCS: 36415; 80053; 80061; 81001; 82043; 82306; 83036; 84439; 84443; 85025

== ENCOUNTER → 2022-07-14 12:38 | Outpatient (BNVA) | payer OTHER, MEDICAID, SELFPAY | PROVIDERS: PCP Internal Medicine; Referring Provider Internal Medicine; Visit Provider Internal Medicine | DX: I25.5 Ischemic cardiomyopathy (principal); I25.10 Atherosclerotic heart disease of native coronary artery without angina pectoris; I25.118 Atherosclerotic heart disease of native coronary artery with other forms of angina pectoris; I25.2 Old myocardial infarction; Z95.810 Presence of automatic (implantable) cardiac defibrillator | CPT/HCPCS: 99212 ==

== ENCOUNTER → 2022-09-14 14:10 | Outpatient (BNVA) | payer OTHER, MEDICAID, SELFPAY | PROVIDERS: PCP Internal Medicine; Visit Provider Internal Medicine | DX: R06.00 Dyspnea, unspecified (principal); Q79.1 Other congenital malformations of diaphragm; J98.4 Other disorders of lung; E66.9 Obesity, unspecified; Z68.38 Body mass index [BMI] 38.0-38.9, adult | CPT/HCPCS: 99212 ==

== ENCOUNTER 2022-10-23 07:20 | Outpatient (REF) | payer OTHER, MEDICAID, SELFPAY ==
[2022-10-23 07:48] LABS: MANUAL DIFF FLAG NO
[2022-10-23 08:00] LABS: Basophils Percent Auto 0.5 % (0-2); Hematocrit 44.4 % (37.0-47.0); Hemoglobin 14.3 g/dl (12.0-16.0); Imm Gran Abs Auto 0.02 X10*3/uL (0.00-0.03); Imm Gran Pct Auto 0.2 % (0.0-0.4); Lymphocytes Absolute Auto 2.6 X10*3/uL (1.2-4.9); Lymphocytes Percent Auto 32.5 % (20-40); Mean Corpuscular HGB Conc 32.2 g/dl (31.0-35.0); Mean Corpuscular Hemoglobin 25.6 pg (27.0-33.0); Mean Corpuscular Volume 79.4 fL (80.0-98.0); Mean Platelet Volume 10.8 fL (9.4-12.3); Monocytes Absolute Auto 0.6 X10*3/uL (0.1-1.2); Monocytes Percent Auto 7.5 % (2-11); Neutrophils Absolute Auto 4.8 x10*3/uL (2.0-8.3); Neutrophils Percent Auto 59.3 % (45-73); Platelet Count 198 X10*3/uL (160-400); Red Blood Count 5.59 X10*6/uL (4.20-5.50); Red Cell Distribution Width 15.8 % (11.0-16.0); White Blood Count 8.1 X10*3/uL (4.8-10.8)
[2022-10-23 08:08] LABS: Appearance Urine Clear; Color Urine Yellow; Glucose Urine UA >=1000 mg/dL (Negative); Leukocyte Esterase Urine Negative (Negative); Nitrite Urine Negative (Negative); PH 6.5 (5.0-9.0); Specific Gravity - Urine >= 1.030 (1.005-1.025); UMIC TRIGGER UACC YES; Urine Blood Negative (Negative); Urine Ketones Negative (Negative); Urine Protein Negative (Neg-Trace)
[2022-10-23 08:18] LABS: Bacteria Urine Trace (None Seen); Hyaline Casts Urine 0-2 /LPF (0-2); RBC Urine 0-2 /HPF (0-2); WBC Urine 0-5 /HPF (0-5)
[2022-10-23 08:19] LABS: Estimated Average Glucose 220 mg/dL; Hemoglobin A1c % 9.3 %
[2022-10-23 08:30] LABS: Creatinine Urine 68.62 mg/dL; Microalbum/Creatinine Ratio Ur 61.2 ug/mg cr
[2022-10-23 08:37] LABS: Alanine Aminotransferase 17 U/L (0-31); Albumin Level 4.2 g/dL (3.5-5.0); Alkaline Phosphatase 57 U/L (39-117); Anion Gap 13 (12-20); Aspartate Amino Transferase 15 U/L (5-31); Bilirubin Total 0.5 mg/dL (0.0-1.0); Blood Urea Nitrogen 19 mg/dL (9-16); Calcium 9.7 mg/dL (8.4-10.2); Carbon Dioxide 28 mmol/L (22-29); Chloride 103 mmol/L (96-108); Cholesterol 144 mg/dL; Estimated Glomerular Filt Rate 58; Glucose Fasting 162 mg/dL (60-99); HDL Cholesterol 35 mg/dL; LDL Cholesterol Calculated 65 mg/dl; Potassium 4.8 mmol/L (3.3-5.1); Sodium 139 mmol/L (135-145); Total Protein 7.6 g/dL (6.5-8.0); Triglycerides 220 mg/dL
[2022-10-23 08:52] LABS: TSH reflex Free T4 4.99 uIU/mL (0.32-4.0); Vitamin D 25-OH Total 34.3 ng/mL (>30)
== END 2022-10-23 07:21 | disposition home or self-care (01) ==
LOC: HO.LAB 07:20
PROVIDERS: PCP Internal Medicine; Visit Provider Internal Medicine
DX: E11.9 Type 2 diabetes mellitus without complications (principal); E55.9 Vitamin D deficiency, unspecified; R30.0 Dysuria; E78.00 Pure hypercholesterolemia, unspecified; I10 Essential (primary) hypertension
CPT/HCPCS: 36415; 80053; 80061; 81001; 82043; 82306; 83036; 84439; 84443; 85025

== ENCOUNTER 2022-11-10 12:38 | Outpatient (REF) | payer OTHER, MEDICAID, SELFPAY ==
--- NOTE | ~2022-11-10 | CT_ITS ---
EXAMINATION: CT CHEST WITHOUT CONTRAST CLINICAL INFORMATION: Pulmonary nodule follow-up COMPARISON: Chest CT 10/29/2021 TECHNIQUE: Multidetector volumetric CT imaging of the chest was done. Axial MIP volume rendering provided. Sagittal and coronal reformatted images were obtained. This CT examination was performed using dose optimization techniques as appropriate, variously including the following: *Automated exposure control *Adjustment of mA and/or kV according to patient size (this includes techniques or standardized protocols for targeted exams where dose is matched to indication/reason for exam; i.e. extremities or head) *Use of iterative reconstruction technique DLP: 217 mGy-cm FINDINGS: The heart is normal in size. Coronary artery calcifications are present. Stable positioning of single lead AICD. Normal caliber thoracic aorta. The main pulmonary artery is mildly prominent suggesting pulmonary arterial hypertension. No gross mediastinal or hilar lymphadenopathy appreciated on today's noncontrast imaging. Surgical clips again noted within the lateral left breast. Central airways are patent. Lungs are well aerated. There is no lobar consolidation, pleural effusion or pneumothorax. Evaluation for pulmonary nodule is suboptimal given respiratory motion, however, a few previously visualized subcentimeter pulmonary nodules appear stable. No new suspicious pulmonary nodules visualized. Visualized portions of the upper abdomen demonstrate surgical changes consistent with prior cholecystectomy. Pneumobilia is again appreciated. Moderate diffuse degenerative changes of the spine. CT/CT chest wo IV con IMPRESSION: Evaluation for pulmonary nodule is suboptimal given respiratory motion, however, a few previously visualized subcentimeter pulmonary nodules appear stable. No new suspicious pulmonary nodules visualized. Fleischner guidelines were followed.
== END 2022-11-10 12:39 | disposition home or self-care (01) ==
LOC: HO.CT 12:38
PROVIDERS: Visit Provider Internal Medicine
DX: R91.1 Solitary pulmonary nodule (principal); R91.8 Other nonspecific abnormal finding of lung field
CPT/HCPCS: 71250

== ENCOUNTER → 2022-12-20 11:07 | Outpatient (BNVA) | payer OTHER, MEDICAID, SELFPAY | PROVIDERS: PCP Internal Medicine; Visit Provider Obstetrics & Gynecology ==

== ENCOUNTER → 2023-01-12 13:21 | Outpatient (BNVA) | payer OTHER, MEDICAID, SELFPAY | PROVIDERS: PCP Internal Medicine; Referring Provider Internal Medicine; Visit Provider Internal Medicine | DX: I25.5 Ischemic cardiomyopathy (principal); I25.118 Atherosclerotic heart disease of native coronary artery with other forms of angina pectoris; I10 Essential (primary) hypertension; I47.20 Ventricular tachycardia, unspecified; Z95.5 Presence of coronary angioplasty implant and graft; Z98.890 Other specified postprocedural states; Z95.810 Presence of automatic (implantable) cardiac defibrillator; Z79.02 Long term (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 of antithrombotics/antiplatelets | CPT/HCPCS: 93005; 99212 ==

== ENCOUNTER 2023-01-31 07:06 | Outpatient (REF) | payer OTHER, MEDICAID, SELFPAY ==
[2023-01-31 07:29] LABS: MANUAL DIFF FLAG NO
[2023-01-31 07:51] LABS: Basophils Percent Auto 0.4 % (0-2); Hematocrit 47.2 % (37.0-47.0); Hemoglobin 14.9 g/dl (12.0-16.0); Imm Gran Abs Auto 0.03 X10*3/uL (0.00-0.03); Imm Gran Pct Auto 0.4 % (0.0-0.4); Lymphocytes Absolute Auto 2.5 X10*3/uL (1.2-4.9); Lymphocytes Percent Auto 30.5 % (20-40); Mean Corpuscular HGB Conc 31.6 g/dl (31.0-35.0); Mean Corpuscular Hemoglobin 25.3 pg (27.0-33.0); Mean Corpuscular Volume 80.3 fL (80.0-98.0); Mean Platelet Volume 10.6 fL (9.4-12.3); Monocytes Absolute Auto 0.6 X10*3/uL (0.1-1.2); Monocytes Percent Auto 7.2 % (2-11); Neutrophils Absolute Auto 5.1 x10*3/uL (2.0-8.3); Neutrophils Percent Auto 61.5 % (45-73); Platelet Count 219 X10*3/uL (160-400); Red Blood Count 5.88 X10*6/uL (4.20-5.50); Red Cell Distribution Width 16.1 % (11.0-16.0); White Blood Count 8.3 X10*3/uL (4.8-10.8)
[2023-01-31 08:08] LABS: Estimated Average Glucose 197 mg/dL; Hemoglobin A1c % 8.5 %
[2023-01-31 09:13] LABS: Alanine Aminotransferase 17 U/L (0-31); Albumin Level 4.2 g/dL (3.5-5.0); Alkaline Phosphatase 53 U/L (39-117); Anion Gap 19 (12-20); Aspartate Amino Transferase 16 U/L (5-31); Bilirubin Total 0.4 mg/dL (0.0-1.0); Blood Urea Nitrogen 18 mg/dL (9-16); Carbon Dioxide 22 mmol/L (22-29); Chloride 105 mmol/L (96-108); Cholesterol 124 mg/dL; Estimated Glomerular Filt Rate > 60; Glucose Fasting 180 mg/dL (60-99); HDL Cholesterol 34 mg/dL; LDL Cholesterol Calculated 56 mg/dl; Potassium 4.5 mmol/L (3.3-5.1); Sodium 141 mmol/L (135-145); Total Protein 7.7 g/dL (6.5-8.0); Triglycerides 171 mg/dL
[2023-01-31 09:16] LABS: Free T4 (Free Thyroxine) 0.97 ng/dL (0.71-1.85)
[2023-01-31 15:40] LABS: Appearance Urine Clear; Color Urine Yellow; Glucose Urine UA >=1000 mg/dL (Negative); Leukocyte Esterase Urine Negative (Negative); Nitrite Urine Negative (Negative); UMIC TRIGGER UACC YES; Urine Blood Negative (Negative); Urine Ketones Negative (Negative); Urine Protein Negative (Neg-Trace)
[2023-01-31 15:53] LABS: Bacteria Urine None Seen (None Seen); Hyaline Casts Urine 0-2 /LPF (0-2); RBC Urine 0-2 /HPF (0-2); WBC Urine 0-5 /HPF (0-5)
[2023-01-31 16:53] LABS: Creatinine Urine 26.39 mg/dL; Microalbum/Creatinine Ratio Ur 18.9 ug/mg cr
== END 2023-01-31 07:07 | disposition home or self-care (01) ==
LOC: HO.LAB 07:06
PROVIDERS: PCP Internal Medicine; Visit Provider Internal Medicine
DX: E78.00 Pure hypercholesterolemia, unspecified (principal); E11.9 Type 2 diabetes mellitus without complications; I10 Essential (primary) hypertension; E55.9 Vitamin D deficiency, unspecified; R30.0 Dysuria
CPT/HCPCS: 36415; 80053; 80061; 81001; 82043; 82306; 83036; 84439; 84443; 85025

== ENCOUNTER 2023-02-09 12:08 | Outpatient (REF) | payer OTHER, MEDICAID, SELFPAY ==
--- NOTE | ~2023-02-09 | XR_ITS ---
EXAMINATION: XR KNEE, LEFT CLINICAL INFORMATION: Worsening of left knee pain COMPARISON: Single view of left knee from 2015 TECHNIQUE: Four views of the left knee. FINDINGS: There is narrowing of medial compartment of right knee joint, there is marginal spurring seen medially and laterally and in the patella there is no joint effusion. There is narrowing cough lateral compartment of patellofemoral joint. XR/XR knee LT 4V IMPRESSION: 3 compartmental degenerative changes of the left knee joint
== END 2023-02-09 12:09 | disposition home or self-care (01) ==
LOC: HO.XRAY 12:08
PROVIDERS: PCP Internal Medicine; Visit Provider Internal Medicine
DX: M25.562 Pain in left knee (principal)
CPT/HCPCS: 73564

== ENCOUNTER → 2023-02-11 13:49 | Outpatient (REF) | payer OTHER, MEDICAID, SELFPAY ==
--- NOTE | 2023-02-11 13:52 | CA_ITS ---
Transthoracic Echocardiogram Patient (Last, First, Middle): Hien Aden, Gender: Female Date of : 1955 Age: 67 Procedure Date: 02/11/2023 Procedure Type: Transthoracic Echocardiogram Location: OP Height: 162.56 cm Weight: 92.08 kg BSA: 1.97 m2 Heart Rate: 68 bpm BP: 120 / 70 mmHg Saw Boss: SHALINI Styles MD: Casa Polk MD [employer] Member: Corky Quinonez MD Symptoms: I25.5 - Ischemic cardiomyopathy Study Quality: Fair/Contrast ECG Rhythm: Sinus Conclusions: - 1. Moderately reduced LV systolic function with LVEF of 35-40% with impaired relaxation filling pattern and elevated filling pressures 2. Mildly dilated left atrium 3. Normal cardiac valvular Dopplers Findings Procedure Information Contrast agent, definity, is being given per protocol without apparent complications. Left Ventricle Normal left ventricular cavity size. There is mildly increased left ventricular wall thickness. The left ventricular systolic function is moderately decreased. The visually estimated ejection fraction is between 35 40%. There is evidence of regional wall motion abnormalities. Spectral Doppler is indicative of an impaired relaxation filling pattern. Elevated filling pressures. E/E prime ratio is >15, consistent with elevated filling pressures. There is no evidence of a thrombus in the left ventricle. Wall Motion Rest Echo Findings The basal inferoseptal and basal anteroseptal segments are hypokinetic. The entire apex, inferior wall, the mid inferoseptal, and mid anteroseptal segments are akinetic. All other scored wall segments showed normal motion. Right Ventricle Normal right ventricular cavity size and systolic function. There is an ICD wire seen in the right ventricle. Atria The left atrium is mildly dilated. Interatrial shunt cannot be excluded. The right atrium is normal in size. Aortic Valve Normal aortic valve structure and function. There is no aortic valve stenosis. There is no aortic valve regurgitation. Mitral Valve There is mild anterior and posterior mitral leaflet thickening. There is trace mitral valve regurgitation. There is no mitral valve stenosis. Pulmonic Valve The pulmonic valve is likely normal. Tricuspid Valve Likely normal tricuspid valve structure and function. Tricuspid regurgitation envelope is inadequate for calculation of right ventricular systolic pressure. Great Vessels All visible segments of the aorta are normal in size. The pulmonary artery was not well visualized. Venous The inferior vena cava was not well visualized. Pericardium/Pleural The pericardium was not well visualized. Prior Study Comparison Changes noted compared to prior study dated: 01/08/2021. LV systolic function is marginally improved Measurements 2D Linear Measurements IVSd: 1.47 0.6-0.9/0.6-1.0 cm LVIDd: 4.42 3.9-5.3/4.2-5.9 cm LVIDd Index: 2.24 2.4-3.2/2.2-3.1 cm/m2 LVIDs: 3.84 2.0-3.6 cm LVPWd: 1.37 0.7-1.1 cm LA Diam: 3.90 2.7-3.8/3.0-4.0 cm LAIDs Index: 1.98 1.5-2.3 cm/m2 LV Mass: 308.16 67-162/88-224 g LV Mass Index: 156.43 43-95/49-115 g/m2 LVOT Diam: 2.00 3.0+(-)1.3 cm 2D Systolic Function EF 4C: 32.40 >55% EF 2C: 43.70 >55% EF BiP: 38.90 >55% Mitral Valve MV Pk E: 0.81 MV PK A: 0.89 MV Decel Time: 207.00 E/A: 0.90 E'Lateral: 4.68 E'Medial: 3.59 E/E' Med: 22.60 E/E' Lat: 17.30 PHT: 61.00 MVA PHT: 3.61 Decel Harris: 3.92 Aortic Valve AoV Pk Guzman: 1.22 AoV Mn Guzman: 0.94 AoV VTI: 0.30 AoV Pk Grad: 6.00 Aov Mn Grad: 4.00 KRYSTINA Cont.VTI: 1.76 LVOT LVOT Pk Guzman: 0.65 LVOT Mn Guzman: 0.53 LVOT VTI: 0.17 LVOT Pk Grad: 2.00 LVOT Mn Grad: 1.00 LVOT Diam: 2.00 LVOT Area: 3.14 Diastolic Function MV Pk E: 0.81 MV Pk A: 0.89 E/A: 0.90 E'Medial: 3.59 E/E' Med: 22.60 E' Laterial: 4.68 E/E' Lat: 17.30 Right Ventricle TAPSE (mm): 17.50 TVS' Guzman: 6.42 Great Vessels Aorta Sinus of Valsalva: 3.30 2.0-3.5 cm Ao Asc: 3.00 2.1-3.4 cm Pulmonary Valve PV Pk Guzman: 0.69 Peak PV Grad: 2.00 Updated in Other Vendor System with Status of Final Corky Quinonez MD electronically signed on 02/12/2023 1:00:33 PM with status of Final
== END ==
LOC: HO.CARD 13:49
PROVIDERS: PCP Internal Medicine; Visit Provider Internal Medicine
DX: I25.5 Ischemic cardiomyopathy (principal)
CPT/HCPCS: 93306; Q9957

== ENCOUNTER → 2023-03-02 23:59 | Outpatient (BNV) | payer OTHER, MEDICAID, SELFPAY ==
--- NOTE | 2023-03-09 14:06 | A.OFFVIS_ITS ---
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- [employer] Allergies No Known Allergies Allergy (Mild, Verified 02/09/23 11:40) NOT APPLICABLE [facility] Medical History Acquired hypothyroidism Anxiety Atherosclerosis of coronary artery of [place] heart with stable angina pectoris Atherosclerotic cardiovascular disease Back pain Benign essential hypertension Diabetes Diabetic neuropathy Drug induced constipation Dyspnea on exertion Eventrations, diaphragmatic History of breast cancer History of ductal carcinoma in situ (DCIS) of breast History of [place] (myocardial infarction) Hyperlipidemia Hypothyroidism ICD (implantable cardioverter-defibrillator) in place Insomnia 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 Lumbar degenerative disc disease Major depressive disorder, recurrent episode, mild Neuropathy Obesity (BMI 30-39.9) Obesity (BMI 30-39.9) Osteoarthritis Osteoarthritis of spine with radiculopathy, cervical region Pityriasis rosea Postoperative follow-up Pure hypercholesterolemia Restrictive lung disease Type 2 diabetes mellitus with diabetic polyneuropathy Ventricular tachycardia Vitamin D deficiency Surgical History History of implantable cardioverter-defibrillator (ICD) placement (~06/22/18) History of laparoscopic cholecystectomy (~04/2021) History of lumpectomy of both breasts History of percutaneous coronary intervention (~12/2017) History of tubal ligation S/P angioplasty (~07/2017) Family History Mother Heart attack Hypertension CVD (cardiovascular disease) Father Diabetes Social History Household Members: Spouse Housing: House Do you presently have visiting nurse or other home services: Yes ([employer] 7 DAYS A WEEK) Alcohol intake: never Patient Tobacco Use Status: Never used Tobacco e-Cigarette/Vaping Use: Never Used Second Hand Smoke Exposure: Yes Advance Directives Date on File: 06/05/20 service: No Current occupational status: disabled Sexual orientation: Straight/Heterosexual Gender identity: Female Cognitive needs: No Hearing needs: No Vision needs: Yes Female Reproductive History Menstrual Age of Menarche: 11 Office Procedures Cardiac Device Check Cardiac Device Check Details: Date of service- 03/02/2023; based on impedance data and physiological variables, there is no evidence of worsening congestive heart failure. [id number] Cardiac Device Interrogation, cardio physiologic monitor Procedure code (CPT) selection complete Assessment & Plan Assessment & Plan (1) Ischemic cardiomyopathy: Code(s): I25.5 - Ischemic cardiomyopathy Coding Level of Care Code Procedure Only Diagnoses Ischemic cardiomyopathy I25.5 CPT Codes Cardiac Device Check - Cardiac Device 15: [id number] Cardiac Device Interrogation, cardio physiologic monitor ([id number])
== END ==
PROVIDERS: PCP Internal Medicine; Visit Provider Internal Medicine
DX: I25.5 Ischemic cardiomyopathy (principal); Z95.810 Presence of automatic (implantable) cardiac defibrillator
CPT/HCPCS: 93297

== ENCOUNTER 2023-03-10 09:08 | Outpatient (AMB) | payer OTHER, MEDICAID, SELFPAY ==
--- NOTE | 2023-03-10 09:13 | MHC.OFFVIS ---
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 Patient reports history of cortisone injections that provided her with good relief, last injection was years ago. Her pain returned about 3 months ago and gets worse with walking and stair use. She uses a cane to ambulate and a knee brace. Finds little relief with topical cream and Tylenol, she is not able to take ibuprofen. Allergies No Known Allergies Allergy (Mild, Verified 03/10/23 09:16) NOT APPLICABLE Medication List - Last Reconciled 03/10/23 by Marichuy Zuluaga PA-C albuterol sulfate 90 mcg/actuation 2 puffs inhalation Q4-6H PRN 30 days aspirin 81 mg PO DAILY atorvastatin 80 mg PO DAILY blood sugar diagnostic (OneTouch Ultra Test strips) DIRECTED - TEST BLOOD SUGAR 3 TIMES A DAY. blood sugar diagnostic (Accu-Chek Guide test strips) As directed-check blood sugar 3 times a day. blood sugar diagnostic (Accu-Chek Catie Plus test strips) As directed blood-glucose meter (Accu-Chek Catie Plus Meter) As directed QID blood-glucose meter As directed brimonidine 0.1% 1 drp ophthalmic (eye) BID carvedilol 3.125 mg PO BID cholecalciferol (vitamin D3) 125 mcg PO DAILY clopidogrel (Plavix) 75 mg PO DAILY docusate sodium (Colace) 200 mg PO BEDTIME empagliflozin (Jardiance) 25 mg PO DAILY fentanyl 50 mcg/hr 1 patch transdermal Q72H 30 days furosemide 20 mg PO DAILY gabapentin 400 mg PO TID glipizide ER 2.5 mg PO DAILY 90 days isosorbide mononitrate ER 30 mg PO QAM lancets (Accu-Chek Softclix Lancets) 1 ea topical TID latanoprost 0.005% 1 drp ophthalmic (eye) BEDTIME levothyroxine 75 mcg PO QAM 90 days lisinopril 2.5 mg PO DAILY 90 days lorazepam 0.5 mg PO DAILY PRN Novolog FlexPen U-100 Insulin (insulin aspart U-100) 30 units (0.3 mL) subcut TID 90 days NS nystatin 1 appl topical TID 10 days omega-3 fatty acids (Fish Oil Concentrate) 2,000 mg PO DAILY omeprazole 40 mg PO BID 90 days [ONE TOUCH ULTRA GLUCOMETER DEVICE Test blood sugar 3 times a day as instructed; patient is on Insulin] pen needle, diabetic (BD Ultra-Fine Rozina Pen Needle) 1 ea subcut QID spironolactone 25 mg PO DAILY sucralfate 1 g PO BIDAC Tresiba FlexTouch U-100 (insulin degludec) 60 units (0.6 mL) subcut BEDTIME 90 days 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 She states she has pain in her left knee which is aggravated with ambulation and stair use. She had cortisone injections in the past which provided her relief until about 3 months ago. She is using a cane to ambulate and wears a knee brace. She finds mild relief with topical cream and Tylenol. She has a history of diabetes. Her sugar level was 134 today this morning. 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 Lumbar degenerative disc disease Major depressive disorder, recurrent episode, mild Neuropathy Obesity (BMI 30-39.9) Obesity (BMI 30-39.9) Osteoarthritis Osteoarthritis of spine with radiculopathy, cervical region Pityriasis rosea Postoperative follow-up Pure hypercholesterolemia Restrictive lung disease Type 2 diabetes mellitus with diabetic polyneuropathy Ventricular tachycardia Vitamin D deficiency Surgical History History of implantable cardioverter-defibrillator (ICD) placement (~06/22/18) History of laparoscopic cholecystectomy (~04/2021) History of lumpectomy of both breasts History of percutaneous coronary intervention (~12/2017) History of tubal ligation S/P angioplasty (~07/2017) Family History Mother Heart attack Hypertension CVD (cardiovascular disease) Father Diabetes Social History Household Members: Spouse Housing: House Do you presently have visiting nurse or other home services: Yes (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) Alcohol intake: never Patient Tobacco Use Status: Never used Tobacco e-Cigarette/Vaping Use: Never Used Second Hand Smoke Exposure: Yes Advance Directives Date on File: 06/05/20 service: No Current occupational status: disabled Sexual orientation: Straight/Heterosexual Gender identity: Female Cognitive needs: No Hearing needs: No Vision needs: Yes Female Reproductive History Menstrual Age of Menarche: 11 Review of Systems Const All systems reviewed & are unremarkable except as noted in HPI and below Physical Exam Vital Signs: BMI result Body Mass Index 34.8 Const General: cooperative, healthy appearing, comfortable, no acute distress, well developed and alert Orientation/consciousness: patient oriented x3 HEENT Head: Yes normal to inspection, Yes normocephalic and Yes atraumatic Eyes General: appearance normal, both eyes and all related structures Resp Effort & Inspection: normal respiratory effort and able to speak in complete sentences Cardio Rate: regular rate Peripheral pulses: Peripheral pulses 2+ throughout GI Palpation (GI): Soft to palpation Skin Lesions: no lesions Rashes: no rashes Neuro General: patient oriented x3 Extrem Other: Left knee skin intact, no erythema or joint effusion. Tenderness along the medial joint line and diffused retropatellar tenderness. Full ROM with crepitus. Negative Jaime?s. No ligamentous laxity. NVI. Office Procedures Joint Injection/Drain Joint Injection/Drain Primary Site: left knee Prep: site was prepped using aseptic technique, ethochloride spray was applied and injection warnings given Injected: 40 mg of, DepoMedrol, with 8 mL of, 1% plain lidocaine and in the joint Approach Used: anterolateral Procedure: The patient tolerated the procedure well and there was some relief with the local anesthesia Coding 89766 - Glenohumeral/Tronchanteric Bursa/Intraarticular Procedure code (CPT) selection complete Results Reviewed Results Reviewed: 03/10/23 09:45 Lidocaine HCl 2 % MPF [Xylocaine 2 % MPF] 5 ml .ROUTE .STK-MED ONE methylPREDNISolone acetate [DEPO-MedroL] 40 mg .ROUTE .STK-MED ONE xrays of the left knee obtained on 02/09/23 show severe tricompartmental oa Assessment & Plan Assessment & Plan (1) Osteoarthritis of left knee: Code(s): M17.12 - Unilateral primary osteoarthritis, left knee Plan We discussed options today which include steroid injection. They did consent to move forward with the injection, which was tolerated well. I recommended rest, ice and elevation and OTC anti-inflammatories PRN for discomfort. We also discussed their diabetes and the effect the steroid can have on their blood glucose levels; therefore, they will continue to monitor these very closely over the next 72 hours. If there are any concerns, they should report to the ED immediately. Patient Instructions: Scribed for Marichuy Zuluaga PA-C, by Lance Loyd medical donation professional, on 03/10/2023 at 9:00 AM EST. I, Marichuy Zuluaga PA-C, have personally reviewed and agree with the information entered by the scribe. Coding Level of Care Code New Pt Level 3 (28425) Diagnoses Osteoarthritis of left knee M17.12 CPT Codes Coding - Joint 7: 58155 - Glenohumeral/Tronchanteric Bursa/Intraarticular ([id number])
[2023-03-10 09:27] VITALS: BMI 34.8
== END 2023-03-10 10:06 | disposition home or self-care (01) ==
PROVIDERS: PCP Internal Medicine; Visit Provider Physician Assistant
DX: M17.12 Unilateral primary osteoarthritis, left knee (principal)
CPT/HCPCS: 20610; 99204; 99214

== ENCOUNTER → 2023-03-10 09:08 | Outpatient (BNVA) | payer OTHER, MEDICAID, SELFPAY | PROVIDERS: PCP Internal Medicine; Visit Provider Physician Assistant | DX: M17.12 Unilateral primary osteoarthritis, left knee (principal) | CPT/HCPCS: 20610; 99202 ==

== ENCOUNTER → 2023-04-06 23:59 | Outpatient (BNV) | payer OTHER, MEDICAID, SELFPAY ==
--- NOTE | 2023-04-17 10:31 | A.OFFVIS_ITS ---
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[employer] Allergies No Known Allergies Allergy (Mild, Verified 03/10/23 09:16) NOT APPLICABLE COUNTS INCLUDE 234 BEDS AT THE [facility] Medical History Acquired hypothyroidism Anxiety Atherosclerosis of coronary artery of [place] heart with stable angina pectoris Atherosclerotic cardiovascular disease Back pain Benign essential hypertension Diabetes Diabetic neuropathy Drug induced constipation Dyspnea on exertion Eventrations, diaphragmatic History of breast cancer History of ductal carcinoma in situ (DCIS) of breast History of [place] (myocardial infarction) Hyperlipidemia Hypothyroidism ICD (implantable cardioverter-defibrillator) in place Insomnia 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 Lumbar degenerative disc disease Major depressive disorder, recurrent episode, mild Neuropathy Obesity (BMI 30-39.9) Obesity (BMI 30-39.9) Osteoarthritis Osteoarthritis of spine with radiculopathy, cervical region Pityriasis rosea Postoperative follow-up Pure hypercholesterolemia Restrictive lung disease Type 2 diabetes mellitus with diabetic polyneuropathy Ventricular tachycardia Vitamin D deficiency Surgical History History of implantable cardioverter-defibrillator (ICD) placement (~06/22/18) History of laparoscopic cholecystectomy (~04/2021) History of lumpectomy of both breasts History of percutaneous coronary intervention (~12/2017) History of tubal ligation S/P angioplasty (~07/2017) Family History Mother Heart attack Hypertension CVD (cardiovascular disease) Father Diabetes Social History Household Members: Spouse Housing: House Do you presently have visiting nurse or other home services: Yes (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) Alcohol intake: never Patient Tobacco Use Status: Never used Tobacco e-Cigarette/Vaping Use: Never Used Second Hand Smoke Exposure: Yes Advance Directives Date on File: 06/05/20 service: No Current occupational status: disabled Sexual orientation: Straight/Heterosexual Gender identity: Female Cognitive needs: No Hearing needs: No Vision needs: Yes Female Reproductive History Menstrual Age of Menarche: 11 Office Procedures Cardiac Device Check Cardiac Device Check Details: Date of service- 04/06/2023; based on impedance data and physiological variables, there is no evidence of worsening congestive heart failure. Low activity level at 1.9hrs/day. [id number] Cardiac Device Interrogation, cardio physiologic monitor Procedure code (CPT) selection complete Assessment & Plan Assessment & Plan (1) Ischemic cardiomyopathy: Code(s): I25.5 - Ischemic cardiomyopathy Coding Level of Care Code Procedure Only Diagnoses Ischemic cardiomyopathy I25.5 CPT Codes Cardiac Device Check - Cardiac Device 15: [id number] Cardiac Device Interrogation, cardio physiologic monitor ([id number])
== END ==
PROVIDERS: PCP Internal Medicine; Visit Provider Internal Medicine
DX: I25.5 Ischemic cardiomyopathy (principal)
CPT/HCPCS: 93297

== ENCOUNTER 2023-04-25 10:45 | Outpatient (REF) | payer OTHER, MEDICAID, SELFPAY ==
--- NOTE | ~2023-04-25 | MM_ITS ---
EXAMINATION: MM SCREENING DIGITAL BREAST TOMOSYNTHESIS, BILATERAL CLINICAL INFORMATION: Screening. Asymptomatic. 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 COMPARISON: Mammography: 04/22/2022, 04/20/2021, 04/16/2020, and dating back to 2013. TECHNIQUE: Digital breast tomosynthesis is performed in both the craniocaudal and mediolateral oblique views along with computer-aided detection (CAD). Synthesized 2D images are generated from the tomosynthesis. FINDINGS: There are scattered areas of fibroglandular density (ACR BI-RADS breast composition Category b). Pacemaker again seen within the left axilla. This obscures this region. Post surgical lumpectomy changes in both breasts noted, unchanged. Scattered dystrophic calcifications/oil cysts noted. A few extremely tiny rounded calcifications are present in the slightly upper right breast, unchanged. Post benign biopsy clip noted in the central inferior right breast. No developing dominant mass, suspicious grouped calcifications, or new developing parenchymal distortion in either breast. MM/MM tomosynthesis screening BI IMPRESSION: No mammographic evidence of malignancy. Stable benign findings. ASSESSMENT: BI-RADS BI-RADS 2 - Benign Findings RECOMMENDATION: Routine annual mammography screening. 1 year F/U This examination should not preclude the clinical evaluation of a suspicious palpable abnormality. This patient's information was entered into a reminder system with a target due date for their next mammogram.
== END 2023-04-25 10:46 | disposition home or self-care (01) ==
LOC: HO.MAMMO 10:45
PROVIDERS: Absent Provider Obstetrics & Gynecology; PCP Internal Medicine; Visit Provider Internal Medicine
DX: Z12.31 Encounter for screening mammogram for malignant neoplasm of breast (principal)
CPT/HCPCS: 77063; 77067

== ENCOUNTER → 2023-04-25 11:00 | Outpatient (BNV) | payer OTHER, MEDICAID, SELFPAY | PROVIDERS: Absent Provider Obstetrics & Gynecology; PCP Internal Medicine; Visit Provider Radiology Diagnostic Radiology | DX: Z12.31 Encounter for screening mammogram for malignant neoplasm of breast (principal) | CPT/HCPCS: 77063; 77067 ==

== ENCOUNTER 2023-05-10 07:22 | Outpatient (REF) | payer OTHER, MEDICAID, SELFPAY ==
[2023-05-10 07:39] LABS: MANUAL DIFF FLAG NO
[2023-05-10 08:08] LABS: Appearance Urine Clear; Color Urine Yellow; Glucose Urine UA >=1000 mg/dL (Negative); Leukocyte Esterase Urine Negative (Negative); Nitrite Urine Negative (Negative); PH 6.5 (5.0-9.0); Specific Gravity - Urine 1.025 (1.005-1.025); UMIC TRIGGER UACC YES; Urine Blood Negative (Negative); Urine Ketones Negative (Negative); Urine Protein Negative (Neg-Trace)
[2023-05-10 08:14] LABS: Bacteria Urine None Seen (None Seen); Hyaline Casts Urine 0-2 /LPF (0-2); RBC Urine 0-2 /HPF (0-2); Squamous Epithelial Cell Urine 0-2 /HPF (0-2); WBC Urine 0-5 /HPF (0-5)
[2023-05-10 08:20] LABS: Basophils Percent Auto 0.4 % (0-2); Hematocrit 43.5 % (37.0-47.0); Hemoglobin 13.8 g/dl (12.0-16.0); Imm Gran Abs Auto 0.03 X10*3/uL (0.00-0.03); Imm Gran Pct Auto 0.4 % (0.0-0.4); Lymphocytes Absolute Auto 2.1 X10*3/uL (1.2-4.9); Lymphocytes Percent Auto 26.7 % (20-40); Mean Corpuscular HGB Conc 31.7 g/dl (31.0-35.0); Mean Corpuscular Hemoglobin 26.1 pg (27.0-33.0); Mean Corpuscular Volume 82.4 fL (80.0-98.0); Mean Platelet Volume 11.1 fL (9.4-12.3); Monocytes Absolute Auto 0.6 X10*3/uL (0.1-1.2); Monocytes Percent Auto 7.6 % (2-11); Neutrophils Absolute Auto 5.2 x10*3/uL (2.0-8.3); Neutrophils Percent Auto 64.9 % (45-73); Platelet Count 195 X10*3/uL (160-400); Red Blood Count 5.28 X10*6/uL (4.20-5.50); Red Cell Distribution Width 16.8 % (11.0-16.0); White Blood Count 7.9 X10*3/uL (4.8-10.8)
[2023-05-10 08:23] LABS: Creatinine Urine 65.28 mg/dL; Microalbum/Creatinine Ratio Ur 35.2 ug/mg cr (<30)
[2023-05-10 08:40] LABS: Estimated Average Glucose 169 mg/dL; Hemoglobin A1c % 7.5 % (<6.0)
[2023-05-10 09:07] LABS: Alanine Aminotransferase 15 U/L (0-31); Albumin Level 4.2 g/dL (3.5-5.0); Alkaline Phosphatase 51 U/L (39-117); Anion Gap 13 (12-20); Aspartate Amino Transferase 14 U/L (5-31); Bilirubin Total 0.3 mg/dL (0.0-1.0); Blood Urea Nitrogen 22 mg/dL (9-16); Calcium 10.3 mg/dL (8.4-10.2); Carbon Dioxide 24 mmol/L (22-29); Chloride 105 mmol/L (96-108); Cholesterol 136 mg/dL (<200); Estimated Glomerular Filt Rate > 60; Glucose Fasting 157 mg/dL (60-99); HDL Cholesterol 33 mg/dL (>40); LDL Cholesterol Calculated 50 mg/dL (<100); Potassium 5.2 mmol/L (3.3-5.1); Sodium 137 mmol/L (135-145); Total Protein 7.8 g/dL (6.5-8.0); Triglycerides 265 mg/dL (<150)
[2023-05-10 09:26] LABS: Folate 11.3 ng/mL (> or = 4.0); Vitamin B12 465 pg/mL (200-900)
[2023-05-10 09:27] LABS: Free T4 (Free Thyroxine) 0.94 ng/dL (0.71-1.85); Thyroid Stimulating Hormone 4.82 uIU/mL (0.32-4.0); Vitamin D 25-OH Total 37.7 ng/mL (>30)
== END 2023-05-10 07:23 | disposition home or self-care (01) ==
LOC: HO.LAB 07:22
PROVIDERS: PCP Internal Medicine; Visit Provider Internal Medicine
DX: E78.00 Pure hypercholesterolemia, unspecified (principal); E11.9 Type 2 diabetes mellitus without complications; E03.9 Hypothyroidism, unspecified; E55.9 Vitamin D deficiency, unspecified; I10 Essential (primary) hypertension; E53.8 Deficiency of other specified B group vitamins
CPT/HCPCS: 36415; 80053; 80061; 81001; 82043; 82306; 82570; 82607; 82746; 83036; 84439; 84443; 85025

== ENCOUNTER → 2023-05-11 23:59 | Outpatient (BNV) | payer OTHER, MEDICAID, SELFPAY ==
--- NOTE | 2023-05-14 14:35 | MHC.OFFVIS ---
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- [employer] Allergies No Known Allergies Allergy (Mild, Verified 03/10/23 09:16) NOT APPLICABLE [facility] Medical History Acquired hypothyroidism Anxiety Atherosclerosis of coronary artery of [place] heart with stable angina pectoris Atherosclerotic cardiovascular disease Back pain Benign essential hypertension Diabetes Diabetic neuropathy Drug induced constipation Dyspnea on exertion Eventrations, diaphragmatic History of breast cancer History of ductal carcinoma in situ (DCIS) of breast History of [place] (myocardial infarction) Hyperlipidemia Hypothyroidism ICD (implantable cardioverter-defibrillator) in place Insomnia 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 Lumbar degenerative disc disease Major depressive disorder, recurrent episode, mild Neuropathy Obesity (BMI 30-39.9) Obesity (BMI 30-39.9) Osteoarthritis Osteoarthritis of spine with radiculopathy, cervical region Pityriasis rosea Postoperative follow-up Pure hypercholesterolemia Restrictive lung disease Type 2 diabetes mellitus with diabetic polyneuropathy Ventricular tachycardia Vitamin D deficiency Surgical History History of implantable cardioverter-defibrillator (ICD) placement (~06/22/18) History of laparoscopic cholecystectomy (~04/2021) History of lumpectomy of both breasts History of percutaneous coronary intervention (~12/2017) History of tubal ligation S/P angioplasty (~07/2017) Family History Mother Heart attack Hypertension CVD (cardiovascular disease) Father Diabetes Social History Household Members: Spouse Housing: House Do you presently have visiting nurse or other home services: Yes (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) Alcohol intake: never Patient Tobacco Use Status: Never used Tobacco e-Cigarette/Vaping Use: Never Used Second Hand Smoke Exposure: Yes Advance Directives Date on File: 06/05/20 service: No Current occupational status: disabled Sexual orientation: Straight/Heterosexual Gender identity: Female Cognitive needs: No Hearing needs: No Vision needs: Yes Female Reproductive History Menstrual Age of Menarche: 11 Office Procedures Cardiac Device Check Cardiac Device Check Details: Date of service- 05/11/2023; based on impedance data and physiological variables, there is no evidence of worsening congestive heart failure. [id number] Cardiac Device Interrogation, cardio physiologic monitor Procedure code (CPT) selection complete Assessment & Plan Assessment & Plan (1) Ischemic cardiomyopathy: Code(s): I25.5 - Ischemic cardiomyopathy Coding Level of Care Code Procedure Only Diagnoses Ischemic cardiomyopathy I25.5 CPT Codes Cardiac Device Check - Cardiac Device 15: [id number] Cardiac Device Interrogation, cardio physiologic monitor ([id number])
== END ==
PROVIDERS: PCP Internal Medicine; Visit Provider Internal Medicine
DX: I25.5 Ischemic cardiomyopathy (principal)
CPT/HCPCS: 93297

== ENCOUNTER 2023-05-18 12:12 | Outpatient (AMB) | payer OTHER, MEDICAID, SELFPAY ==
[2023-05-18 12:31] VITALS: BP 116/66; PULSE 74; O2SAT 96; BMI 34.7
--- NOTE | 2023-05-18 12:31 | MHC.PC.OV ---
Vital Signs 05/18/23 12:31 Height 5 ft 4 in Weight 202 lb BMI 34.7 BP 116/66 Blood Pressure Location Lt brachial Position Sitting Pulse 74 Pulse Source Pulse Oximeter Pulse Oximetry (%) 96 Oxygen Delivery Method Room Air Intake Visit Reasons: DM, CAD, neuropathy, hyperlipidemia Event Marketing Representative Required: No Accompanied by: Self / Same As Patient Allergies No Known Allergies Allergy (Mild, Verified 05/18/23 12:58) NOT APPLICABLE Medication List - Last Reconciled 05/18/23 by Saul Lazo MD albuterol sulfate 90 mcg/actuation 2 puffs inhalation Q4-6H PRN 30 days aspirin 81 mg PO DAILY atorvastatin 80 mg PO DAILY blood sugar diagnostic (Abiquouch Ultra Test strips) DIRECTED - TEST BLOOD SUGAR 3 TIMES A DAY. blood sugar diagnostic (Accu-Chek Guide test strips) As directed-check blood sugar 3 times a day. blood sugar diagnostic (Accu-Chek Catie Plus test strips) As directed blood-glucose meter (Accu-Chek Catie Plus Meter) As directed QID blood-glucose meter As directed brimonidine 0.1% 1 drp ophthalmic (eye) BID carvedilol 3.125 mg PO BID cholecalciferol (vitamin D3) 125 mcg PO DAILY clopidogrel (Plavix) 75 mg PO DAILY docusate sodium (Colace) 200 mg PO BEDTIME empagliflozin (Jardiance) 25 mg PO DAILY fentanyl 50 mcg/hr 1 patch transdermal Q72H 30 days furosemide 20 mg PO DAILY gabapentin 400 mg PO TID glipizide ER 2.5 mg PO DAILY 90 days isosorbide mononitrate ER 30 mg PO QAM lancets (Accu-Chek Softclix Lancets) 1 ea topical TID latanoprost 0.005% 1 drp ophthalmic (eye) BEDTIME levothyroxine 75 mcg PO QAM 90 days lisinopril 2.5 mg PO DAILY 90 days lorazepam 0.5 mg PO DAILY PRN Novolog FlexPen U-100 Insulin (insulin aspart U-100) 30 units (0.3 mL) subcut TID 90 days NS nystatin 1 appl topical TID 10 days omega-3 fatty acids (Fish Oil Concentrate) 2,000 mg PO DAILY omeprazole 40 mg PO BID 90 days [ONE TOUCH ULTRA GLUCOMETER DEVICE Test blood sugar 3 times a day as instructed; patient is on Insulin] pen needle, diabetic (BD Ultra-Fine Rozian Pen Needle) 1 ea subcut QID spironolactone 25 mg PO DAILY sucralfate 1 g PO BIDAC Tresiba FlexTouch U-100 (insulin degludec) 60 units (0.6 mL) subcut BEDTIME 90 days NS Tobacco use date assessed: 05/18/23 Fall risk assessment: No Falls in past year Last assessed Fall Risk: 05/18/23 Dental Screening Dental Screen Date: 05/18/23 Did you have a dental visit in the last 12 months?: No Did you have a dental problem in the last 6 months where you did not have access to dental care?: No Was dental information given to patient?: Patient has dentist HPI DM, CAD, neuropathy, hyperlipidemia HPI Details Patient comes in today for her follow up visit States that she feels okay She denies any headaches or dizziness Denies any chest pains, no increased SOB No nausea/vomiting, no abdominal pain No change in bowel habits noted States that her chronic low back pain, neck pain and joint pains remain adequately controlled on her current Rx Had her follow up labs done last week - to discuss her results [facility] Medical History Restrictive lung disease Obesity (BMI 30-39.9) Eventrations, diaphragmatic Dyspnea on exertion Postoperative follow-up Back pain Pityriasis rosea ICD (implantable cardioverter-defibrillator) in place Ventricular tachycardia Atherosclerotic cardiovascular disease Obesity (BMI 30-39.9) Major depressive disorder, recurrent episode, mild Anxiety Insomnia Drug induced constipation Osteoarthritis of spine with radiculopathy, cervical region Lumbar degenerative disc disease Neuropathy History of ductal carcinoma in situ (DCIS) of breast Vitamin D deficiency Acquired hypothyroidism Pure hypercholesterolemia Benign essential hypertension 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 Type 2 diabetes mellitus with diabetic polyneuropathy Ischemic cardiomyopathy Atherosclerosis of coronary artery of [place] heart with stable angina pectoris Hypothyroidism History of breast cancer History of [place] (myocardial infarction) Osteoarthritis Hyperlipidemia Diabetic neuropathy Diabetes Surgical History History of laparoscopic cholecystectomy (~04/2021) S/P angioplasty (~07/2017) History of percutaneous coronary intervention (~12/2017) History of implantable cardioverter-defibrillator (ICD) placement (~06/22/18) History of lumpectomy of both breasts History of tubal ligation Family History Mother Heart attack Hypertension CVD (cardiovascular disease) Father Diabetes Social History Household Members: Spouse Housing: House Do you presently have visiting nurse or other home services: Yes (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 1. Little interest or pleasure in doing things: not at all 2. Feeling down, depressed, or hopeless: not at all 3. Trouble falling or staying asleep, or sleeping too much: not at all 4. Feeling tired or having little energy: not at all 5. Poor appetite or overeating: not at all 6. Feeling bad about yourself - or that you are a failure or have let yourself or your family down: not at all 7. Trouble concentrating on things, such as reading the newspaper or watching television: not at all 8. Moving or speaking so slowly that other people could have noticed. Or the opposite - being so fidgety or restless that you have been moving around a lot more than usual: not at all 9. Thoughts that you would be better off or of hurting yourself in some way: not at all Total score: 0 Depression Screening Interpretation: Negative [id number] - PHQ-9 Billing: Yes Source: Developed by Drs. Jack Salas, Dinorah Vo, Khoa Stauffer and colleagues, with an educational dedrick from [employer]. Thrive Questionnaire Date Thrive assessed: 05/18/23 I am a: Patient What is your living situation today?: I have a steady place to live Within the past 12 months, did the food you bought not last and you didn't have the money to get more?: Never true Within the past 12 months, did you worry whether your food would run out before you got money to buy more?: Never true Do you have trouble paying for medicines?: No Do you have trouble getting transportation to medical appointments?: No Do you have trouble paying your heating and electricity bill?: No Do you have trouble taking care of your child, family member or friend?: No Do you have trouble with day-to-day activities such as bathing, preparing meals, shopping, managing finances, etc.?: No Are you currently unemployed and looking for a job?: No Are you interested in more education?: No Please select the resources that you would like help with: None Currently or been in a relationship where the following occur: no concerns reported AUDIT C Alcohol Use Questionnaire (AUDIT-C) 1. How often do you have a drink containing alcohol?: Never 3. How often do you have six or more drinks on one occasion?: Never Total Score: 0 Score Reviewed/Action Taken: Yes MELISA-7 AMB Questionnaire MELISA-7 Date MELISA - 7 assessed: 05/18/23 Feeling nervous, anxious, or on edge: 0 = Not at all Not being able to stop or control worryin = Not at all Worrying too much about different things: 0 = Not at all Trouble relaxin = Not at all Being so restless that it is hard to sit still: 0 = Not at all Becoming easily annoyed or irritable: 0 = Not at all Feeling afraid as if something awful might happen: 0 = Not at all Total MELISA-7 score (0-4 normal; 5-9 mild; 10-14 moderate; 15-21 severe): 0 Source: Developed by Drs. Jack Salas, Dinorah Vo, Khoa Stauffer and colleagues, with an educational dedrick from [employer]. Review of Systems Const Denies chills, Reports fatigue, Denies fever(s) and Denies headache(s) ENT Denies dysphagia, Denies dizziness, Denies otalgia, Denies headache(s), Reports neck pain (on and off pain and stiffness over the left side of the back of her neck), Denies odynophagia and Denies sore throat Card Denies chest pain, Denies palpitations and Reports dyspnea on exertion (mild - chronic) Resp Denies cough and Reports dyspnea on exertion (mild - chronic) GI Denies abdominal pain, Denies constipation, Denies dysphagia, Denies heartburn, Denies diarrhea, Denies nausea, Denies odynophagia and Denies vomiting Denies difficulty voiding, Denies nocturia and Denies dysuria Musc Reports back pain (over the lower back (chronic)), Reports arthralgias (both knees, increasing over the left knee) and Reports neck pain (on and off pain and stiffness over the left side of the back of her neck) Skin/Breast Denies rash Neuro Denies dizziness and Denies headache(s) Endo Reports fatigue and Denies palpitations Physical exam (Primary Care) Vital Signs: Last Vital Signs Pulse 74 05/18/23 12:31 BP 116/66 05/18/23 12:31 Pulse Ox 96 05/18/23 12:31 Oxygen Delivery Method Room Air 05/18/23 12:31 BMI result Body Mass Index 34.7 Tobacco/Smoking Status: Tobacco use Status Tobacco use date assessed 05/18/23 05/18/23 12:38 Patient Tobacco Use Status Never used Tobacco 05/18/23 12:38 e-Cigarette/Vaping Use Never Used 05/18/23 12:38 PHQ-9: PHQ-9 Score PHQ-9: Total score 0 05/18/23 12:38 Depression Screening Interpretation: Negative Thrive Assessment: Date of Thrive Assessment Date Thrive assessed 05/18/23 05/18/23 12:38 Currently or been in a relationship where the following occur: no concerns reported Const General: no acute distress and alert HENMT Ears: TM's normal bilaterally and EAC's normal Throat: Yes posterior oropharynx normal and Yes tonsils normal (no TP congestion noted) Neck Neck: Yes no lymphadenopathy and Yes supple Resp Auscultation: clear to auscultation bilaterally, no rales and no wheezes Cardio Rate: regular rate Rhythm: regular rhythm Heart sounds: no murmurs GI Palpation (GI): Soft to palpation and nontender Auscultation: normal bowel sounds Back/Spine/Pelvis Cervical Spine: Cervical spine tenderness Thoracic/Lumbar Spine: lumbar spinal tenderness Extrem General: Yes no clubbing, cyanosis or edema Right lower extremity: knee Details: tenderness and crepitus Left lower extremity: knee Details: tenderness (increased) and crepitus; no swelling Results Reviewed Results Reviewed: Laboratory Tests 05/10/23 05/10/23 05/10/23 07:33 07:33 07:38 WBC 7.9 Hgb 13.8 Hct 43.5 Plt Count 195 Sodium 137 Potassium 5.2 H Creatinine 0.87 Estimated GFR > 60 Fasting Glucose 157 H Hemoglobin A1c % 7.5 H Calcium 10.3 H AST 14 ALT 15 Triglycerides 265 H Cholesterol 136 LDL Cholesterol, Calc 50 HDL Cholesterol Vitamin B12 25-OH Vitamin D Total 37.7 TSH 4.82 H Free T4 0.94 Ur Specific [place] 1.025 Urine Protein Negative Urine Glucose (UA) >=1000 H Urine Blood Negative Microalb/Creat Ratio 35.2 H 05/10/23 05/10/23 07:38 07:38 WBC Hgb Hct Plt Count Sodium Potassium Creatinine Estimated GFR Fasting Glucose Hemoglobin A1c % Calcium AST ALT Triglycerides Cholesterol LDL Cholesterol, Calc HDL Cholesterol 33 L Vitamin B12 465 25-OH Vitamin D Total TSH Free T4 Ur Specific [place] Urine Protein Urine Glucose (UA) Urine Blood Microalb/Creat Ratio Assessment and Plan Assessment & Plan (1) Atherosclerosis of coronary artery of [place] heart with stable angina pectoris: Comment: Patient has chronic total occlusion of the LAD - S/P PCI with 3-drug eluting stent at [facility] in 2017 but no significant improvement in flow noted post-procedure Repeat cardiac catheterization done a few months later showed 100% occlusion of the previously placed LAD stent - no further intervention done Patient also had ICD placement back in May 2018 and recommended to continue with aggressive risk factor modification Code(s): I25.118 - Atherosclerotic heart disease of [place] coronary artery with other forms of angina pectoris Qualifiers: Coronary Disease-Associated Artery/Lesion type: [place] artery Qualified Code(s): I25.118 - Atherosclerotic heart disease of [place] coronary artery with other forms of angina pectoris Plan: Patient remains asymptomatic Continue Aspirin 81 mg QD and Clopidogrel 75 mg QD for dual antiplatelet therapy; has been on Brilinta 90 mg QD for years and this was stopped by cardiology a few months ago Follow up with cardiology as scheduled (2) Ischemic cardiomyopathy: Code(s): I25.5 - Ischemic cardiomyopathy Plan: Continue Carvedilol 3.125 mg BID, Isosorbide Mononitrate ER 30 mg QD and Furosemide 20 mg Q AM Repeat echocardiogram done back in January 2023 revealed (+) moderately reduced LV systolic function with LVEF of 35-40% with impaired relaxation filling pattern and elevated filling pressures; mildly dilated left atrium and normal cardiac valvular Dopplers Follow up with cardiology as scheduled (3) Type 2 diabetes mellitus with diabetic polyneuropathy: Code(s): E11.42 - Type 2 diabetes mellitus with diabetic polyneuropathy Qualifiers: 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 insulin use: with [facility] use Qualified Code(s): E11.42 - Type 2 diabetes mellitus with diabetic polyneuropathy; Z79.4 - 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 Plan: HgbA1c was at 7.5% on her labs done last week (was at 8.5% a few months ago) - goal is at least <7.5% Reinforced diabetic diet Continue Tresiba 60 units Q HS, Novolog TID with meals per sliding scale, Jardiance 25 mg QD and Glipizide ER 2.5 mg QD Have offered again to refer her to endocrinology but patient continues to decline referral (4) Benign essential hypertension: Code(s): I10 - Essential (primary) hypertension Plan: Reinforced low sodium diet - goal is systolic BP of at least 130 mm or less Continue Carvedilol 3.125 mg BID, Furosemide 20 mg Q AM and Lisinopril 2.5 mg QD (5) Pure hypercholesterolemia: Code(s): E78.00 - Pure hypercholesterolemia, unspecified Plan: Results of her labs done last week reviewed and discussed with patient Reinforced low cholesterol diet Continue Atorvastatin 80 mg QD Will recheck her labs and fasting lipids in 3 months for follow up (6) Acquired hypothyroidism: Code(s): E03.9 - Hypothyroidism, unspecified Plan: TSH is still slightly elevated but free T4 remains normal on her recent labs Continue Levothyroxine 75 mcg QD Will recheck her TFTs in 3 months for follow up (7) Vitamin D deficiency: Code(s): E55.9 - Vitamin D deficiency, unspecified Plan: Continue Vitamin D3 5000 units QD (8) History of ductal carcinoma in situ (DCIS) of breast: Code(s): Z86.000 - Personal history of in-situ neoplasm of breast Plan: S/P Tamoxifen x 5 years Follow up with oncology as scheduled for continuing surveillance (9) Neuropathy: Code(s): G62.9 - Polyneuropathy, unspecified Plan: Symptoms remain adequately controlled on her current Rx Continue Gabapentin 400 mg TID (10) Lumbar degenerative disc disease: Code(s): M51.36 - Other intervertebral disc degeneration, lumbar region Plan: Reinforced activity and weight-lifting restrictions Lumbar spine x-rays done in 2015 revealed (+) multilevel thoracolumbar spondylosis and dextroscoliosis Continue Fentanyl patch 50 mcg Q 72 hours for pain (11) Osteoarthritis of spine with radiculopathy, cervical region: Code(s): M47.22 - Other spondylosis with radiculopathy, cervical region Plan: Cervical spine x-rays done a few years ago revealed (+) facet arthritis / spondylosis with neural foraminal narrowing Has been referred to physical therapy when needed in the past to help alleviate her neck symptoms (12) Osteoarthritis of left knee: Code(s): M17.12 - Unilateral primary osteoarthritis, left knee Qualifiers: Osteoarthritis type: primary Qualified Code(s): M17.12 - Unilateral primary osteoarthritis, left knee Plan: Left knee x-rays done back in January 2023 revealed (+) tricompartmental degenerative changes of the left knee joint States that her knee pain has improved with cortisone injection a couple of months ago Follow up with orthopedics as scheduled (13) Drug induced constipation: Code(s): K59.03 - Drug induced constipation Plan: Improved - reinforced increased oral fluids and dietary fiber Has had to take Movantik in the past but currently no longer requires any Rx to help regulate her bowel movements (14) Insomnia: Code(s): G47.00 - Insomnia, unspecified Qualifiers: Insomnia type: primary Qualified Code(s): F51.01 - Primary insomnia Plan: Sleep hygiene reinforced Takes OTC Tylenol PM and / or OTC Melatonin as needed (15) Anxiety: Code(s): F41.9 - Anxiety disorder, unspecified Plan: Continue Lorazepam 0.5 mg QD PRN (16) Major depressive disorder, recurrent episode, mild: Code(s): F33.0 - Major depressive disorder, recurrent, mild Plan: Continue Mirtazapine 7.5 mg Q HS (17) Obesity (BMI 30-39.9): Code(s): E66.9 - Obesity, unspecified Plan: Reinforced diet/exercise as tolerated/lose weight Plan Follow up in 3 months Orders: Orders Free T4 (Free Thyroxine) 3 Months E03.9 - Hypothyroidism, unspecified Vitamin B12 and Folate 3 Months E53.8 - Deficiency of other specified B group vitamins Hemoglobin A1c 3 Months E11.9 - Type 2 diabetes mellitus without complications Lipid Panel 3 Months E78.00 - Pure hypercholesterolemia, unspecified Complete Blood Count Auto Diff 3 Months I10 - Essential (primary) hypertension [place]. Panel Fast 3 Months E78.00 - Pure hypercholesterolemia, unspecified Microalbumin, Random (w Creat) 3 Months E11.9 - Type 2 diabetes mellitus without complications UA CC w/rflx Micro + Cult 3 Months R30.0 - Dysuria Vitamin D 25-OH Total 3 Months E55.9 - Vitamin D deficiency, unspecified Thyroid Stimulating Hormone 3 Months E03.9 - Hypothyroidism, unspecified Medications: Refilled triamcinolone acetonide 0.1% 1 appl topical BID PRN 80 grams 1RF rash/itching 15 days L42 - Pityriasis rosea Coding Level of Care Code Est Pt Level 4 (58742) Diagnoses Atherosclerosis of [place] coronary artery of [place] heart with stable angina pectoris I25.118 Coronary Disease-Associated Artery/Lesion type: [place] artery Ischemic cardiomyopathy I25.5 Type 2 diabetes mellitus with diabetic polyneuropathy, with long-term current use of insulin E11.42; Z79.4 Diabetes mellitus [facility] insulin use: with extermination inspector use Benign essential hypertension I10 Pure hypercholesterolemia E78.00 Acquired hypothyroidism E03.9 Vitamin D deficiency E55.9 History of ductal carcinoma in situ (DCIS) of breast Z86.000 Neuropathy G62.9 Lumbar degenerative disc disease M51.36 Osteoarthritis of spine with radiculopathy, cervical region M47.22 Primary osteoarthritis of left knee M17.12 Osteoarthritis type: primary Drug induced constipation K59.03 Primary insomnia F51.01 Insomnia type: primary Anxiety F41.9 Major depressive disorder, recurrent episode, mild F33.0 Obesity (BMI 30-39.9) E66.9
== END 2023-05-18 13:14 | disposition home or self-care (01) ==
PROVIDERS: PCP Internal Medicine; Visit Provider Internal Medicine
DX: E11.42 Type 2 diabetes mellitus with diabetic polyneuropathy (principal); Z79.4 Long term (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 of insulin; E03.9 Hypothyroidism, unspecified; I10 Essential (primary) hypertension; I25.118 Atherosclerotic heart disease of native coronary artery with other forms of angina pectoris; Z86.000 Personal history of in-situ neoplasm of breast; E55.9 Vitamin D deficiency, unspecified; I25.5 Ischemic cardiomyopathy; E78.00 Pure hypercholesterolemia, unspecified; G62.9 Polyneuropathy, unspecified; M51.36 Other intervertebral disc degeneration, lumbar region; F33.0 Major depressive disorder, recurrent, mild
CPT/HCPCS: 99214

== ENCOUNTER → 2023-06-15 23:59 | Outpatient (BNV) | payer OTHER, MEDICAID, SELFPAY ==
--- NOTE | 2023-06-19 12:44 | A.OFFVIS_ITS ---
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- [facility] Allergies No Known Allergies Allergy (Mild, Verified 05/18/23 12:58) NOT APPLICABLE [facility] Medical History Restrictive lung disease Obesity (BMI 30-39.9) Eventrations, diaphragmatic Dyspnea on exertion Postoperative follow-up Back pain Pityriasis rosea ICD (implantable cardioverter-defibrillator) in place Ventricular tachycardia Atherosclerotic cardiovascular disease Obesity (BMI 30-39.9) Major depressive disorder, recurrent episode, mild Anxiety Insomnia Drug induced constipation Osteoarthritis of spine with radiculopathy, cervical region Lumbar degenerative disc disease Neuropathy History of ductal carcinoma in situ (DCIS) of breast Vitamin D deficiency Acquired hypothyroidism Pure hypercholesterolemia 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 essential 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 Type 2 diabetes mellitus with diabetic polyneuropathy Ischemic cardiomyopathy Atherosclerosis of coronary artery of [place] heart with stable angina pectoris Hypothyroidism History of breast cancer History of [place] (myocardial infarction) Osteoarthritis Hyperlipidemia Diabetic neuropathy Diabetes Surgical History History of laparoscopic cholecystectomy (~04/2021) S/P angioplasty (~07/2017) History of percutaneous coronary intervention (~12/2017) History of implantable cardioverter-defibrillator (ICD) placement (~06/22/18) History of lumpectomy of both breasts History of tubal ligation Family History Mother Heart attack Hypertension CVD (cardiovascular disease) Father Diabetes Social History Household Members: Spouse Housing: House Do you presently have visiting nurse or other home services: Yes (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) Alcohol intake: never Patient Tobacco Use Status: Never used Tobacco e-Cigarette/Vaping Use: Never Used Second Hand Smoke Exposure: Yes Advance Directives Date on File: 06/05/20 service: No Current occupational status: disabled Sexual orientation: Straight/Heterosexual Gender identity: Female Cognitive needs: No Hearing needs: No Vision needs: Yes Female Reproductive History Menstrual Age of Menarche: 11 Office Procedures Cardiac Device Check Cardiac Device Check Details: Date of service- 06/15/2023; based on impedance data and physiological variables, there is no evidence of worsening congestive heart failure. [id number] Cardiac Device Interrogation, cardio physiologic monitor Procedure code (CPT) selection complete Coding Level of Care Code Procedure Only CPT Codes Cardiac Device Check - Cardiac Device 15: [id number] Cardiac Device Interrogation, cardio physiologic monitor ([id number])
== END ==
PROVIDERS: PCP Internal Medicine; Visit Provider Internal Medicine
DX: I25.5 Ischemic cardiomyopathy (principal)
CPT/HCPCS: 93297

== ENCOUNTER → 2023-06-15 23:59 | Outpatient (BNV) | payer OTHER, MEDICAID, SELFPAY ==
--- NOTE | 2023-06-19 12:45 | MHC.OFFVIS ---
Intake Intake Visit Reasons: Remote ICD Check- [employer] Allergies No Known Allergies Allergy (Mild, Verified 05/18/23 12:58) NOT APPLICABLE [facility] Medical History Restrictive lung disease Obesity (BMI 30-39.9) Eventrations, diaphragmatic Dyspnea on exertion Postoperative follow-up Back pain Pityriasis rosea ICD (implantable cardioverter-defibrillator) in place Ventricular tachycardia Atherosclerotic cardiovascular disease Obesity (BMI 30-39.9) Major depressive disorder, recurrent episode, mild Anxiety Insomnia Drug induced constipation Osteoarthritis of spine with radiculopathy, cervical region Lumbar degenerative disc disease Neuropathy History of ductal carcinoma in situ (DCIS) of breast Vitamin D deficiency Acquired hypothyroidism Pure hypercholesterolemia 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 Type 2 diabetes mellitus with diabetic polyneuropathy Ischemic cardiomyopathy Atherosclerosis of coronary artery of [place] heart with stable angina pectoris Hypothyroidism History of breast cancer History of [place] (myocardial infarction) Osteoarthritis Hyperlipidemia Diabetic neuropathy Diabetes Surgical History History of laparoscopic cholecystectomy (~04/2021) S/P angioplasty (~07/2017) History of percutaneous coronary intervention (~12/2017) History of implantable cardioverter-defibrillator (ICD) placement (~06/22/18) History of lumpectomy of both breasts History of tubal ligation Family History Mother Heart attack Hypertension CVD (cardiovascular disease) Father Diabetes Social History Household Members: Spouse Housing: House Do you presently have visiting nurse or other home services: Yes (TOOTH CUTTER 7 DAYS A WEEK) Alcohol intake: never Patient Tobacco Use Status: Never used Tobacco e-Cigarette/Vaping Use: Never Used Second Hand Smoke Exposure: Yes Advance Directives Date on File: 06/05/20 service: No Current occupational status: disabled Sexual orientation: Straight/Heterosexual Gender identity: Female Cognitive needs: No Hearing needs: No Vision needs: Yes Female Reproductive History Menstrual Age of Menarche: 11 Office Procedures Cardiac Device Check Cardiac Device Check Details: Date of service 06/15/2023; Battery life >11 years; normal lead parameters; no treated VT/VF; normal ICD function. [id number] Cardiac Interrogation, implant defibrillator w/interim Procedure code (CPT) selection complete Assessment & Plan Assessment & Plan (1) Ischemic cardiomyopathy: Code(s): I25.5 - Ischemic cardiomyopathy Coding Level of Care Code Procedure Only Diagnoses Ischemic cardiomyopathy I25.5 CPT Codes Cardiac Device Check - Cardiac Device 13: [id number] Cardiac Interrogation, implant defibrillator w/interim ([id number])
== END ==
PROVIDERS: PCP Internal Medicine; Visit Provider Internal Medicine
DX: I25.5 Ischemic cardiomyopathy (principal)
CPT/HCPCS: 93295

== ENCOUNTER 2023-07-18 12:58 | Outpatient (AMB) | payer OTHER, MEDICAID, SELFPAY ==
[2023-07-18 13:04] VITALS: BP 110/66; PULSE 83; BMI 34.8
--- NOTE | 2023-07-18 13:04 | A.OFFVIS_ITS ---
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 blood sugar diagnostic (Accu-Chek Guide test strips) As directed-check blood sugar 3 times a day. blood sugar diagnostic (Accu-Chek Catie Plus test strips) As directed blood-glucose meter (Accu-Chek Catie Plus Meter) As directed QID blood-glucose meter As directed brimonidine 0.1% 1 drp ophthalmic (eye) BID carvedilol 3.125 mg PO BID cholecalciferol (vitamin D3) 125 mcg PO DAILY clopidogrel (Plavix) 75 mg PO DAILY docusate sodium (Colace) 200 mg PO BEDTIME empagliflozin (Jardiance) 25 mg PO DAILY fentanyl 50 mcg/hr 1 patch transdermal Q72H 30 days furosemide 20 mg PO DAILY gabapentin 400 mg PO TID glipizide ER 2.5 mg PO DAILY 90 days isosorbide mononitrate ER 30 mg PO QAM lancets (Accu-Chek Softclix Lancets) 1 ea topical TID latanoprost 0.005% 1 drp ophthalmic (eye) BEDTIME levothyroxine 75 mcg PO QAM 90 days lisinopril 2.5 mg PO DAILY 90 days lorazepam 0.5 mg PO DAILY PRN Novolog FlexPen U-100 Insulin (insulin aspart U-100) 30 units (0.3 mL) subcut TID 90 days NS nystatin 1 appl topical TID 10 days omega-3 fatty acids (Fish Oil Concentrate) 2,000 mg PO DAILY omeprazole 40 mg PO BID 90 days [ONE TOUCH ULTRA GLUCOMETER DEVICE Test blood sugar 3 times a day as instructed; patient is on Insulin] pen needle, diabetic (BD Ultra-Fine Rozina Pen Needle) 1 ea subcut QID spironolactone 25 mg PO DAILY sucralfate 1 g PO BIDAC Tresiba FlexTouch U-100 (insulin degludec) 60 units (0.6 mL) subcut BEDTIME 90 days NS triamcinolone acetonide 0.1% 1 appl topical BID PRN 15 days HPI HPI Comments History of Present Illness Details Hien returns for follow-up regarding coronary disease. To recall, in 2017, she was [place] [facility] [place]. She underwent cardiac catheterization and LPDA intervention. 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 She has been on chronic dual antiplatelet therapy without any issues. Multiple vascular risk factors including diabetes, hypertension, dyslipidemia. Also history of breast cancer and has had chemotherapy and radiation in the past. Has an ICD in place. Overall, doing good. No new complaints. No chest pain or shortness of breath or in fact anything cardiac sounding. [facility] Medical History Restrictive lung disease Obesity (BMI 30-39.9) Eventrations, diaphragmatic Dyspnea on exertion Postoperative follow-up Back pain Pityriasis rosea ICD (implantable cardioverter-defibrillator) in place Ventricular tachycardia Atherosclerotic cardiovascular disease Obesity (BMI 30-39.9) Major depressive disorder, recurrent episode, mild Anxiety Insomnia Drug induced constipation Osteoarthritis of spine with radiculopathy, cervical region Lumbar degenerative disc disease Neuropathy History of ductal carcinoma in situ (DCIS) of breast Vitamin D deficiency Acquired hypothyroidism Pure hypercholesterolemia Benign essential hypertension assisted (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 of insulin Type 2 diabetes mellitus with diabetic polyneuropathy Ischemic cardiomyopathy Atherosclerosis of coronary artery of [place] heart with stable angina pectoris Hypothyroidism History of breast cancer History of [place] (myocardial infarction) Osteoarthritis Hyperlipidemia Diabetic neuropathy Diabetes Surgical History History of laparoscopic cholecystectomy (~04/2021) S/P angioplasty (~07/2017) History of percutaneous coronary intervention (~12/2017) History of implantable cardioverter-defibrillator (ICD) placement (~06/22/18) History of lumpectomy of both breasts History of tubal ligation Family History Mother Heart attack Hypertension CVD (cardiovascular disease) Father Diabetes Social History Household Members: Spouse Housing: House Do you presently have visiting nurse or other home services: Yes (CHIEF INFORMATION SECURITY OFFICER 7 DAYS A WEEK) Alcohol intake: never Patient Tobacco Use Status: Never used Tobacco e-Cigarette/Vaping Use: Never Used Second Hand Smoke Exposure: Yes Advance Directives Date on File: 06/05/20 service: No Current occupational status: disabled Sexual orientation: Straight/Heterosexual Gender identity: Female Cognitive needs: No Hearing needs: No Vision needs: Yes Female Reproductive History Menstrual Age of Menarche: 11 Review of Systems Const Denies weakness ENT Denies dizziness Card Denies chest pain, Denies chest pain with activity, Denies syncope, Denies rapid heart rate, Denies pedal edema, Denies edema, Denies leg edema, Denies lightheadedness, Denies palpitations, Denies dyspnea, Denies dyspnea on exertion and Denies orthopnea Resp Denies cough, Denies dyspnea and Denies dyspnea on exertion GI Denies hematochezia and Denies change in stool character Musc Denies abnormal gait, Denies muscle cramps, Denies muscle weakness, Denies numbness, Denies radiating pain into limb and Denies tingling Neuro Denies abnormal gait, Denies dizziness, Denies syncope, Denies numbness, Denies tingling and Denies weakness Endo Denies palpitations Physical Exam Vital Signs: Last Vital Signs Pulse 83 07/18/23 13:04 BP 110/66 07/18/23 13:04 BMI result Body Mass Index 34.8 Const General: comfortable and no acute distress Orientation/consciousness: patient oriented x3 HEENT Other: Unremarkable Head: Yes normal to inspection Neck Neck: Yes normal visual inspection Chest Chest palpation & inspection: normal inspection of the chest Resp Auscultation: clear to auscultation bilaterally Cardio Palpation: normal PMI Heart sounds: S1 normal heart sound present, S2 normal heart sound present, no gallops, no murmurs and no rubs GI Palpation (GI): Soft to palpation Back/Spine/Pelvis Other: unremarkable Skin General skin exam: no rashes or lesions noted Neuro General: patient oriented x3 Extrem General: Yes normal to inspection Psych Mental Status: mental status grossly normal Assessment & Plan Assessment & Plan (1) Ischemic cardiomyopathy: Code(s): I25.5 - Ischemic cardiomyopathy (2) Atherosclerotic cardiovascular disease: Code(s): I25.10 - Atherosclerotic heart disease of [place] coronary artery without angina pectoris (3) Ventricular tachycardia: Code(s): I47.2 - Ventricular tachycardia (4) ICD (implantable cardioverter-defibrillator) in place: Code(s): Z95.810 - Presence of automatic (implantable) cardiac defibrillator Plan Cardiac studies reviewed. Last echocardiogram with LVEF 35-40% with wall motion abnormality in the LAD territory. Myocardial viability in past with thallium showing without any significant viability in the area. Cardiac catheterization data reviewed; LAD stent appeared occluded; mid LAD had 100% occlusion; LPDA stent appeared patent. Overall, doing well from cardiac. No recurrent issues. No heart failure admissions. May continue aspirin long-term. She has not comfortable discontinuing the 2nd antiplatelet agent. Hence Brilinta has been changed to Plavix and she may remain on that. No bleeding concerns. Continue Coreg/lisinopril. Continue statins. History of VT during stress test but has ICD. Normal function and followed remotely. Medications: Changed From sucralfate 1 g PO BIDAC 28 tabs 0RF To sucralfate 1 g PO BIDAC Coding Level of Care Code Est Pt Level 4 (26377) Diagnoses Ischemic cardiomyopathy I25.5 Atherosclerotic cardiovascular disease I25.10 Ventricular tachycardia I47.2 ICD (implantable cardioverter-defibrillator) in place Z95.810
== END 2023-07-18 13:39 | disposition home or self-care (01) ==
PROVIDERS: Visit Provider Internal Medicine
DX: I25.5 Ischemic cardiomyopathy (principal); I25.10 Atherosclerotic heart disease of native coronary artery without angina pectoris; I47.20 Ventricular tachycardia, unspecified; Z95.810 Presence of automatic (implantable) cardiac defibrillator
CPT/HCPCS: 99214

== ENCOUNTER → 2023-07-18 12:58 | Outpatient (BNVA) | payer OTHER, MEDICAID, SELFPAY | PROVIDERS: Visit Provider Internal Medicine | DX: I25.5 Ischemic cardiomyopathy (principal); I25.10 Atherosclerotic heart disease of native coronary artery without angina pectoris; I47.20 Ventricular tachycardia, unspecified; Z95.810 Presence of automatic (implantable) cardiac defibrillator | CPT/HCPCS: 99212 ==

== ENCOUNTER → 2023-07-20 23:59 | Outpatient (BNV) | payer OTHER, MEDICAID, SELFPAY ==
--- NOTE | 2023-07-20 10:52 | A.OFFVIS_ITS ---
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- [employer] Allergies No Known Allergies Allergy (Mild, Verified 07/18/23 13:08) NOT APPLICABLE [facility] Medical History Restrictive lung disease Obesity (BMI 30-39.9) Eventrations, diaphragmatic Dyspnea on exertion Postoperative follow-up Back pain Pityriasis rosea ICD (implantable cardioverter-defibrillator) in place Ventricular tachycardia Atherosclerotic cardiovascular disease Obesity (BMI 30-39.9) Major depressive disorder, recurrent episode, mild Anxiety Insomnia Drug induced constipation Osteoarthritis of spine with radiculopathy, cervical region Lumbar degenerative disc disease Neuropathy History of ductal carcinoma in situ (DCIS) of breast Vitamin D deficiency Acquired hypothyroidism Pure hypercholesterolemia 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 Type 2 diabetes mellitus with diabetic polyneuropathy Ischemic cardiomyopathy Atherosclerosis of coronary artery of [place] heart with stable angina pectoris Hypothyroidism History of breast cancer History of [place] (myocardial infarction) Osteoarthritis Hyperlipidemia Diabetic neuropathy Diabetes Surgical History History of laparoscopic cholecystectomy (~04/2021) S/P angioplasty (~07/2017) History of percutaneous coronary intervention (~12/2017) History of implantable cardioverter-defibrillator (ICD) placement (~06/22/18) History of lumpectomy of both breasts History of tubal ligation Family History Mother Heart attack Hypertension CVD (cardiovascular disease) Father Diabetes Household Members: Spouse Housing: House Do you presently have visiting nurse or other home services: Yes (COLORING CHECKER 7 DAYS A WEEK) Alcohol intake: never Patient Tobacco Use Status: Never used Tobacco e-Cigarette/Vaping Use: Never Used Second Hand Smoke Exposure: Yes Advance Directives Date on File: 06/05/20 service: No Current occupational status: disabled Sexual orientation: Straight/Heterosexual Gender identity: Female Cognitive needs: No Hearing needs: No Vision needs: Yes Female Reproductive History Menstrual Age of Menarche: 11 Office Procedures Cardiac Device Check Cardiac Device Check Details: Date of service- 07/20/2023; based on impedance data and physiological variables, there is no evidence of worsening congestive heart failure. [id number] Cardiac Device Interrogation, cardio physiologic monitor Procedure code (CPT) selection complete Assessment & Plan Assessment & Plan (1) Ischemic cardiomyopathy: Code(s): I25.5 - Ischemic cardiomyopathy Coding Level of Care Code Procedure Only Diagnoses Ischemic cardiomyopathy I25.5 CPT Codes Cardiac Device Check - Cardiac Device 15: [id number] Cardiac Device Interroga tion, cardio physiologic monitor ([id number])
== END ==
PROVIDERS: PCP Internal Medicine; Visit Provider Internal Medicine
DX: I25.5 Ischemic cardiomyopathy (principal); Z95.810 Presence of automatic (implantable) cardiac defibrillator
CPT/HCPCS: 93297

== ENCOUNTER 2023-08-06 08:13 | Outpatient (REF) | payer OTHER, MEDICAID, SELFPAY ==
[2023-08-06 08:36] LABS: MANUAL DIFF FLAG NO
[2023-08-06 08:51] LABS: Basophils Percent Auto 0.4 % (0-2); Hematocrit 44.8 % (37.0-47.0); Hemoglobin 14.2 g/dl (12.0-16.0); Imm Gran Abs Auto 0.02 X10*3/uL (0.00-0.03); Imm Gran Pct Auto 0.3 % (0.0-0.4); Lymphocytes Absolute Auto 2.3 X10*3/uL (1.2-4.9); Lymphocytes Percent Auto 30.7 % (20-40); Mean Corpuscular HGB Conc 31.7 g/dl (31.0-35.0); Mean Corpuscular Hemoglobin 25.7 pg (27.0-33.0); Mean Corpuscular Volume 81.2 fL (80.0-98.0); Mean Platelet Volume 10.9 fL (9.4-12.3); Monocytes Absolute Auto 0.5 X10*3/uL (0.1-1.2); Neutrophils Absolute Auto 4.7 x10*3/uL (2.0-8.3); Neutrophils Percent Auto 61.6 % (45-73); Platelet Count 191 X10*3/uL (160-400); Red Blood Count 5.52 X10*6/uL (4.20-5.50); Red Cell Distribution Width 15.9 % (11.0-16.0); White Blood Count 7.6 X10*3/uL (4.8-10.8)
[2023-08-06 08:58] LABS: Estimated Average Glucose 189 mg/dL; Hemoglobin A1c % 8.2 % (<6.0)
[2023-08-06 09:28] LABS: Alanine Aminotransferase 14 U/L (0-31); Albumin Level 4.1 g/dL (3.5-5.0); Alkaline Phosphatase 51 U/L (39-117); Anion Gap 16 (12-20); Aspartate Amino Transferase 15 U/L (5-31); Bilirubin Total 0.3 mg/dL (0.0-1.0); Blood Urea Nitrogen 20 mg/dL (9-16); Calcium 9.9 mg/dL (8.4-10.2); Carbon Dioxide 25 mmol/L (22-29); Chloride 105 mmol/L (96-108); Cholesterol 136 mg/dL (<200); Estimated Glomerular Filt Rate > 60; Glucose Fasting 178 mg/dL (60-99); HDL Cholesterol 35 mg/dL (>40); LDL Cholesterol Calculated 60 mg/dL (<100); Potassium 5.1 mmol/L (3.3-5.1); Sodium 141 mmol/L (135-145); Total Protein 7.8 g/dL (6.5-8.0); Triglycerides 208 mg/dL (<150)
[2023-08-06 09:35] LABS: Appearance Urine Clear; Color Urine Yellow; Glucose Urine UA >=1000 mg/dL (Negative); Leukocyte Esterase Urine Negative (Negative); Nitrite Urine Negative (Negative); PH 6.5 (5.0-9.0); UMIC TRIGGER UACC YES; Urine Blood Negative (Negative); Urine Ketones Negative (Negative); Urine Protein Negative (Neg-Trace)
[2023-08-06 09:48] LABS: Free T4 (Free Thyroxine) 0.93 ng/dL (0.71-1.85); Thyroid Stimulating Hormone 2.91 uIU/mL (0.32-4.0); Vitamin D 25-OH Total 33.9 ng/mL (>30)
[2023-08-06 09:51] LABS: Folate 10.2 ng/mL (> or = 4.0); Vitamin B12 457 pg/mL (200-900)
[2023-08-06 09:53] LABS: Bacteria Urine None Seen (None Seen); Hyaline Casts Urine 0-2 /LPF (0-2); RBC Urine 0-2 /HPF (0-2); WBC Urine 0-5 /HPF (0-5)
[2023-08-06 09:54] LABS: Creatinine Urine 38.73 mg/dL; Microalbum/Creatinine Ratio Ur 72.2 ug/mg cr (<30)
== END 2023-08-06 08:14 | disposition home or self-care (01) ==
LOC: HO.LAB 08:13
PROVIDERS: PCP Internal Medicine; Visit Provider Internal Medicine
DX: E03.9 Hypothyroidism, unspecified (principal); E55.9 Vitamin D deficiency, unspecified; E53.8 Deficiency of other specified B group vitamins; R30.0 Dysuria; E11.9 Type 2 diabetes mellitus without complications; E78.00 Pure hypercholesterolemia, unspecified
CPT/HCPCS: 36415; 80053; 80061; 81001; 82043; 82306; 82570; 82607; 82746; 83036; 84439; 84443; 85025

== ENCOUNTER 2023-08-17 14:36 | Outpatient (AMB) | payer OTHER, MEDICAID, SELFPAY ==
--- NOTE | 2023-08-17 14:37 | A.OFFPC_ITS ---
Vital Signs 08/17/23 14:38 Height 5 ft 4 in Weight 207 lb 4 oz BMI 35.6 BP 130/88 Blood Pressure Location Lt brachial Position Sitting Pulse 86 Pulse Source Pulse Oximeter Pulse Oximetry (%) 97 Oxygen Delivery Method Room Air Intake Visit Reasons: 3mth f/u Filter Screen Cleaner Required: No Accompanied by: Self / Same As Patient Allergies No Known Allergies Allergy (Mild, Verified 08/17/23 15:23) NOT APPLICABLE Medication List - Last Reconciled 08/17/23 by Saul Lazo MD albuterol sulfate 90 mcg/actuation 2 puffs PO Q4-6H PRN aspirin 81 mg PO DAILY atorvastatin 80 mg PO DAILY blood sugar diagnostic (Pannauch Ultra Test strips) DIRECTED - TEST BLOOD SUGAR 3 TIMES A DAY. blood sugar diagnostic (Accu-Chek Guide test strips) As directed-check blood sugar 3 times a day. blood sugar diagnostic (Accu-Chek Catie Plus test strips) As directed blood-glucose meter (Accu-Chek Catie Plus Meter) As directed QID blood-glucose meter As directed brimonidine 0.1% 1 drp ophthalmic (eye) BID carvedilol 3.125 mg PO BID cholecalciferol (vitamin D3) 125 mcg PO DAILY clopidogrel (Plavix) 75 mg PO DAILY docusate sodium (Colace) 200 mg PO BEDTIME empagliflozin (Jardiance) 25 mg PO DAILY fentanyl 50 mcg/hr 1 patch transdermal Q72H 30 days furosemide 20 mg PO DAILY gabapentin 400 mg PO TID glipizide ER 2.5 mg PO DAILY 90 days isosorbide mononitrate ER 30 mg PO QAM lancets (Accu-Chek Softclix Lancets) 1 ea topical TID latanoprost 0.005% 1 drp ophthalmic (eye) BEDTIME levothyroxine 75 mcg PO QAM 90 days lisinopril 2.5 mg PO DAILY 90 days lorazepam 0.5 mg PO DAILY PRN Novolog FlexPen U-100 Insulin (insulin aspart U-100) 30 units (0.3 mL) subcut TID 90 days NS nystatin 1 appl topical TID 10 days omega-3 fatty acids (Fish Oil Concentrate) 2,000 mg PO DAILY omeprazole 40 mg PO BID 90 days [ONE TOUCH ULTRA GLUCOMETER DEVICE Test blood sugar 3 times a day as instructed; patient is on Insulin] pen needle, diabetic (BD Ultra-Fine Rozina Pen Needle) 1 ea subcut QID spironolactone 25 mg PO DAILY sucralfate 1 g PO BIDAC Tresiba FlexTouch U-100 (insulin degludec) 60 units (0.6 mL) subcut BEDTIME 90 days NS triamcinolone acetonide 0.1% 1 appl topical BID PRN 15 days Tobacco use date assessed: 08/17/23 Fall risk assessment: No Falls in past year Last assessed Fall Risk: 08/17/23 Dental Screening Dental Screen Date: 08/17/23 Did you have a dental visit in the last 12 months?: No Did you have a dental problem in the last 6 months where you did not have access to dental care?: No Was dental information given to patient?: No HPI 3mth f/u HPI Details Patient comes in today for her follow up visit States that she feels okay She denies any headaches or dizziness Denies any chest pains, no increased SOB No nausea/vomiting, no abdominal pain No change in bowel habits noted States that her chronic low back pain and joint pains remain adequately controlled on her current Rx Was instructed to get Rx for Grab bars and a Shower Bench(for her shower) by the nurses from her health insurance company so she can get these items at a medical supply store Had her follow up labs done a couple of weeks ago - to discuss her results [facility] Medical History Restrictive lung disease Obesity (BMI 30-39.9) Eventrations, diaphragmatic Dyspnea on exertion Postoperative follow-up Back pain Pityriasis rosea ICD (implantable cardioverter-defibrillator) in place Ventricular tachycardia Atherosclerotic cardiovascular disease Obesity (BMI 30-39.9) Major depressive disorder, recurrent episode, mild Anxiety Insomnia Drug induced constipation Osteoarthritis of spine with radiculopathy, cervical region Lumbar degenerative disc disease Neuropathy History of ductal carcinoma in situ (DCIS) of breast Vitamin D deficiency Acquired hypothyroidism Pure hypercholesterolemia 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 essential hypertension 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 of 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 Type 2 diabetes mellitus with diabetic polyneuropathy Ischemic cardiomyopathy Atherosclerosis of coronary artery of augustine heart with stable angina pectoris Hypothyroidism History of breast cancer History of SD (myocardial infarction) Osteoarthritis Hyperlipidemia Diabetic neuropathy Diabetes Surgical History History of laparoscopic cholecystectomy (~04/2021) S/P angioplasty (~07/2017) History of percutaneous coronary intervention (~12/2017) History of implantable cardioverter-defibrillator (ICD) placement (~06/22/18) History of lumpectomy of both breasts History of tubal ligation Family History Mother Heart attack Hypertension CVD (cardiovascular disease) Father Diabetes Social History Household Members: Spouse Housing: House Do you presently have visiting nurse or other home services: Yes ([employer] 7 DAYS A WEEK) Alcohol intake: never Patient Tobacco Use Status: Never used Tobacco e-Cigarette/Vaping Use: Never Used Second Hand Smoke Exposure: Yes Advance Directives Date on File: 06/05/20 service: No Current occupational status: disabled Sexual orientation: Straight/Heterosexual Gender identity: Female Cognitive needs: No Hearing needs: No Vision needs: Yes Female Reproductive History Menstrual Age of Menarche: 11 Questionnaire PHQ-9 Over the last 2 weeks, how often have you been bothered by any of the following problems? 1. Little interest or pleasure in doing things: not at all 2. Feeling down, depressed, or hopeless: not at all 3. Trouble falling or staying asleep, or sleeping too much: not at all 4. Feeling tired or having little energy: not at all 5. Poor appetite or overeating: not at all 6. Feeling bad about yourself - or that you are a failure or have let yourself or your family down: not at all 7. Trouble concentrating on things, such as reading the newspaper or watching television: not at all 8. Moving or speaking so slowly that other people could have noticed. Or the opposite - being so fidgety or restless that you have been moving around a lot more than usual: not at all 9. Thoughts that you would be better off or of hurting yourself in some way: not at all Total score: 0 Depression Screening Interpretation: Negative Depression Screening Done: Yes 17156 - PHQ-9 Billing: Yes Source: Developed by Drs. Jack Salas, Khoa Ortiz and colleagues, with an educational dedrick from [employer]. Thrive Questionnaire Date Thrive assessed: 08/17/23 I am a: Patient What is your living situation today?: I have a steady place to live Within the past 12 months, did the food you bought not last and you didn't have the money to get more?: Never true Within the past 12 months, did you worry whether your food would run out before you got money to buy more?: Never true Do you have trouble paying for medicines?: No Do you have trouble getting transportation to medical appointments?: No Do you have trouble paying your heating and electricity bill?: No Do you have trouble taking care of your child, family member or friend?: No Do you have trouble with day-to-day activities such as bathing, preparing meals, shopping, managing finances, etc.?: No Are you currently unemployed and looking for a job?: No Are you interested in more education?: No Please select the resources that you would like help with: None Currently or been in a relationship where the following occur: no concerns reported AUDIT C Alcohol Use Questionnaire (AUDIT-C) 1. How often do you have a drink containing alcohol?: Never 3. How often do you have six or more drinks on one occasion?: Never Total Score: 0 Score Reviewed/Action Taken: Yes MELISA-7 AMB Questionnaire MELISA-7 Date MELISA - 7 assessed: 08/17/23 Feeling nervous, anxious, or on edge: 0 = Not at all Not being able to stop or control worryin = Not at all Worrying too much about different things: 0 = Not at all Trouble relaxin = Not at all Being so restless that it is hard to sit still: 0 = Not at all Becoming easily annoyed or irritable: 0 = Not at all Feeling afraid as if something awful might happen: 0 = Not at all Total MELISA-7 score (0-4 normal; 5-9 mild; 10-14 moderate; 15-21 severe): 0 Source: Developed by Drs. Jack Salas, Khoa Ortiz and colleagues, with an educational dedrick from [employer]. Review of Systems Const Denies chills, Reports fatigue, Denies fever(s) and Denies headache(s) ENT Denies dysphagia, Denies dizziness, Denies otalgia, Denies headache(s), Reports neck pain (on and off pain and stiffness over the left side of the back of her neck), Denies odynophagia and Denies sore throat Card Denies chest pain, Denies palpitations and Reports dyspnea on exertion (mild - chronic) Resp Denies cough and Reports dyspnea on exertion (mild - chronic) GI Denies abdominal pain, Denies constipation, Denies dysphagia, Denies heartburn, Denies diarrhea, Denies nausea, Denies odynophagia and Denies vomiting Denies difficulty voiding, Denies nocturia, Denies dysuria and Denies urinary urgency Musc Reports back pain (over the lower back (chronic)), Reports arthralgias (both knees, increasing over the left knee) and Reports neck pain (on and off pain and stiffness over the left side of the back of her neck) Skin/Breast Denies rash Neuro Denies dizziness and Denies headache(s) Endo Reports fatigue and Denies palpitations Physical exam (Primary Care) Vital Signs: Last Vital Signs Pulse 86 08/17/23 14:38 BP 130/88 08/17/23 14:38 Pulse Ox 97 08/17/23 14:38 Oxygen Delivery Method Room Air 08/17/23 14:38 BMI result Body Mass Index 35.6 Tobacco/Smoking Status: Tobacco use Status Tobacco use date assessed 08/17/23 08/17/23 14:43 Patient Tobacco Use Status Never used Tobacco 08/17/23 14:43 e-Cigarette/Vaping Use Never Used 08/17/23 14:43 PHQ-9: PHQ-9 Score PHQ-9: Total score 0 08/17/23 15:23 Depression Screening Interpretation: Negative Thrive Assessment: Date of Thrive Assessment Date Thrive assessed 08/17/23 08/17/23 14:43 Currently or been in a relationship where the following occur: no concerns reported Const General: no acute distress and alert HENMT Ears: TM's normal bilaterally and EAC's normal Throat: Yes posterior oropharynx normal and Yes tonsils normal (no TP congestion noted) Neck Neck: Yes no lymphadenopathy and Yes supple Resp Auscultation: clear to auscultation bilaterally, no rales and no wheezes Cardio Rate: regular rate Rhythm: regular rhythm Heart sounds: no murmurs GI Palpation (GI): Soft to palpation and nontender Auscultation: normal bowel sounds Back/Spine/Pelvis Cervical Spine: Cervical spine tenderness Thoracic/Lumbar Spine: lumbar spinal tenderness Extrem General: Yes no clubbing, cyanosis or edema Right lower extremity: knee Details: tenderness and crepitus Left lower extremity: knee Details: tenderness (increased) and crepitus; no swelling Results Reviewed Results Reviewed: Laboratory Tests 08/06/23 08/06/23 08/06/23 08:20 08:20 08:33 WBC 7.6 Hgb 14.2 Hct 44.8 Plt Count 191 Sodium 141 Potassium 5.1 Creatinine 0.81 Estimated GFR > 60 Fasting Glucose 178 H Hemoglobin A1c % 8.2 H Calcium AST 15 ALT 14 Triglycerides 208 H Cholesterol 136 LDL Cholesterol, Calc 60 HDL Cholesterol 35 L Vitamin B12 457 25-OH Vitamin D Total 33.9 TSH 2.91 Free T4 0.93 Urine pH 6.5 Ur Specific [place] 1.020 Urine Protein Negative Urine Glucose (UA) >=1000 H Urine Blood Negative Microalb/Creat Ratio 72.2 H 08/06/23 08:33 WBC Hgb Hct Plt Count Sodium Potassium Creatinine Estimated GFR Fasting Glucose Hemoglobin A1c % Calcium 9.9 AST ALT Triglycerides Cholesterol LDL Cholesterol, Calc HDL Cholesterol Vitamin B12 25-OH Vitamin D Total TSH Free T4 Urine pH Ur Specific [place] Urine Protein Urine Glucose (UA) Urine Blood Microalb/Creat Ratio Assessment and Plan Assessment & Plan (1) Atherosclerosis of coronary artery of augustine heart with stable angina pectoris: Comment: Patient has chronic total occlusion of the LAD - S/P PCI with 3-drug eluting stent at [facility] in 2017 but no significant improvement in flow noted post- procedure Repeat cardiac catheterization done a few months later showed 100% occlusion of the previously placed LAD stent - no further intervention done Patient also had ICD placement back in May 2018 and recommended to continue with aggressive risk factor modification Code(s): I25.118 - Atherosclerotic heart disease of augustine coronary artery with other forms of angina pectoris Qualifiers: Coronary Disease-Associated Artery/Lesion type: augustine artery Qualified Code(s): I25.118 - Atherosclerotic heart disease of augustine coronary artery with other forms of angina pectoris Plan: Patient remains asymptomatic Continue Aspirin 81 mg QD and Clopidogrel 75 mg QD for dual antiplatelet therapy; has been on Brilinta 90 mg QD for years and this was stopped by cardiology earlier this year as she no longer needs to continue on it Follow up with cardiology as scheduled (2) Ischemic cardiomyopathy: Code(s): I25.5 - Ischemic cardiomyopathy Plan: Continue Carvedilol 3.125 mg BID, Isosorbide Mononitrate ER 30 mg QD and Furosemide 20 mg Q AM Repeat echocardiogram done back in January 2023 revealed (+) moderately reduced LV systolic function with LVEF of 35-40% with impaired relaxation filling pattern and elevated filling pressures; mildly dilated left atrium and normal cardiac valvular dopplers Follow up with cardiology as scheduled (3) Type 2 diabetes mellitus with diabetic polyneuropathy: Code(s): E11.42 - Type 2 diabetes mellitus with diabetic polyneuropathy Qualifiers: Diabetes mellitus intermediate teacher insulin use: with intermediate teacher use Qualified Code(s): E11.42 - Type 2 diabetes mellitus with diabetic polyneuropathy; Z79.4 - 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 of insulin Plan: HgbA1c was at 8.2% on her labs done a couple of weeks ago (was at 7.5% a few months ago) - goal is at least <7.5% Reinforced diabetic diet Continue Tresiba 60 units Q HS, Novolog TID with meals per sliding scale, Jardiance 25 mg QD and Glipizide ER 2.5 mg QD Have offered again to refer her to endocrinology but patient continues to decline referral (4) Benign essential hypertension: Code(s): I10 - Essential (primary) hypertension Plan: Reinforced low sodium diet - goal is systolic BP of at least 130 mm or less Continue Carvedilol 3.125 mg BID, Furosemide 20 mg Q AM and Lisinopril 2.5 mg QD (5) Pure hypercholesterolemia: Code(s): E78.00 - Pure hypercholesterolemia, unspecified Plan: Results of her labs done a couple of weeks ago reviewed and discussed with patient Reinforced low cholesterol diet Continue Atorvastatin 80 mg QD Will recheck her labs and fasting lipids in 3 months for follow up (6) Acquired hypothyroidism: Code(s): E03.9 - Hypothyroidism, unspecified Plan: Her TFTs are now normal on her recent labs Continue Levothyroxine 75 mcg QD Will recheck her TFTs in 3 months for follow up (7) Vitamin D deficiency: Code(s): E55.9 - Vitamin D deficiency, unspecified Plan: Continue Vitamin D3 5000 units QD (8) History of ductal carcinoma in situ (DCIS) of breast: Code(s): Z86.000 - Personal history of in-situ neoplasm of breast Plan: S/P Tamoxifen x 5 years Follow up with oncology as scheduled for continuing surveillance (9) Neuropathy: Code(s): G62.9 - Polyneuropathy, unspecified Plan: Symptoms remain adequately controlled on her current Rx Continue Gabapentin 400 mg TID (10) Lumbar degenerative disc disease: Code(s): M51.36 - Other intervertebral disc degeneration, lumbar region Plan: Reinforced activity and weight-lifting restrictions Lumbar spine x-rays done in 2015 revealed (+) multilevel thoracolumbar spondylosis and dextroscoliosis Continue Fentanyl patch 50 mcg Q 72 hours for pain (11) Osteoarthritis of spine with radiculopathy, cervical region: Code(s): M47.22 - Other spondylosis with radiculopathy, cervical region Plan: Cervical spine x-rays done a few years ago revealed (+) facet arthritis / spondylosis with neural foraminal narrowing Has been referred to physical therapy when needed in the past to help alleviate her neck symptoms (12) Osteoarthritis of left knee: Code(s): M17.12 - Unilateral primary osteoarthritis, left knee Qualifiers: Osteoarthritis type: primary Qualified Code(s): M17.12 - Unilateral primary osteoarthritis, left knee Plan: Left knee x-rays done back in January 2023 revealed (+) tricompartmental degenerative changes of the left knee joint States that her knee pain has improved with cortisone injection a couple of months ago Follow up with orthopedics as scheduled (13) Drug induced constipation: Code(s): K59.03 - Drug induced constipation Plan: Improved - reinforced increased oral fluids and dietary fiber Has had to take Movantik in the past but currently no longer requires any Rx to help regulate her bowel movements (14) Insomnia: Code(s): G47.00 - Insomnia, unspecified Qualifiers: Insomnia type: primary Qualified Code(s): F51.01 - Primary insomnia Plan: Sleep hygiene reinforced Takes OTC Tylenol PM and / or OTC Melatonin as needed (15) Anxiety: Code(s): F41.9 - Anxiety disorder, unspecified Plan: Continue Lorazepam 0.5 mg QD PRN (16) Major depressive disorder, recurrent episode, mild: Code(s): F33.0 - Major depressive disorder, recurrent, mild Plan: Used to take Mirtazapine 7.5 mg Q HS but it appears that she has not been taking this in a while now as it has not been refilled in a few years Does not feel that she needs anything for her mood at present (17) Obesity (BMI 30-39.9): Code(s): E66.9 - Obesity, unspecified Plan: Reinforced diet/exercise as tolerated/lose weight Plan Follow up in 3 months Orders: Orders Complete Blood Count Auto Diff 3 Months I10 - Essential (primary) hypertension Comprehensive [place]. Panel Fast 3 Months E78.00 - Pure hypercholesterolemia, unspecified Thyroid Stimulating Hormone 3 Months E03.9 - Hypothyroidism, unspecified Free T4 (Free Thyroxine) 3 Months E03.9 - Hypothyroidism, unspecified Hemoglobin A1c 3 Months E11.9 - Type 2 diabetes mellitus without complications Lipid Panel 3 Months E78.00 - Pure hypercholesterolemia, unspecified Vitamin B12 and Folate 3 Months E53.8 - Deficiency of other specified B group vitamins Vitamin D 25-OH Total 3 Months E55.9 - Vitamin D deficiency, unspecified UA CC w/rflx Micro + Cult 3 Months R30.0 - Dysuria Microalbumin, Random (w Creat) 3 Months E11.9 - Type 2 diabetes mellitus without complications Medications: New [GRAB BARS] As directed 2 ea 0RF G62.9 - Polyneuropathy, unspecified, M17.12 - Unilateral primary osteoarthritis, left knee, M47.22 - Other spondylosis with radiculopathy, cervical region, M51.36 - Other intervertebral disc degeneration, lumbar region [SHOWER BENCH] As directed 1 ea 0RF M17.12 - Unilateral primary osteoarthritis, left knee, M47.22 - Other spondylosis with radiculopathy, cervical region, M51.36 - Other intervertebral disc degeneration, lumbar region Coding Level of Care Code Est Pt Level 4 (21086) Diagnoses Atherosclerosis of augustine coronary artery of augustine heart with stable angina pectoris I25.118 Coronary Disease-Associated Artery/Lesion type: augustine artery Ischemic cardiomyopathy I25.5 Type 2 diabetes mellitus with diabetic polyneuropathy, with long-term current use of insulin E11.42; Z79.4 Diabetes mellitus intermediate teacher insulin use: with intermediate teacher use Benign essential hypertension I10 Pure hypercholesterolemia E78.00 Acquired hypothyroidism E03.9 Vitamin D deficiency E55.9 History of ductal carcinoma in situ (DCIS) of breast Z86.000 Neuropathy G62.9 Lumbar degenerative disc disease M51.36 Osteoarthritis of spine with radiculopathy, cervical region M47.22 Primary osteoarthritis of left knee M17.12 Osteoarthritis type: primary Drug induced constipation K59.03 Primary insomnia F51.01 Insomnia type: primary Anxiety F41.9 Major depressive disorder, recurrent episode, mild F33.0 Obesity (BMI 30-39.9) E66.9
[2023-08-17 14:38] VITALS: BP 130/88; PULSE 86; O2SAT 97; BMI 35.6
== END 2023-08-17 15:38 | disposition home or self-care (01) ==
PROVIDERS: PCP Internal Medicine; Visit Provider Internal Medicine
DX: I25.118 Atherosclerotic heart disease of native coronary artery with other forms of angina pectoris (principal); E11.42 Type 2 diabetes mellitus with diabetic polyneuropathy; Z79.4 Long term (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 of insulin; I10 Essential (primary) hypertension; E78.00 Pure hypercholesterolemia, unspecified; E03.9 Hypothyroidism, unspecified; E55.9 Vitamin D deficiency, unspecified; Z86.000 Personal history of in-situ neoplasm of breast; G62.9 Polyneuropathy, unspecified; M51.36 Other intervertebral disc degeneration, lumbar region; M47.22 Other spondylosis with radiculopathy, cervical region; M17.12 Unilateral primary osteoarthritis, left knee
CPT/HCPCS: 99214

== ENCOUNTER → 2023-08-24 23:59 | Outpatient (BNV) | payer OTHER, MEDICAID, SELFPAY ==
--- NOTE | 2023-08-29 17:59 | A.OFFVIS_ITS ---
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- [employer] Allergies No Known Allergies Allergy (Mild, Verified 08/17/23 15:23) NOT APPLICABLE [facility] Medical History Restrictive lung disease Obesity (BMI 30-39.9) Eventrations, diaphragmatic Dyspnea on exertion Postoperative follow-up Back pain Pityriasis rosea ICD (implantable cardioverter-defibrillator) in place Ventricular tachycardia Atherosclerotic cardiovascular disease Obesity (BMI 30-39.9) Major depressive disorder, recurrent episode, mild Anxiety Insomnia Drug induced constipation Osteoarthritis of spine with radiculopathy, cervical region Lumbar degenerative disc disease Neuropathy History of ductal carcinoma in situ (DCIS) of breast Vitamin D deficiency Acquired hypothyroidism Pure hypercholesterolemia 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 Type 2 diabetes mellitus with diabetic polyneuropathy Ischemic cardiomyopathy Atherosclerosis of coronary artery of [place] heart with stable angina pectoris Hypothyroidism History of breast cancer History of [place] (myocardial infarction) Osteoarthritis Hyperlipidemia Diabetic neuropathy Diabetes Surgical History History of laparoscopic cholecystectomy (~04/2021) S/P angioplasty (~07/2017) History of percutaneous coronary intervention (~12/2017) History of implantable cardioverter-defibrillator (ICD) placement (~06/22/18) History of lumpectomy of both breasts History of tubal ligation Family History Mother Heart attack Hypertension CVD (cardiovascular disease) Father Diabetes Social History Household Members: Spouse Housing: House Do you presently have visiting nurse or other home services: Yes (SAMPLE DYE MIXER 7 DAYS A WEEK) Alcohol intake: never Patient Tobacco Use Status: Never used Tobacco Smoked in Last 30 Days: No e-Cigarette/Vaping Use: Never Used Second Hand Smoke Exposure: Yes Use of substances other than those prescribed or required for medical reasons: No Advance Directives: Yes Advance Directives on File: Yes Advance Directives Date on File: 02/01/22 service: No Current occupational status: disabled Sexual orientation: Straight/Heterosexual Gender identity: Female Cognitive needs: No Hearing needs: No Vision needs: Yes Female Reproductive History Menstrual Age of Menarche: 11 Office Procedures Cardiac Device Check Cardiac Device Check Details: Date of service- 08/24/2023; based on impedance data and physiological variables, there is no evidence of worsening congestive heart failure. [id number] Cardiac Device Interrogation, cardio physiologic monitor Procedure code (CPT) selection complete Assessment & Plan Assessment & Plan (1) Ischemic cardiomyopathy: Code(s): I25.5 - Ischemic cardiomyopathy Plan x Coding Level of Care Code Procedure Only Diagnoses Ischemic cardiomyopathy I25.5 CPT Codes Cardiac Device Check - Cardiac Device 15: [id number] Cardiac Device Interrog ation, cardio physiologic monitor ([id number])
== END ==
PROVIDERS: PCP Internal Medicine; Visit Provider Internal Medicine
DX: I25.5 Ischemic cardiomyopathy (principal); Z95.810 Presence of automatic (implantable) cardiac defibrillator
CPT/HCPCS: 93297

== ENCOUNTER 2023-08-25 22:11 | Emergency (ER) | payer OTHER, SELFPAY ==
--- NOTE | ~2023-08-25 | XR_ITS ---
EXAMINATION: XR CHEST CLINICAL INFORMATION: SOB COMPARISON: None available. TECHNIQUE: Frontal view of the chest was obtained. FINDINGS: The lungs are hypoexpanded but clear. The heart size enlarged. Perivascular is slightly prominent. There are pacer electrodes in right ventricle. No gross bony modality seen. XR/XR chest 1V IMPRESSION: 1. Cardiomegaly with mild pulmonary vascular congestion. 2. Hypoexpanded lungs with no acute process seen.
[2023-08-25 22:24] VITALS: BP 130/66; BP 134/70; PULSE 102; PULSE 85; RESP 18; TEMP 37.1; O2SAT 97; O2SAT 98; BMI 35.2
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
[2023-08-25 23:06] LABS: MANUAL DIFF FLAG NO
[2023-08-25 23:07] LABS: Basophils Percent Auto 0.4 % (0-2); Hematocrit 43.3 % (37.0-47.0); Hemoglobin 13.8 g/dl (12.0-16.0); Imm Gran Abs Auto 0.02 X10*3/uL (0.00-0.03); Imm Gran Pct Auto 0.2 % (0.0-0.4); Lymphocytes Absolute Auto 1.9 X10*3/uL (1.2-4.9); Lymphocytes Percent Auto 23.7 % (20-40); Mean Corpuscular HGB Conc 31.9 g/dl (31.0-35.0); Mean Corpuscular Hemoglobin 25.7 pg (27.0-33.0); Mean Corpuscular Volume 80.5 fL (80.0-98.0); Mean Platelet Volume 10.9 fL (9.4-12.3); Monocytes Absolute Auto 0.5 X10*3/uL (0.1-1.2); Monocytes Percent Auto 6.6 % (2-11); Neutrophils Absolute Auto 5.6 x10*3/uL (2.0-8.3); Neutrophils Percent Auto 69.1 % (45-73); Platelet Count 185 X10*3/uL (160-400); Red Blood Count 5.38 X10*6/uL (4.20-5.50); Red Cell Distribution Width 16.2 % (11.0-16.0)
[2023-08-25 23:10] LABS: Carbon Monoxide POC 2.8 %
[2023-08-25 23:11] LABS: Carbon Monoxide Refer to POC result
--- NOTE | 2023-08-25 23:18 | PC.NURSE ---
pt feeling better, less anxious, O2 now 97% on RA. plan of care on going
[2023-08-25 23:27] LABS: B Type Natriuretic Peptide 171 pg/mL (<100)
[2023-08-25 23:29] LABS: Troponin-I High Sensitivity 28.1 ng/L (<3.5-17.0)
[2023-08-25 23:33] LABS: Alanine Aminotransferase 12 U/L (0-31); Alkaline Phosphatase 55 U/L (39-117); Anion Gap 15 (12-20); Aspartate Amino Transferase 14 U/L (5-31); Bilirubin Total 0.2 mg/dL (0.0-1.0); Blood Urea Nitrogen 23 mg/dL (9-16); Calcium 9.3 mg/dL (8.4-10.2); Carbon Dioxide 23 mmol/L (22-29); Chloride 103 mmol/L (96-108); Creatinine Clr Calc Pharmacy 64.2; Estimated Glomerular Filt Rate 58; Glucose Random 341 mg/dL (60-115); Potassium 4.7 mmol/L (3.3-5.1); Sodium 136 mmol/L (135-145); Total Protein 7.8 g/dL (6.5-8.0)
[2023-08-26] MEDS: Insulin Lispro 100 UNIT/ML 3 ML VIAL 12 UNIT SUBCUT (00:28)
[2023-08-26 00:30] VITALS: BP 113/49; PULSE 81; RESP 20; TEMP 37.2; O2SAT 95
== END 2023-08-26 00:39 | disposition home or self-care (01) ==
PROVIDERS: Emergency Provider Internal Medicine; PCP Internal Medicine
DX: T59.811A Toxic effect of smoke, accidental (unintentional), initial encounter (principal); I50.9 Heart failure, unspecified; Y92.002 Bathroom of unspecified non-institutional (private) residence as the place of occurrence of the external cause; I25.10 Atherosclerotic heart disease of native coronary artery without angina pectoris; Z79.899 Other long term (current) drug therapy
CPT/HCPCS: 36415; 71045; 80053; 82375; 83880; 84484; 85025; 99283; 99284

== ENCOUNTER → 2023-10-04 23:59 | Outpatient (BNV) | payer OTHER, SELFPAY ==
--- NOTE | 2023-10-09 14:27 | MHC.OFFVIS ---
Intake Intake Visit Reasons: Remote ICD Check- [employer] Allergies No Known Allergies Allergy (Mild, Verified 08/17/23 15:23) NOT APPLICABLE [facility] Medical History Restrictive lung disease Obesity (BMI 30-39.9) Eventrations, diaphragmatic Dyspnea on exertion Postoperative follow-up Back pain Pityriasis rosea ICD (implantable cardioverter-defibrillator) in place Ventricular tachycardia Atherosclerotic cardiovascular disease Obesity (BMI 30-39.9) Major depressive disorder, recurrent episode, mild Anxiety Insomnia Drug induced constipation Osteoarthritis of spine with radiculopathy, cervical region Lumbar degenerative disc disease Neuropathy History of ductal carcinoma in situ (DCIS) of breast Vitamin D deficiency Acquired hypothyroidism Pure hypercholesterolemia 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 essential hypertension 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 of 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 Type 2 diabetes mellitus with diabetic polyneuropathy Ischemic cardiomyopathy Atherosclerosis of coronary artery of [place] heart with stable angina pectoris Hypothyroidism History of breast cancer History of [place] (myocardial infarction) Osteoarthritis Hyperlipidemia Diabetic neuropathy Diabetes Surgical History History of laparoscopic cholecystectomy (~04/2021) S/P angioplasty (~07/2017) History of percutaneous coronary intervention (~12/2017) History of implantable cardioverter-defibrillator (ICD) placement (~06/22/18) History of lumpectomy of both breasts History of tubal ligation Family History Mother Heart attack Hypertension CVD (cardiovascular disease) Father Diabetes Social History Household Members: Spouse Housing: House Do you presently have visiting nurse or other home services: Yes (HEAD OF [employer]OM[employer] 7 DAYS A WEEK) Alcohol intake: never Patient Tobacco Use Status: Never used Tobacco Smoked in Last 30 Days: No e-Cigarette/Vaping Use: Never Used Second Hand Smoke Exposure: Yes Use of substances other than those prescribed or required for medical reasons: No Advance Directives: Yes Advance Directives on File: Yes Advance Directives Date on File: 02/01/22 service: No Current occupational status: disabled Sexual orientation: Straight/Heterosexual Gender identity: Female Cognitive needs: No Hearing needs: No Vision needs: Yes Female Reproductive History Menstrual Age of Menarche: 11 Office Procedures Cardiac Device Check Cardiac Device Check Details: Date of service 10/04/2023; Battery life >11 years; normal lead parameters; no treated VT/VF; ; normal ICD function. [id number] Cardiac Interrogation, implant defibrillator w/interim Procedure code (CPT) selection complete Assessment & Plan Assessment & Plan (1) Ischemic cardiomyopathy: Code(s): I25.5 - Ischemic cardiomyopathy Plan x Coding Level of Care Code Procedure Only Diagnoses Ischemic cardiomyopathy I25.5 CPT Codes Cardiac Device Check - Cardiac Device 13: [id number] Cardiac Interrogation, implant defibrillator w/interim ([id number])
== END ==
PROVIDERS: PCP Internal Medicine; Visit Provider Internal Medicine
DX: I25.5 Ischemic cardiomyopathy (principal); Z95.810 Presence of automatic (implantable) cardiac defibrillator
CPT/HCPCS: 93295

== ENCOUNTER → 2023-10-04 23:59 | Outpatient (BNV) | payer OTHER, SELFPAY ==
--- NOTE | 2023-10-09 14:26 | A.OFFVIS_ITS ---
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- [facility] Allergies No Known Allergies Allergy (Mild, Verified 08/17/23 15:23) NOT APPLICABLE [facility] Medical History Restrictive lung disease Obesity (BMI 30-39.9) Eventrations, diaphragmatic Dyspnea on exertion Postoperative follow-up Back pain Pityriasis rosea ICD (implantable cardioverter-defibrillator) in place Ventricular tachycardia Atherosclerotic cardiovascular disease Obesity (BMI 30-39.9) Major depressive disorder, recurrent episode, mild Anxiety Insomnia Drug induced constipation Osteoarthritis of spine with radiculopathy, cervical region Lumbar degenerative disc disease Neuropathy History of ductal carcinoma in situ (DCIS) of breast Vitamin D deficiency Acquired hypothyroidism Pure hypercholesterolemia 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 Type 2 diabetes mellitus with diabetic polyneuropathy Ischemic cardiomyopathy Atherosclerosis of coronary artery of [place] heart with stable angina pectoris Hypothyroidism History of breast cancer History of [place] (myocardial infarction) Osteoarthritis Hyperlipidemia Diabetic neuropathy Diabetes Surgical History History of laparoscopic cholecystectomy (~04/2021) S/P angioplasty (~07/2017) History of percutaneous coronary intervention (~12/2017) History of implantable cardioverter-defibrillator (ICD) placement (~06/22/18) History of lumpectomy of both breasts History of tubal ligation Family History Mother Heart attack Hypertension CVD (cardiovascular disease) Father Diabetes Social History Household Members: Spouse Housing: House Do you presently have visiting nurse or other home services: Yes (SURFACE BOSS 7 DAYS A WEEK) Alcohol intake: never Patient Tobacco Use Status: Never used Tobacco Smoked in Last 30 Days: No e-Cigarette/Vaping Use: Never Used Second Hand Smoke Exposure: Yes Use of substances other than those prescribed or required for medical reasons: No Advance Directives: Yes Advance Directives on File: Yes Advance Directives Date on File: 02/01/22 service: No Current occupational status: disabled Sexual orientation: Straight/Heterosexual Gender identity: Female Cognitive needs: No Hearing needs: No Vision needs: Yes Female Reproductive History Menstrual Age of Menarche: 11 Office Procedures Cardiac Device Check Cardiac Device Check Details: Date of service- 10/04/2023; based on impedance data and physiological variables, there is no evidence of worsening congestive heart failure. [id number] Cardiac Device Interrogation, cardio physiologic monitor Procedure code (CPT) selection complete Assessment & Plan Assessment & Plan (1) Ischemic cardiomyopathy: Code(s): I25.5 - Ischemic cardiomyopathy Plan x Coding Level of Care Code Procedure Only Diagnoses Ischemic cardiomyopathy I25.5 CPT Codes Cardiac Device Check - Cardiac Device 15: [id number] Cardiac Device Interrog ation, cardio physiologic monitor ([id number])
== END ==
PROVIDERS: PCP Internal Medicine; Visit Provider Internal Medicine
DX: I25.5 Ischemic cardiomyopathy (principal); Z95.810 Presence of automatic (implantable) cardiac defibrillator
CPT/HCPCS: 93297

== ENCOUNTER → 2023-11-16 23:59 | Outpatient (BNV) | payer OTHER, SELFPAY ==
--- NOTE | 2023-11-20 18:45 | MHC.OFFVIS ---
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- [employer] Allergies No Known Allergies Allergy (Mild, Verified 08/17/23 15:23) NOT APPLICABLE [facility] Medical History Restrictive lung disease Obesity (BMI 30-39.9) Eventrations, diaphragmatic Dyspnea on exertion Postoperative follow-up Back pain Pityriasis rosea ICD (implantable cardioverter-defibrillator) in place Ventricular tachycardia Atherosclerotic cardiovascular disease Obesity (BMI 30-39.9) Major depressive disorder, recurrent episode, mild Anxiety Insomnia Drug induced constipation Osteoarthritis of spine with radiculopathy, cervical region Lumbar degenerative disc disease Neuropathy History of ductal carcinoma in situ (DCIS) of breast Vitamin D deficiency Acquired hypothyroidism Pure hypercholesterolemia Benign essential hypertension 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 of insulin Type 2 diabetes mellitus with diabetic polyneuropathy Ischemic cardiomyopathy Atherosclerosis of coronary artery of [place] heart with stable angina pectoris Hypothyroidism History of breast cancer History of GA (myocardial infarction) Osteoarthritis Hyperlipidemia Diabetic neuropathy Diabetes Surgical History History of laparoscopic cholecystectomy (~04/2021) S/P angioplasty (~07/2017) History of percutaneous coronary intervention (~12/2017) History of implantable cardioverter-defibrillator (ICD) placement (~06/22/18) History of lumpectomy of both breasts History of tubal ligation Family History Mother Heart attack Hypertension CVD (cardiovascular disease) Father Diabetes Social History Household Members: Spouse Housing: House Do you presently have visiting nurse or other home services: Yes (CUSTOMER SERVICE DISPATCHER 7 DAYS A WEEK) Alcohol intake: never Patient Tobacco Use Status: Never used Tobacco e-Cigarette/Vaping Use: Never Used Second Hand Smoke Exposure: Yes Advance Directives Date on File: 02/01/22 service: No Current occupational status: disabled Sexual orientation: Straight/Heterosexual Gender identity: Female Cognitive needs: No Hearing needs: No Vision needs: Yes Female Reproductive History Menstrual Age of Menarche: 11 Office Procedures Cardiac Device Check Cardiac Device Check Details: Date of service- 11/16/2023; based on impedance data and physiological variables, there is no evidence of worsening congestive heart failure. [id number] Cardiac Device Interrogation, cardio physiologic monitor Procedure code (CPT) selection complete Assessment & Plan Assessment & Plan (1) Ischemic cardiomyopathy: Code(s): I25.5 - Ischemic cardiomyopathy Plan x Coding Level of Care Code Procedure Only Diagnoses Ischemic cardiomyopathy I25.5 CPT Codes Cardiac Device Check - Cardiac Device 15: [id number] Cardiac Device Interrogation, cardio physiologic monitor ([id number])
== END ==
PROVIDERS: PCP Internal Medicine; Visit Provider Internal Medicine
DX: I25.5 Ischemic cardiomyopathy (principal); Z95.810 Presence of automatic (implantable) cardiac defibrillator
CPT/HCPCS: 93297

== ENCOUNTER 2023-12-10 07:14 | Outpatient (REF) | payer OTHER, SELFPAY ==
[2023-12-10 07:24] LABS: MANUAL DIFF FLAG NO
[2023-12-10 07:55] LABS: Appearance Urine Clear; Color Urine Yellow; Glucose Urine UA >=1000 mg/dL (Negative); Leukocyte Esterase Urine Negative (Negative); Nitrite Urine Negative (Negative); PH 6.5 (5.0-9.0); Specific Gravity - Urine 1.025 (1.005-1.025); UMIC TRIGGER UACC YES; Urine Blood Small (1+) (Negative); Urine Ketones Negative (Negative); Urine Protein Negative (Neg-Trace)
[2023-12-10 08:00] LABS: Bacteria Urine None Seen (None Seen); Hyaline Casts Urine 0-2 /LPF (0-2); WBC Urine 0-5 /HPF (0-5)
[2023-12-10 08:04] LABS: Basophils Percent Auto 0.3 % (0-2); Hematocrit 43.6 % (37.0-47.0); Imm Gran Abs Auto 0.03 X10*3/uL (0.00-0.03); Imm Gran Pct Auto 0.4 % (0.0-0.4); Mean Corpuscular HGB Conc 32.1 g/dl (31.0-35.0); Mean Corpuscular Hemoglobin 25.2 pg (27.0-33.0); Mean Corpuscular Volume 78.4 fL (80.0-98.0); Mean Platelet Volume 10.8 fL (9.4-12.3); Monocytes Absolute Auto 0.7 X10*3/uL (0.1-1.2); Monocytes Percent Auto 8.8 % (2-11); Neutrophils Absolute Auto 4.7 x10*3/uL (2.0-8.3); Neutrophils Percent Auto 63.5 % (45-73); Platelet Count 190 X10*3/uL (160-400); Red Blood Count 5.56 X10*6/uL (4.20-5.50); Red Cell Distribution Width 17.1 % (11.0-16.0); White Blood Count 7.4 X10*3/uL (4.8-10.8)
[2023-12-10 08:17] LABS: Estimated Average Glucose 200 mg/dL; Hemoglobin A1c % 8.6 % (<6.0)
[2023-12-10 08:48] LABS: Alanine Aminotransferase 29 U/L (0-31); Alkaline Phosphatase 58 U/L (39-117); Anion Gap 11 (12-20); Aspartate Amino Transferase 17 U/L (5-31); Bilirubin Total 0.3 mg/dL (0.0-1.0); Blood Urea Nitrogen 23 mg/dL (9-16); Calcium 9.8 mg/dL (8.4-10.2); Carbon Dioxide 27 mmol/L (22-29); Chloride 103 mmol/L (96-108); Cholesterol 130 mg/dL (<200); Estimated Glomerular Filt Rate > 60; Glucose Fasting 159 mg/dL (60-99); HDL Cholesterol 37 mg/dL (>40); LDL Cholesterol Calculated 62 mg/dL (<100); Potassium 4.3 mmol/L (3.3-5.1); Sodium 137 mmol/L (135-145); Total Protein 7.7 g/dL (6.5-8.0); Triglycerides 158 mg/dL (<150)
[2023-12-10 09:04] LABS: Free T4 (Free Thyroxine) 1.01 ng/dL (0.71-1.85); Thyroid Stimulating Hormone 3.66 uIU/mL (0.32-4.0); Vitamin D 25-OH Total 41.9 ng/mL (>30)
[2023-12-10 09:10] LABS: Folate 8.2 ng/mL (> or = 4.0); Vitamin B12 510 pg/mL (200-900)
== END 2023-12-10 07:15 | disposition home or self-care (01) ==
LOC: HO.LAB 07:14
PROVIDERS: PCP Internal Medicine; Visit Provider Internal Medicine
DX: I10 Essential (primary) hypertension (principal); E11.9 Type 2 diabetes mellitus without complications; E03.9 Hypothyroidism, unspecified; E78.00 Pure hypercholesterolemia, unspecified; E53.8 Deficiency of other specified B group vitamins; E55.9 Vitamin D deficiency, unspecified
CPT/HCPCS: 36415; 80053; 80061; 81001; 82043; 82306; 82570; 82607; 82746; 83036; 84439; 84443; 85025

== ENCOUNTER 2023-12-21 14:30 | Outpatient (AMB) | payer OTHER, SELFPAY ==
--- NOTE | 2023-12-21 14:44 | A.OFFPC_ITS ---
Vital Signs 12/21/23 14:49 Height 5 ft 5 in Weight 201 lb 4 oz BMI 33.5 BP 120/60 Blood Pressure Location Lt brachial Position Sitting Pulse 74 Pulse Source Pulse Oximeter Pulse Oximetry (%) 95 Oxygen Delivery Method Room Air Intake Visit Reasons: DM, HTN, hyperlipidemia, lumbar DDD, OA Intake Note: Patient is here to follow up on DM, HTN, HLD, LDDD, OA. Showroom Salesperson Required: No Take Out Waitress: Not Required per policy Accompanied by: Self / Same As Patient Allergies No Known Allergies Allergy (Mild, Verified 03/09/24 16:06) NOT APPLICABLE Medication List - Last Reconciled 03/11/24 by Saul Lazo MD albuterol sulfate 90 mcg/actuation 2 puffs PO Q4-6H PRN aspirin 81 mg PO DAILY atorvastatin 80 mg PO DAILY blood sugar diagnostic (Gift Card ImpressionsTouch Ultra Test strips) DIRECTED - TEST BLOOD SUGAR 3 TIMES A DAY. blood-glucose meter As directed brimonidine 0.1% 1 drp ophthalmic (eye) BID bumetanide 1 mg PO .TIW carvedilol 3.125 mg PO BID cholecalciferol (vitamin D3) 125 mcg PO DAILY clopidogrel (Plavix) 75 mg PO DAILY docusate sodium (Colace) 200 mg PO BEDTIME empagliflozin (Jardiance) 25 mg PO DAILY fentanyl 50 mcg/hr 1 patch transdermal Q72H 30 days gabapentin 400 mg PO TID [GRAB BARS As directed] latanoprost 0.005% 1 drp ophthalmic (eye) BEDTIME levothyroxine 75 mcg PO QAM 90 days lorazepam 0.5 mg PO DAILY PRN Novolog FlexPen U-100 Insulin (insulin aspart U-100) 30 units (0.3 mL) subcut TID 90 days NS nystatin 1 appl topical TID 10 days omega-3 fatty acids (Fish Oil Concentrate) 2,000 mg PO DAILY omeprazole 40 mg PO BID 90 days [ONE TOUCH ULTRA GLUCOMETER DEVICE Test blood sugar 3 times a day as instructed; patient is on Insulin] pen needle, diabetic (BD Ultra-Fine Rozina Pen Needle) 1 ea subcut QID sacubitril-valsartan 24-26 mg (Entresto) 1 tab PO BID 30 days [SHOWER BENCH As directed] spironolactone 25 mg PO DAILY sucralfate 1 g PO BIDAC Tresiba FlexTouch U-100 (insulin degludec) 60 units (0.6 mL) subcut BEDTIME 90 days NS triamcinolone acetonide 0.5% 1 appl topical BID PRN 15 days Tobacco use date assessed: 12/21/23 Fall risk assessment: No Falls in past year Last assessed Fall Risk: 12/21/23 Dental Screening Dental Screen Date: 12/21/23 Did you have a dental visit in the last 12 months?: No Did you have a dental problem in the last 6 months where you did not have access to dental care?: No Was dental information given to patient?: No (Dentures) HPI DM, HTN, hyperlipidemia, lumbar DDD, OA HPI Details Patient comes in today for her follow up visit States that she feels okay She denies any headaches or dizziness Denies any chest pains, no increased SOB No nausea/vomiting, no abdominal pain No change in bowel habits noted Needs her Triamcinolone topical cream Rx refilled She had her follow up labs done a couple of weeks ago - to discuss her results [facility] Medical History Restrictive lung disease Obesity (BMI 30-39.9) Eventrations, diaphragmatic Dyspnea on exertion Postoperative follow-up Back pain Pityriasis rosea ICD (implantable cardioverter-defibrillator) in place Ventricular tachycardia Atherosclerotic cardiovascular disease Obesity (BMI 30-39.9) Major depressive disorder, recurrent episode, mild Anxiety Insomnia Drug induced constipation Osteoarthritis of spine with radiculopathy, cervical region Lumbar degenerative disc disease Neuropathy History of ductal carcinoma in situ (DCIS) of breast Vitamin D deficiency Acquired hypothyroidism Pure hypercholesterolemia Benign essential hypertension assisted (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 of insulin Type 2 diabetes mellitus with diabetic polyneuropathy Ischemic cardiomyopathy Atherosclerosis of coronary artery of [place] heart with stable angina pectoris Hypothyroidism History of breast cancer History of [place] (myocardial infarction) Osteoarthritis Hyperlipidemia Diabetic neuropathy Diabetes Surgical History History of laparoscopic cholecystectomy (~04/2021) S/P angioplasty (~07/2017) History of percutaneous coronary intervention (~12/2017) History of implantable cardioverter-defibrillator (ICD) placement (~06/22/18) History of lumpectomy of both breasts History of tubal ligation Family History Mother Heart attack Hypertension CVD (cardiovascular disease) Father Diabetes Social History Household Members: Spouse Housing: House Do you presently have visiting nurse or other home services: Yes (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 1. Little interest or pleasure in doing things: not at all 2. Feeling down, depressed, or hopeless: not at all 3. Trouble falling or staying asleep, or sleeping too much: not at all 4. Feeling tired or having little energy: not at all 5. Poor appetite or overeating: not at all 6. Feeling bad about yourself - or that you are a failure or have let yourself or your family down: not at all 7. Trouble concentrating on things, such as reading the newspaper or watching television: not at all 8. Moving or speaking so slowly that other people could have noticed. Or the opposite - being so fidgety or restless that you have been moving around a lot more than usual: not at all 9. Thoughts that you would be better off or of hurting yourself in some way: not at all Total score: 0 Depression Screening Interpretation: Negative Depression Screening Done: Yes 99316 - PHQ-9 Billing: Yes Source: Developed by Drs. Jack Salas, Dinorah Vo, Khoa Stauffer and colleagues, with an educational dedrick from [employer]. Thrive Questionnaire Date Thrive assessed: 12/21/23 I am a: Patient What is your living situation today?: I have a steady place to live Within the past 12 months, did the food you bought not last and you didn't have the money to get more?: Never true Within the past 12 months, did you worry whether your food would run out before you got money to buy more?: Never true Do you have trouble paying for medicines?: No Do you have trouble getting transportation to medical appointments?: No Do you have trouble paying your heating and electricity bill?: No Do you have trouble taking care of your child, family member or friend?: No Do you have trouble with day-to-day activities such as bathing, preparing meals, shopping, managing finances, etc.?: No Are you currently unemployed and looking for a job?: No Are you interested in more education?: No Currently or been in a relationship where the following occur: no concerns reported THRIVE Score: 0 AUDIT C Alcohol Use Questionnaire (AUDIT-C) 1. How often do you have a drink containing alcohol?: Never 3. How often do you have six or more drinks on one occasion?: Never Total Score: 0 Score Reviewed/Action Taken: Yes MELISA-7 AMB Questionnaire MELISA-7 Date MELISA - 7 assessed: 12/21/23 Feeling nervous, anxious, or on edge: 0 = Not at all Not being able to stop or control worryin = Not at all Worrying too much about different things: 0 = Not at all Trouble relaxin = Not at all Being so restless that it is hard to sit still: 0 = Not at all Becoming easily annoyed or irritable: 0 = Not at all Feeling afraid as if something awful might happen: 0 = Not at all Total MELISA-7 score (0-4 normal; 5-9 mild; 10-14 moderate; 15-21 severe): 0 Source: Developed by Drs. Jack Salas, Dinorah Vo, Khoa Stauffer and colleagues, with an educational dedrick from [employer]. Review of Systems Const Denies chills, Reports fatigue, Denies fever(s) and Denies headache(s) ENT Denies dysphagia, Denies dizziness, Denies otalgia, Denies headache(s), Reports neck pain (on and off ), Denies odynophagia and Denies sore throat Card Denies chest pain, Denies palpitations and Reports dyspnea on exertion (mild - chronic) Resp Denies cough, Reports dyspnea on exertion (mild - chronic) and Denies wheezing GI Denies abdominal pain, Denies constipation, Denies dysphagia, Denies heartburn, Denies diarrhea, Denies nausea, Denies odynophagia and Denies vomiting Denies difficulty voiding, Denies nocturia, Denies dysuria and Denies urinary urgency Musc Reports back pain (over the lower back (chronic)), Reports arthralgias (in both knees, especially over the left knee) and Reports neck pain (on and off ) Skin/Breast Denies rash Neuro Denies dizziness and Denies headache(s) Endo Reports fatigue and Denies palpitations Aller/Immun Denies wheezing Physical exam (Primary Care) Vital Signs: Last Vital Signs Pulse 74 12/21/23 14:49 BP 120/60 12/21/23 14:49 Pulse Ox 95 12/21/23 14:49 Oxygen Delivery Method Room Air 12/21/23 14:49 BMI result Body Mass Index 33.5 Tobacco/Smoking Status: Tobacco use Status Tobacco use date assessed 12/21/23 12/21/23 14:56 Patient Tobacco Use Status Never used Tobacco 12/21/23 14:46 e-Cigarette/Vaping Use Never Used 12/21/23 14:46 PHQ-9: PHQ-9 Score PHQ-9: Total score 0 12/21/23 15:47 Depression Screening Interpretation: Negative Thrive Assessment: Date of Thrive Assessment Date Thrive assessed 12/21/23 12/21/23 14:46 Currently or been in a relationship where the following occur: no concerns reported Const General: no acute distress and alert HENMT Ears: TM's normal bilaterally and EAC's normal Throat: Yes posterior oropharynx normal and Yes tonsils normal (no TP congestion noted) Neck Neck: Yes no lymphadenopathy and Yes supple Thyroid: Thyroid normal Resp Auscultation: clear to auscultation bilaterally, no rales and no wheezes Cardio Rate: regular rate Rhythm: regular rhythm Heart sounds: no murmurs GI Palpation (GI): Soft to palpation and nontender Auscultation: normal bowel sounds General: Yes no CVA tenderness Back/Spine/Pelvis Back: no CVA tenderness Cervical Spine: Cervical spine tenderness Thoracic/Lumbar Spine: lumbar spinal tenderness Extrem General: Yes no clubbing, cyanosis or edema Right lower extremity: knee Details: tenderness and crepitus Left lower extremity: knee Details: tenderness (increased) and crepitus; no swelling Results Reviewed Results Reviewed: Laboratory Tests 12/10/23 07:22 WBC 7.4 Hgb 14.0 Hct 43.6 Plt Count 190 Sodium 137 Potassium 4.3 Creatinine 0.92 Estimated GFR > 60 Fasting Glucose 159 H Hemoglobin A1c % 8.6 H Calcium 9.8 AST 17 ALT 29 Triglycerides 158 H Cholesterol 130 LDL Cholesterol, Calc 62 HDL Cholesterol 37 L Vitamin B12 510 25-OH Vitamin D Total 41.9 TSH 3.66 Free T4 1.01 Ur Specific [place] 1.025 Urine Protein Negative Urine Glucose (UA) >=1000 H Urine Blood Small (1+) H Urine Nitrite Negative Ur Leukocyte Esterase Negative Microalb/Creat Ratio 98.0 H Assessment and Plan Assessment & Plan (1) Atherosclerosis of coronary artery of [place] heart with stable angina pectoris: Comment: Patient has chronic total occlusion of the LAD - S/P PCI with 3-drug eluting stent at [facility] in 2017 but no significant improvement in flow noted post- procedure Repeat cardiac catheterization done a few months later showed 100% occlusion of the previously placed LAD stent - no further intervention done Patient also had ICD placement back in May 2018 and recommended to continue with aggressive risk factor modification Code(s): I25.118 - Atherosclerotic heart disease of [place] coronary artery with other forms of angina pectoris Qualifiers: Coronary Disease-Associated Artery/Lesion type: [place] artery Qualified Code(s): I25.118 - Atherosclerotic heart disease of [place] coronary artery with other forms of angina pectoris Plan: Patient remains asymptomatic Continue Aspirin 81 mg QD and Clopidogrel 75 mg QD for dual antiplatelet therapy; has been on Brilinta 90 mg QD for years and this was stopped by cardiology earlier this year as she no longer needs to continue on it Follow up with cardiology as scheduled (2) Ischemic cardiomyopathy: Code(s): I25.5 - Ischemic cardiomyopathy Plan: Continue Carvedilol 3.125 mg BID, Isosorbide Mononitrate ER 30 mg QD and Furosemide 20 mg Q AM Repeat echocardiogram done back in January 2023 revealed (+) moderately reduced LV systolic function with LVEF of 35-40% with impaired relaxation filling pattern a nd elevated filling pressures; mildly dilated left atrium and normal cardiac valvular dopplers Follow up with cardiology as scheduled (3) Type 2 diabetes mellitus with diabetic polyneuropathy: Code(s): E11.42 - Type 2 diabetes mellitus with diabetic polyneuropathy Qualifiers: Diabetes mellitus communications intern insulin use: with fpc use Qualified Code(s): E11.42 - Type 2 diabetes mellitus with diabetic polyneuropathy; 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 Plan: HgbA1c was at 8.6% on her labs done a couple of weeks ago (was previously at 8.2% a few months ago) - goal is at least <7.5% Reinforced diabetic diet Continue Tresiba 60 units Q HS, Novolog 30 units TID with meals, Jardiance 25 mg QD and Glipizide ER 2.5 mg QD Have offered again to refer her to endocrinology but patient continues to decline referral (4) Pure hypercholesterolemia: Code(s): E78.00 - Pure hypercholesterolemia, unspecified Plan: Results of her labs done a couple of weeks ago reviewed and discussed with patient Reinforced low cholesterol diet Continue Atorvastatin 80 mg QD Will recheck her labs and fasting lipids in 3 months for follow up (5) Benign essential hypertension: Code(s): I10 - Essential (primary) hypertension Plan: Reinforced low sodium diet - goal is systolic BP of at least 130 mm or less Continue Carvedilol 3.125 mg BID, Furosemide 20 mg Q AM and Lisinopril 2.5 mg QD (6) Acquired hypothyroidism: Code(s): E03.9 - Hypothyroidism, unspecified Plan: Her TFTs are now normal on her recent labs Continue Levothyroxine 75 mcg QD Will recheck her TFTs in 3 months for follow up (7) Vitamin D deficiency: Code(s): E55.9 - Vitamin D deficiency, unspecified Plan: Continue Vitamin D3 5000 units QD (8) Neuropathy: Code(s): G62.9 - Polyneuropathy, unspecified Plan: Symptoms remain adequately controlled on her current Rx Continue Gabapentin 400 mg TID (9) History of ductal carcinoma in situ (DCIS) of breast: Code(s): Z86.000 - Personal history of in-situ neoplasm of breast Plan: S/P Tamoxifen x 5 years Follow up with oncology as scheduled for continuing surveillance (10) Lumbar degenerative disc disease: Code(s): M51.36 - Other intervertebral disc degeneration, lumbar region Plan: Reinforced activity and weight-lifting restrictions Lumbar spine x-rays done in 2015 revealed (+) multilevel thoracolumbar spondylosis and dextroscoliosis Continue Fentanyl patch 50 mcg Q 72 hours for pain (11) Osteoarthritis of spine with radiculopathy, cervical region: Code(s): M47.22 - Other spondylosis with radiculopathy, cervical region Plan: Cervical spine x-rays done a few years ago revealed (+) facet arthritis / spondylosis with neural foraminal narrowing She has been referred to physical therapy when needed in the past to help alleviate her neck symptoms (12) Osteoarthritis of left knee: Code(s): M17.12 - Unilateral primary osteoarthritis, left knee Qualifiers: Osteoarthritis type: primary Qualified Code(s): M17.12 - Unilateral primary osteoarthritis, left knee Plan: Left knee x-rays done back in January 2023 revealed (+) tricompartmental degenerative changes of the left knee joint States that her knee pain has improved with cortisone injection a couple of months ago Follow up with orthopedics as scheduled (13) Drug induced constipation: Code(s): K59.03 - Drug induced constipation Plan: Improved - reinforced increased oral fluids and dietary fiber Has had to take Movantik in the past but currently no longer requires any Rx to help regulate her bowel movements (14) Insomnia: Code(s): G47.00 - Insomnia, unspecified Qualifiers: Insomnia type: primary Qualified Code(s): F51.01 - Primary insomnia Plan: Sleep hygiene reinforced Takes OTC Tylenol PM and / or OTC Melatonin as needed (15) Anxiety: Code(s): F41.9 - Anxiety disorder, unspecified Plan: Continue Lorazepam 0.5 mg QD PRN (16) Major depressive disorder, recurrent episode, mild: Code(s): F33.0 - Major depressive disorder, recurrent, mild Plan: Used to take Mirtazapine 7.5 mg Q HS but it appears that she has not been taking this in a while now as it has not been refilled in a few years Does not feel that she needs anything for her mood at present (17) Obesity (BMI 30-39.9): Code(s): E66.9 - Obesity, unspecified Plan: Reinforced diet/exercise as tolerated/lose weight Plan Follow up in 3 months Orders: Orders Complete Blood Count Auto Diff 3 Months D64.9 - Anemia, unspecified Comprehensive [place]. Panel Fast 3 Months E78.00 - Pure hypercholesterolemia, unspecified Lipid Panel 3 Months E78.00 - Pure hypercholesterolemia, unspecified Hemoglobin A1c 3 Months E11.9 - Type 2 diabetes mellitus without complications Microalbumin, Random (w Creat) 3 Months E11.9 - Type 2 diabetes mellitus without complications UA CC w/rflx Micro + Cult 3 Months R30.0 - Dysuria Medications: Changed From triamcinolone acetonide 0.1% 1 appl topical BID 15 days PRN 80 grams 1RF rash/itching L42 - Pityriasis rosea To triamcinolone acetonide 0.5% 1 appl topical BID PRN 15 grams 2RF rash/itching 15 days L42 - Pityriasis rosea Coding Level of Care Code Est Pt Level 4 (19540) Diagnoses Atherosclerosis of [place] coronary artery of [place] heart with stable angina pectoris I25.118 Coronary Disease-Associated Artery/Lesion type: [place] artery Ischemic cardiomyopathy I25.5 Type 2 diabetes mellitus with diabetic polyneuropathy, with long-term current use of insulin E11.42; Z79.4 Diabetes mellitus communications intern insulin use: with fpc use Pure hypercholesterolemia E78.00 Benign essential hypertension I10 Acquired hypothyroidism E03.9 Vitamin D deficiency E55.9 Neuropathy G62.9 History of ductal carcinoma in situ (DCIS) of breast Z86.000 Lumbar degenerative disc disease M51.36 Osteoarthritis of spine with radiculopathy, cervical region M47.22 Primary osteoarthritis of left knee M17.12 Osteoarthritis type: primary Drug induced constipation K59.03 Primary insomnia F51.01 Insomnia type: primary Anxiety F41.9 Major depressive disorder, recurrent episode, mild F33.0 Obesity (BMI 30-39.9) E66.9
[2023-12-21 14:49] VITALS: BP 120/60; PULSE 74; O2SAT 95; BMI 33.5
== END 2023-12-21 15:56 | disposition home or self-care (01) ==
PROVIDERS: PCP Internal Medicine; Visit Provider Internal Medicine
DX: I25.118 Atherosclerotic heart disease of native coronary artery with other forms of angina pectoris (principal); I25.5 Ischemic cardiomyopathy; E11.42 Type 2 diabetes mellitus with diabetic polyneuropathy; Z79.4 Long term (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 of insulin; E78.00 Pure hypercholesterolemia, unspecified; I10 Essential (primary) hypertension; E03.9 Hypothyroidism, unspecified; E55.9 Vitamin D deficiency, unspecified; G62.9 Polyneuropathy, unspecified; F33.0 Major depressive disorder, recurrent, mild; Z86.000 Personal history of in-situ neoplasm of breast; M51.36 Other intervertebral disc degeneration, lumbar region; M47.22 Other spondylosis with radiculopathy, cervical region; M17.12 Unilateral primary osteoarthritis, left knee; K59.03 Drug induced constipation; F51.01 Primary insomnia; F41.9 Anxiety disorder, unspecified; E66.9 Obesity, unspecified
CPT/HCPCS: 99214

== ENCOUNTER → 2023-12-21 23:59 | Outpatient (BNV) | payer OTHER, SELFPAY ==
--- NOTE | 2023-12-29 20:34 | A.OFFVIS_ITS ---
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[employer] Allergies No Known Allergies Allergy (Mild, Verified 12/21/23 14:49) NOT APPLICABLE [facility] Medical History Restrictive lung disease Obesity (BMI 30-39.9) Eventrations, diaphragmatic Dyspnea on exertion Postoperative follow-up Back pain Pityriasis rosea ICD (implantable cardioverter-defibrillator) in place Ventricular tachycardia Atherosclerotic cardiovascular disease Obesity (BMI 30-39.9) Major depressive disorder, recurrent episode, mild Anxiety Insomnia Drug induced constipation Osteoarthritis of spine with radiculopathy, cervical region Lumbar degenerative disc disease Neuropathy History of ductal carcinoma in situ (DCIS) of breast Vitamin D deficiency Acquired hypothyroidism Pure hypercholesterolemia Benign essential hypertension assisted (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 of insulin Type 2 diabetes mellitus with diabetic polyneuropathy Ischemic cardiomyopathy Atherosclerosis of coronary artery of [place] heart with stable angina pectoris Hypothyroidism History of breast cancer History of [place] (myocardial infarction) Osteoarthritis Hyperlipidemia Diabetic neuropathy Diabetes Surgical History History of laparoscopic cholecystectomy (~04/2021) S/P angioplasty (~07/2017) History of percutaneous coronary intervention (~12/2017) History of implantable cardioverter-defibrillator (ICD) placement (~06/22/18) History of lumpectomy of both breasts History of tubal ligation Family History Mother Heart attack Hypertension CVD (cardiovascular disease) Father Diabetes Social History Household Members: Spouse Housing: House Do you presently have visiting nurse or other home services: Yes (OBIEE REPORT DEVELOPER 7 DAYS A WEEK) Alcohol intake: never Patient Tobacco Use Status: Never used Tobacco e-Cigarette/Vaping Use: Never Used Second Hand Smoke Exposure: Yes Advance Directives Date on File: 02/01/22 service: No Current occupational status: disabled Sexual orientation: Straight/Heterosexual Gender identity: Female Cognitive needs: Yes (Cane) Hearing needs: No Vision needs: Yes (Glasses) Female Reproductive History Menstrual Age of Menarche: 11 Office Procedures Cardiac Device Check Cardiac Device Check Details: Date of service- 12/21/2023; based on impedance data and physiological variables, there is no evidence of worsening congestive heart failure. [id number] Cardiac Device Interrogation, cardio physiologic monitor Procedure code (CPT) selection complete Assessment & Plan Assessment & Plan (1) Ischemic cardiomyopathy: Code(s): I25.5 - Ischemic cardiomyopathy Category: Medical Plan x Coding Level of Care Code Procedure Only Diagnoses Ischemic cardiomyopathy I25.5 CPT Codes Cardiac Device Check - Cardiac Device 15: [id number] Cardiac Device Interrogation, cardio physiologic monitor ([id number])
== END ==
PROVIDERS: PCP Internal Medicine; Visit Provider Internal Medicine
DX: I25.5 Ischemic cardiomyopathy (principal); Z95.810 Presence of automatic (implantable) cardiac defibrillator
CPT/HCPCS: 93297

== ENCOUNTER 2023-12-27 11:21 | Outpatient (AMB) | payer OTHER, SELFPAY ==
--- NOTE | 2023-12-27 11:37 | A.OFFVIS_ITS ---
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 No complaints. Last Pap/HPV 09/13 was negative, preceded by negative Pap smear in 2012 and 2013 Last Mammogram was BI-RADS 2 in 04/20 Last Colonoscopy was in , according to the patient her PCP recommended against screening colonoscopy because of her health status, she had a Cologuard a year ago which was negative Last DEXA scan was in 04/19 in the low risk category [facility] Medical History Restrictive lung disease Obesity (BMI 30-39.9) Eventrations, diaphragmatic Dyspnea on exertion Postoperative follow-up Back pain Pityriasis rosea ICD (implantable cardioverter-defibrillator) in place Ventricular tachycardia Atherosclerotic cardiovascular disease Obesity (BMI 30-39.9) Major depressive disorder, recurrent episode, mild Anxiety Insomnia Drug induced constipation Osteoarthritis of spine with radiculopathy, cervical region Lumbar degenerative disc disease Neuropathy History of ductal carcinoma in situ (DCIS) of breast Vitamin D deficiency Acquired hypothyroidism Pure hypercholesterolemia 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 essential 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 Type 2 diabetes mellitus with diabetic polyneuropathy Ischemic cardiomyopathy Atherosclerosis of coronary artery of [place] heart with stable angina pectoris Hypothyroidism History of breast cancer History of [place] (myocardial infarction) Osteoarthritis Hyperlipidemia Diabetic neuropathy Diabetes Surgical History History of laparoscopic cholecystectomy (~04/2021) S/P angioplasty (~07/2017) History of percutaneous coronary intervention (~12/2017) History of implantable cardioverter-defibrillator (ICD) placement (~06/22/18) History of lumpectomy of both breasts History of tubal ligation Family History Mother Heart attack Hypertension CVD (cardiovascular disease) Father Diabetes Social History Household Members: Spouse Housing: House Do you presently have visiting nurse or other home services: Yes (TAPPER HAND 7 DAYS A WEEK) Alcohol intake: never Patient Tobacco Use Status: Never used Tobacco e-Cigarette/Vaping Use: Never Used Second Hand Smoke Exposure: Yes Advance Directives Date on File: 02/01/22 service: No Current occupational status: disabled Sexual orientation: Straight/Heterosexual Gender identity: Female Cognitive needs: Yes (Cane) Hearing needs: No Vision needs: Yes (Glasses) Female Reproductive History Menstrual Age of Menarche: 11 Date of last pap smear: 09/15/15 Date of Mammogram: 04/25/23 Review of Systems Const All systems reviewed & are unremarkable except as noted in HPI and below Card Reports as per HPI Resp Reports as per HPI GI Reports as per HPI and Reports no additional complaints Reports as per HPI Physical Exam Vital Signs: Last Vital Signs BP 124/64 12/27/23 11:39 BMI result Body Mass Index 34.4 Const General: cooperative, healthy appearing and comfortable Chest Chest palpation & inspection: normal inspection of the chest and normal palpation of entire chest wall Breast/axilla inspection: normal inspection of the breasts and normal inspection of the axillae Breast/axilla palpation: normal palpation of the breasts, normal palpation of the axillae and no axillary lymphadenopathy Resp Effort & Inspection: normal respiratory effort Auscultation: clear to auscultation bilaterally Percussion: percussion normal Cardio Palpation: normal PMI Rate: regular rate Rhythm: regular rhythm Heart sounds: no murmurs and no rubs Peripheral pulses: Peripheral pulses 2+ throughout GI Inspection: Yes normal to inspection Palpation (GI): Soft to palpation, nontender, no guarding, not rigid and No hepatosplenomegaly present Percussion: Yes normal to percussion Auscultation: normal bowel sounds Rectal Exam - Female: deferred General: Yes bladder normal to palpation External Female Exam: No lesion Speculum Exam - Vagina: normal appearance of the vagina, normal palpation, normal vaginal discharge and not erythematous Speculum Exam - Cervix: normal appearance of the cervix and normal palpation Bimanual exam- vagina & uterus: normal bimanual exam, normal palpation, uterine size normal, bladder normal to palpation, consistency normal and normal palpation Bimanual Exam- Adnexa, other: normal adnexae, no masses and no tenderness Assessment & Plan Assessment & Plan (1) Well woman exam: Code(s): Z01.419 - Encounter for gynecological examination (general) (routine) without abnormal findings Category: Medical Plan: Co testing not indicated since the patient 's age is above 65 with no history of abnormal Pap smears last 25 years. Counseled the patient about the recommended dietary allowance of 1200 mg of Calcium & 800 IU of vitamin D. Instructions given the patient to schedule next screening Mammogram in 04/21. Recommended to the patient screening colonoscopy the patient would like to think about it and get back to me for a referral. Will order DEXA scan in 04/21 . The patient was instructed to perform monthly self-breast exams and to schedule a 2 week DEXA scan follow-up appointment and an annual exam in a year; All questions answered and the patient verbalized understanding. Orders: Orders MM tomosynthesis screening BI 04/27/24 Z12.31 - Encounter for screening mammogram for malignant neoplasm of breast XR DEXA axial skeleton 04/27/24 Z78.0 - Asymptomatic menopausal state Coding Level of Care Code Est Pt Prev Care >65y(04128) Diagnoses Well woman exam Z01.419
[2023-12-27 11:39] VITALS: BP 124/64; BMI 34.4
== END 2023-12-27 12:20 | disposition home or self-care (01) ==
LOC: HO.HWS 11:21
PROVIDERS: PCP Internal Medicine; Visit Provider Obstetrics & Gynecology
DX: Z01.419 Encounter for gynecological examination (general) (routine) without abnormal findings (principal)
CPT/HCPCS: 99397

== ENCOUNTER → 2023-12-27 11:21 | Outpatient (BNVA) | payer OTHER, SELFPAY | PROVIDERS: PCP Internal Medicine; Visit Provider Obstetrics & Gynecology ==

== ENCOUNTER → 2024-01-25 23:59 | Outpatient (BNV) | payer OTHER, SELFPAY ==
--- NOTE | 2024-01-29 14:00 | A.OFFVIS_ITS ---
Intake Visit Reasons: Remote ICD check- [employer]up [employer] Allergies No Known Allergies Allergy (Mild, Verified 12/21/23 14:49) NOT APPLICABLE [facility] Medical History Restrictive lung disease Obesity (BMI 30-39.9) Eventrations, diaphragmatic Dyspnea on exertion Postoperative follow-up Back pain Pityriasis rosea ICD (implantable cardioverter-defibrillator) in place Ventricular tachycardia Atherosclerotic cardiovascular disease Obesity (BMI 30-39.9) Major depressive disorder, recurrent episode, mild Anxiety Insomnia Drug induced constipation Osteoarthritis of spine with radiculopathy, cervical region Lumbar degenerative disc disease Neuropathy History of ductal carcinoma in situ (DCIS) of breast Vitamin D deficiency Acquired hypothyroidism Pure hypercholesterolemia 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 Type 2 diabetes mellitus with diabetic polyneuropathy Ischemic cardiomyopathy Atherosclerosis of coronary artery of [place] heart with stable angina pectoris Hypothyroidism History of breast cancer History of [place] (myocardial infarction) Osteoarthritis Hyperlipidemia Diabetic neuropathy Diabetes Surgical History History of laparoscopic cholecystectomy (~04/2021) S/P angioplasty (~07/2017) History of percutaneous coronary intervention (~12/2017) History of implantable cardioverter-defibrillator (ICD) placement (~06/22/18) History of lumpectomy of both breasts History of tubal ligation Family History Mother Heart attack Hypertension CVD (cardiovascular disease) Father Diabetes Social History Household Members: Spouse Housing: House Do you presently have visiting nurse or other home services: Yes (GRAY MIXING OPERATOR 7 DAYS A WEEK) Alcohol intake: never Patient Tobacco Use Status: Never used Tobacco e-Cigarette/Vaping Use: Never Used Second Hand Smoke Exposure: Yes Advance Directives Date on File: 02/01/22 service: No Current occupational status: disabled Sexual orientation: Straight/Heterosexual Gender identity: Female Cognitive needs: Yes (Cane) Hearing needs: No Vision needs: Yes (Glasses) Female Reproductive History Menstrual Age of Menarche: 11 Office Procedures Cardiac Device Check Cardiac Device Check Details: Date of service 01/25/2024; Battery life 11 years; normal lead parameters; no treated VT/VF; ; normal ICD function. [id number] Cardiac Interrogation, implant defibrillator w/interim Procedure code (CPT) selection complete Assessment & Plan Assessment & Plan (1) Ischemic cardiomyopathy: Code(s): I25.5 - Ischemic cardiomyopathy Category: Medical Plan x Coding Level of Care Code Procedure Only Diagnoses Ischemic cardiomyopathy I25.5 CPT Codes Cardiac Device Check - Cardiac Device 13: [id number] Cardiac Interrogation, implant defibrillator w/interim ([id number])
== END ==
PROVIDERS: PCP Internal Medicine; Visit Provider Internal Medicine
DX: I25.5 Ischemic cardiomyopathy (principal); Z95.810 Presence of automatic (implantable) cardiac defibrillator
CPT/HCPCS: 93295

== ENCOUNTER → 2024-01-25 23:59 | Outpatient (BNV) | payer OTHER, SELFPAY ==
--- NOTE | 2024-01-29 14:11 | MHC.OFFVIS ---
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[employer]up [employer] Allergies No Known Allergies Allergy (Mild, Verified 12/21/23 14:49) NOT APPLICABLE [facility] Medical History Restrictive lung disease Obesity (BMI 30-39.9) Eventrations, diaphragmatic Dyspnea on exertion Postoperative follow-up Back pain Pityriasis rosea ICD (implantable cardioverter-defibrillator) in place Ventricular tachycardia Atherosclerotic cardiovascular disease Obesity (BMI 30-39.9) Major depressive disorder, recurrent episode, mild Anxiety Insomnia Drug induced constipation Osteoarthritis of spine with radiculopathy, cervical region Lumbar degenerative disc disease Neuropathy History of ductal carcinoma in situ (DCIS) of breast Vitamin D deficiency Acquired hypothyroidism Pure hypercholesterolemia Benign essential hypertension assisted (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 of insulin Type 2 diabetes mellitus with diabetic polyneuropathy Ischemic cardiomyopathy Atherosclerosis of coronary artery of [place] heart with stable angina pectoris Hypothyroidism History of breast cancer History of [place] (myocardial infarction) Osteoarthritis Hyperlipidemia Diabetic neuropathy Diabetes Surgical History History of laparoscopic cholecystectomy (~04/2021) S/P angioplasty (~07/2017) History of percutaneous coronary intervention (~12/2017) History of implantable cardioverter-defibrillator (ICD) placement (~06/22/18) History of lumpectomy of both breasts History of tubal ligation Family History Mother Heart attack Hypertension CVD (cardiovascular disease) Father Diabetes Social History Household Members: Spouse Housing: House Do you presently have visiting nurse or other home services: Yes (ROVING MARKER 7 DAYS A WEEK) Alcohol intake: never Patient Tobacco Use Status: Never used Tobacco e-Cigarette/Vaping Use: Never Used Second Hand Smoke Exposure: Yes Advance Directives Date on File: 02/01/22 service: No Current occupational status: disabled Sexual orientation: Straight/Heterosexual Gender identity: Female Cognitive needs: Yes (Cane) Hearing needs: No Vision needs: Yes (Glasses) Female Reproductive History Menstrual Age of Menarche: 11 Office Procedures Cardiac Device Check Cardiac Device Check Details: Date of service- 01/25/2024; based on impedance data and physiological variables, there is no evidence of worsening congestive heart failure. [id number] Cardiac Device Interrogation, cardio physiologic monitor Procedure code (CPT) selection complete Assessment & Plan Assessment & Plan (1) Ischemic cardiomyopathy: Code(s): I25.5 - Ischemic cardiomyopathy Category: Medical Plan x Coding Level of Care Code Procedure Only Diagnoses Ischemic cardiomyopathy I25.5 CPT Codes Cardiac Device Check - Cardiac Device 15: [id number] Cardiac Device Interrogation, cardio physiologic monitor ([id number])
== END ==
PROVIDERS: PCP Internal Medicine; Visit Provider Internal Medicine
DX: I25.5 Ischemic cardiomyopathy (principal); Z95.810 Presence of automatic (implantable) cardiac defibrillator
CPT/HCPCS: 93297

== ENCOUNTER → 2024-02-29 23:59 | Outpatient (BNV) | payer OTHER, SELFPAY ==
--- NOTE | 2024-03-06 15:52 | MHC.OFFVIS ---
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[employer]up [employer] Allergies No Known Allergies Allergy (Mild, Verified 12/21/23 14:49) NOT APPLICABLE [facility] Medical History Restrictive lung disease Obesity (BMI 30-39.9) Eventrations, diaphragmatic Dyspnea on exertion Postoperative follow-up Back pain Pityriasis rosea ICD (implantable cardioverter-defibrillator) in place Ventricular tachycardia Atherosclerotic cardiovascular disease Obesity (BMI 30-39.9) Major depressive disorder, recurrent episode, mild Anxiety Insomnia Drug induced constipation Osteoarthritis of spine with radiculopathy, cervical region Lumbar degenerative disc disease Neuropathy History of ductal carcinoma in situ (DCIS) of breast Vitamin D deficiency Acquired hypothyroidism Pure hypercholesterolemia Benign essential hypertension shelter (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 of insulin Type 2 diabetes mellitus with diabetic polyneuropathy Ischemic cardiomyopathy Atherosclerosis of coronary artery of [place] heart with stable angina pectoris Hypothyroidism History of breast cancer History of [place] (myocardial infarction) Osteoarthritis Hyperlipidemia Diabetic neuropathy Diabetes Surgical History History of laparoscopic cholecystectomy (~04/2021) S/P angioplasty (~07/2017) History of percutaneous coronary intervention (~12/2017) History of implantable cardioverter-defibrillator (ICD) placement (~06/22/18) History of lumpectomy of both breasts History of tubal ligation Family History Mother Heart attack Hypertension CVD (cardiovascular disease) Father Diabetes Social History Household Members: Spouse Housing: House Do you presently have visiting nurse or other home services: Yes (CLEANING AND WASHING EQUIPMENT OPERATOR 7 DAYS A WEEK) Alcohol intake: never Patient Tobacco Use Status: Never used Tobacco e-Cigarette/Vaping Use: Never Used Second Hand Smoke Exposure: Yes Advance Directives Date on File: 02/01/22 service: No Current occupational status: disabled Sexual orientation: Straight/Heterosexual Gender identity: Female Cognitive needs: Yes (Cane) Hearing needs: No Vision needs: Yes (Glasses) Female Reproductive History Menstrual Age of Menarche: 11 Office Procedures Cardiac Device Check Cardiac Device Check Details: Date of service- 02/29/2024; based on impedance data and physiological variables, there is no evidence of worsening congestive heart failure. [id number] Cardiac Device Interrogation, cardio physiologic monitor Procedure code (CPT) selection complete Assessment & Plan Assessment & Plan (1) Ischemic cardiomyopathy: Code(s): I25.5 - Ischemic cardiomyopathy Category: Medical Plan x Coding Level of Care Code Procedure Only Diagnoses Ischemic cardiomyopathy I25.5 CPT Codes Cardiac Device Check - Cardiac Device 15: [id number] Cardiac Device Interrogation, cardio physiologic monitor ([id number])
== END ==
PROVIDERS: PCP Internal Medicine; Visit Provider Internal Medicine
DX: I25.5 Ischemic cardiomyopathy (principal); Z95.810 Presence of automatic (implantable) cardiac defibrillator
CPT/HCPCS: 93297

== ENCOUNTER 2024-03-03 07:24 | Outpatient (REF) | payer OTHER, SELFPAY ==
[2024-03-03 07:38] LABS: MANUAL DIFF FLAG NO
[2024-03-03 08:11] LABS: Basophils Percent Auto 0.3 % (0-2); Hematocrit 43.2 % (37.0-47.0); Imm Gran Abs Auto 0.03 X10*3/uL (0.00-0.03); Imm Gran Pct Auto 0.4 % (0.0-0.4); Lymphocytes Percent Auto 39.1 % (20-40); Mean Corpuscular HGB Conc 32.4 g/dl (31.0-35.0); Mean Corpuscular Hemoglobin 26.1 pg (27.0-33.0); Mean Corpuscular Volume 80.4 fL (80.0-98.0); Mean Platelet Volume 10.7 fL (9.4-12.3); Monocytes Absolute Auto 0.6 X10*3/uL (0.1-1.2); Monocytes Percent Auto 7.8 % (2-11); Neutrophils Percent Auto 52.4 % (45-73); Platelet Count 201 X10*3/uL (160-400); Red Blood Count 5.37 X10*6/uL (4.20-5.50); Red Cell Distribution Width 17.2 % (11.0-16.0); White Blood Count 7.6 X10*3/uL (4.8-10.8)
[2024-03-03 08:12] LABS: Appearance Urine Clear; Color Urine Yellow; Glucose Urine UA >=1000 mg/dL (Negative); Leukocyte Esterase Urine Negative (Negative); Nitrite Urine Negative (Negative); Specific Gravity - Urine >= 1.030 (1.005-1.025); UMIC TRIGGER UACC YES; Urine Blood Negative (Negative); Urine Ketones Negative (Negative); Urine Protein Negative (Neg-Trace)
[2024-03-03 08:21] LABS: Estimated Average Glucose 174 mg/dL; Hemoglobin A1c % 7.7 % (<6.0)
[2024-03-03 08:22] LABS: Bacteria Urine 1+ (None Seen); Hyaline Casts Urine 0-2 /LPF (0-2); RBC Urine 0-2 /HPF (0-2); WBC Urine 0-5 /HPF (0-5)
[2024-03-03 08:33] LABS: Creatinine Urine 75.03 mg/dL; Microalbum/Creatinine Ratio Ur 39.9 ug/mg cr (<30)
[2024-03-03 08:37] LABS: Alanine Aminotransferase 10 U/L (0-31); Albumin Level 4.1 g/dL (3.5-5.0); Alkaline Phosphatase 52 U/L (39-117); Anion Gap 14 (12-20); Aspartate Amino Transferase 15 U/L (5-31); Bilirubin Total 0.3 mg/dL (0.0-1.0); Blood Urea Nitrogen 26 mg/dL (9-16); Calcium 9.6 mg/dL (8.4-10.2); Carbon Dioxide 26 mmol/L (22-29); Chloride 105 mmol/L (96-108); Cholesterol 130 mg/dL (<200); Estimated Glomerular Filt Rate > 60; Glucose Fasting 165 mg/dL (60-99); HDL Cholesterol 33 mg/dL (>40); LDL Cholesterol Calculated 62 mg/dL (<100); Potassium 5.1 mmol/L (3.3-5.1); Sodium 140 mmol/L (135-145); Total Protein 7.6 g/dL (6.5-8.0); Triglycerides 175 mg/dL (<150)
== END 2024-03-03 07:25 | disposition home or self-care (01) ==
LOC: HO.LAB 07:24
PROVIDERS: PCP Internal Medicine; Visit Provider Internal Medicine
DX: D64.9 Anemia, unspecified (principal); E78.00 Pure hypercholesterolemia, unspecified; E11.9 Type 2 diabetes mellitus without complications
CPT/HCPCS: 36415; 80053; 80061; 81001; 82043; 82570; 83036; 85025

== ENCOUNTER 2024-03-09 14:52 | Outpatient (AMB) | payer OTHER, SELFPAY ==
[2024-03-09 14:59] VITALS: BP 90/58; PULSE 73; O2SAT 99; BMI 34.5
--- NOTE | 2024-03-09 14:59 | A.OFFPC_ITS ---
Vital Signs 03/09/24 14:59 Height 5 ft 4 in Weight 201 lb 0.4 oz BMI 34.5 BP 90/58 L Blood Pressure Location Lt brachial Position Sitting Pulse 73 Pulse Source Pulse Oximeter Pulse Oximetry (%) 99 Oxygen Delivery Method Room Air Intake Visit Reasons: Annual exam Intake Note: Patient is here today for a physical. Supervisor Train Operations Required: No Allergies No Known Allergies Allergy (Mild, Verified 03/09/24 16:06) NOT APPLICABLE Medication List - Last Reconciled 03/09/24 by Saul Lazo MD albuterol sulfate 90 mcg/actuation 2 puffs PO Q4-6H PRN aspirin 81 mg PO DAILY atorvastatin 80 mg PO DAILY blood sugar diagnostic (Elephant.isTouch Ultra Test strips) DIRECTED - TEST BLOOD SUGAR 3 TIMES A DAY. blood-glucose meter As directed brimonidine 0.1% 1 drp ophthalmic (eye) BID bumetanide 1 mg PO .TIW carvedilol 3.125 mg PO BID cholecalciferol (vitamin D3) 125 mcg PO DAILY clopidogrel (Plavix) 75 mg PO DAILY docusate sodium (Colace) 200 mg PO BEDTIME empagliflozin (Jardiance) 25 mg PO DAILY fentanyl 50 mcg/hr 1 patch transdermal Q72H 30 days gabapentin 400 mg PO TID [GRAB BARS As directed] latanoprost 0.005% 1 drp ophthalmic (eye) BEDTIME levothyroxine 75 mcg PO QAM 90 days lorazepam 0.5 mg PO DAILY PRN Novolog FlexPen U-100 Insulin (insulin aspart U-100) 30 units (0.3 mL) subcut TID 90 days NS nystatin 1 appl topical TID 10 days omega-3 fatty acids (Fish Oil Concentrate) 2,000 mg PO DAILY omeprazole 40 mg PO BID 90 days [ONE TOUCH ULTRA GLUCOMETER DEVICE Test blood sugar 3 times a day as instructed; patient is on Insulin] pen needle, diabetic (BD Ultra-Fine Rozina Pen Needle) 1 ea subcut QID sacubitril-valsartan 24-26 mg (Entresto) 1 tab PO BID 30 days [SHOWER BENCH As directed] spironolactone 25 mg PO DAILY sucralfate 1 g PO BIDAC Tresiba FlexTouch U-100 (insulin degludec) 60 units (0.6 mL) subcut BEDTIME 90 days NS triamcinolone acetonide 0.5% 1 appl topical BID PRN 15 days Tobacco use date assessed: 12/21/23 Fall risk assessment: No Falls in past year Last assessed Fall Risk: 03/09/24 Dental Screening Dental Screen Date: 03/09/24 Did you have a dental visit in the last 12 months?: No Did you have a dental problem in the last 6 months where you did not have access to dental care?: No Was dental information given to patient?: Patient has dentist HPI Annual exam HPI Details Patient comes in today for her annual physical examination Relates that she was admitted to the [facility] at [place], [place] last month from 01/28/2024 to 02/05/2024 Recalls that she went to the ER because of increasing SOB while visiting her who was admitted at the same hospital at the time She was reportedly diagnosed with respiratory failure, hypoxia, pulmonary edema, metabolic acidosis, leucocytosis and hyperglycemia based on a discharge summary paper she brought in with her today Patient also presented a paper indicating that she has a drug-eluting stent (Xience) inserted into her coronary circulation - unclear as to where she had the stent deployed (appears to be the Cx artery) - will try to request for a copy of all her pertinent records from [facility] in [place], [place] [facility] Patient states that she currently still feels fatigued easily and overall feels weak - would like to know what she can do to help with her generalized weakness She denies any headaches or dizziness Denies any exertional chest pains; still has some [place] but feels that this is slowly improving from last month No nausea/vomiting, no abdominal pain No change in bowel habits noted She denies any acute urinary symptoms She had her follow up labs done last week - to discuss her results She had a negative Cologuard done a couple of years ago in 01/2022 She had her mammogram last done in March 2023 and is scheduled for her repeat mammogram in early April 2024 Is also scheduled for her repeat BMD and annual gynecology exam and pap smear next month [facility] Medical History Restrictive lung disease Obesity (BMI 30-39.9) Eventrations, diaphragmatic Dyspnea on exertion Postoperative follow-up Back pain Pityriasis rosea ICD (implantable cardioverter-defibrillator) in place Ventricular tachycardia Atherosclerotic cardiovascular disease Obesity (BMI 30-39.9) Major depressive disorder, recurrent episode, mild Anxiety Insomnia Drug induced constipation Osteoarthritis of spine with radiculopathy, cervical region Lumbar degenerative disc disease Neuropathy History of ductal carcinoma in situ (DCIS) of breast Vitamin D deficiency Acquired hypothyroidism Pure hypercholesterolemia Benign essential hypertension prison (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 of insulin Type 2 diabetes mellitus with diabetic polyneuropathy Ischemic cardiomyopathy Atherosclerosis of coronary artery of resighini heart with stable angina pectoris Hypothyroidism History of breast cancer History of SC (myocardial infarction) Osteoarthritis Hyperlipidemia Diabetic neuropathy Diabetes Surgical History History of laparoscopic cholecystectomy (~04/2021) S/P angioplasty (~07/2017) History of percutaneous coronary intervention (~12/2017) History of implantable cardioverter-defibrillator (ICD) placement (~06/22/18) History of lumpectomy of both breasts History of tubal ligation Family History Mother Heart attack Hypertension CVD (cardiovascular disease) Father Diabetes Social History Household Members: Spouse Housing: House Do you presently have visiting nurse or other home services: Yes ([address] 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 1. Little interest or pleasure in doing things: not at all 2. Feeling down, depressed, or hopeless: not at all 3. Trouble falling or staying asleep, or sleeping too much: not at all 4. Feeling tired or having little energy: not at all 5. Poor appetite or overeating: not at all 6. Feeling bad about yourself - or that you are a failure or have let yourself or your family down: not at all 7. Trouble concentrating on things, such as reading the newspaper or watching television: not at all 8. Moving or speaking so slowly that other people could have noticed. Or the opposite - being so fidgety or restless that you have been moving around a lot more than usual: not at all 9. Thoughts that you would be better off or of hurting yourself in some way: not at all Total score: 0 Depression Screening Interpretation: Negative Depression Screening Done: Yes 53670 - PHQ-9 Billing: Yes Source: Developed by Drs. Jack Salas, Dinorah Vo, Khoa Stauffer and colleagues, with an educational dedrick from [employer]. Thrive Questionnaire Date Thrive assessed: 03/09/24 I am a: Patient What is your living situation today?: I have a steady place to live Within the past 12 months, did the food you bought not last and you didn't have the money to get more?: Never true Within the past 12 months, did you worry whether your food would run out before you got money to buy more?: Never true Do you have trouble paying for medicines?: No Do you have trouble getting transportation to medical appointments?: No Do you have trouble paying your heating and electricity bill?: No Do you have trouble taking care of your child, family member or friend?: No Do you have trouble with day-to-day activities such as bathing, preparing meals, shopping, managing finances, etc.?: No Are you currently unemployed and looking for a job?: No Are you interested in more education?: No Currently or been in a relationship where the following occur: No concerns reported THRIVE Score: 0 AUDIT C Alcohol Use Questionnaire (AUDIT-C) 1. How often do you have a drink containing alcohol?: Never 3. How often do you have six or more drinks on one occasion?: Never Total Score: 0 Score Reviewed/Action Taken: Yes MELISA-7 AMB Questionnaire MELISA-7 Date MELISA - 7 assessed: 03/09/24 Feeling nervous, anxious, or on edge: 0 = Not at all Not being able to stop or control worryin = Not at all Worrying too much about different things: 0 = Not at all Trouble relaxin = Not at all Being so restless that it is hard to sit still: 0 = Not at all Becoming easily annoyed or irritable: 0 = Not at all Feeling afraid as if something awful might happen: 0 = Not at all Total MELISA-7 score (0-4 normal; 5-9 mild; 10-14 moderate; 15-21 severe): 0 Source: Developed by Drs. Jack Salas, Dinorah Vo, Khoa Stauffer and colleagues, with an educational dedrick from [employer]. MELISA-7 Assessment Billing MELISA-7 Assessment Tool: MELISA-7 Assessment 69926 Review of Systems Const Denies chills, Reports fatigue, Denies fever(s), Denies headache(s), Denies malaise and Reports weakness (generalized) Eyes Denies blurry vision, Denies change in vision, Denies irritation and Denies itchy eyes ENT Denies dysphagia, Denies dizziness, Denies otalgia, Denies headache(s), Denies nasal congestion, Reports neck pain (chronic), Denies odynophagia, Denies sinus pain and Denies sore throat Card Denies chest pain, Denies chest pain with activity, Denies rapid heart rate, Denies irregular heart rhythm, Denies palpitations and Reports dyspnea on exertion (mild) Resp Denies chest congestion, Denies cough, Reports dyspnea on exertion (mild) and Denies wheezing GI Denies abdominal pain, Denies bloating, Denies constipation, Denies dysphagia, Denies heartburn, Denies diarrhea, Denies nausea, Denies odynophagia and Denies vomiting Denies hematuria, Denies urinary frequency, Denies dysuria, Denies urinary incontinence and Denies urinary urgency Musc Reports back pain (chronic), Reports arthralgias (involving multiple joints, especially in the left knee), Denies joint swelling, Denies muscle weakness and Reports neck pain (chronic) Skin/Breast Denies breast pain, Denies breast mass, Denies change in pigmentation, Denies lesions, Denies rash and Denies unusual bruising Neuro Denies dizziness, Denies headache(s), Denies paresthesias and Reports weakness (generalized) Psych Denies anxiety and Denies depression Endo Reports fatigue and Denies palpitations Jaime/Lymph Denies easy bruising Aller/Immun Denies itchy eyes and Denies wheezing Physical exam (Primary Care) Vital Signs: Last Vital Signs Pulse 73 03/09/24 14:59 BP 90/58 L 03/09/24 14:59 Pulse Ox 99 03/09/24 14:59 Oxygen Delivery Method Room Air 03/09/24 14:59 BMI result Body Mass Index 34.5 Tobacco/Smoking Status: Tobacco use Status Tobacco use date assessed 12/21/23 03/09/24 15:00 Patient Tobacco Use Status Never used Tobacco 03/09/24 15:00 e-Cigarette/Vaping Use Never Used 03/09/24 15:00 PHQ-9: PHQ-9 Score PHQ-9: Total score 0 03/09/24 15:11 Depression Screening Interpretation: Negative Thrive Assessment: Date of Thrive Assessment Date Thrive assessed 12/21/23 03/09/24 15:00 Currently or been in a relationship where the following occur: No concerns reported Const General: no acute distress, alert and awake Orientation/consciousness: patient oriented x3 HENMT Head: Yes normocephalic and Yes atraumatic Ears: external ears normal, TM's normal bilaterally and EAC's normal General nose exam: No nasal discharge present Face and sinus: Yes normal facial exam and Yes sinuses nontender Teeth and gingiva: dentition normal Throat: Yes posterior oropharynx normal and Yes tonsils normal (no TP congestion) Eyes Eyelids: Yes eyelids normal Conjunctivae: conjunctivae normal Pupils: Equal, round and reactive pupils present EOM: EOMs intact bilaterally Neck Neck: Yes no lymphadenopathy Thyroid: Thyroid normal Resp Auscultation: clear to auscultation bilaterally, no rales and no wheezes Cardio Rate: regular rate Rhythm: regular rhythm Heart sounds: no murmurs GI Palpation (GI): Soft to palpation, nontender and No hepatosplenomegaly present Auscultation: normal bowel sounds General: Yes no CVA tenderness Back/Spine/Pelvis Back: no CVA tenderness Cervical Spine: Cervical spine tenderness Thoracic/Lumbar Spine: lumbar spinal tenderness Skin Lesions: no lesions Rashes: no rashes Neuro General: patient oriented x3, moves all extremities, no focal motor deficits and CN's II-XI intact bilaterally Cranial nerves: Yes Equal, round and reactive pupils present Cognition (Neuro): normal cognition Gait exam (Neuro): Normal gait present Extrem General: Yes no clubbing, cyanosis or edema Results Reviewed Results Reviewed: Laboratory Tests 12/10/23 03/03/24 07:22 07:37 WBC 7.4 7.6 Hgb 14.0 14.0 Hct 43.6 43.2 Plt Count 190 201 Sodium 137 140 Potassium 4.3 5.1 Creatinine 0.92 0.91 Estimated GFR > 60 > 60 Fasting Glucose 159 H 165 H Hemoglobin A1c % 8.6 H 7.7 H Calcium 9.8 9.6 AST 17 15 ALT 29 10 Total Protein 7.6 Albumin 4.1 Triglycerides 158 H 175 H Cholesterol 130 130 LDL Cholesterol, Calc 62 62 HDL Cholesterol 37 L 33 L Vitamin B12 510 25-OH Vitamin D Total 41.9 TSH 3.66 Free T4 1.01 Ur Specific Emmons 1.025 >= 1.030 H Urine Protein Negative Negative Urine Glucose (UA) >=1000 H >=1000 H Urine Blood Small (1+) H Negative Urine Nitrite Negative Negative Ur Leukocyte Esterase Negative Negative Microalb/Creat Ratio 98.0 H 39.9 H Assessment and Plan Assessment & Plan (1) Annual physical exam: Code(s): Z00.00 - Encounter for general adult medical examination without abnormal findings Plan: Results of her labs done last week reviewed and discussed with patient She is up-to-date with her colon cancer screening - will be due for repeat Cologuard testing next year unless patient decides to go for a regular colonoscopy instead She is scheduled for her repeat BMD and annual pap smear/gynecology exam next month (March 2024) and for her annual mammogram in April 2024 (2) Atherosclerosis of coronary artery of resighini heart with stable angina pectoris: Comment: Patient has chronic total occlusion of the LAD - S/P PCI with 3-drug eluting stent at [facility] in 2017 but no significant improvement in flow noted post- procedure Repeat cardiac catheterization done a few months later showed 100% occlusion of the previously placed LAD stent - no further intervention done Patient also had ICD placement back in May 2018 and recommended to continue with aggressive risk factor modification Code(s): I25.118 - Atherosclerotic heart disease of resighini coronary artery with other forms of angina pectoris Qualifiers: Coronary Disease-Associated Artery/Lesion type: resighini artery Qualified Code(s): I25.118 - Atherosclerotic heart disease of resighini coronary artery with other forms of angina pectoris Plan: Patient appears to have had JUN to her left Cx artery in [place] last month - will try to obtain copy of her hospital records from [facility] [place] in [place] for review and confirmation Continue Aspirin 81 mg QD and Clopidogrel 75 mg QD for dual antiplatelet therapy Follow up with cardiology as scheduled (3) Ischemic cardiomyopathy: Code(s): I25.5 - Ischemic cardiomyopathy Plan: Continue Carvedilol 3.125 mg BID, Bumetanide 1 mg every other day and Entresto 24-26 mg BID Her previous Isosorbide Mononitrate ER 30 mg QD and Furosemide 20 mg Q AM were discontinued while she was at the hospital last month Repeat echocardiogram done last year in January 2023 revealed (+) moderately reduced LV systolic function with LVEF of 35-40% with impaired relaxation filling pattern and elevated filling pressures; mildly dilated left atrium and normal cardiac valvular dopplers States that she recalls getting a repeat echocardiogram in [place] last month and will try to get a copy of that as well Follow up with cardiology as scheduled (4) Type 2 diabetes mellitus with diabetic polyneuropathy: Code(s): E11.42 - Type 2 diabetes mellitus with diabetic polyneuropathy Qualifiers: Diabetes mellitus junior programmer insulin use: with intermediate use Qualified Code(s): E11.42 - Type 2 diabetes mellitus with diabetic polyneuropathy; 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 Plan: Her HgbA1c was at 7.7% on her labs done last week (was at 8.2% a few months ago) - goal is at least <7.5% Reinforced diabetic diet Continue Tresiba 60 units Q HS, Novolog 30 units TID with meals and Jardiance 25 mg QD; her Glipizide ER 2.5 mg QD was discontinued Have offered again to refer her to endocrinology but patient continues to decline referral - advised her that if she is still not at goal with her HgbA1c next time, considering her recent cardiac, she will need to see endocrinology for further management (5) Benign essential hypertension: Code(s): I10 - Essential (primary) hypertension Plan: Reinforced low sodium diet - goal is systolic BP of at least 130 mm or less Continue Carvedilol 3.125 mg BID, Bumetanide 1 mg every other day and Entresto 24-26 mg BID Her Furosemide 20 mg Q AM and Lisinopril 2.5 mg QD were discontinued at the [facility] last month (6) Pure hypercholesterolemia: Code(s): E78.00 - Pure hypercholesterolemia, unspecified Plan: She is advised that her serum triglyceride level has increased slightly from previous but all of her other cholesterol numbers have improved and are at or near goal Reinforced low cholesterol diet Continue Atorvastatin 80 mg QD Will recheck her labs and fasting lipids in 3 months for follow up (7) Acquired hypothyroidism: Code(s): E03.9 - Hypothyroidism, unspecified Plan: Her TFTs remained normal on her recent labs Continue Levothyroxine 75 mcg QD Will recheck her TFTs in 3 months for follow up (8) Vitamin D deficiency: Code(s): E55.9 - Vitamin D deficiency, unspecified Plan: Continue Vitamin D3 5000 units QD (9) History of ductal carcinoma in situ (DCIS) of breast: Code(s): Z86.000 - Personal history of in-situ neoplasm of breast Plan: S/P Tamoxifen x 5 years Follow up with oncology as scheduled for continuing surveillance (10) Neuropathy: Code(s): G62.9 - Polyneuropathy, unspecified Plan: Her symptoms of neuropathy remain adequately controlled on her current Rx Continue Gabapentin 400 mg TID (11) Lumbar degenerative disc disease: Code(s): M51.36 - Other intervertebral disc degeneration, lumbar region Plan: Reinforced activity and weight-lifting restrictions Lumbar spine x-rays done in 2015 revealed (+) multilevel thoracolumbar spondylosis and dextroscoliosis Continue Fentanyl patch 50 mcg Q 72 hours for pain (12) Osteoarthritis of spine with radiculopathy, cervical region: Code(s): M47.22 - Other spondylosis with radiculopathy, cervical region Plan: Cervical spine x-rays done a few years ago revealed (+) facet arthritis / spondylosis with neural foraminal narrowing She has been referred to physical therapy when needed in the past to help alleviate her neck symptoms (13) Osteoarthritis of left knee: Code(s): M17.12 - Unilateral primary osteoarthritis, left knee Qualifiers: Osteoarthritis type: primary Qualified Code(s): M17.12 - Unilateral primary osteoarthritis, left knee Plan: Left knee x-rays done back in January 2023 revealed (+) tricompartmental degenerative changes of the left knee joint States that her knee pain has improved with cortisone injection from orthopedics last year Follow up with orthopedics as scheduled (14) Weakness: Code(s): R53.1 - Weakness Plan: This is likely multifactorial, including due to her joint pains as well as her recent cardiac issues Will refer her to physical therapy for further evaluation and management (15) Drug induced constipation: Code(s): K59.03 - Drug induced constipation Plan: Improved - reinforced increased oral fluids and dietary fiber She has had to take Movantik in the past but currently no longer requires any Rx to help regulate her bowel movements (16) Insomnia: Code(s): G47.00 - Insomnia, unspecified Qualifiers: Insomnia type: primary Qualified Code(s): F51.01 - Primary insomnia Plan: Sleep hygiene reinforced Takes OTC Tylenol PM and / or OTC Melatonin as needed (17) Anxiety: Code(s): F41.9 - Anxiety disorder, unspecified Plan: Continue Lorazepam 0.5 mg QD PRN (18) Major depressive disorder, recurrent episode, mild: Code(s): F33.0 - Major depressive disorder, recurrent, mild Plan: She used to take Mirtazapine 7.5 mg Q HS but her Rx has not been refilled in a few years Does not feel that she needs anything for her mood at present (19) Obesity (BMI 30-39.9): Code(s): E66.9 - Obesity, unspecified Plan: Reinforced diet; weight loss and exercise are currently unrealistic given patient's recent issues and comorbidities Plan Follow up as scheduled in 2 weeks (that is her regularly scheduled follow up visit) Orders: Orders PT Evaluation and Treatment 03/09/24 R53.1 - Weakness Coding Level of Care Code Est Pt Prev Care >65y(25985) Diagnoses Annual physical exam Z00.00 Atherosclerosis of resighini coronary artery of resighini heart with stable angina pectoris I25.118 Coronary Disease-Associated Artery/Lesion type: resighini artery Ischemic cardiomyopathy I25.5 Type 2 diabetes mellitus with diabetic polyneuropathy, with long-term current use of insulin E11.42; Z79.4 Diabetes mellitus intermediate insulin use: with junior programmer use Benign essential hypertension I10 Pure hypercholesterolemia E78.00 Acquired hypothyroidism E03.9 Vitamin D deficiency E55.9 History of ductal carcinoma in situ (DCIS) of breast Z86.000 Neuropathy G62.9 Lumbar degenerative disc disease M51.36 Osteoarthritis of spine with radiculopathy, cervical region M47.22 Primary osteoarthritis of left knee M17.12 Osteoarthritis type: primary Weakness R53.1 Drug induced constipation K59.03 Primary insomnia F51.01 Insomnia type: primary Anxiety F41.9 Major depressive disorder, recurrent episode, mild F33.0 Obesity (BMI 30-39.9) E66.9 Additional Codes MELISA-7 Assessment Billing - MELISA-7 Assessment Tool: MELISA-7 Assessment [id number] ([id number])
== END 2024-03-09 16:23 | disposition home or self-care (01) ==
PROVIDERS: PCP Internal Medicine; Visit Provider Internal Medicine
DX: Z00.00 Encounter for general adult medical examination without abnormal findings (principal); I25.118 Atherosclerotic heart disease of native coronary artery with other forms of angina pectoris; E11.42 Type 2 diabetes mellitus with diabetic polyneuropathy; Z79.4 Long term (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 of insulin; F33.0 Major depressive disorder, recurrent, mild; I25.5 Ischemic cardiomyopathy; I10 Essential (primary) hypertension; E55.9 Vitamin D deficiency, unspecified; E78.00 Pure hypercholesterolemia, unspecified; E03.9 Hypothyroidism, unspecified; Z86.000 Personal history of in-situ neoplasm of breast; G62.9 Polyneuropathy, unspecified
CPT/HCPCS: 99397

== ENCOUNTER 2024-03-12 13:21 | Outpatient (AMB) | payer OTHER, SELFPAY ==
--- NOTE | 2024-03-12 14:03 | A.OFFVIS_ITS ---
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 blood-glucose meter As directed brimonidine 0.1% 1 drp ophthalmic (eye) BID bumetanide 1 mg PO .TIW carvedilol 3.125 mg PO BID cholecalciferol (vitamin D3) 125 mcg PO DAILY clopidogrel (Plavix) 75 mg PO DAILY docusate sodium (Colace) 200 mg PO BEDTIME empagliflozin (Jardiance) 25 mg PO DAILY fentanyl 50 mcg/hr 1 patch transdermal Q72H 30 days gabapentin 400 mg PO TID [GRAB BARS As directed] latanoprost 0.005% 1 drp ophthalmic (eye) BEDTIME levothyroxine 75 mcg PO QAM 90 days Novolog FlexPen U-100 Insulin (insulin aspart U-100) 30 units (0.3 mL) subcut TID 90 days NS nystatin 1 appl topical TID 10 days omeprazole 40 mg PO BID 90 days [ONE TOUCH ULTRA GLUCOMETER DEVICE Test blood sugar 3 times a day as instructed; patient is on Insulin] pen needle, diabetic (BD Ultra-Fine Rozina Pen Needle) 1 ea subcut QID sacubitril-valsartan 24-26 mg (Entresto) 1 tab PO BID 30 days [SHOWER BENCH As directed] spironolactone 25 mg PO DAILY sucralfate 1 g PO BIDAC Tresiba FlexTouch U-100 (insulin degludec) 60 units (0.6 mL) subcut BEDTIME 90 days NS triamcinolone acetonide 0.5% 1 appl topical BID PRN 15 days HPI Comments Details: Hien returns for follow-up regarding coronary disease. To recall, in 2017, she was admitted to [facility] with NSTEMI. She underwent cardiac catheterization and LPDA intervention. Subsequently, she underwent attempted PCI of the LAD DRY COLOR TESTER, but this was unsuccessful. She has been on chronic dual antiplatelet therapy without any issues. Multiple vascular risk factors including diabetes, hypertension, dyslipidemia. Also history of breast cancer and has had chemotherapy and radiation in the past. Has an ICD in place. She states that she recently went to [place] on vacation but then both herself and her became sick. Apparently, she had congestive heart failure/ respiratory failure and got admitted. It seems she possibly underwent PCI but unknown details. We have not gotten any records. Now, almost back to her normal self. [facility] Medical History Restrictive lung disease Obesity (BMI 30-39.9) Eventrations, diaphragmatic Dyspnea on exertion Postoperative follow-up Back pain Pityriasis rosea ICD (implantable cardioverter-defibrillator) in place Ventricular tachycardia Atherosclerotic cardiovascular disease Obesity (BMI 30-39.9) Major depressive disorder, recurrent episode, mild Anxiety Insomnia Drug induced constipation Osteoarthritis of spine with radiculopathy, cervical region Lumbar degenerative disc disease Neuropathy History of ductal carcinoma in situ (DCIS) of breast Vitamin D deficiency Acquired hypothyroidism Pure hypercholesterolemia Benign essential hypertension shelter (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 of insulin Type 2 diabetes mellitus with diabetic polyneuropathy Ischemic cardiomyopathy Atherosclerosis of coronary artery of red cliff heart with stable angina pectoris Hypothyroidism History of breast cancer History of PA (myocardial infarction) Osteoarthritis Hyperlipidemia Diabetic neuropathy Diabetes Surgical History History of laparoscopic cholecystectomy (~04/2021) S/P angioplasty (~07/2017) History of percutaneous coronary intervention (~12/2017) History of implantable cardioverter-defibrillator (ICD) placement (~06/22/18) History of lumpectomy of both breasts History of tubal ligation Family History Mother Heart attack Hypertension CVD (cardiovascular disease) Father Diabetes Social History Household Members: Spouse Housing: House Do you presently have visiting nurse or other home services: Yes ([employer] 7 DAYS A WEEK) Alcohol intake: never Patient Tobacco Use Status: Never used Tobacco e-Cigarette/Vaping Use: Never Used Second Hand Smoke Exposure: Yes Advance Directives Date on File: 02/01/22 service: No Current occupational status: disabled Sexual orientation: Straight/Heterosexual Gender identity: Female Cognitive needs: Yes (Cane) Hearing needs: No Vision needs: Yes (Glasses) Female Reproductive History Menstrual Age of Menarche: 11 Review of Systems Const All systems reviewed & are unremarkable except as noted in HPI and below Reports as per HPI and Reports no additional complaints Eyes Reports as per HPI and Denies no additional complaints ENT Denies no additional complaints and Reports as per HPI Card Reports as per HPI, Reports no additional complaints, Denies acrocyanosis, Denies chest pain, Denies leg edema, Denies lightheadedness, Denies palpitations and Denies dyspnea Resp Reports as per HPI, Denies no additional complaints and Denies dyspnea GI Reports as per HPI and Denies no additional complaints Reports as per HPI Musc Reports no additional complaints and Reports as per HPI Skin/Breast Reports system reviewed and no additional complaints, except as documented Neuro Reports no additional complaints and Reports as per HPI Psych Reports no additional complaints and Reports as per HPI Endo Reports no additional complaints, Reports as per HPI and Denies palpitations Jaime/Lymph Reports no additional complaints and Reports as per HPI Aller/Immun Reports no additional complaints and Reports as per HPI Physical Exam Vital Signs: Last Vital Signs Pulse 59 03/12/24 14:04 BP 110/62 03/12/24 14:04 Const General: comfortable and no acute distress Orientation/consciousness: patient oriented x3 HEENT Other: Unremarkable Head: Yes normal to inspection Neck Neck: Yes normal visual inspection Chest Chest palpation & inspection: normal inspection of the chest Resp Auscultation: clear to auscultation bilaterally Cardio Palpation: normal PMI Heart sounds: S1 normal heart sound present, S2 normal heart sound present, no gallops, no murmurs and no rubs GI Palpation (GI): Soft to palpation Back/Spine/Pelvis Other: unremarkable Skin General skin exam: no rashes or lesions noted Neuro General: patient oriented x3 Extrem General: Yes normal to inspection Psych Mental Status: mental status grossly normal Office Procedures Cardiac Device Check Cardiac Device Check Details: ICD interrogated today. Single-chamber device, programmed VVI. Battery status more than 11 years. Minimal ventricular pacing. Normal lead parameters. VT episode in November but not treated. Overall, normal device function. [id number] Cardiac Device Check, single lead implantable defibrillator Procedure code (CPT) selection complete EKG Details: EKG with sinus bradycardia, 59/Min; sinus arrhythmia; anteroseptal infarct. Overall, similar to prior. 95146-[id number], Complete Assessment & Plan Assessment & Plan (1) Ischemic cardiomyopathy: Code(s): I25.5 - Ischemic cardiomyopathy Category: Medical (2) Atherosclerotic cardiovascular disease: Code(s): I25.10 - Atherosclerotic heart disease of red cliff coronary artery without angina pectoris Category: Medical (3) Ventricular tachycardia: Code(s): I47.2 - Ventricular tachycardia Category: Medical (4) ICD (implantable cardioverter-defibrillator) in place: Code(s): Z95.810 - Presence of automatic (implantable) cardiac defibrillator Category: Medical Plan Cardiac studies reviewed. Last echocardiogram with LVEF 35-40% with wall motion abnormality in the LAD territory. Myocardial viability in past with thallium showing without any significant viability in the area. Cardiac catheterization data reviewed; LAD stent appeared occluded; mid LAD had 100% occlusion; LPDA stent appeared patent. We need to contact the [facility] [place] where she apparently had respiratory failure / CHF and need to get those records including reports of any cardiac catheterization other cardiac testing. Otherwise, she remains on long-term dual antiplatelet drugs including aspirin/Plavix. Previously on Brilinta. Also on Coreg. Was on lisinopril but after the [place] discharge, she is now on Entresto. On Jardiance and spironolactone. On statins. We will repeat her echocardiogram. We will see her back in follow-up with [place] cardiac records. Orders: Orders CA echo transthoracic complete Today I25.10 - Atherosclerotic heart disease of red cliff coronary artery without angina pectoris, I25.5 - Ischemic cardiomyopathy Coding Level of Care Code Est Pt Level 4 (14807) Diagnoses Ischemic cardiomyopathy I25.5 Atherosclerotic cardiovascular disease I25.10 Ventricular tachycardia I47.2 ICD (implantable cardioverter-defibrillator) in place Z95.810 CPT Codes Cardiac Device Check - Cardiac Device 4: [id number] Cardiac Device Check, single lead implantable defibrillator ([id number]) EKG - CPT: 55493-[id number], Complete ([id number])
[2024-03-12 14:04] VITALS: BP 110/62; PULSE 59
== END 2024-03-12 14:36 | disposition home or self-care (01) ==
PROVIDERS: PCP Internal Medicine; Visit Provider Internal Medicine
DX: I25.5 Ischemic cardiomyopathy (principal); I25.10 Atherosclerotic heart disease of native coronary artery without angina pectoris; I47.20 Ventricular tachycardia, unspecified; Z95.810 Presence of automatic (implantable) cardiac defibrillator
CPT/HCPCS: 93010; 93282; 99214

== ENCOUNTER → 2024-03-12 13:21 | Outpatient (BNVA) | payer OTHER, SELFPAY | PROVIDERS: PCP Internal Medicine; Visit Provider Internal Medicine | DX: Z45.02 Encounter for adjustment and management of automatic implantable cardiac defibrillator (principal); I25.5 Ischemic cardiomyopathy; I25.10 Atherosclerotic heart disease of native coronary artery without angina pectoris; I47.20 Ventricular tachycardia, unspecified | CPT/HCPCS: 93005; 99212 ==

== ENCOUNTER 2024-03-21 12:31 | Outpatient (AMB) | payer OTHER, SELFPAY ==
[2024-03-21 12:38] VITALS: BP 110/60; PULSE 85; O2SAT 98; BMI 35.0
--- NOTE | 2024-03-21 12:38 | MHC.PC.OV ---
Vital Signs 03/21/24 12:38 Height 5 ft 4 in Weight 204 lb BMI 35.0 BP 110/60 Blood Pressure Location Lt brachial Position Sitting Pulse 85 Pulse Source Pulse Oximeter Pulse Oximetry (%) 98 Oxygen Delivery Method Room Air Intake Visit Reasons: DM, CAD, hyperlipidemia Repair Cameraman: Not Required per policy Accompanied by: Self / Same As Patient Allergies No Known Allergies Allergy (Mild, Verified 03/21/24 13:27) NOT APPLICABLE Medication List - Last Reconciled 03/21/24 by Saul Lazo MD albuterol sulfate 90 mcg/actuation 2 puffs PO Q4-6H PRN aspirin 81 mg PO DAILY atorvastatin 80 mg PO DAILY blood sugar diagnostic (EndoChoiceTouch Ultra Test strips) DIRECTED - TEST BLOOD SUGAR 3 TIMES A DAY. blood-glucose meter As directed brimonidine 0.1% 1 drp ophthalmic (eye) BID bumetanide 1 mg PO .TIW carvedilol 3.125 mg PO BID cholecalciferol (vitamin D3) 125 mcg PO DAILY clopidogrel (Plavix) 75 mg PO DAILY docusate sodium (Colace) 200 mg PO BEDTIME empagliflozin (Jardiance) 25 mg PO DAILY fentanyl 50 mcg/hr 1 patch transdermal Q72H 30 days gabapentin 400 mg PO TID [GRAB BARS As directed] latanoprost 0.005% 1 drp ophthalmic (eye) BEDTIME levothyroxine 75 mcg PO QAM 90 days Novolog FlexPen U-100 Insulin (insulin aspart U-100) 30 units (0.3 mL) subcut TID 90 days NS nystatin 1 appl topical TID 10 days omeprazole 40 mg PO BID 90 days [ONE TOUCH ULTRA GLUCOMETER DEVICE Test blood sugar 3 times a day as instructed; patient is on Insulin] pen needle, diabetic (BD Ultra-Fine Rozina Pen Needle) 1 ea subcut QID sacubitril-valsartan 24-26 mg (Entresto) 1 tab PO BID 30 days [SHOWER BENCH As directed] spironolactone 25 mg PO DAILY sucralfate 1 g PO BIDAC Tresiba FlexTouch U-100 (insulin degludec) 60 units (0.6 mL) subcut BEDTIME 90 days NS triamcinolone acetonide 0.5% 1 appl topical BID PRN 15 days Tobacco use date assessed: 12/21/23 Fall risk assessment: No Falls in past year Last assessed Fall Risk: 03/21/24 Dental Screening Dental Screen Date: 03/09/24 HPI DM, CAD, hyperlipidemia HPI Details Patient comes in today for her follow up visit States that she feels okay She denies any headaches or dizziness Denies any exertional chest pains; still has some [place] but feels that this is slowly improving over the past few weeks No nausea/vomiting, no abdominal pain No change in bowel habits noted Needs her glucometer test strips Rx refilled She had her follow up labs done a few weeks ago - to discuss her results [facility] Medical History Restrictive lung disease Obesity (BMI 30-39.9) Eventrations, diaphragmatic Dyspnea on exertion Postoperative follow-up Back pain Pityriasis rosea ICD (implantable cardioverter-defibrillator) in place Ventricular tachycardia Atherosclerotic cardiovascular disease Obesity (BMI 30-39.9) Major depressive disorder, recurrent episode, mild Anxiety Insomnia Drug induced constipation Osteoarthritis of spine with radiculopathy, cervical region Lumbar degenerative disc disease Neuropathy History of ductal carcinoma in situ (DCIS) of breast Vitamin D deficiency Acquired hypothyroidism Pure hypercholesterolemia Benign essential hypertension 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 Type 2 diabetes mellitus with diabetic polyneuropathy Ischemic cardiomyopathy Atherosclerosis of coronary artery of [place] heart with stable angina pectoris Hypothyroidism History of breast cancer History of [place] (myocardial infarction) Osteoarthritis Hyperlipidemia Diabetic neuropathy Diabetes Surgical History History of laparoscopic cholecystectomy (~04/2021) S/P angioplasty (~07/2017) History of percutaneous coronary intervention (~12/2017) History of implantable cardioverter-defibrillator (ICD) placement (~06/22/18) History of lumpectomy of both breasts History of tubal ligation Family History Mother Heart attack Hypertension CVD (cardiovascular disease) Father Diabetes Social History Household Members: Spouse Housing: House Do you presently have visiting nurse or other home services: Yes (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 Jack Salas, Dinorah Vo, Khoa Stauffer and colleagues, with an educational dedrick from [employer]. Review of Systems Const Denies chills, Reports fatigue, Denies fever(s), Denies headache(s) and Reports weakness (generalized) ENT Denies dysphagia, Denies dizziness, Denies otalgia, Denies headache(s), Reports neck pain (chronic), Denies odynophagia and Denies sore throat Card Denies chest pain, Denies irregular heart rhythm, Denies palpitations and Reports dyspnea on exertion (mild) Resp Denies cough, Reports dyspnea on exertion (mild) and Denies wheezing GI Denies abdominal pain, Denies constipation, Denies dysphagia, Denies heartburn, Denies diarrhea, Denies nausea, Denies odynophagia and Denies vomiting Denies hematuria, Denies urinary frequency, Denies dysuria and Denies urinary urgency Musc Reports back pain (chronic), Reports arthralgias (involving multiple joints, especially in the left knee) and Reports neck pain (chronic) Skin/Breast Denies rash Neuro Denies dizziness, Denies headache(s), Denies paresthesias and Reports weakness (generalized) Psych Denies anxiety and Denies depression Endo Reports fatigue and Denies palpitations Jaime/Lymph Denies easy bruising Aller/Immun Denies wheezing Physical exam (Primary Care) Vital Signs: Last Vital Signs Pulse 85 03/21/24 12:38 BP 110/60 03/21/24 12:38 Pulse Ox 98 03/21/24 12:38 Oxygen Delivery Method Room Air 03/21/24 12:38 BMI result Body Mass Index 35.0 Tobacco/Smoking Status: Tobacco use Status Tobacco use date assessed 12/21/23 03/21/24 12:39 Patient Tobacco Use Status Never used Tobacco 03/21/24 12:39 e-Cigarette/Vaping Use Never Used 03/21/24 12:39 Thrive Assessment: Date of Thrive Assessment Date Thrive assessed 03/09/24 03/21/24 12:39 Const General: no acute distress and alert HENMT Ears: TM's normal bilaterally and EAC's normal Throat: Yes posterior oropharynx normal and Yes tonsils normal (no TP congestion) Neck Neck: Yes no lymphadenopathy Thyroid: Thyroid normal Resp Auscultation: clear to auscultation bilaterally, no rales and no wheezes Cardio Rate: regular rate Rhythm: regular rhythm Heart sounds: no murmurs GI Palpation (GI): Soft to palpation and nontender Auscultation: normal bowel sounds General: Yes no CVA tenderness Back/Spine/Pelvis Back: no CVA tenderness Cervical Spine: Cervical spine tenderness Thoracic/Lumbar Spine: lumbar spinal tenderness Skin Rashes: no rashes Extrem General: Yes no clubbing, cyanosis or edema Results Reviewed Results Reviewed: Laboratory Tests 12/10/23 03/03/24 07:22 07:37 WBC 7.4 7.6 Hgb 14.0 14.0 Hct 43.6 43.2 Plt Count 190 201 Sodium 137 140 Potassium 4.3 5.1 Creatinine 0.92 0.91 Estimated GFR > 60 > 60 Fasting Glucose 159 H 165 H Hemoglobin A1c % 8.6 H 7.7 H Calcium 9.8 9.6 AST 17 15 ALT 29 10 Total Protein 7.6 Albumin 4.1 Triglycerides 158 H 175 H Cholesterol 130 130 LDL Cholesterol, Calc 62 62 HDL Cholesterol 37 L 33 L Vitamin B12 510 25-OH Vitamin D Total 41.9 TSH 3.66 Free T4 1.01 Ur Specific [place] 1.025 >= 1.030 H Urine Protein Negative Negative Urine Glucose (UA) >=1000 H >=1000 H Urine Blood Small (1+) H Negative Urine Nitrite Negative Negative Ur Leukocyte Esterase Negative Negative Microalb/Creat Ratio 98.0 H 39.9 H Assessment and Plan Assessment & Plan (1) Atherosclerosis of coronary artery of [place] heart with stable angina pectoris: Comment: Patient has chronic total occlusion of the LAD - S/P PCI with 3-drug eluting stent at [facility] in 2018 but no significant improvement in flow noted post-procedure Repeat cardiac catheterization done a few months later showed 100% occlusion of the previously placed LAD stent - no further intervention done Patient also had ICD placement back in May 2018 and recommended to continue with aggressive risk factor modification Code(s): I25.118 - Atherosclerotic heart disease of [place] coronary artery with other forms of angina pectoris Qualifiers: Coronary Disease-Associated Artery/Lesion type: [place] artery Qualified Code(s): I25.118 - Atherosclerotic heart disease of [place] coronary artery with other forms of angina pectoris Plan: Patient appears to have had JUN to her left Cx artery in [place] last month following what appears to have been an [place] Continue Aspirin 81 mg QD and Clopidogrel 75 mg QD for dual antiplatelet therapy Follow up with cardiology as scheduled (2) Ischemic cardiomyopathy: Code(s): I25.5 - Ischemic cardiomyopathy Plan: Continue Carvedilol 3.125 mg BID, Bumetanide 1 mg every other day and Entresto 24-26 mg BID Her previous Isosorbide Mononitrate ER 30 mg QD and Furosemide 20 mg Q AM were discontinued while she was at the hospital last month Repeat echocardiogram done last year in January 2023 revealed (+) moderately reduced LV systolic function with LVEF of 35-40% with impaired relaxation filling pattern and elevated filling pressures; mildly dilated left atrium and normal cardiac valvular dopplers States that she recalls getting a repeat echocardiogram in [place] last month and will try to get a copy of that as well Follow up with cardiology as scheduled (3) Type 2 diabetes mellitus with diabetic polyneuropathy: Code(s): E11.42 - Type 2 diabetes mellitus with diabetic polyneuropathy Qualifiers: 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 insulin use: with fdc use Qualified Code(s): E11.42 - Type 2 diabetes mellitus with diabetic polyneuropathy; Z79.4 - [facility] (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 of insulin Plan: Her HgbA1c was at 7.7% on her labs done a few weeks ago (was previously at 8.2% a few months ago) - goal is at least <7.5% Reinforced diabetic diet Continue Tresiba 60 units Q HS, Novolog 30 units TID with meals and Jardiance 25 mg QD; her Glipizide ER 2.5 mg QD was discontinued Have offered again to refer her to endocrinology but patient continues to decline referral - advised her that if she is still not at goal with her HgbA1c next time, considering her recent cardiac, she will need to see endocrinology for further management (4) Benign essential hypertension: Code(s): I10 - Essential (primary) hypertension Plan: Reinforced low sodium diet - goal is systolic BP of at least 130 mm or less Continue Carvedilol 3.125 mg BID, Bumetanide 1 mg every other day and Entresto 24-26 mg BID Her Furosemide 20 mg Q AM and Lisinopril 2.5 mg QD were discontinued at the hospital in [place] last month (5) Pure hypercholesterolemia: Code(s): E78.00 - Pure hypercholesterolemia, unspecified Plan: Results of her labs done a few weeks ago reviewed and discussed with patient She is advised that her serum triglyceride level has increased slightly from previous but all of her other cholesterol numbers have improved and are at or near goal Reinforced low cholesterol diet Continue Atorvastatin 80 mg QD Will recheck her labs and fasting lipids in 3 months for follow up (6) Acquired hypothyroidism: Code(s): E03.9 - Hypothyroidism, unspecified Plan: Her TFTs remained normal on her recent labs Continue Levothyroxine 75 mcg QD Will recheck her TFTs in 3 months for follow up (7) Vitamin D deficiency: Code(s): E55.9 - Vitamin D deficiency, unspecified Plan: Continue Vitamin D3 5000 units QD (8) History of ductal carcinoma in situ (DCIS) of breast: Code(s): Z86.000 - Personal history of in-situ neoplasm of breast Plan: S/P Tamoxifen x 5 years Follow up with oncology as scheduled for continuing surveillance (9) Neuropathy: Code(s): G62.9 - Polyneuropathy, unspecified Plan: Her symptoms of neuropathy remain adequately controlled on her current Rx Continue Gabapentin 400 mg TID (10) Lumbar degenerative disc disease: Code(s): M51.36 - Other intervertebral disc degeneration, lumbar region Plan: Reinforced activity and weight-lifting restrictions Lumbar spine x-rays done in 2016 revealed (+) multilevel thoracolumbar spondylosis and dextroscoliosis Continue Fentanyl patch 50 mcg Q 72 hours for pain (11) Osteoarthritis of spine with radiculopathy, cervical region: Code(s): M47.22 - Other spondylosis with radiculopathy, cervical region Plan: Cervical spine x-rays done a few years ago revealed (+) facet arthritis / spondylosis with neural foraminal narrowing She has been referred to physical therapy when needed in the past to help alleviate her neck symptoms (12) Osteoarthritis of left knee: Code(s): M17.12 - Unilateral primary osteoarthritis, left knee Qualifiers: Osteoarthritis type: primary Qualified Code(s): M17.12 - Unilateral primary osteoarthritis, left knee Plan: Left knee x-rays done back in January 2023 revealed (+) tricompartmental degenerative changes of the left knee joint States that her knee pain has improved with cortisone injection from orthopedics last year Follow up with orthopedics as scheduled (13) Weakness: Code(s): R53.1 - Weakness Plan: This is likely multifactorial, including due to her joint pains as well as her recent cardiac issues We recently referred her to physical therapy for further evaluation and management (14) Drug induced constipation: Code(s): K59.03 - Drug induced constipation Plan: Improved - reinforced increased oral fluids and dietary fiber She has had to take Movantik in the past but currently no longer requires any Rx to help regulate her bowel movements (15) Insomnia: Code(s): G47.00 - Insomnia, unspecified Qualifiers: Insomnia type: primary Qualified Code(s): F51.01 - Primary insomnia Plan: Sleep hygiene reinforced Takes OTC Tylenol PM and / or OTC Melatonin as needed (16) Anxiety: Code(s): F41.9 - Anxiety disorder, unspecified Plan: Continue Lorazepam 0.5 mg QD PRN (17) Major depressive disorder, recurrent episode, mild: Code(s): F33.0 - Major depressive disorder, recurrent, mild Plan: She used to take Mirtazapine 7.5 mg Q HS but her Rx has not been refilled in a few years Does not feel that she needs anything for her mood at present (18) Obesity (BMI 30-39.9): Code(s): E66.9 - Obesity, unspecified Plan: Reinforced diet; weight loss and exercise are currently unrealistic given patient's recent issues and comorbidities Plan Follow up in 3 months Orders: Orders Hemoglobin A1c 3 Months E11.9 - Type 2 diabetes mellitus without complications UA CC w/rflx Micro + Cult 3 Months R30.0 - Dysuria Vitamin D 25-OH Total 3 Months E55.9 - Vitamin D deficiency, unspecified Complete Blood Count Auto Diff 3 Months D64.9 - Anemia, unspecified Comprehensive [place]. Panel Fast 3 Months E78.00 - Pure hypercholesterolemia, unspecified TSH reflex Free T4 3 Months E78.00 - Pure hypercholesterolemia, unspecified Lipid Panel 3 Months E78.00 - Pure hypercholesterolemia, unspecified Vitamin B12 and Folate 3 Months E53.8 - Deficiency of other specified B group vitamins B Type Natriuretic Peptide 3 Months I50.9 - Heart failure, unspecified Medications: Changed From blood sugar diagnostic (OneTouch Ultra Test strips) DIRECTED - TEST BLOOD SUGAR 3 TIMES A DAY. 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 Coding Level of Care Code Est Pt Level 4 (12360) Complex EM visit Add On G2211 Diagnoses Atherosclerosis of [place] coronary artery of [place] heart with stable angina pectoris I25.118 Coronary Disease-Associated Artery/Lesion type: [place] artery Ischemic cardiomyopathy I25.5 Type 2 diabetes mellitus with diabetic polyneuropathy, with long-term current use of insulin E11.42; Z79.4 Diabetes mellitus fdc insulin use: with fdc use Benign essential hypertension I10 Pure hypercholesterolemia E78.00 Acquired hypothyroidism E03.9 Vitamin D deficiency E55.9 History of ductal carcinoma in situ (DCIS) of breast Z86.000 Neuropathy G62.9 Lumbar degenerative disc disease M51.36 Osteoarthritis of spine with radiculopathy, cervical region M47.22 Primary osteoarthritis of left knee M17.12 Osteoarthritis type: primary Weakness R53.1 Drug induced constipation K59.03 Primary insomnia F51.01 Insomnia type: primary Anxiety F41.9 Major depressive disorder, recurrent episode, mild F33.0 Obesity (BMI 30-39.9) E66.9
== END 2024-03-21 13:38 | disposition home or self-care (01) ==
PROVIDERS: PCP Internal Medicine; Visit Provider Internal Medicine
DX: I25.118 Atherosclerotic heart disease of native coronary artery with other forms of angina pectoris (principal); I25.5 Ischemic cardiomyopathy; E11.42 Type 2 diabetes mellitus with diabetic polyneuropathy; Z79.4 Long term (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 of insulin; I10 Essential (primary) hypertension; E78.00 Pure hypercholesterolemia, unspecified; E03.9 Hypothyroidism, unspecified; E55.9 Vitamin D deficiency, unspecified; Z86.000 Personal history of in-situ neoplasm of breast; G62.9 Polyneuropathy, unspecified; M51.36 Other intervertebral disc degeneration, lumbar region; F33.0 Major depressive disorder, recurrent, mild; M47.22 Other spondylosis with radiculopathy, cervical region; M17.12 Unilateral primary osteoarthritis, left knee; R53.1 Weakness; K59.03 Drug induced constipation; F51.01 Primary insomnia; F41.9 Anxiety disorder, unspecified; E66.9 Obesity, unspecified
CPT/HCPCS: 99214; G2211

== ENCOUNTER → 2024-03-28 12:53 | Outpatient (REF) | payer OTHER, SELFPAY ==
--- NOTE | 2024-03-28 12:56 | CA_ITS ---
Transthoracic Echocardiogram Patient (Last, First, Middle): Hien Aden, Gender: Female Date of : 1955 Age: 68 Procedure Date: 03/28/2024 Procedure Type: Transthoracic Echocardiogram Location: OP Height: 162.56 cm Weight: 90.72 kg BSA: 1.96 m2 Heart Rate: bpm BP: 110 / 60 mmHg Machine Designer: RICHARD Styles MD: Casa Polk MD Forest Pathologist: Corky Quinonez MD Symptoms: I25.10 - Atherosclerotic heart disease of [place] coronary artery without... Study Quality: Fair, contrast ECG Rhythm: Sinus Conclusions: - 1. Moderate to severe LV systolic dysfunction with LVEF of 30 35% with regional wall motion abnormality consistent with ischemic cardiomyopathy with grade 2 diastolic dysfunction 2. Mild left atrial enlargement 3. No significant abnormality of cardiac valvular Doppler 4. Mildly elevated right ventricular systolic pressure 5. No gross pericardial effusion Findings Procedure Information Contrast agent, definity, is being given per protocol without apparent complications. Left Ventricle Normal left ventricular cavity size. There is normal left ventricular wall thickness. The left ventricular systolic function is moderate to severely decreased. The visually estimated ejection fraction is between 30-35%. Spectral Doppler is indicative of a pseudonormal filling pattern. E/E prime ratio is >15, consistent with elevated filling pressures. Evidence suggests grade II (moderate) diastolic dysfunction. Wall Motion Rest Echo Findings The apical lateral and basal inferoseptal segments are hypokinetic. The apex, apical anterior, apical inferior, apical septum, mid inferoseptal, and mid anteroseptal segments are akinetic. 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 All other scored wall segments showed normal motion. Right Ventricle Normal right ventricular cavity size. There is mildly decreased right ventricular systolic function. There is an ICD wire seen in the right ventricle. Atria The left atrium is mildly dilated. There is no evidence of interatrial shunt. The right atrium is likely dilated. Aortic Valve The aortic valve structure and function is likely normal. There is no aortic valve stenosis. There is no aortic valve regurgitation. Mitral Valve There is mild anterior and posterior mitral leaflet thickening. There is mild mitral annular calcification. There is trace mitral valve regurgitation. There is no mitral valve stenosis. Pulmonic Valve The pulmonic valve was not well visualized. Tricuspid Valve Likely normal tricuspid valve structure and function. Normal right atrial pressure. Mild pulmonary hypertension is present. Great Vessels All visible segments of the aorta are normal in size. The pulmonary artery was not well visualized. There is no dilatation of the ascending aorta measuring 3.20 cm. Venous The inferior vena cava is normal in size. Pericardium/Pleural There is no evidence of pericardial effusion. Prior Study Comparison Changes noted compared to prior study dated: 02/11/2023. LV systolic function has marginally reduced Measurements 2D Linear Measurements IVSd: 0.99 0.6-0.9/0.6-1.0 cm LVIDd: 5.41 3.9-5.3/4.2-5.9 cm LVIDd Index: 2.76 2.4-3.2/2.2-3.1 cm/m2 LVIDs: 4.06 2.0-3.6 cm LVPWd: 1.00 0.7-1.1 cm LA Diam: 4.40 2.7-3.8/3.0-4.0 cm LAIDs Index: 2.24 1.5-2.3 cm/m2 LV Mass: 257.27 67-162/88-224 g LV Mass Index: 131.26 43-95/49-115 g/m2 LVOT Diam: 2.00 3.0+(-)1.3 cm 2D Systolic Function EF 4C: 32.20 >55% EF 2C: 29.00 >55% EF BiP: 30.80 >55% Mitral Valve MV Pk E: 0.98 MV PK A: 0.67 MV Decel Time: 130.00 E/A: 1.50 E'Lateral: 5.22 E'Medial: 3.81 E/E' Med: 25.60 E/E' Lat: 18.70 PHT: 38.00 MVA PHT: 5.[address] [place]: 7.52 Aortic Valve AoV Pk Guzman: 1.15 AoV Mn Guzman: 0.80 AoV VTI: 0.23 AoV Pk Grad: 5.00 Aov Mn Grad: 3.00 KRYSTINA Cont.VTI: 2.13 LVOT LVOT Pk Guzman: 0.72 LVOT Mn Guzman: 0.53 LVOT VTI: 0.16 LVOT Pk Grad: 2.00 LVOT Mn Grad: 1.00 LVOT Diam: 2.00 LVOT Area: 3.14 Diastolic Function MV Pk E: 0.98 MV Pk A: 0.67 E/A: 1.50 E'Medial: 3.81 E/E' Med: 25.60 E' Laterial: 5.22 E/E' Lat: 18.70 Right Ventricle TAPSE (mm): 16.10 TVS' Guzman: 6.31 Tricuspid Valve TR Pk Guzman: 3.07 TR Pk Grad: 38.00 RA Press: 3.00 RVSP: 41.00 Great Vessels Aorta Sinus of Valsalva: 3.30 2.0-3.5 cm Ao Asc: 3.20 2.1-3.4 cm Ao Arch: 2.60 Updated in Other Vendor System with Status of Final Corky Quinonez MD electronically signed on 03/28/2024 2:26:38 PM with status of Final
== END ==
LOC: HO.CARD 12:53
PROVIDERS: PCP Internal Medicine; Visit Provider Internal Medicine
DX: I25.10 Atherosclerotic heart disease of native coronary artery without angina pectoris (principal); I25.5 Ischemic cardiomyopathy
CPT/HCPCS: 93306; Q9957

== ENCOUNTER → 2024-03-28 12:56 | Outpatient (BNV) | payer OTHER, SELFPAY | PROVIDERS: PCP Internal Medicine; Visit Provider Internal Medicine Cardiovascular Disease | DX: I34.81 Nonrheumatic mitral (valve) annulus calcification (principal); I25.5 Ischemic cardiomyopathy; I51.89 Other ill-defined heart diseases | CPT/HCPCS: 93306 ==

== ENCOUNTER → 2024-04-04 23:59 | Outpatient (BNV) | payer OTHER, SELFPAY ==
--- NOTE | 2024-04-05 10:28 | A.OFFVIS_ITS ---
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[employer] Allergies No Known Allergies Allergy (Mild, Verified 03/21/24 13:27) NOT APPLICABLE [facility] Medical History Restrictive lung disease Obesity (BMI 30-39.9) Eventrations, diaphragmatic Dyspnea on exertion Postoperative follow-up Back pain Pityriasis rosea ICD (implantable cardioverter-defibrillator) in place Ventricular tachycardia Atherosclerotic cardiovascular disease Obesity (BMI 30-39.9) Major depressive disorder, recurrent episode, mild Anxiety Insomnia Drug induced constipation Osteoarthritis of spine with radiculopathy, cervical region Lumbar degenerative disc disease Neuropathy History of ductal carcinoma in situ (DCIS) of breast Vitamin D deficiency Acquired hypothyroidism Pure hypercholesterolemia Benign essential hypertension 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 home (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 of insulin Type 2 diabetes mellitus with diabetic polyneuropathy Ischemic cardiomyopathy Atherosclerosis of coronary artery of [place] heart with stable angina pectoris Hypothyroidism History of breast cancer History of [place] (myocardial infarction) Osteoarthritis Hyperlipidemia Diabetic neuropathy Diabetes Surgical History History of laparoscopic cholecystectomy (~04/2021) S/P angioplasty (~07/2017) History of percutaneous coronary intervention (~12/2017) History of implantable cardioverter-defibrillator (ICD) placement (~06/22/18) History of lumpectomy of both breasts History of tubal ligation Family History Mother Heart attack Hypertension CVD (cardiovascular disease) Father Diabetes Social History Household Members: Spouse Housing: House Do you presently have visiting nurse or other home services: Yes (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) Alcohol intake: never Patient Tobacco Use Status: Never used Tobacco e-Cigarette/Vaping Use: Never Used Second Hand Smoke Exposure: Yes Advance Directives Date on File: 02/01/22 service: No Current occupational status: disabled Sexual orientation: Straight/Heterosexual Gender identity: Female Cognitive needs: Yes (Cane) Hearing needs: No Vision needs: Yes (Glasses) Female Reproductive History Menstrual Age of Menarche: 11 Office Procedures Cardiac Device Check Cardiac Device Check Details: Date of service- 04/04/2024; based on impedance data and physiological variables, there is no evidence of worsening congestive heart failure. [id number] Cardiac Device Interrogation, cardio physiologic monitor Procedure code (CPT) selection complete Assessment & Plan Assessment & Plan (1) Ischemic cardiomyopathy: Code(s): I25.5 - Ischemic cardiomyopathy Category: Medical Plan x Coding Level of Care Code Procedure Only Diagnoses Ischemic cardiomyopathy I25.5 CPT Codes Cardiac Device Check - Cardiac Device 15: [id number] Cardiac Device Interrogation, cardio physiologic monitor ([id number])
== END ==
PROVIDERS: PCP Internal Medicine; Visit Provider Internal Medicine
DX: I25.5 Ischemic cardiomyopathy (principal); Z95.810 Presence of automatic (implantable) cardiac defibrillator
CPT/HCPCS: 93297

== ENCOUNTER 2024-04-10 14:04 | Outpatient (AMB) | payer OTHER, SELFPAY ==
[2024-04-10 14:21] VITALS: BP 100/54; PULSE 84; BMI 34.4
--- NOTE | 2024-04-10 14:21 | A.OFFVIS_ITS ---
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 blood-glucose meter As directed brimonidine 0.1% 1 drp ophthalmic (eye) BID bumetanide 1 mg PO .TIW carvedilol 3.125 mg PO BID cholecalciferol (vitamin D3) 125 mcg PO DAILY clopidogrel (Plavix) 75 mg PO DAILY docusate sodium (Colace) 200 mg PO BEDTIME empagliflozin (Jardiance) 25 mg PO DAILY fentanyl 50 mcg/hr 1 patch transdermal Q72H 30 days gabapentin 400 mg PO TID [GRAB BARS As directed] latanoprost 0.005% 1 drp ophthalmic (eye) BEDTIME levothyroxine 75 mcg PO QAM 90 days Novolog FlexPen U-100 Insulin (insulin aspart U-100) 30 units (0.3 mL) subcut TID 90 days NS nystatin 1 appl topical TID 10 days omeprazole 40 mg PO BID 90 days [ONE TOUCH ULTRA GLUCOMETER DEVICE Test blood sugar 3 times a day as instructed; patient is on Insulin] pen needle, diabetic (BD Ultra-Fine Rozina Pen Needle) 1 ea subcut QID sacubitril-valsartan 24-26 mg (Entresto) 1 tab PO BID 30 days [SHOWER BENCH As directed] spironolactone 25 mg PO DAILY sucralfate 1 g PO BIDAC Tresiba FlexTouch U-100 (insulin degludec) 60 units (0.6 mL) subcut BEDTIME 90 days NS triamcinolone acetonide 0.5% 1 appl topical BID PRN 15 days HPI Comments Details: Hien returns for follow-up regarding coronary disease. To recall, in 2017, she was admitted to [facility] [place] [facility] with NSTEMI. She underwent cardiac catheterization and LPDA intervention. Subsequently, she underwent attempted PCI of the LAD PHYSICIAN PRACTICE COORDINATOR, but this was unsuccessful. She has been on chronic dual antiplatelet therapy without any issues. Multiple vascular risk factors including diabetes, hypertension, dyslipidemia. Also history of breast cancer and has had chemotherapy and radiation in the past. Has an ICD in place. She states that she recently went to [place] on vacation but then both herself and her became sick. Per discharge summary, it seems that she had acute respiratory failure and thought to be from acute decompensated heart failure/pulmonary edema. She required intubation, aggressively diuresed and then eventually recovered. In their echocardiogram, LVEF was about 30%, similar to ours. Then she underwent cardiac catheterization and PCI to LPDA. Then eventually discharged home. Overall, she is weak and deconditioned but otherwise seems to be okay. Shortness of breath is control. No angina. [facility] Medical History Restrictive lung disease Obesity (BMI 30-39.9) Eventrations, diaphragmatic Dyspnea on exertion Postoperative follow-up Back pain Pityriasis rosea ICD (implantable cardioverter-defibrillator) in place Ventricular tachycardia Atherosclerotic cardiovascular disease Obesity (BMI 30-39.9) Major depressive disorder, recurrent episode, mild Anxiety Insomnia Drug induced constipation Osteoarthritis of spine with radiculopathy, cervical region Lumbar degenerative disc disease Neuropathy History of ductal carcinoma in situ (DCIS) of breast Vitamin D deficiency Acquired hypothyroidism Pure hypercholesterolemia Benign essential hypertension intermediate (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 of insulin Type 2 diabetes mellitus with diabetic polyneuropathy Ischemic cardiomyopathy Atherosclerosis of coronary artery of [place] heart with stable angina pectoris Hypothyroidism History of breast cancer History of IA (myocardial infarction) Osteoarthritis Hyperlipidemia Diabetic neuropathy Diabetes Surgical History History of laparoscopic cholecystectomy (~04/2021) S/P angioplasty (~07/2017) History of percutaneous coronary intervention (~12/2017) History of implantable cardioverter-defibrillator (ICD) placement (~06/22/18) History of lumpectomy of both breasts History of tubal ligation Family History Mother Heart attack Hypertension CVD (cardiovascular disease) Father Diabetes Social History Household Members: Spouse Housing: House Do you presently have visiting nurse or other home services: Yes (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) Alcohol intake: never Patient Tobacco Use Status: Never used Tobacco e-Cigarette/Vaping Use: Never Used Second Hand Smoke Exposure: Yes Advance Directives Date on File: 02/01/22 service: No Current occupational status: disabled Sexual orientation: Straight/Heterosexual Gender identity: Female Cognitive needs: Yes (Cane) Hearing needs: No Vision needs: Yes (Glasses) Female Reproductive History Menstrual Age of Menarche: 11 Review of Systems Const Denies chills, Denies fatigue, Denies fever(s), Denies weight gain and Denies weight loss ENT Denies dizziness Card Denies chest pain, Denies leg edema, Denies lightheadedness, Denies palpitations, Reports dyspnea on exertion, Denies orthopnea and Denies other Resp Denies cough and Reports dyspnea on exertion GI Denies hematochezia and Denies change in stool character Musc Denies abnormal gait, Denies muscle weakness, Denies numbness, Denies radiating pain into limb and Denies tingling Neuro Denies abnormal gait, Denies dizziness, Denies numbness and Denies tingling Endo Denies fatigue and Denies palpitations Physical Exam Vital Signs: Last Vital Signs Pulse 84 04/10/24 14:21 BP 100/54 L 04/10/24 14:21 BMI result Body Mass Index 34.4 Const General: comfortable and no acute distress Orientation/consciousness: patient oriented x3 HEENT Other: Unremarkable Head: Yes normal to inspection Neck Neck: Yes normal visual inspection Chest Chest palpation & inspection: normal inspection of the chest Resp Auscultation: clear to auscultation bilaterally Cardio Palpation: normal PMI Heart sounds: S1 normal heart sound present, S2 normal heart sound present, no gallops, no murmurs and no rubs GI Palpation (GI): Soft to palpation Back/Spine/Pelvis Other: unremarkable Skin General skin exam: no rashes or lesions noted Neuro General: patient oriented x3 Extrem General: Yes normal to inspection Psych Mental Status: mental status grossly normal Assessment & Plan Assessment & Plan (1) Ischemic cardiomyopathy: Code(s): I25.5 - Ischemic cardiomyopathy Category: Medical (2) Chronic combined systolic and diastolic congestive heart failure: Code(s): I50.42 - Chronic combined systolic (congestive) and diastolic (congestive) heart failure Category: Medical (3) Atherosclerotic cardiovascular disease: Code(s): I25.10 - Atherosclerotic heart disease of [place] coronary artery without angina pectoris Category: Medical (4) ICD (implantable cardioverter-defibrillator) in place: Code(s): Z95.810 - Presence of automatic (implantable) cardiac defibrillator Category: Medical Plan Cardiac studies reviewed. Cardiac catheterization reviewed from [place], 01/2024. Overall, severe coronary artery disease. Chronically occluded LAD/LAD stents. Patent distal circumflex stent. Successful PTCA/stent of posterolateral branch. Rqwhzkjyuwad-DP-3; wedge pressure-6; LVEDP -23 mm Hg; pulmonary artery pressure-25/6/15. Cardiac index 1.8. She remains on aspirin/Plavix. Previously was on Brilinta. Cardiac catheterization from 2 weeks ago shows LVEF of 30-35% with wall motion abnormalities from underlying coronary disease. Moderate diastolic dysfunction. Mild pulmonary hypertension. Overall, severe coronary artery disease, cardiomyopathy, recent heart failure hospitalization, but now compensated. Continue current regimen of carvedilol, Entresto, spironolactone, Jardiance. She is on Bumex. Statins. We discussed about dietary and lifestyle modifications as well. Referred to cardiac rehabilitation. Orders: Orders Cardiac Rehab Today I25.5 - Ischemic cardiomyopathy, I50.9 - Heart failure, unspecified Coding Level of Care Code Est Pt Level 4 (16921) Diagnoses Ischemic cardiomyopathy I25.5 Chronic combined systolic and diastolic congestive heart failure I50.42 Atherosclerotic cardiovascular disease I25.10 ICD (implantable cardioverter-defibrillator) in place Z95.810
== END 2024-04-10 15:26 | disposition home or self-care (01) ==
PROVIDERS: PCP Internal Medicine; Visit Provider Internal Medicine
DX: I25.5 Ischemic cardiomyopathy (principal); I50.42 Chronic combined systolic (congestive) and diastolic (congestive) heart failure; I25.10 Atherosclerotic heart disease of native coronary artery without angina pectoris; Z95.810 Presence of automatic (implantable) cardiac defibrillator
CPT/HCPCS: 99214

== ENCOUNTER → 2024-04-10 14:04 | Outpatient (BNVA) | payer OTHER, SELFPAY | PROVIDERS: PCP Internal Medicine; Visit Provider Internal Medicine | DX: I25.5 Ischemic cardiomyopathy (principal); I25.10 Atherosclerotic heart disease of native coronary artery without angina pectoris; I11.0 Hypertensive heart disease with heart failure; I50.42 Chronic combined systolic (congestive) and diastolic (congestive) heart failure; Z98.61 Coronary angioplasty status; Z95.810 Presence of automatic (implantable) cardiac defibrillator | CPT/HCPCS: 99212 ==

== ENCOUNTER 2024-04-25 10:04 | Outpatient (REF) | payer OTHER, SELFPAY ==
--- NOTE | ~2024-04-25 | MM_ITS ---
EXAMINATION: BONE DENSITOMETRY CLINICAL INDICATION: Menopause. COMPARISON: Previous BD dated 04/22/2022 and baseline BD dated 01/02/2009. TECHNIQUE: Using a [employer] DXA System (software version: 13.1) manufactured by [employer], dual-energy x-ray absorptiometry was performed of the lumbar spine and left hip. The images are of good technical quality. Summary results are attached. FINDINGS: LEFT FEMUR, NECK: Current: BMD 1.097 g/cm2, Z-score 1.5, T-score 0.4, normal. Prior: BMD 1.084 g/cm2. Baseline: BMD 1.099 g/cm2. LEFT FEMUR, TOTAL: Current: BMD 1.150 g/cm2, Z-score 1.9, T-score 1.1, normal, 3.4% decrease from previous, 6.4% decrease from baseline (<5% change is not significant). Prior: BMD 1.191 g/cm2. Baseline: BMD 1.228 g/cm2. AP SPINE L1-L4: Current: BMD 1.438 g/cm2, Z-score 3.0, T-score 2.1, normal, 3.7% increase from previous, 6.8% increase from baseline (<5% change is not significant). Prior: BMD 1.387 g/cm2. Baseline: BMD 1.347 g/cm2. IDENTIFIED RISK FACTORS: Menopause. HISTORY OF FRACTURE: None listed. MEDICATIONS: Calcium, vitamin D. MM/XR DEXA axial skeleton IMPRESSION: 1. DIAGNOSIS: Normal bone density based on the lowest T-score value of 0.4 in the femoral neck applying World Health Organization criteria. 2. 10-YEAR FRACTURE RISK PREDICTION, FRAX: According to the guidelines, FRAX calculation should only be performed on patients in the osteopenia bone density category. Therefore, FRAX was not performed on this patient. 3. Treatment Recommendations: NOF guidelines recommend consideration for treatment in postmenopausal women and men age 50 and older presenting with the following: -A hip or vertebral (clinical or morphometric) fracture. -T-score less than or equal to -2.5 at the femoral neck or spine after appropriate evaluation to exclude secondary causes. -Low bone mass at the hip or spine and a 10-year fracture probability by FRAX of greater than or equal to 3% for hip fracture or greater than or equal to 20% for major osteoporotic fracture based on the [place] adapted WHO algorithm. 4. Other Recommendations: All treatment decisions require clinical judgment and consideration of individual patient factors, including patient preferences, comorbidities, previous drug use, risk factors not captured in the FRAX model (e.g. frailty, falls, vitamin D deficiency, increased bone turnover, interval significant decline in bone density) and possible under or overestimation of fracture risk by FRAX. FUTURE SCAN RECOMMENDATION: People with diagnosed cases of osteoporosis or at high risk for fracture should have regular bone mineral density tests. For patients eligible for Medicare, routine testing is allowed once every 2 years. The testing frequency can be increased to one year for patients who have rapidly progressing disease, those who are receiving or discontinuing medical therapy to restore bone mass, or have additional risk factors. Electronically signed by: Michael Stock MD 05/01/2024 11:04 AM VERONIQUE
== END 2024-04-25 10:05 | disposition home or self-care (01) ==
LOC: HO.MAMMO 10:04
PROVIDERS: PCP Internal Medicine; Visit Provider Obstetrics & Gynecology
DX: Z13.820 Encounter for screening for osteoporosis (principal); Z78.0 Asymptomatic menopausal state
CPT/HCPCS: 77080

== ENCOUNTER 2024-05-07 10:17 | Outpatient (REF) | payer OTHER, SELFPAY ==
--- NOTE | ~2024-05-07 | MM_ITS ---
EXAMINATION: MM SCREENING DIGITAL BREAST TOMOSYNTHESIS, BILATERAL CLINICAL INFORMATION: Screening. Asymptomatic. COMPARISON: Mammography: Comparison is made with available prior exams. TECHNIQUE: Digital breast tomosynthesis is performed in both the craniocaudal and mediolateral oblique views along with computer-aided detection (CAD). Synthesized 2D images are generated from the tomosynthesis. FINDINGS: There are scattered areas of fibroglandular density (ACR BI-RADS breast composition Category b). Left: Pacemaker overlies and obscures the superior posterior left breast on MLO view. Asymmetry medial breast middle depth on CC view with questioned architectural distortion. Post lumpectomy changes are stable. No suspicious calcifications or other abnormal findings. Right: Asymmetry superior breast posterior depth on the MLO view. There are no abnormal calcifications, or other abnormalities. MM/MM tomosynthesis screening BI IMPRESSION: Bilateral asymmetries. Additional imaging and ultrasound are recommended at this time. ASSESSMENT: BI-RADS BI-RADS 0 - Incomplete: Needs additional Imaging. RECOMMENDATION: 1. Additional views of the bilateral breasts are recommended at this time. 2. Targeted ultrasound if warranted after review of the additional views. 3. Radiology department staff will contact the patient for additional imaging. Additional Imaging required This examination should not preclude the clinical evaluation of a suspicious palpable abnormality. This patient's information was entered into a reminder system with a target due date for their next mammogram. Electronically signed by: Gia Hodgson DO 05/17/2024 06:07 PM EDT
== END 2024-05-07 10:18 | disposition home or self-care (01) ==
LOC: HO.MAMMO 10:17
PROVIDERS: PCP Internal Medicine; Visit Provider Internal Medicine
DX: Z12.31 Encounter for screening mammogram for malignant neoplasm of breast (principal)
CPT/HCPCS: 77063; 77067

== ENCOUNTER → 2024-05-07 10:30 | Outpatient (BNV) | payer OTHER, SELFPAY | PROVIDERS: PCP Internal Medicine; Visit Provider Internal Medicine | DX: Z12.31 Encounter for screening mammogram for malignant neoplasm of breast (principal) | CPT/HCPCS: 77063; 77067 ==

== ENCOUNTER 2024-05-30 10:56 | Outpatient (REF) | payer OTHER, SELFPAY ==
--- NOTE | ~2024-05-30 | US_ITS ---
EXAMINATION: MM DIAGNOSTIC DIGITAL BREAST TOMOSYNTHESIS, BILATERAL US BREAST LIMITED, LEFT MAMMOGRAPHY: CLINICAL INFORMATION: Bilateral callback for one view asymmetry superior right breast on MLO view , and small asymmetry 9:00 left breast with possible architectural distortion associated. Patient has history of bilateral breast cancer, invasive ductal carcinoma on the left status post conservation therapy, and DCIS on the right status post conservation therapy. Patient also has pacemaker and had recent stent placement in coronary arteries. COMPARISON: Mammography: 05/07/2024 screening, as well as 04/25/2023, 04/22/2022, 04/20/2021, 04/16/2020, and dating back to 2013. TECHNIQUE: Digital breast tomosynthesis is performed in the following views: Full field 3-D bilateral mediolateral views, 3-D spot compression right MLO view, 3-D Spot compression left CC view. Computer-aided diagnosis was used for this study. This was followed by targeted left breast ultrasound. FINDINGS: There are scattered areas of fibroglandular density (ACR BI-RADS breast composition Category b). Mammography 05/07/2024 was reviewed. On the right, one view asymmetry completely effaces with additional views, consistent with summation artifact of normal overlapping tissues. On the left, there is a persistent slightly irregular round mass at 9:00, middle one third, with small amount of surrounding architectural distortion, measuring 7 mm on mammography. We will evaluate this finding with ultrasound. Pacemaker device obscures the left axilla. Stable treatment-related changes are present in both breasts. ULTRASOUND: CLINICAL INFORMATION: Rounded mildly irregular 7 mm mass 9:00 axis left breast. COMPARISON: None contributory. TECHNIQUE: Targeted sonographic evaluation was performed using a high frequency linear transducer. Left breast lower inner quadrant was evaluated to include the 9:00 axis. Left axilla was also evaluated but was limited due to pacemaker. Selected archived documentation. FINDINGS: LEFT BREAST: In the 9:00 axis, 5 cm from the nipple, at 1 cm depth, there is a rounded lobulated mildly indistinct marginated mass, hypoechoic, with posterior acoustic shadowing, measuring 6 x 4 x 5 mm. There is internal and robust peripheral color Doppler flow within an adjacent vessel. There is a surrounding thin rind of echogenic fat, possible desmoplasia. This finding is suspicious. Ultrasound-guided biopsy recommended. Limited imaging of the left axilla was performed but showed no definite abnormal lymph nodes within the confines of pacemaker generator in place. US/US breast BI limited mamm only IMPRESSION: 1) Suspicious mass measuring 6 x 4 x 5 mm at the 9:00 axis left breast, 5 cm from the nipple, for which ultrasound-guided biopsy is recommended. 2) No persistent suspicious findings right breast. Findings and recommendations were discussed with the patient in detail, who appears in understanding. OVERALL ASSESSMENT: Mammography: BI-RADS 4 - Suspicious finding Ultrasound: BI-RADS 4 - Suspicious finding RECOMMENDATION: Biopsy recommended Electronically signed by: Paul Crockett MD 05/30/2024 12:52 PM EDT
== END 2024-05-30 10:57 | disposition home or self-care (01) ==
LOC: HO.MAMMO 10:56
PROVIDERS: PCP Internal Medicine; Visit Provider Internal Medicine
DX: N64.89 Other specified disorders of breast (principal); N63.21 Unspecified lump in the left breast, upper outer quadrant; Z85.3 Personal history of malignant neoplasm of breast; Z91.89 Other specified personal risk factors, not elsewhere classified; Z95.0 Presence of cardiac pacemaker; Z95.5 Presence of coronary angioplasty implant and graft
CPT/HCPCS: 76642; 77062; 77066; 99212

== ENCOUNTER → 2024-05-30 11:00 | Outpatient (BNV) | payer OTHER, SELFPAY | PROVIDERS: PCP Internal Medicine; Visit Provider Radiology Diagnostic Radiology | DX: R92.8 Other abnormal and inconclusive findings on diagnostic imaging of breast (principal) | CPT/HCPCS: 76642; 77066; G0279 ==

== ENCOUNTER 2024-05-30 12:43 | Outpatient (AMB) | payer OTHER, SELFPAY ==
--- NOTE | 2024-05-30 12:50 | A.OFFVIS_ITS ---
Intake Visit Reasons: DExa follow up Allergies No Known Allergies Allergy (Mild, Verified 03/21/24 13:27) NOT APPLICABLE HPI Comments Details: The patient is presenting for follow up regarding DEXA scan results. T score @ spine and femoral Neck respectively were=-0.4 /+2.1 and 10 year FRAX risk for severe osteoporosis and fracture. Was not computed [facility] Medical History Restrictive lung disease Obesity (BMI 30-39.9) Eventrations, diaphragmatic Dyspnea on exertion Postoperative follow-up Back pain Pityriasis rosea ICD (implantable cardioverter-defibrillator) in place Ventricular tachycardia Atherosclerotic cardiovascular disease Obesity (BMI 30-39.9) Major depressive disorder, recurrent episode, mild Anxiety Insomnia Drug induced constipation Osteoarthritis of spine with radiculopathy, cervical region Lumbar degenerative disc disease Neuropathy History of ductal carcinoma in situ (DCIS) of breast Vitamin D deficiency Acquired hypothyroidism Pure hypercholesterolemia Benign essential hypertension intermediate frame tender (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 of insulin Type 2 diabetes mellitus with diabetic polyneuropathy Ischemic cardiomyopathy Atherosclerosis of coronary artery of [place] heart with stable angina pectoris Hypothyroidism History of breast cancer History of ND (myocardial infarction) Osteoarthritis Hyperlipidemia Diabetic neuropathy Diabetes Surgical History History of laparoscopic cholecystectomy (~04/2021) S/P angioplasty (~07/2017) History of percutaneous coronary intervention (~12/2017) History of implantable cardioverter-defibrillator (ICD) placement (~06/22/18) History of lumpectomy of both breasts History of tubal ligation Family History Mother Heart attack Hypertension CVD (cardiovascular disease) Father Diabetes Social History Household Members: Spouse Housing: House Do you presently have visiting nurse or other home services: Yes (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) Alcohol intake: never Patient Tobacco Use Status: Never used Tobacco e-Cigarette/Vaping Use: Never Used Second Hand Smoke Exposure: Yes Advance Directives Date on File: 02/01/22 service: No Current occupational status: disabled Sexual orientation: Straight/Heterosexual Gender identity: Female Cognitive needs: Yes (Cane) Hearing needs: No Vision needs: Yes (Glasses) Female Reproductive History Menstrual Age of Menarche: 11 Review of Systems Const All systems reviewed & are unremarkable except as noted in HPI and below Reports as per HPI and Reports no additional complaints GI Reports no additional complaints Reports no additional complaints Assessment & Plan Assessment & Plan (1) At risk for bone density loss: Code(s): Z91.89 - Other specified personal risk factors, not elsewhere classified Category: Medical Plan: Discussed with the patient the results of her bone density showing no evidence of osteopenia or osteoporosis. Discussed with the patient all the options for osteoporosis prevention including lifestyle modifications including Ca+D supplements 1200 mg po qd/800 MIU, Weight bearing exercises and proteine supplements. The patient verbalized understanding and agreed plan will repeat DEXA in 2 years. Coding Level of Care Code Est Pt Level 3 (64892) Diagnoses At risk for bone density loss Z91.89
== END 2024-05-30 12:50 | disposition home or self-care (01) ==
LOC: HO.HWS 12:43
PROVIDERS: PCP Internal Medicine; Visit Provider Obstetrics & Gynecology
DX: Z91.89 Other specified personal risk factors, not elsewhere classified (principal)
CPT/HCPCS: 99213

== ENCOUNTER 2024-06-06 08:18 | Outpatient (AMB) | payer OTHER, SELFPAY ==
--- NOTE | 2024-06-06 08:21 | A.OFFVIS_ITS ---
Vital Signs 06/06/24 08:22 Height 5 ft 4 in Weight 207 lb BMI 35.5 BP 80/47 L Blood Pressure Location Rt brachial Position Sitting Pulse 87 Intake Visit Reasons: us bx lt breast 9 o'clock mass Intake Note: This patient presents for Ultrasound guided biopsy for left breast 9 o'clock mass. Pt c/o;reports no breast complaints at this time. Splitter Hand Required: No Accompanied by: Other Relationship Allergies No Known Allergies Allergy (Mild, Verified 06/06/24 08:29) NOT APPLICABLE Medication List - Last Reconciled 06/06/24 by Seven Nunez MD albuterol sulfate 90 mcg/actuation 2 puffs PO Q4-6H PRN aspirin 81 mg PO DAILY atorvastatin 80 mg PO DAILY blood sugar diagnostic ([employer]Touch Ultra Test strips) DIRECTED - TEST BLOOD SUGAR 4 TIMES A DAY. blood-glucose meter As directed brimonidine 0.1% 1 drp ophthalmic (eye) BID bumetanide 1 mg PO .TIW carvedilol 3.125 mg PO BID cholecalciferol (vitamin D3) 125 mcg PO DAILY clopidogrel (Plavix) 75 mg PO DAILY docusate sodium (Colace) 200 mg PO BEDTIME empagliflozin (Jardiance) 25 mg PO DAILY fentanyl 50 mcg/hr 1 patch transdermal Q72H 30 days gabapentin 400 mg PO TID [GRAB BARS As directed] latanoprost 0.005% 1 drp ophthalmic (eye) BEDTIME levothyroxine 75 mcg PO QAM 90 days Novolog FlexPen U-100 Insulin (insulin aspart U-100) 30 units (0.3 mL) subcut TID 90 days NS nystatin 1 appl topical TID 10 days omeprazole 40 mg PO BID 90 days [ONE TOUCH ULTRA GLUCOMETER DEVICE Test blood sugar 3 times a day as instructed; patient is on Insulin] pen needle, diabetic (BD Ultra-Fine Rozina Pen Needle) 1 ea subcut QID sacubitril-valsartan 24-26 mg (Entresto) 1 tab PO BID 30 days [SHOWER BENCH As directed] spironolactone 25 mg PO DAILY sucralfate 1 g PO BIDAC Tresiba FlexTouch U-100 (insulin degludec) 60 units (0.6 mL) subcut BEDTIME 90 days NS triamcinolone acetonide 0.5% 1 appl topical BID PRN 15 days HPI HPI us bx lt breast 9 o'clock mass: Details: [age] year old female referred for a left breast mass. She has been undergoing screening mammograms and her last mammogram last month showed an irregular around mass at the 9 o'clock position of the left breast. She was sent for an ultrasound which showed a suspicious mass, 6 x 4 x 5 mm at the 9 o'clock position of the left breast. An ultrasound-guided biopsy was therefore recommended. She does have a history of left breast cancer in 2007. She had undergone treatment for this with lumpectomy, sentinel biopsy with postop radiation and says she had chemotherapy as she had a stage III cancer. She also has a history of DCIS of the right breast in 2012 She denies any palpable breast masses Her menarche was at age of 11. She had her 1st at age of 21. She had 6 pregnancies but 3 of these were miscarriages. She had menopause at age of 52. She denies a family history of breast cancer She has known diabetic. She also has a pacemaker in place. She has chronic pain and severe arthritis. [facility] Medical History Left breast mass Restrictive lung disease Obesity (BMI 30-39.9) Eventrations, diaphragmatic Dyspnea on exertion Postoperative follow-up Back pain Pityriasis rosea ICD (implantable cardioverter-defibrillator) in place Ventricular tachycardia Atherosclerotic cardiovascular disease Obesity (BMI 30-39.9) Major depressive disorder, recurrent episode, mild Anxiety Insomnia Drug induced constipation Osteoarthritis of spine with radiculopathy, cervical region Lumbar degenerative disc disease Neuropathy History of ductal carcinoma in situ (DCIS) of breast Vitamin D deficiency Acquired hypothyroidism Pure hypercholesterolemia Benign essential hypertension 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 Type 2 diabetes mellitus with diabetic polyneuropathy Ischemic cardiomyopathy Atherosclerosis of coronary artery of [place] heart with stable angina pectoris Hypothyroidism History of breast cancer History of [place] (myocardial infarction) Osteoarthritis Hyperlipidemia Diabetic neuropathy Diabetes Surgical History History of laparoscopic cholecystectomy (~04/2021) S/P angioplasty (~07/2017) History of percutaneous coronary intervention (~12/2017) History of implantable cardioverter-defibrillator (ICD) placement (~06/22/18) History of lumpectomy of both breasts History of tubal ligation Family History Mother Heart attack Hypertension CVD (cardiovascular disease) Father Diabetes Social History Household Members: Spouse Housing: House Do you presently have visiting nurse or other home services: Yes (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) Alcohol intake: never Patient Tobacco Use Status: Never used Tobacco e-Cigarette/Vaping Use: Never Used Second Hand Smoke Exposure: Yes Advance Directives Date on File: 02/01/22 service: No Current occupational status: disabled Sexual orientation: Straight/Heterosexual Gender identity: Female Cognitive needs: Yes (Cane) Hearing needs: No Vision needs: Yes (Glasses) Female Reproductive History Menstrual Age of Menarche: 11 Total pregnancies: 3 Review of Systems Const Denies chills and Denies fever(s) Card Denies chest pain, Denies dyspnea and Denies dyspnea on exertion Resp Denies cough, Denies dyspnea and Denies dyspnea on exertion GI Denies hematochezia and Denies change in bowel habits Denies hematuria Musc Reports abnormal gait, Reports back pain, Reports myalgias, Reports arthralgias and Reports limited range of motion Neuro Reports abnormal gait, Denies focal weakness and Denies convulsions Psych Denies depression and Denies mood swings Physical Exam Vital Signs: Last Vital Signs Pulse 87 06/06/24 08:22 BP 80/47 L 06/06/24 08:22 BMI result Body Mass Index 35.5 Const Other: Walks with a cane General: comfortable and no acute distress Orientation/consciousness: patient oriented x3 Neck Neck: Yes no lymphadenopathy Chest Other: Surgical scar and radiation changes in the left breast, no palpable mass, no axillary lymphadenopathy Pacemaker on the left chest wall Resp Auscultation: clear to auscultation bilaterally Cardio Rhythm: regular rhythm GI Palpation (GI): Soft to palpation, nontender and no guarding Neuro General: patient oriented x3 Assessment & Plan Assessment & Plan (1) Left breast mass: Code(s): N63.20 - Unspecified lump in the left breast, unspecified quadrant Category: Medical Plan: She has a left breast mass as described above. I explained to her that an ultrasound biopsy was recommended by the radiologist. I reviewed with her the technique of this procedure. I will see her next week to discuss the path report. She does have a history of left breast cancer in 2008 as well. She had DCIS in the right breast in 2013. Orders: Orders US breast ndl core biopsy LT Today N63.20 - Unspecified lump in the left breast, unspecified quadrant Coding Level of Care Code New Pt Level 3 (93384) Diagnoses Left breast mass N63.20
[2024-06-06 08:22] VITALS: BP 80/47; PULSE 87; BMI 35.5
== END 2024-06-06 08:46 | disposition home or self-care (01) ==
PROVIDERS: PCP Internal Medicine; Visit Provider Surgery
DX: N63.20 Unspecified lump in the left breast, unspecified quadrant (principal)
CPT/HCPCS: 99203

== ENCOUNTER → 2024-06-06 08:18 | Outpatient (BNVA) | payer OTHER, SELFPAY | PROVIDERS: PCP Internal Medicine; Visit Provider Surgery | DX: N63.25 Unspecified lump in the left breast, overlapping quadrants (principal); Z85.3 Personal history of malignant neoplasm of breast | CPT/HCPCS: 99202 ==

== ENCOUNTER 2024-06-07 07:43 | Outpatient (REF) | payer OTHER, SELFPAY ==
--- NOTE | ~2024-06-07 | MM_ITS ---
PROCEDURE: US GUIDED BREAST BIOPSY, LEFT CLINICAL INFORMATION: Suspicious small oval shadowing hypoechoic 6 mm mass at the 9:00 axis left breast, 5 cm from the nipple, for ultrasound-guided percutaneous biopsy. Patient has history of bilateral breast cancer, invasive ductal carcinoma on the left status post conservation therapy, and DCIS on the right status post conservation therapy. Patient also has left pacemaker and had recent stent placement in coronary arteries. COMPARISON: None. PROCEDURAL DETAILS: The details of the procedure, as well as the risks, benefits, and alternatives to the procedure were explained to the patient in detail and all of her questions were answered, after which written informed consent was obtained. Patient is on platelet agents and aspirin, which was not held due to low risk of procedure versus higher risk of stent/coronary artery thrombosis. Patient accepted the increased risk of bleeding which was discussed prior to the procedure. Site and side were confirmed. Prior to the procedure, sonography revealed an irregular shadowing hypoechoic oval mass left breast 9:00 axis, 5 cm from the nipple, measuring 6 x 4 x 5 mm. A large arterial vessel was noted directly abutting the medial aspect of the mass, which was avoided by using an angled approach. A time-out was performed, the lesion intended for biopsy was targeted, and the skin of the overlying left breast was then marked, prepped and draped in the usual sterile fashion. Using sonographic guidance, sterile technique, and 1% lidocaine with epinephrine (due to increased bleeding risk) for local anesthesia, multiple core biopsies were obtained through the targeted area with a 14G spring loaded Stepsssera core biopsy device. There was real-time confirmation of appropriate needle passage. Sampling was documented. At the completion of tissue sampling, a single open coil-shaped metallic clip was deposited at the biopsy site. There was no evidence of immediate complication. No significant bleeding was evident on postprocedural ultrasound imaging. SPECIMEN: 3 well formed core samples were obtained. DIGITAL POST-PROCEDURE MAMMOGRAPHY: Breast density: The tissue contains scattered areas of fibroglandular density. BI-RADS version 5, category B. There are no new mammographic findings demonstrated. The postprocedure 2-view direct digital mammogram reveals satisfactory and accurate positioning of the biopsy clip. No hematoma present. The patient tolerated the procedure well and, after assuring adequate hemostasis, was discharged in good condition after reviewing postbiopsy breast care instructions. Final pathology results are pending. MM/MM tomosynthesis diagnostic LT IMPRESSION: 1. No immediate complication from ultrasound-guided percutaneous biopsy left breast suspicious oval mass measuring 6 mm at the 9:00 axis, 5 cm from the nipple. 2. Ultrasound was used to localize and guide marker clip placement. 3. The 2-view direct digital postprocedure mammogram reveals accurate positioning of the biopsy clip. No hematoma. 4. Final pathology results are pending. A separate report with final recommendations will be issued once these results are made available. Electronically signed by: Paul Crockett MD 06/07/2024 09:41 AM EDT
[2024-06-07] MEDS: Sodium Bicarbonate 8.4% 50 MEQ/50 ML VIAL SUBCUT (09:21)
[2024-06-07] MEDS: Lidocaine HCl 1 % 20 ML VIAL 13 ML SUBCUT (09:25)
[2024-06-07] MEDS: Lidocaine HCl 1%/Epi 1:100,000 10 ML VIAL 6 ML SUBCUT (09:28)
== END 2024-06-07 07:44 | disposition home or self-care (01) ==
LOC: HO.MAMMO 07:43
PROVIDERS: PCP Internal Medicine; Visit Provider Surgery
DX: C50.812 Malignant neoplasm of overlapping sites of left female breast (principal); Z17.21 Progesterone receptor positive status
CPT/HCPCS: 19083; 77061; 77065; 88305; 88360; A4648; C1894; J2003; J2004

== ENCOUNTER → 2024-06-07 08:00 | Outpatient (BNV) | payer OTHER, SELFPAY | PROVIDERS: PCP Internal Medicine; Visit Provider Radiology Diagnostic Radiology | DX: C50.812 Malignant neoplasm of overlapping sites of left female breast (principal) | CPT/HCPCS: 19083; 77065 ==

== ENCOUNTER 2024-06-14 12:57 | Outpatient (AMB) | payer OTHER, SELFPAY ==
[2024-06-14 12:59] VITALS: BP 122/60; PULSE 91; BMI 35.7
--- NOTE | 2024-06-14 12:59 | MHC.OFFVIS ---
Vital Signs 06/14/24 12:59 Height 5 ft 4 in Weight 208 lb BMI 35.7 BP 122/60 Blood Pressure Location Rt brachial Position Sitting Pulse 91 Intake Visit Reasons: Follow Up us bx lt breast 9 o'clock mass Intake Note: This patient presents for follow-up for US guided biopsy left breast 9 o'clock mass. Pt c/o; reports no complaints at this time. Water Resource Agent Required: No Accompanied by: Spouse Allergies No Known Allergies Allergy (Mild, Verified 06/18/24 08:19) NOT APPLICABLE HPI HPI Follow Up us bx lt breast 9 o'clock mass: Details: [age] year old female here for follow-up for a left breast mass. She has been undergoing screening mammograms and her last mammogram last month showed an irregular around mass at the 9 o'clock position of the left breast. She was sent for an ultrasound which showed a suspicious mass, 6 x 4 x 5 mm at the 9 o'clock position of the left breast. An ultrasound-guided biopsy was therefore done last week and she is here to discuss the findings. She does have a history of left breast cancer in 2007. She had undergone treatment for this with lumpectomy, sentinel biopsy with postop radiation and says she had chemotherapy as she had a stage III cancer. She also has a history of DCIS of the right breast in 2012. She denies any palpable breast masses. Her menarche was at age of 11. She had her 1st at age of 21. She had 6 pregnancies but 3 of these were miscarriages. She had menopause at age of 52. She denies a family history of breast cancer She has known diabetic. She also has a pacemaker in place on the left chest wall. She has chronic pain and severe arthritis. [facility] History Invasive ductal carcinoma of breast Left breast mass Restrictive lung disease Obesity (BMI 30-39.9) Eventrations, diaphragmatic Dyspnea on exertion Postoperative follow-up Back pain Pityriasis rosea ICD (implantable cardioverter-defibrillator) in place Ventricular tachycardia Atherosclerotic cardiovascular disease Obesity (BMI 30-39.9) Major depressive disorder, recurrent episode, mild Anxiety Insomnia Drug induced constipation Osteoarthritis of spine with radiculopathy, cervical region Lumbar degenerative disc disease Neuropathy History of ductal carcinoma in situ (DCIS) of breast Vitamin D deficiency Acquired hypothyroidism Pure hypercholesterolemia Benign essential hypertension 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 home (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 of 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 Type 2 diabetes mellitus with diabetic polyneuropathy Ischemic cardiomyopathy Atherosclerosis of coronary artery of [place] heart with stable angina pectoris Hypothyroidism History of breast cancer History of [place] (myocardial infarction) Osteoarthritis Hyperlipidemia Diabetic neuropathy Diabetes Surgical History History of laparoscopic cholecystectomy (~04/2021) S/P angioplasty (~07/2017) History of percutaneous coronary intervention (~12/2017) History of implantable cardioverter-defibrillator (ICD) placement (~06/22/18) History of lumpectomy of both breasts History of tubal ligation Family History Mother CVD (cardiovascular disease) Heart attack Hypertension Father Diabetes Stomach cancer Social History Household Members: Spouse Housing: House Do you presently have visiting nurse or other home services: Yes (QUIRK SANDER 7 DAYS 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) Alcohol intake: never Patient Tobacco Use Status: Never used Tobacco e-Cigarette/Vaping Use: Never Used Second Hand Smoke Exposure: Yes Advance Directives: Yes Advance Directives on File: Yes Advance Directives Date on File: 02/01/22 service: No Current occupational status: disabled Sexual orientation: Straight/Heterosexual Gender identity: Female Cognitive needs: Yes (Cane) Hearing needs: No Vision needs: Yes (Glasses) Female Reproductive History Menstrual Age of Menarche: 11 Review of Systems Const Denies chills and Denies fever(s) Card Denies chest pain, Denies dyspnea and Reports dyspnea on exertion Resp Denies cough, Denies dyspnea and Reports dyspnea on exertion GI Denies hematochezia and Denies change in bowel habits Denies hematuria Musc Reports abnormal gait, Reports back pain, Reports arthralgias and Reports limited range of motion Neuro Reports abnormal gait, Denies focal weakness and Denies convulsions Psych Denies depression and Denies mood swings Physical Exam Vital Signs: Last Vital Signs Pulse 91 06/14/24 12:59 BP 122/60 06/14/24 12:59 BMI result Body Mass Index 35.7 Const Other: Uses a cane for ambulating General: comfortable and no acute distress Orientation/consciousness: patient oriented x3 Neck Neck: Yes no lymphadenopathy Chest Other: No palpable masses, no hematoma on the biopsy site on the left breast, radiation changes in the skin in the left breast noted, no axillary lymphadenopathy Resp Auscultation: clear to auscultation bilaterally Cardio Rhythm: regular rhythm GI Palpation (GI): Soft to palpation, nontender and no guarding Neuro General: patient oriented x3 Assessment & Plan Assessment & Plan (1) Invasive ductal carcinoma of breast: Code(s): C50.919 - Malignant neoplasm of unspecified site of unspecified female breast Category: Medical Plan: Unfortunately, her ultrasound biopsy shows invasive ductal carcinoma, grade 2, ER positive, HER2 negative, CT pending. Since she already had radiation to the left breast from a previous invasive carcinoma, we will have to do full mastectomy of the left breast along with sentinel biopsy. She understands the technique of this procedure. She understands the risks including but not limited to bleeding, infections, hematoma, nerve injury, flap necrosis, increased risks of anesthesia. She does have a pacemaker on the area of the left chest wall so I will have to discuss this with the hand baseball sewer at this appears to be in the way of her mastectomy. She also has history of CHF significant coronary artery disease and appears to present with significant perioperative risks. I will send her as well to the oncologist . She understands the plan well. Her was with her during the visit. Orders: Referrals Hematology & Oncology Referral C50.919 - Malignant neoplasm of unspecified site of unspecified female breast Cardiology Referral C50.919 - Malignant neoplasm of unspecified site of unspecified female breast Coding Level of Care Code Est Pt Level 4 (54016) Diagnoses Invasive ductal carcinoma of breast C50.919
== END 2024-06-14 13:40 | disposition home or self-care (01) ==
PROVIDERS: PCP Internal Medicine; Visit Provider Surgery
DX: C50.919 Malignant neoplasm of unspecified site of unspecified female breast (principal)
CPT/HCPCS: 99214

== ENCOUNTER → 2024-06-14 12:57 | Outpatient (BNVA) | payer OTHER, SELFPAY | PROVIDERS: PCP Internal Medicine; Visit Provider Surgery | DX: C50.812 Malignant neoplasm of overlapping sites of left female breast (principal) | CPT/HCPCS: 99212 ==

== ENCOUNTER → 2024-06-15 08:14 | Outpatient (BNV) | payer OTHER, SELFPAY | PROVIDERS: PCP Internal Medicine; Referring Provider Surgery; Visit Provider Internal Medicine Medical Oncology | DX: C50.919 Malignant neoplasm of unspecified site of unspecified female breast (principal) | CPT/HCPCS: 99204; 99214 ==

== ENCOUNTER 2024-06-15 14:55 | Outpatient (AMB) | payer OTHER, SELFPAY ==
--- NOTE | 2024-06-15 15:07 | MHC.OFFVIS ---
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 blood-glucose meter As directed brimonidine 0.1% 1 drp ophthalmic (eye) BID bumetanide 1 mg PO .TIW carvedilol 3.125 mg PO BID cholecalciferol (vitamin D3) 125 mcg PO DAILY clopidogrel (Plavix) 75 mg PO DAILY docusate sodium (Colace) 200 mg PO BEDTIME empagliflozin (Jardiance) 25 mg PO DAILY fentanyl 50 mcg/hr 1 patch transdermal Q72H 30 days gabapentin 400 mg PO TID [GRAB BARS As directed] latanoprost 0.005% 1 drp ophthalmic (eye) BEDTIME levothyroxine 75 mcg PO QAM 90 days Novolog FlexPen U-100 Insulin (insulin aspart U-100) 30 units (0.3 mL) subcut TID 90 days NS nystatin 1 appl topical TID 10 days omeprazole 40 mg PO BID 90 days [ONE TOUCH ULTRA GLUCOMETER DEVICE Test blood sugar 3 times a day as instructed; patient is on Insulin] pen needle, diabetic (BD Ultra-Fine Rozina Pen Needle) 1 ea subcut QID sacubitril-valsartan 24-26 mg (Entresto) 1 tab PO BID 30 days [SHOWER BENCH As directed] spironolactone 25 mg PO DAILY sucralfate 1 g PO BIDAC Tresiba FlexTouch U-100 (insulin degludec) 60 units (0.6 mL) subcut BEDTIME 90 days NS triamcinolone acetonide 0.5% 1 appl topical BID PRN 15 days HPI Comments Details: Hien returns for follow-up regarding coronary disease. She needs preoperative consultation for breast cancer surgery. To recall, in 2017, she was admitted to [facility] with NSTEMI. She underwent cardiac catheterization and LPDA intervention. 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 Multiple vascular risk factors including diabetes, hypertension, dyslipidemia. Also history of breast cancer and has had chemotherapy and radiation in the past. Has an ICD in place. She states that she recently went to [place] on vacation but then both herself and her became sick. Per discharge summary, it seems that she had acute respiratory failure and thought to be from acute decompensated heart failure/pulmonary edema. She required intubation, aggressively diuresed and then eventually recovered. In their echocardiogram, LVEF was about 30%, similar to ours. Then she underwent cardiac catheterization and PCI to LPDA. In the last few weeks, she got diagnosed with breast cancer in the left breast. That needs mastectomy. There is also concern as there is ICD on that side as well. [facility] Medical History Invasive ductal carcinoma of breast Left breast mass Restrictive lung disease Obesity (BMI 30-39.9) Eventrations, diaphragmatic Dyspnea on exertion Postoperative follow-up Back pain Pityriasis rosea ICD (implantable cardioverter-defibrillator) in place Ventricular tachycardia Atherosclerotic cardiovascular disease Obesity (BMI 30-39.9) Major depressive disorder, recurrent episode, mild Anxiety Insomnia Drug induced constipation Osteoarthritis of spine with radiculopathy, cervical region Lumbar degenerative disc disease Neuropathy History of ductal carcinoma in situ (DCIS) of breast Vitamin D deficiency Acquired hypothyroidism Pure hypercholesterolemia Benign essential hypertension senior care (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 of insulin Type 2 diabetes mellitus with diabetic polyneuropathy Ischemic cardiomyopathy Atherosclerosis of coronary artery of [place] heart with stable angina pectoris Hypothyroidism History of breast cancer History of [place] (myocardial infarction) Osteoarthritis Hyperlipidemia Diabetic neuropathy Diabetes Surgical History History of laparoscopic cholecystectomy (~04/2021) S/P angioplasty (~07/2017) History of percutaneous coronary intervention (~12/2017) History of implantable cardioverter-defibrillator (ICD) placement (~06/22/18) History of lumpectomy of both breasts History of tubal ligation Family History Mother CVD (cardiovascular disease) Heart attack Hypertension Father Diabetes Stomach cancer Social History Household Members: Spouse Housing: House Do you presently have visiting nurse or other home services: Yes (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) Alcohol intake: never Patient Tobacco Use Status: Never used Tobacco e-Cigarette/Vaping Use: Never Used Second Hand Smoke Exposure: Yes Advance Directives Date on File: 02/01/22 service: No Current occupational status: disabled Sexual orientation: Straight/Heterosexual Gender identity: Female Cognitive needs: Yes (Cane) Hearing needs: No Vision needs: Yes (Glasses) Female Reproductive History Menstrual Age of Menarche: 11 Review of Systems Const Denies chills, Denies fatigue, Denies fever(s), Denies weight gain and Denies weight loss ENT Denies dizziness Card Denies chest pain, Denies leg edema, Denies lightheadedness, Denies palpitations, Denies dyspnea on exertion, Denies orthopnea and Denies other Resp Denies cough and Denies dyspnea on exertion GI Denies hematochezia and Denies change in stool character Musc Denies abnormal gait, Denies muscle weakness, Denies numbness, Denies radiating pain into limb and Denies tingling Neuro Denies abnormal gait, Denies dizziness, Denies numbness and Denies tingling Endo Denies fatigue and Denies palpitations Physical Exam Vital Signs: Last Vital Signs Pulse 78 06/15/24 15:09 BP 90/50 L 06/15/24 15:09 BMI result Body Mass Index 35.3 Const General: comfortable and no acute distress Orientation/consciousness: patient oriented x3 HEENT Other: Unremarkable Head: Yes normal to inspection Neck Neck: Yes normal visual inspection Chest Chest palpation & inspection: normal inspection of the chest Resp Auscultation: clear to auscultation bilaterally Cardio Palpation: normal PMI Heart sounds: S1 normal heart sound present, S2 normal heart sound present, no gallops, no murmurs and no rubs GI Palpation (GI): Soft to palpation Back/Spine/Pelvis Other: unremarkable Skin General skin exam: no rashes or lesions noted Neuro General: patient oriented x3 Extrem General: Yes normal to inspection Psych Mental Status: mental status grossly normal Assessment & Plan Assessment & Plan (1) Preoperative cardiovascular examination: Code(s): Z01.810 - Encounter for preprocedural cardiovascular examination Category: Medical (2) Ischemic cardiomyopathy: Code(s): I25.5 - Ischemic cardiomyopathy Category: Medical (3) Chronic combined systolic and diastolic congestive heart failure: Code(s): I50.42 - Chronic combined systolic (congestive) and diastolic (congestive) heart failure Category: Medical (4) Atherosclerotic cardiovascular disease: Code(s): I25.10 - Atherosclerotic heart disease of [place] coronary artery without angina pectoris Category: Medical (5) ICD (implantable cardioverter-defibrillator) in place: Code(s): Z95.810 - Presence of automatic (implantable) cardiac defibrillator Category: Medical Plan Cardiac studies reviewed. Cardiac catheterization reviewed from [place], 01/2024. Overall, severe coronary artery disease. Chronically occluded LAD/LAD stents. Patent distal circumflex stent. Successful PTCA/stent of posterolateral branch. [id number]-OA-7; wedge pressure-6; LVEDP -23 mm Hg; pulmonary artery pressure-25/6/15. Cardiac index 1.8. Recent echocardiogram 02/2024 shows LVEF of 30-35% with wall motion abnormalities from underlying coronary disease. Moderate diastolic dysfunction. Mild pulmonary hypertension. With regard to the location of ICD, if feasible, may proceed with mastectomy without disturbing the ICD. Only other option would be to put a new device on the right side and remove the left-sided device and cap the leads. Discussed with Dr. Nunez about this and he may be able to do the surgery without moving the ICD. If not, we will need to send her to EP. With regard to overall cardiac risk, she will be at intermediate to high cardiac risk due to her many cardiac comorbidities. Due to recent coronary stenting, she is on aspirin/Plavix. Ideally, she would not be interrupting Plavix but there is also significant bleeding risk as per discussion with Dr. Nunez. In this case, difficult decision. Possibly use Lovenox for the last few days and hold Plavix -off-label use. We discussed about these at length today. Patient as well as daughter and son are aware. For medications, she is on carvedilol, Entresto, spironolactone, Jardiance, Bumex, statins. Her potassium is high and it seems she is taking some supplemental potassium. We can stop that. Blood pressure is running on the lower side and stop the spironolactone. Plan discussed with Dr. Nunez. Total time spent including review of data, counseling, documentation, coordination of care with other consultants, discussion with family-47 minutes. Medications: Discontinued spironolactone Discontinued Reason: Doctor's Order 25 mg PO DAILY 90 tabs 1RF Coding Level of Care Code Est Pt Level 5 (89033) Diagnoses Preoperative cardiovascular examination Z01.810 Ischemic cardiomyopathy I25.5 Chronic combined systolic and diastolic congestive heart failure I50.42 Atherosclerotic cardiovascular disease I25.10 ICD (implantable cardioverter-defibrillator) in place Z95.810
[2024-06-15 15:09] VITALS: BP 90/50; PULSE 78; BMI 35.3
== END 2024-06-15 16:24 | disposition home or self-care (01) ==
LOC: HO.HCS 14:55
PROVIDERS: PCP Internal Medicine; Visit Provider Internal Medicine
DX: Z01.810 Encounter for preprocedural cardiovascular examination (principal); I25.5 Ischemic cardiomyopathy; I50.42 Chronic combined systolic (congestive) and diastolic (congestive) heart failure; I25.10 Atherosclerotic heart disease of native coronary artery without angina pectoris; Z95.810 Presence of automatic (implantable) cardiac defibrillator
CPT/HCPCS: 99215

== ENCOUNTER → 2024-06-15 14:55 | Outpatient (BNVA) | payer OTHER, SELFPAY | PROVIDERS: PCP Internal Medicine; Visit Provider Internal Medicine | DX: Z01.810 Encounter for preprocedural cardiovascular examination (principal); I25.10 Atherosclerotic heart disease of native coronary artery without angina pectoris; I11.0 Hypertensive heart disease with heart failure; I50.42 Chronic combined systolic (congestive) and diastolic (congestive) heart failure; I25.5 Ischemic cardiomyopathy; Z95.810 Presence of automatic (implantable) cardiac defibrillator | CPT/HCPCS: 99212 ==

== ENCOUNTER 2024-06-18 07:48 | Emergency (ER) | payer OTHER, SELFPAY ==
--- NOTE | 2024-06-18 08:10 | ED_ITS ---
HPI - General Adult General Chief complaint: Cardiac Arrest/CPR Stated complaint: CARDIAC ARREST Time Seen by Provider: 06/18/24 08:10 History of Present Illness ED Provider: Feroz ANDREWS narrative: The patient is a 69-year-old woman with a history of coronary artery disease and an ischemic cardiomyopathy who has an AICD/pacer device. Apparently she recently had a diagnosis of breast cancer based on imaging. She had not yet had any surgery. According to the the patient seemed well yesterday evening but this morning when she woke up she seemed weak and was complaining of feeling weak shortness of breath at which point the called 911. Paramedics state when they found the patient she was awake but seemed weak. Her blood sugar was normal. She was bradycardic. She was brought to the ambulance where she became unresponsive and lost pulses. Paramedics began CPR and ACLS. Her rhythm was asystole. Paramedics intubated the patient and provided ACLS care with 4 rounds of epinephrine EN route to the hospital. According to the patient's the patient had some kind of an event about a month and a half ago in [place] and received coronary stents. She had 1st received stents around 6 years ago time she also received an AICD/pacer. Related Data Home Medications ?Medication ?Instructions ?Recorded ?Confirmed brimonidine 0.1 % eye drops 1 drp ophthalmic (eye) BID 06/03/20 06/15/24 latanoprost 0.005 % eye drops 1 drp ophthalmic (eye) BEDTIME 06/03/20 06/15/24 aspirin 81 mg tablet,delayed 81 mg PO DAILY 07/14/20 06/15/24 release cholecalciferol (vitamin D3) 125 125 mcg PO DAILY 07/14/21 06/15/24 mcg (5,000 unit) capsule docusate sodium 100 mg capsule 200 mg PO BEDTIME 07/14/21 06/15/24 (Colace) sucralfate 1 gram tablet 1 g PO BIDAC 07/18/23 06/15/24 Previous Rx's ?Medication ?Instructions ?Recorded nystatin 100,000 unit/gram topical 1 appl topical TID 10 days #60 06/05/21 powder grams ONE TOUCH ULTRA GLUCOMETER DEVICE #1 ea 09/04/21 blood-glucose meter #1 ea 09/04/21 albuterol sulfate 90 mcg/actuation 2 puff PO Q4-6H PRN for wheezing 07/07/23 aerosol inhaler #1 ea empagliflozin 25 mg tablet 25 mg PO DAILY #90 caps 08/16/23 (Jardiance) GRAB BARS #2 ea 08/17/23 SHOWER BENCH #1 ea 08/17/23 Novolog FlexPen U-100 Insulin 100 30 unit (0.3 mL) subcut TID 90 09/21/23 unit/mL (3 mL) subcutaneous days #81 mL (insulin aspart U-100) gabapentin 400 mg capsule 400 mg PO TID #270 caps 11/30/23 Tresiba FlexTouch U-100 100 60 unit (0.6 mL) subcut BEDTIME 90 12/03/23 unit/mL (3 mL) subcutaneous pen days #54 mL (insulin degludec) levothyroxine 75 mcg tablet 75 mcg PO QAM 90 days #90 tabs 12/17/23 triamcinolone acetonide 0.5 % 1 appl topical BID PRN 12/21/23 topical cream rash/itching 15 days #15 grams omeprazole 40 mg capsule,delayed 40 mg PO BID 90 days #180 caps 12/31/23 release bumetanide 1 mg tablet 1 mg PO .TIW #90 tabs 02/28/24 clopidogrel 75 mg tablet (Plavix) 75 mg PO DAILY #90 tabs 02/28/24 sacubitril 24 mg-valsartan 26 mg 1 tab PO BID 30 days #60 tabs 02/28/24 tablet (Entresto) blood sugar diagnostic (OneTouch #120 strips 03/21/24 Ultra Test strips) pen needle, diabetic 32 gauge x 1 ea subcut QID #360 ea 05/13/24 (BD Ultra-Fine Rozina Pen Needle) atorvastatin 80 mg tablet 80 mg PO DAILY #90 tabs 05/30/24 carvedilol 3.125 mg tablet 3.125 mg PO BID #180 caps 06/06/24 fentanyl 50 mcg/hr transdermal 1 patch transdermal Q72H 30 days 06/14/24 patch #10 ea Allergies Allergy/AdvReac Type Severity Reaction Status Date / Time No Known Allergies Allergy Mild NOT Verified 06/18/24 08:19 APPLICABLE Review of Systems Review of Systems: Yes Unobtainable due to mental status PMFSH Past Medical History Medical History Invasive ductal carcinoma of breast Left breast mass Restrictive lung disease Obesity (BMI 30-39.9) Eventrations, diaphragmatic Dyspnea on exertion Postoperative follow-up Back pain Pityriasis rosea ICD (implantable cardioverter-defibrillator) in place Ventricular tachycardia Atherosclerotic cardiovascular disease Obesity (BMI 30-39.9) Major depressive disorder, recurrent episode, mild Anxiety Insomnia Drug induced constipation Osteoarthritis of spine with radiculopathy, cervical region Lumbar degenerative disc disease Neuropathy History of ductal carcinoma in situ (DCIS) of breast Vitamin D deficiency Acquired hypothyroidism Pure hypercholesterolemia 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 essential hypertension 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 Type 2 diabetes mellitus with diabetic polyneuropathy Ischemic cardiomyopathy Atherosclerosis of coronary artery of [place] heart with stable angina pectoris Hypothyroidism History of breast cancer History of [place] (myocardial infarction) Osteoarthritis Hyperlipidemia Diabetic neuropathy Diabetes Surgical History History of laparoscopic cholecystectomy (~04/2021) S/P angioplasty (~07/2017) History of percutaneous coronary intervention (~12/2017) History of implantable cardioverter-defibrillator (ICD) placement (~06/22/18) History of lumpectomy of both breasts History of tubal ligation Family History Family History Mother CVD (cardiovascular disease) Heart attack Hypertension Father Diabetes Stomach cancer Social History Social History Household Members: Spouse Housing: House Do you presently have visiting nurse or other home services: 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 There was an endotracheal tube secured. The patient was flaccid and un responsive. HENMT Other: No signs of trauma to the head or the face. There was an endotracheal tube in the mouth. Eyes Other: Pupils were fixed, and dilated. No doll's eye reflex Neck Other: No apparent JVD. Neck was quite thick. Resp Other: The patient was receiving [id number]-iqea ventilation via an ET tube. There was condensation in the tube with each breath. There seemed to be audible breath sounds bilaterally. Cardio Other: No heart sounds. No pulses. GI Other: Abdomen seemed quite distended. Skin Other: Skin was pale and dry. Neuro Other: The patient was unresponsive. Pupils were fixed and dilated with no doll's eye reflex. The patient was flaccid. No signs of life. Extrem Other: No peripheral edema Procedures Intubation Intubation Type:: Emergency Endotracheal Intubation Intubation Date:: 06/18/24 sedative: none Laryngoscope: fiber optic video scope ET Tube Size: 7.5 ET Tube Uncuffed: Yes Tube Placement Confirmation: visualized tube passing through cords, equal breath sounds bilaterally and confirmation by capnometry Intubation Complications: none Medical Decision Making Medical Decision Making MDM Narrative: The patient arrived in cardiac arrest. The initial history was that the patient has been feeling weak and her was concerned there might be a diabetic emergency. When paramedics arrived the patient was awake but seemed weak. Blood sugar was normal. Paramedics took the patient to the ambulance but the patient lost pulses and became unresponsive in the ambulance and was apparently in cardiac arrest. The patient has cardiac but was then asystolic. Paramedics began CPR. Paramedics established intraosseous access and administered epinephrine. Paramedics intubated the patient and transferred the patient to the hospital. The patient received 4 epinephrine owns prior to arriving in the emergency room. Here the patient remained asystolic. There were pacer spikes on the monitor but no other cardiac activity. No pulses. There was no end- tidal CO2 miserable and so we checked tube placement with the glide scope. The tube did not seem to be through the cords. We removed the tube and reintubated the patient. CPR was continued. After 20 minutes of ongoing CPR and bag-valve mask ventilation and several rounds of epinephrine as well as atropine and calcium there did not seem to be any response and I ultimately pronounced the patient at 0807. I subsequently spoke to the patient's who said that the patient has been complaining of shortness of breath this morning and that this seems similar to an event a month and a half ago in [place] when the patient was hospitalized and received several additional cardiac stents. The says that the patient had previously received cardiac stents for the 1st time about 6 years ago at which time she had also had an AICD placed. A review of the patient's old records indicates that she has a history of coronary disease and an ischemic cardiomyopathy. My assumption is that the patient had a an acute cardiac event today which caused her cardiac arrest and from which she could not be resuscitated. Lab Data Labs: Lab Results 06/18/24 06/18/24 Range/Units 07:52 07:59 Hold Purple Top SEE NOTE Hold Blue Top SEE NOTE POC Glucose 71 (60-115) mg/dL Critical Care Time Critical Care Time Critical Care Time: Yes Total Critical Care Time: 35 Attestation: The patient was critically ill with a high probability of imminent or life- threatening deterioration. ?I spent greater than 30 minutes of discontinuous time evaluating the patient, delivering critical care at the bedside, discussing evaluating data with consultants. ?Critical care time does not include time spent performing separately billable procedures or teaching. ?Time spent performing critical care with 35 minutes. Discharge Plan Discharge Clinical Impression: Cardiac arrest Patient Disposition: Prescriptions: No Action nystatin 100,000 unit/gram powder 1 appl topical TID 10 Days Qty: 60 3RF albuterol sulfate 90 mcg/actuation HFA aerosol inhaler 2 puff PO Q4-6H PRN (Reason: for wheezing) Qty: 1 3RF Jardiance 25 mg tablet 25 mg PO DAILY Qty: 90 3RF insulin aspart U-100 [Novolog FlexPen U-100 Insulin] 100 unit/mL (3 mL) insulin pen 30 unit subcut TID 90 Days Qty: 81 3RF Rx Instructions: take with meals gabapentin 400 mg capsule 400 mg PO TID Qty: 270 3RF insulin degludec [Tresiba FlexTouch U-100] 100 unit/mL (3 mL) insulin pen 60 unit subcut BEDTIME 90 Days Qty: 54 3RF levothyroxine 75 mcg tablet 75 mcg PO QAM 90 Days Qty: 90 3RF omeprazole 40 mg capsule,delayed release(DR/EC) 40 mg PO BID 90 Days Qty: 180 1RF clopidogrel [Plavix] 75 mg tablet 75 mg PO DAILY Qty: 90 3RF bumetanide 1 mg tablet 1 mg PO .TIW Qty: 90 3RF Rx Instructions: Take on Tuesday, Tuesday and Tuesday Entresto 24-26 mg tablet 1 tab PO BID 30 Days Qty: 60 3RF pen needle, diabetic [BD Ultra-Fine Rozina Pen Needle] 32 gauge x 5/32 needle 1 ea subcut QID Qty: 360 3RF atorvastatin 80 mg tablet 80 mg PO DAILY Qty: 90 1RF carvedilol 3.125 mg tablet 3.125 mg PO BID Qty: 180 1RF fentanyl 50 mcg/hr patch 72 hour 1 patch transdermal Q72H 30 Days Qty: 10 0RF docusate sodium [Colace] 100 mg capsule 200 mg PO BEDTIME (DME) blood-glucose meter Kit See Rx Instructions .Route Qty: 1 0RF Rx Instructions: As directed (DME) ONE TOUCH ULTRA GLUCOMETER DEVICE See Rx Instructions .Route .MEDSUPPLY Qty: 1 0RF Rx Instructions: Test blood sugar 3 times a day as instructed; patient is on Insulin (DME) GRAB BARS See Rx Instructions .Route .MEDSUPPLY Qty: 2 0RF Rx Instructions: As directed (DME) SHOWER BENCH See Rx Instructions .Route .MEDSUPPLY Qty: 1 0RF Rx Instructions: As directed triamcinolone acetonide 0.5 % cream 1 appl topical BID PRN (Reason: rash/itching) 15 Days Qty: 15 2RF (DME) OneTouch Ultra Test Strip See Rx Instructions .ROUTE .COMPLEX Qty: 120 11RF Dose Instruction: DIRECTED - TEST BLOOD SUGAR 3 TIMES A DAY. Rx Instructions: DIRECTED - TEST BLOOD SUGAR 4 TIMES A DAY. aspirin 81 mg tablet,delayed release (DR/EC) 81 mg PO DAILY brimonidine 0.1 % drops 1 drp ophthalmic (eye) BID latanoprost 0.005 % drops 1 drp ophthalmic (eye) BEDTIME cholecalciferol (vitamin D3) 125 mcg (5,000 unit) capsule 125 mcg PO DAILY sucralfate 1 gram tablet 1 g PO BIDAC Print Language: Marshallese
[2024-06-18 08:17] VITALS: BMI 32.7
--- NOTE | 2024-06-18 08:27 | MHC.EDTECH ---
TIME OF : 08:07 PER RN
--- NOTE | 2024-06-18 08:30 | MHC.EDTECH ---
@[phone] DR [facility]INA OFFICE CALLED TO MAKE THEM AWARE OF THIS , DEBBY ANSWERS AND TAKES THIS MESSAGE.
[2024-06-18 08:44] LABS: Glucose, Whole Blood 71 mg/dL (60-115)
--- NOTE | 2024-06-18 08:46 | PC.NURSE ---
call placed to [facility] - accepted for potential
--- NOTE | 2024-06-18 09:03 | MHC.EDTECH ---
@ [phone] CALL RECEIVED FROM [facility] STATING THEY TOOK A CALL FROM [facility] (UNK CALLER NAME), THAT THEY HAVE A HOLD ON THIS PT.
--- NOTE | 2024-06-18 10:51 | MHC.EDTECH ---
[facility] GIVES [facility] IN [place] [facility] FOR THIS PT @ THIS TIME
--- NOTE | 2024-06-18 11:40 | MHC.EDTECH ---
MIREYA SANTANA AT THIS TIME WITH TRANSPORTER MARKELL AND PCT LETY
--- NOTE | 2024-06-18 14:19 | PC.NURSE ---
[facility] called, no longer accepting patient. to be released to home
== END 2024-06-18 11:42 | disposition expired ==
PROVIDERS: Emergency Provider Emergency Medicine; PCP Internal Medicine
DX: I46.9 Cardiac arrest, cause unspecified (principal); R06.02 Shortness of breath; R00.1 Bradycardia, unspecified
CPT/HCPCS: 31575; 36415; 82947; 99282; 99285; J0171; J0461